=== PATIENT | female | born 1945 | race Caucasian/White ===

== ENCOUNTER 2016-06-24 16:03 | Inpatient (IN) | payer OTHER ==
[~2016-06-24] VITALS: Ht 157.5 cm; Wt 66.8 kg
[2016-06-24] MEDS ORDERED: SODIUM CHLORIDE 0.9% 500ML 500 ML IV STA ×2 (17:14→20:19)
[2016-06-24] MEDS ORDERED: SODIUM CHLORIDE 0.9% 1000ML 1,000 ML IV STA (17:14)
[2016-06-24] MEDS ORDERED: ONDA4TAB46 PO (17:17)
[2016-06-24] MEDS ORDERED: ASPI81TA28 PO (17:17)
[2016-06-24] MEDS ORDERED: ATEN50TA8 PO (17:17)
--- NOTE | 2016-06-24 17:24 | EMERGENCY ROOM VISIT NOTE ---
History Report prepared by Mariah: Christine Ortega Under the Supervision of: Dr. Manjula Lara M.D. First contact with patient: 17:03 Chief Complaint: ABDOMINAL PAIN Stated Complaint: DIZZY,SEVERE ABD PAIN,NAUSEA Nursing Triage Summary: Was told she had vertigo on monday and was dizzy and dehydrated. LBM was monday, denies seeing blood in stool. Pt pale. States she felt fine this AM but then became hot and sweaty and then cold. Abd pain. Denies nausea. History of Present Illness The patient is a 70 year old female who presents to the Emergency Room with complaints of persistent abdominal pain that started this afternoon. She rates her pain a 7/10 in severity. The patient reports recently recovering from a cold. She felt fine 6 days ago. 5 days ago, the patient became nauseous and dizzy. She was evaluated at the urgent care where she was told she was dehydrated and her blood pressure was low. The patient states that she felt fine this morning but then began experience abdominal pain and diaphoresis this afternoon. Associated symptoms include dysuria and dark colored urine. Her last bowel movement was 4 days ago. The patient denies hematochezia. Source of History: patient, family Onset: This afternoon Position: abdomen Symptom Intensity: 710 Timing: other (Persistent ) Modifying Factors (Relieving): other (None) Associated Symptoms: + urinary symptoms, No hematochezia Review of Systems See HPI for pertinent positives & negatives. A total of 10 systems reviewed and were otherwise negative. Past Medical & Surgical Medical Problems: (1) Colitis (2) Left leg DVT Surgical Problems: (1) H/O: hysterectomy Family History FH: hypertension Heart disease Social History Smoking Status: Former Smoker Alcohol Use: none Drug Use: none Marital Status: Housing Status: lives with significant other Occupation Status: unemployed Current/Historical Medications Scheduled Amoxicillin & Pot Clavulanate (Augmentin 875-125 mg), 875 MG PO BID Aspirin (Aspirin Ec), 81 MG PO DAILY Atenolol (Tenormin), 25 MG PO BID Scheduled PRN Ondansetron Hcl (Zofran), 4 MG PO TID PRN for Nausea Allergies Coded Allergies: No Known Allergies (Unverified , 06/24/16) Physical Exam Vital Signs Date Time Temp Pulse Resp B/P Pulse Ox O2 Delivery O2 Flow Rate FiO2 06/24/16 23:09 61 20 95/52 93 Room Air 06/24/16 21:23 65 20 128/75 96 Room Air 06/24/16 19:34 86 20 96/59 98 Room Air 06/24/16 18:37 56 20 120/59 92 Room Air 06/24/16 17:52 47 06/24/16 17:25 51 18 94/57 95 Room Air 06/24/16 16:14 36.6 52 18 108/62 97 Room Air Physical Exam Vital signs reviewed. General: ill-appearing female, in no significant distress. HEENT: No scleral icterus, PERRLA, neck supple. Atraumatic. Cardiovascular: Regular rate and rhythm, no extra sounds. Pulmonary: Clear to auscultation bilaterally, normal work of breathing. Abdomen: Mild suprapubic abdominal tenderness. Soft, nondistended, positive bowel sounds. Musculoskeletal: Atraumatic, no peripheral edema. Neurologic: Patient awake alert and oriented x 3, full strength in all 4 extremities. Cranial nerves 2 through 12 grossly intact. Skin: Warm, dry, no rash Medical Decision & Procedures ER Provider Diagnostic Interpretation: CT results as stated below per interpretation by me and the radiologist: CT OF THE ABDOMEN AND PELVIS WITH CONTRAST CLINICAL HISTORY: Severe lower abdominal pain and nausea. Diverticulitis. COMPARISON STUDY: None TECHNIQUE: Following IV administration of 119 mL of Optiray-320, axial images of the abdomen and pelvis were obtained from the lung bases to the proximal femurs. Images were reviewed in the axial, sagittal, and coronal planes. IV contrast was administered without complication. CT DOSE: 341.45 mGy.cm FINDINGS: There is a moderate sized hiatal hernia with partially intrathoracic stomach. The liver, spleen and right kidney are unremarkable. There is marked left renal atrophy, likely on the basis of renal artery stenosis. There are small gallstones within the gallbladder. There is trace perisplenic fluid. There is no biliary or pancreatic ductal dilatation. No pneumatosis, free air or portal venous gas is present. There is a moderate amount of stool within the colon and rectum. This extensive sigmoid diverticulosis without evidence for acute diverticulitis. Note is made of mild wall thickening with pericolonic infiltration of the splenic flexure of the colon. The appendix is normal. There is extensive atherosclerotic plaque within the abdominal aorta and the major branch vessels. There is mild narrowing at the origin the celiac axis and moderate narrowing at the origin of the superior mesenteric artery. The inferior mesenteric artery is patent. There is severe stenosis of the left renal artery with possible occlusion of the proximal left renal artery. No suspicious skeletal lesions are identified. IMPRESSION: 1. Mild wall thickening with pericolonic infiltration of the splenic flexure of the colon. This represents a nonspecific colitis and the distribution raises the possibility of ischemic colitis. However, an infectious colitis could appear similar. Moderate amount of stool within the colon. 2. Extensive sigmoid diverticulosis without evidence for acute diverticulitis. 3. Marked left renal atrophy likely on the basis of renal artery stenosis. Moderate plaque of the abdominal aorta and major branch vessels with moderate narrowing of the proximal SMA. 4. Cholelithiasis. 5. Moderate sized hiatal hernia with intrathoracic stomach. 6. Trace perisplenic ascites. Electronically signed by: Horace Richter M.D. 06/24/2016 8:07 PM Dictated Date/Time: 06/24/2016 7:52 PM Laboratory Results Test 06/24/16 16:10 06/24/16 18:28 06/24/16 20:43 Urine Color ORANGE Urine Appearance CLOUDY (CLEAR) Urine pH 5.0 (4.5-7.5) Urine Specific [place] 1.030 (1.000-1.030) Urine Protein TRACE (NEG) Urine Glucose (UA) NEG (NEG) Urine Ketones TRACE (NEG) Urine Occult Blood NEG (NEG) Urine Nitrite POS (NEG) Urine Bilirubin NEG (NEG) Urine Urobilinogen NEG (NEG) Urine Leukocyte Esterase SMALL (NEG) Urine WBC (Auto) 5-10 /hpf (0-5) Urine RBC (Auto) 5-10 /hpf (0-4) Urine Hyaline Casts (Auto) 5-10 /lpf (0-5) Urine Epithelial Cells (Auto) >30 /lpf (0-5) Urine Bacteria (Auto) NEG (NEG) Urine Renal Epithelial Cells 0-5 /lpf (0-5) Urine Crystals CALCIUM OXALATE (NONE Total Bilirubin 0.5 mg/dl (0.2-1) Direct Bilirubin < 0.1 mg/dl (0-0.2) Aspartate Amino Transf (AST/SGOT) 18 U/L (15-37) Alanine Aminotransferase (ALT/SGPT) 19 U/L (12-78) Alkaline Phosphatase 67 U/L (45-117) Total Protein 7.2 gm/dl (6.4-8.2) Albumin 3.5 gm/dl (3.4-5.0) Lipase 106 U/L (73-393) Bedside Lactic Acid Venous 3.57 mmol/L (0.90-1.70) Laboratory results per my review. Medications Administered Medications (Trade) Dose Ordered Sig/Susana Route Start Time Stop Time Status Last Admin Dose Admin Sodium Chloride 500 ml @ 999 mls/hr Q31M STAT IV 06/24/16 17:14 06/24/16 17:44 DC 06/24/16 18:04 999 MLS/HR Sodium Chloride 1,000 ml @ 125 mls/hr Q8H STAT IV 06/24/16 17:14 06/25/16 01:13 DC 06/24/16 18:36 125 MLS/HR Sodium Chloride (Nss 500ml) 500 ml @ 999 mls/hr Q31M STAT IV 06/24/16 20:19 06/24/16 20:49 DC 06/24/16 20:19 999 MLS/HR Piperacillin Sod/ Tazobactam Sod (Zosyn Iv) 4.5 gm NOW STAT IV 06/24/16 20:51 06/24/16 20:52 DC 06/24/16 21:21 4.5 GM Fentanyl Citrate (Fentanyl Inj) 50 mcg NOW STAT IV 06/24/16 21:07 06/24/16 21:08 DC 06/24/16 21:21 50 MCG Ondansetron HCl (Zofran Inj) 4 mg Q6H PRN IV 06/24/16 22:00 06/26/16 17:26 DC 06/25/16 22:58 4 MG Morphine Sulfate (MoRPHine SULFATE INJ) 4 mg Q2H PRN IV 06/24/16 22:00 06/26/16 17:26 DC 06/24/16 23:08 4 MG ED Course 1710: Past medical records reviewed. The patient was evaluated in room C8. A complete history and physical examination was performed. 1714: Ordered Sodium Chloride 1,000 ml @ 125 mls/hr IV, Sodium Chloride 500 ml @ 999 mls/hr IV. 2019: Ordered Sodium Chloride 500 ml @ 999 mls/hr IV. 0: The patient's lactate is 3.5 2050: Ordered Zosyn IV 4.5 gm IV. 2106: Ordered Fentanyl Injection 50 mcg IV. 2054: I discussed the patient's case with Dr. Arnold (Surgery). He is aware of the patient's condition and is awaiting mesenteric Doppler results. 2057: I discussed the patient's case with Dr. Rojas ([facility] [place]). He will evaluate the patient for further management and care. Medical Decision DDx: UTI, diverticulitis, colitis, ischemic bowel, appendicitis, cholecystitis, kidney stone This pt was evaluated and appeared to be in no distress. IV access was obtained and lab work was drawn. PT was placed on the last repairer helper. Pt was hydrated with NSS, given IV fentanyl for pain. Lab work reveals a leukocytosis , elevated lactate. UA is not overwhelming for infection. CT abd pelvis is concerning for ischemic colitis. Pt was medicated with IV zosyn and d/w general surgery Dr Arnold. Dr Bull of the hospitalist service will evaluate the pt for admission and gen surgery to consult. Pt was made aware of the plan and agrees. Consults Time Called: 2050 Consulting Physician: Dr. Arnold (Surgery) Returned Call: 2054 I discussed the patient's case with Dr. Arnold (Surgery). He is aware of the patient's condition and is awaiting mesenteric Doppler results Additional Consults: Time Called: 2054 Consulted Physician: Dr. Rojas ([facility] [place]) Returned Call: 2057 Additional Comments: I discussed the patient's case with Dr. Rojas ([facility] [place]). He will evaluate the patient for further management and care. Impression Primary Impression: Ischemic colitis Scribe Attestation The scribe's documentation has been prepared under my direction and personally reviewed by me in its entirety. I confirm that the note above accurately reflects all work, treatment, procedures, and medical decision making performed by me. Departure Information Dispostion Being Evaluated By Hospitalist Prescriptions Amoxicillin & Pot Clavulanate (Augmentin 875-125 mg) 1 Tab Tab 875 MG PO BID, #14 TAB Prov: Shon Bertrand M.D. 06/26/16 Referrals Mauri Diallo M.D. (PCP) Patient Instructions My [facility]
[2016-06-24] MEDS ORDERED: OPTIRAY 320 IV PRN (17:30)
[2016-06-24 17:57] LABS: URINE APPEARANCE CLOUDY (CLEAR); URINE COLOR ORANGE; URINE EPITHELIAL CELL AUTO >30 /lpf (0-5); URINE NITRITE POS (NEG); UROBILINOGEN NEG (NEG); ZZUR CULT IF INDIC CLEAN CATCH NO
[2016-06-24 18:20] LABS: MANUAL MICROSCOPIC REQUIRED? NO; REVIEW REQ? YES; URINE BILIRUBIN NEG (NEG)
[2016-06-24 19:05] LABS: ALT/SGPT 19 U/L (12-78); AST/SGOT 18 U/L (15-37); BLOOD UREA NITROGEN 17 mg/dl (7-18); BUN/CREATININE RATIO 10.7 (10-20); CALCIUM 8.7 mg/dl (8.5-10.1); CARBON DIOXIDE 26 mmol/L (21-32); CHLORIDE 102 mmol/L (98-107); GLUCOSE 149 mg/dl (70-99); MAGNESIUM 2.7 mg/dl (1.8-2.4); POTASSIUM 4.3 mmol/L (3.5-5.1); SODIUM 138 mmol/L (136-145)
[2016-06-24 19:07] LABS: BASO % 0.1 %; BASO ABS # 0.02 K/uL (0-0.2); COMPLETE YES; EOS % 0.1 %; HEMATOCRIT 38.5 % (37-47); IG% 0.2 %; LYMPH % 8.2 %; LYMPH ABS # 1.39 K/uL (1.2-3.4); MEAN CELL VOLUME 92.1 fL (80-100); MEAN CORPUSCULAR HEMOGLOBIN 30.4 pg (25-34); MEAN PLATELET VOLUME 12.3 fL (7.4-10.4); MONO % 7.7 %; NEUT % 83.7 %; PLATELET COUNT 215 K/uL (130-400); RED BLOOD COUNT 4.18 M/uL (4.2-5.4); WHITE BLOOD COUNT 16.92 K/uL (4.8-10.8)
[2016-06-24 19:08] LABS: ALKALINE PHOSPHATASE 67 U/L (45-117)
--- NOTE | 2016-06-24 20:08 | DIAGNOSTIC IMAGING REPORT ---
CT OF THE ABDOMEN AND PELVIS WITH CONTRAST CLINICAL HISTORY: Severe lower abdominal pain and nausea. Diverticulitis. COMPARISON STUDY: None TECHNIQUE: Following IV administration of 119 mL of Optiray-320, axial images of the abdomen and pelvis were obtained from the lung bases to the proximal femurs. Images were reviewed in the axial, sagittal, and coronal planes. IV contrast was administered without complication. CT DOSE: 341.45 mGy.cm FINDINGS: There is a moderate sized hiatal hernia with partially intrathoracic stomach. The liver, spleen and right kidney are unremarkable. There is marked left renal atrophy, likely on the basis of renal artery stenosis. There are small gallstones within the gallbladder. There is trace perisplenic fluid. There is no biliary or pancreatic ductal dilatation. No pneumatosis, free air or portal venous gas is present. There is a moderate amount of stool within the colon and rectum. This extensive sigmoid diverticulosis without evidence for acute diverticulitis. Note is made of mild wall thickening with pericolonic infiltration of the splenic flexure of the colon. The appendix is normal. There is extensive atherosclerotic plaque within the abdominal aorta and the major branch vessels. There is mild narrowing at the origin the celiac axis and moderate narrowing at the origin of the superior mesenteric artery. The inferior mesenteric artery is patent. There is severe stenosis of the left renal artery with possible occlusion of the proximal left renal artery. No suspicious skeletal lesions are identified. IMPRESSION: 1. Mild wall thickening with pericolonic infiltration of the splenic flexure of the colon. This represents a nonspecific colitis and the distribution raises the possibility of ischemic colitis. However, an infectious colitis could appear similar. Moderate amount of stool within the colon. 2. Extensive sigmoid diverticulosis without evidence for acute diverticulitis. 3. Marked left renal atrophy likely on the basis of renal artery stenosis. Moderate plaque of the abdominal aorta and major branch vessels with moderate narrowing of the proximal SMA. 4. Cholelithiasis. 5. Moderate sized hiatal hernia with intrathoracic stomach. 6. Trace perisplenic ascites. Electronically signed by: Horace Richter M.D. 06/24/2016 8:07 PM Dictated Date/Time: 06/24/2016 7:52 PM
[2016-06-24] MEDS ORDERED: PIPERACILLIN/TAZOBACTAM 4.5 GM/100ML D5W IV STA (20:51)
[2016-06-24] MEDS ORDERED: FENTANYL CITRATE INJ 50 MCG/1 ML 2 ML VIAL IV STA (21:07)
[2016-06-24] MEDS ORDERED: LORAZEPAM 2 MG/ML 1 ML VIAL IV PRN (22:00)
[2016-06-24] MEDS ORDERED: BISACODYL 10 MG SUPP PR PRN (22:00)
[2016-06-24] MEDS ORDERED: ONDANSETRON INJ 2 MG/ML 2 ML VIAL IV PRN (22:00)
[2016-06-24] MEDS ORDERED: ACETAMINOPHEN IV 100 ML IV PRN (22:00)
[2016-06-24] MEDS ORDERED: PROMETHAZINE HCL INJ 12.5 MG in SODIUM CHLORIDE 0.9% 50ML 50 ML IV PRN (22:00)
[2016-06-24] MEDS ORDERED: ZOLPIDEM TARTRATE 5 MG TAB PO PRN (22:00)
[2016-06-24] MEDS ORDERED: MoRPHine SULFATE 2 MG/ML CARP IV PRN (22:00)
[2016-06-24] MEDS ORDERED: MoRPHine SULFATE 4 MG/ML 1 ML CARP\\VIAL IV PRN (22:00)
[2016-06-24] MEDS ORDERED: ACETAMINOPHEN 325 MG TAB PO PRN (22:00)
[2016-06-24] MEDS ORDERED: DiphenhydrAMINE HCL 50 MG/ML VIAL IV PRN (22:00)
[2016-06-24] MEDS ORDERED: PIPERACILL/TAZOBAC CONSULT ACTIVE PRN (22:30)
--- NOTE | 2016-06-24 22:57 | DIAGNOSTIC IMAGING REPORT ---
DOPPLER ULTRASOUND OF THE MAJOR MESENTERIC VESSELS CLINICAL HISTORY: Ischemic colitis. COMPARISON STUDY: CT of the abdomen and pelvis June 24, 2016. TECHNIQUE: Color and duplex Doppler sonography of the abdominal aorta and major mesenteric vessels was attempted. FINDINGS: The abdominal aorta and major mesenteric vessels were obscured by overlying bowel gas. This exam was nondiagnostic. IMPRESSION: Nondiagnostic evaluation of the abdominal aorta and mesenteric vessels given overlying bowel gas. These vessels were obscured on this study. Electronically signed by: Horace Richter M.D. 06/24/2016 10:55 PM Dictated Date/Time: 06/24/2016 10:52 PM
[2016-06-25] VITALS (8 sets, daily range): BP systolic 86–134; BP diastolic 44–90; PULSE 63–71; TEMP 36.6–39.9; O2SAT 93–94; Ht 157.5 cm; Wt 66.8 kg
[2016-06-25] MEDS ORDERED: NSS + 20MEQ KCL 1000ML 1,000 ML IV SCH (03:00)
--- NOTE | 2016-06-25 03:02 | History and Physical ---
History & Physical Date & Time of Service: Jun 25, 2016 at 02:49 Chief Complaint: Dizzy,Severe Abd Pain,Nausea Primary Care Physician: Mauri Diallo M.D. History of Present Illness Source: patient, family, spouse The patient is a 70-year-old female who presents to the emergency department with abdominal pain and sweats that began in the afternoon prior to arrival. She reports that 5 days ago she became nauseous and dizzy, was seen at an urgent care and was told she was dehydrated and that her blood pressure was low. She has also developed discomfort with urination and dark colored urine. Her last bowel movement was 4 days ago. She has not had any recent travel, and has not had any sick exposures. Past Medical/Surgical History Medical Problems: (1) Left leg DVT Status: Resolved Surgical Problems: (1) H/O: hysterectomy Status: Resolved Family History FH: hypertension Heart disease Social History Smoking Status: Former Smoker Smokeless Tobacco Use: No Alcohol Use: none Drug Use: none Marital Status: Housing status: lives with family Occupational Status: unemployed Allergies Coded Allergies: No Known Allergies (Unverified , 06/24/16) Home Medications Scheduled Aspirin (Aspirin Ec), 81 MG PO DAILY Atenolol (Tenormin), 25 MG PO BID Scheduled PRN Ondansetron Hcl (Zofran), 4 MG PO TID PRN for Nausea Review of Systems The patient denies chest pain, palpitations, shortness of breath, cough, lower extremity swelling, vision change, hearing change, sore throat, fevers, chills, sweats, weight change, urinary frequency or urgency, lightheadedness, dizziness , headache, memory loss, rash, abnormal bruising or bleeding, imbalance, focal weakness, numbness or tingling in arms or legs, arthralgias or myalgias, back or neck pain, night sweats, or allergy symptoms. The review of systems is otherwise negative other than for that already noted above, and at least 10 systems have been reviewed. Physical Exam Vital Signs Date Time Temp Pulse Resp B/P Pulse Ox O2 Delivery O2 Flow Rate FiO2 06/25/16 02:27 66 20 104/60 06/25/16 02:18 63 20 88/51 91 Nasal Cannula 2.0 06/25/16 00:15 64 06/25/16 00:00 64 20 100/70 93 Nasal Cannula 2.0 06/24/16 23:09 61 20 95/52 93 Room Air 06/24/16 21:23 65 20 128/75 96 Room Air 06/24/16 19:34 86 20 96/59 98 Room Air 06/24/16 18:37 56 20 120/59 92 Room Air 06/24/16 17:52 47 06/24/16 17:25 51 18 94/57 95 Room Air 06/24/16 16:14 36.6 52 18 108/62 97 Room Air The patient is awake, well-developed and adequately nourished, alert and oriented 3, normocephalic and atraumatic, lying in bed and is in mild distress secondary to abdominal pain. HEENT--PERRL, EOMI, mucous membranes and oropharynx dry. Neck--supple, no JVD or bruits, thyroid normal, trachea midline, no adenopathy. Heart--normal S1 and S2, no extra beats, no murmurs, rubs or gallops. Lungs--clear bilaterally, no respiratory distress, no accessory muscle use. Abdomen--decreased bowel sounds, soft, left upper quadrant pain, nondistended. Extremities--no cyanosis, clubbing or edema. There are good distal pulses b/l. Dermatologic--normal skin turgor, normal color, warm and dry, no abnormal lymph nodes, no rash. Neurologic--cranial nerves II through XII grossly intact, motor and sensory examination normal. Rheumatologic--normal range of motion, nontender, muscles and joints. Psychiatric--normal affect. Diagnostics Laboratory Results Results Past 24 Hours Test 06/24/16 16:10 06/24/16 18:28 06/24/16 20:43 Range/Units Urine Color ORANGE Urine Appearance CLOUDY CLEAR Urine pH 5.0 4.5-7.5 Urine Specific [place] 1.030 1.000-1.030 Urine Protein TRACE NEG Urine Glucose (UA) NEG NEG Urine Ketones TRACE NEG Urine Occult Blood NEG NEG Urine Nitrite POS NEG Urine Bilirubin NEG NEG Urine Urobilinogen NEG NEG Urine Leukocyte Esterase SMALL NEG Urine WBC (Auto) 5-10 0-5 /hpf Urine RBC (Auto) 5-10 0-4 /hpf Urine Hyaline Casts (Auto) 5-10 0-5 /lpf Urine Epithelial Cells (Auto) >30 0-5 /lpf Urine Bacteria (Auto) NEG NEG Urine Renal Epithelial Cells 0-5 0-5 /lpf Urine Crystals CALCIUM OXALATE NONE PRSENT White Blood Count 16.92 4.8-10.8 K/uL Red Blood Count 4.18 4.2-5.4 M/uL Hemoglobin 12.7 12.0-16.0 g/dL Hematocrit 38.5 37-47 % Mean Corpuscular Volume 92.1 80-100 fL Mean Corpuscular Hemoglobin 30.4 25-34 pg Mean Corpuscular Hemoglobin Concent 33.0 32-36 g/dl Platelet Count 215 130-400 K/uL Mean Platelet Volume 12.3 7.4-10.4 fL Neutrophils (%) (Auto) 83.7 % Lymphocytes (%) (Auto) 8.2 % Monocytes (%) (Auto) 7.7 % Eosinophils (%) (Auto) 0.1 % Basophils (%) (Auto) 0.1 % Neutrophils # (Auto) 14.14 1.4-6.5 K/uL Lymphocytes # (Auto) 1.39 1.2-3.4 K/uL Monocytes # (Auto) 1.31 0.11-0.59 K/uL Eosinophils # (Auto) 0.02 0-0.5 K/uL Basophils # (Auto) 0.02 0-0.2 K/uL RDW Standard Deviation 46.2 36.4-46.3 fL RDW Coefficient of Variation 13.8 11.5-14.5 % Immature Granulocyte % (Auto) 0.2 % Immature Granulocyte # (Auto) 0.04 0.00-0.02 K/uL Sodium Level 138 136-145 mmol/L Potassium Level 4.3 3.5-5.1 mmol/L Chloride Level 102 98-107 mmol/L Carbon Dioxide Level 26 21-32 mmol/L Anion Gap 10.0 3-11 mmol/L Blood Urea Nitrogen 17 7-18 mg/dl Creatinine 1.60 0.60-1.20 mg/dl Est Creatinine Clear Calc Drug Dose 28.5 ml/min Estimated GFR () 36.9 Estimated GFR (Non- 31.9 BUN/Creatinine Ratio 10.7 10-20 Random Glucose 149 70-99 mg/dl Calcium Level 8.7 8.5-10.1 mg/dl Magnesium Level 2.7 1.8-2.4 mg/dl Total Bilirubin 0.5 0.2-1 mg/dl Direct Bilirubin < 0.1 0-0.2 mg/dl Aspartate Amino Transf (AST/SGOT) 18 15-37 U/L Alanine Aminotransferase (ALT/SGPT) 19 12-78 U/L Alkaline Phosphatase 67 45-117 U/L Total Protein 7.2 6.4-8.2 gm/dl Albumin 3.5 3.4-5.0 gm/dl Lipase 106 73-393 U/L Bedside Lactic Acid Venous 3.57 0.90-1.70 mmol/L Diagnostic Radiology Patient Name: TAYLOR CRAWLEY Unit Number: [id number] Dictated: 06/24/161951 Transcribed: 06/24/161951 [place] Printed Date/Time: [~ rep prt dt]/[~ rep prt tm] [~ rep ct labl] - [~ rep ct ivnm] [facility] [place] [address] Dictated: 06/24/161951 Transcribed: 06/24/161951 JA Printed Date/Time: [~ rep prt dt]/[~ rep prt tm] [~ rep ct labl] - [~ rep ct ivnm] CT OF THE ABDOMEN AND PELVIS WITH CONTRAST CLINICAL HISTORY: Severe lower abdominal pain and nausea. Diverticulitis. COMPARISON STUDY: None TECHNIQUE: Following IV administration of 119 mL of Optiray-320, axial images of the abdomen and pelvis were obtained from the lung bases to the proximal femurs. Images were reviewed in the axial, sagittal, and coronal planes. IV contrast was administered without complication. CT DOSE: 341.45 mGy.cm FINDINGS: There is a moderate sized hiatal hernia with partially intrathoracic stomach. The liver, spleen and right kidney are unremarkable. There is marked left renal atrophy, likely on the basis of renal artery stenosis. There are small gallstones within the gallbladder. There is trace perisplenic fluid. There is no biliary or pancreatic ductal dilatation. No pneumatosis, free air or portal venous gas is present. There is a moderate amount of stool within the colon and rectum. This extensive sigmoid diverticulosis without evidence for acute diverticulitis. Note is made of mild wall thickening with pericolonic infiltration of the splenic flexure of the colon. The appendix is normal. There is extensive atherosclerotic plaque within the abdominal aorta and the major branch vessels. There is mild narrowing at the origin the celiac axis and moderate narrowing at the origin of the superior mesenteric artery. The inferior mesenteric artery is patent. There is severe stenosis of the left renal artery with possible occlusion of the proximal left renal artery. No suspicious skeletal lesions are identified. IMPRESSION: 1. Mild wall thickening with pericolonic infiltration of the splenic flexure of the colon. This represents a nonspecific colitis and the distribution raises the possibility of ischemic colitis. However, an infectious colitis could appear similar. Moderate amount of stool within the colon. 2. Extensive sigmoid diverticulosis without evidence for acute diverticulitis. 3. Marked left renal atrophy likely on the basis of renal artery stenosis. Moderate plaque of the abdominal aorta and major branch vessels with moderate narrowing of the proximal SMA. 4. Cholelithiasis. 5. Moderate sized hiatal hernia with intrathoracic stomach. 6. Trace perisplenic ascites. Electronically signed by: Horace Richter M.D. 06/24/2016 8:07 PM Dictated Date/Time: 06/24/2016 7:52 PM The status of this report is Signed. Draft = Not yet reviewed or approved by Radiologist. Signed = Reviewed and approved by Radiologist. <AttendingPhy></AttendingPhy> <FamilyPhy>Mauri Diallo M.D.</FamilyPhy> < PrimaryPhy>Mauri Diallo M.D.</PrimaryPhy> <UnitNumber>[id number]</UnitNumber> <VisitNumber>[id number]</VisitNumber> <PatientName>TAYLOR CRAWLEY</PatientName > <DateOfBirth>1945</DateOfBirth> <Location>[facility]</Location> <ServiceDate> 06/24/16</ServiceDate> <MNE>ESINDI</MNE> <OrderingPhy>Manjula Lara M.D. </OrderingPhy> <OrderingPhyMNE>f rep ord dr moore</OrderingPhyMNE> < DictatingPhyMNE>f rep dict dr moore</DictatingPhyMNE> <CCListMNE>f rep ct francise</ CCListMNE> <AdmittingPhyMNE>f pt admit dr moore</AdmittingPhyMNE> <AttendingPhyMNE >f pt attend dr moore</AttendingPhyMNE> <ConsultingPhyMNE>f pt consult dr moore</ConsultingPhyMNE> <FamilyPhyMNE>f pt fam dr moore</FamilyPhyMNE> <OtherPhyMNE>f pt other dr moore</OtherPhyMNE> < PrimaryPhyMNE>f pt prim care dr moore</PrimaryPhyMNE> <ReferringPhyMNE>f pt referring dr moore</ReferringPhyMNE> Patient Name: TAYLOR CRAWLEY Unit Number: [id number] Dictated: 06/24/162251 Transcribed: 06/24/162251 JA Printed Date/Time: [~ rep prt dt]/[~ rep prt tm] [~ rep ct labl] - [~ rep ct ivnm] [facility] Radiology Department [place] [id number] Dictated: 06/24/162251 Transcribed: 06/24/162251 JA Printed Date/Time: [~ rep prt dt]/[~ rep prt tm] [~ rep ct labl] - [~ rep ct ivnm] [~ rep ct add3]] DOPPLER ULTRASOUND OF THE MAJOR MESENTERIC VESSELS CLINICAL HISTORY: Ischemic colitis. COMPARISON STUDY: CT of the abdomen and pelvis June 24, 2016. TECHNIQUE: Color and duplex Doppler sonography of the abdominal aorta and major mesenteric vessels was attempted. FINDINGS: The abdominal aorta and major mesenteric vessels were obscured by overlying bowel gas. This exam was nondiagnostic. IMPRESSION: Nondiagnostic evaluation of the abdominal aorta and mesenteric vessels given overlying bowel gas. These vessels were obscured on this study. Electronically signed by: Horace Richter M.D. 06/24/2016 10:55 PM Dictated Date/Time: 06/24/2016 10:52 PM The status of this report is Signed. Draft = Not yet reviewed or approved by Radiologist. Signed = Reviewed and approved by Radiologist. <AttendingPhy></AttendingPhy> <FamilyPhy>Mauri Diallo M.D.</FamilyPhy> < PrimaryPhy>Mauri Diallo M.D.</PrimaryPhy> <UnitNumber>[id number]</UnitNumber> <VisitNumber>[id number]</VisitNumber> <PatientName>TAYLOR CRAWLEY</PatientName > <DateOfBirth>1945</DateOfBirth> <Location>[facility]</Location> <ServiceDate> 06/24/16</ServiceDate> <MNE>ESINDI</MNE> <OrderingPhy>Raudel Rojas M.D.< /OrderingPhy> <OrderingPhyMNE>f rep ord dr moore</OrderingPhyMNE> <DictatingPhyMNE >f rep dict dr moore</DictatingPhyMNE> <CCListMNE>f rep ct teresa</CCListMNE> < AdmittingPhyMNE>f pt admit dr moore</AdmittingPhyMNE> <AttendingPhyMNE>f pt attend dr moore</AttendingPhyMNE> <ConsultingPhyMNE>f pt consult dr moore</ConsultingPhyMNE> <FamilyPhyMNE>f pt fam dr moore</FamilyPhyMNE> <OtherPhyMNE>f pt other dr moore</OtherPhyMNE> < PrimaryPhyMNE>f pt prim care dr moore</PrimaryPhyMNE> <ReferringPhyMNE>f pt referring dr moore</ReferringPhyMNE> EKG EKG shows sinus bradycardia at 48 bpm, nonspecific T-wave flattening inferior laterally. Impression Assessment and Plan Splenic flexure Colitis--the patient will be admitted to the medical floor. CT scan initially questioned a possibility of infectious versus ischemic etiology. Mesenteric Dopplers were nonrevealing due to overlying bowel gas. MRA of the abdomen showed a moderate degree of stenosis of the proximal SMA without occlusion, with celiac artery having a mild stenosis near its origin but widely patent, patent inferior mesenteric artery, occluded left renal artery, right renal artery with mild stenosis and normal iliac arteries bilaterally. The patient will be placed on Zosyn 3.375 mg IV every 8 hours, pantoprazole 40 mg IV daily, Zofran 4 mg IV every 6 hours when necessary, morphine sulfate 2-4 mg IV every 2 hours when necessary, and NSS at 100 ML's per hour. Hypertension/renal insufficiency--continue atenolol 25 mg by mouth twice a day. IV fluids as noted above, and follow serial BMP and magnesium levels. Level of Care Med/Surg Advanced Directives Existing Advance Directive: No Existing Living Will: No Existing Power of Pododermatologist: No Resuscitation Status FULL RESUSCITATION VTE Prophylaxis VTE Risk Assessment Done? Y/N: Yes Risk Level: Moderate Given or contraindicated: SCD's Social Service Consult None Apply
[2016-06-25] MEDS: SODIUM CHLORIDE 0.9% 1000ML 1,000 ML IV SCH ×3 (03:55→22:58)
[2016-06-25] MEDS: PIPERACILL/TAZOBAC IV 3.375 GM in DEXTROSE 5% 100ML 100 ML IV SCH ×3 (04:46→19:21)
[2016-06-25 05:14] LABS: HEMATOCRIT 34.5 % (37-47); MEAN CORPUSCULAR HEMOGLOBIN 30.4 pg (25-34); MEAN PLATELET VOLUME 11.4 fL (7.4-10.4); PLATELET COUNT 187 K/uL (130-400); RED BLOOD COUNT 3.75 M/uL (4.2-5.4)
[2016-06-25] MEDS ORDERED: ACETAMINOPHEN 325 MG TAB PO PRN (05:30)
[2016-06-25 05:32] LABS: BUN/CREATININE RATIO 12.3 (10-20); CALCIUM 7.5 mg/dl (8.5-10.1); CREATININE 1.6 mg/dl (0.60-1.20); MAGNESIUM 2.3 mg/dl (1.8-2.4)
[2016-06-25 05:38] LABS: BASO % 0.1 %; BASO ABS # 0.01 K/uL (0-0.2); COMPLETE YES; IG% 0.3 %; LYMPH % 7.5 %; MONO % 8.4 %; NEUT % 83.7 %
--- NOTE | 2016-06-25 07:25 | DIAGNOSTIC IMAGING REPORT ---
ENHANCED MR ANGIOGRAPHY OF THE ABDOMEN CLINICAL HISTORY: Severe abdominal pain. Evaluate for ischemic colitis. COMPARISON STUDY: CT scan dated 06/24/2016 FINDINGS: The patient was scanned. Patient was administered 20 cc of intravenous Magnevist. There is a hiatal hernia present. No hepatic splenic or pancreatic masses are visualized. There is marked left renal atrophy. The patient was unable to fully cooperate with breath-holding, and the examination is limited from a technical standpoint. There is no evidence of hemodynamic significant aortic or iliac stenosis. 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 There is a mild stenosis involving the proximal celiac artery. The inferior mesenteric artery is patent There is sigmoid diverticulosis. There is mild thickening of the splenic flexure. The findings are consistent with a colitis. IMPRESSION: 1. Moderately limited study from a technical standpoint as the patient was not able to cooperate with breath holding 2. Persistent mild bowel wall thickening involving the splenic flexure, consistent with a colitis 3. Sigmoid diverticulosis 4. Marked left renal atrophy 5. 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 Electronically signed by: Morris Harris M.D. 06/25/2016 7:24 AM Dictated Date/Time: 06/25/2016 7:16 AM
[2016-06-25] MEDS: ASPIRIN 81 MG ECTAB PO SCH (08:42)
--- NOTE | 2016-06-25 15:35 | Progress Note ---
Progress Note Date of Service Jun 25, 2016. Progress Note PA Physician Supervision Note: I interviewed and examined the patient. Discussed with El FERNANDO and agree with findings and plan as documented in the note. Any exceptions or clarifications are listed here: None Pt admitted with colitis with concerns for ischemic colitis, MRI notes moderate sma stenosis, celiac stenosis, and lack of visualization of left renal artery, no pain today thought and renal function is preserved MRI is supportive of ischemic colitis vitals stable but bp a bit low at times I reviewed labs and mri scan 06/25 ischemic colitis, continue antibiotics for mucosa injury and supportive care, should be self limiting but may benefit from eventual vascular surgery consult Documented By: Shon Bertrand
[2016-06-26] MEDS: PIPERACILL/TAZOBAC IV 3.375 GM in DEXTROSE 5% 100ML 100 ML IV SCH ×2 (03:43→12:05)
[2016-06-26 06:43] LABS: BASO % 0.1 %; BASO ABS # 0.01 K/uL (0-0.2); COMPLETE YES; EOS % 0.8 %; HEMATOCRIT 30.2 % (37-47); IG% 0.2 %; LYMPH % 20.4 %; LYMPH ABS # 2.59 K/uL (1.2-3.4); MEAN CELL VOLUME 91.2 fL (80-100); MEAN CORPUSCULAR HEMOGLOBIN 29.9 pg (25-34); MEAN CORPUSCULAR HGB CONC 32.8 g/dl (32-36); MEAN PLATELET VOLUME 11.6 fL (7.4-10.4); MONO % 6.4 %; NEUT % 72.1 %; PLATELET COUNT 160 K/uL (130-400); RED BLOOD COUNT 3.31 M/uL (4.2-5.4); WHITE BLOOD COUNT 12.68 K/uL (4.8-10.8)
[2016-06-26 07:05] VITALS: BP 99/60; PULSE 65; TEMP 37; O2SAT 91
[2016-06-26 07:16] LABS: BUN/CREATININE RATIO 13.5 (10-20); CALCIUM 7.4 mg/dl (8.5-10.1); CREATININE 1.4 mg/dl (0.60-1.20); MAGNESIUM 2.3 mg/dl (1.8-2.4); POTASSIUM 3.5 mmol/L (3.5-5.1)
[2016-06-26] MEDS: ASPIRIN 81 MG ECTAB PO SCH (08:00)
[2016-06-26 08:01] VITALS: BP 116/75
[2016-06-26] MEDS: SODIUM CHLORIDE 0.9% 1000ML 1,000 ML IV SCH (08:42)
--- NOTE | 2016-06-26 14:18 | PROGRESS NOTE ---
DATE: 06/25/2016 PROBLEM LIST: Includes: 1. Splenic flexure colitis. 2. Hypertension. 3. Renal insufficiency. 4. Left renal artery occlusion. HISTORY OF PRESENT ILLNESS: The patient is a 70-year-old female who presented to the Emergency Department on 06/24/2016 with abdominal pain and sweats that began earlier in the day prior to arrival. She actually had a prolonged course of about 5 days' where she did not feel well. She presented to an urgent care facility and was told she is dehydrated and had low blood pressure and was sent home. Following that for about 2 days, she did feel relatively well and then unfortunately her symptoms returned. She started feeling worse. She also reports that her urine had become very dark and that she had discomfort with urination and that was very foul odor. She was worked up in the ER, was found to have a splenic flexure colitis. There was some question of possibility of ischemic colitis. An MRI was unremarkable. Though the mesenteric arteries; however, did show occlusion of the left renal artery, moderate stenosis of the right renal artery. The patient was started on antibiotic coverage with Zosyn. She was also given GI prophylaxis with pantoprazole and antiemetic with Zofran as needed. She is also rehydrated with normal sterile saline at 100 mL per hour. When I saw the patient today, she reported that she is feeling better. She states that she had quite significant bowel movement overnight x2 and since then the pain has been improving. She has been feeling better. She states that she is not having any abdominal pain at this time. She has no nausea and she is actually feeling pretty well. She has been n.p.o. since admission. She states that she would like to start eating and that she is very thirsty. She reports that her urine is still very dark in color and there is still foul odor to it, she still is having some dysuria as well. She denies any other concerns or problems at this time. She denies any headache or lightheadedness today. She is not having any dizziness today. She is not having any visual changes. She states that her mouth is dry, but otherwise no problems. She feels that this is from not being able to drink anything. She states that she is not having difficulty with choking. She is not having any difficulty with her speech. Her breathing is good. She has no cough or wheeze. She has no chest congestion or tightness. She has no increased shortness of breath. She denies any chest discomfort or chest pain or palpitation. She has no chest heaviness. GI as discussed earlier, urinary as discussed earlier. She does not have any swelling in her extremities. She has no numbness, tingling or weakness in her extremities. She did have SCDs on and felt that they were very helpful for her. She denies any other concerns or problems at this time. PHYSICAL EXAMINATION: GENERAL: The patient is a 70-year-old female lying in bed. She is alert and oriented x3. She is interactive and cooperative. Mood is good. Affect is good. VITAL SIGNS: Temp 37.1, pulse 70, respirations 18, blood pressure is 134/90, pulse ox 94% on room air. The patient is in no respiratory distress. HEENT: Pupils equal, round and reactive to light and accommodation. Extraocular movements are intact. [place] moist gingival and buccal mucosa. No oropharyngeal erythema or edema. HEAD: Normocephalic. No tenderness to palpation. NECK: Supple. No mass. No adenopathy. No bruit. No JVD noted. Good range of motion. CHEST: Diminished breath sounds bilaterally, but otherwise clear. There are no wheeze, rales or rhonchi appreciated. CARDIOVASCULAR: Regular rate and rhythm. There are no murmurs, no gallops or rubs appreciated. ABDOMEN: Bowel sounds present in all 4 quadrants. ABDOMEN: Soft, nondistended on palpation. There is no tenderness to palpation either with light or deep palpation. There is no guarding or rigidity. There is no organomegaly. EXTREMITIES: The patient has no erythema or edema. There is no tenderness to palpation. SCDs are in place. There is no cyanosis or clubbing noted. Distal pulses are full and equal. NEUROLOGIC: Cranial nerves II through XII are intact. No focal deficit noted. LABORATORY DATA: Shows white count of 16,000, H\T\H of 11.4 and 34.5, platelet count of 187,000. BUN 20, creatinine is 1.6. We do not have any previous renal creatinine levels for comparison. Urine done yesterday in the ER shows 5-10 white blood cells per high power field, 5-10 red blood cells per high power field, calcium oxalate crystals present, small leukocyte esterase. IMPRESSION: 1. Splenic flexure colitis by imaging study, unsure of the etiology, although this appeared to be possibly secondary to ischemia based on MRA results. Also possible to be infectious in nature. The patient is symptomatically better today and pain has resolved completely. Also question of some of the discomfort she is having is from some retained stool in the colon. At this point, would recommend to continue Zosyn, continue Protonix and Zofran as needed. We will discuss with Dr. Bertrand about reinstituting diet starting with clear liquid and advance as patient tolerates. At this point, will continue IV fluids at current level. 2. Possible urinary tract infection. The patient's urine continues to be abnormal. Urinalysis was done in the ER with a reflexive culture and sensitivity, still waiting on that. 3. Renal insufficiency, the patient's creatinine is 1.6. By MRI the patient does have a left renal artery occlusion, question if this is the cause of this. The patient may need to be followed up with urology as an outpatient. We will continue to monitor her renal profile while hospitalized. 4. Hypertension, the patient is stable and she is to continue her atenolol 25 mg by mouth twice a day. 5. Deep venous thrombosis prophylaxis. The patient is receiving SCDs. At this point I recommend to continue her hospitalization with the patient due to n.p.o. status and IV medications. ARPITD
[2016-06-26] MEDS ORDERED: AMOX875T PO (14:26)
--- NOTE | 2016-06-26 14:28 | Discharge Instructions ---
Discharge Instructions Admission Reason for Admission: Colitis Discharge Discharge Diagnosis / Problem: ischemic colitis Discharge Goals Goal(s): Diagnostic testing, Therapeutic intervention Activity Recommendations Activity Limitations: resume your previous activity . Instructions / Follow-Up Instructions / Follow-Up Please contact you Primary care for follow up and to refer for colonoscopy in approximately 6 weeks You may still see occasional small amounts of blood in your stool, if excessive or if pain or fever return for an evaluation Current Hospital Diet Patient's current hospital diet: Regular Diet Discharge Diet Recommended Diet: Regular Diet Pending Studies Studies pending at discharge: no Medical Emergencies . Who to Call and When: Medical Emergencies: If at any time you feel your situation is an emergency, please call 911 immediately. . Non-Emergent Contact Non-Emergency issues call your: Primary Care Provider Call Non-Emergent contact if: temperature is above 101, your pain is unusual for you . . "Provider Documentation" section prepared by Shon Bertrand. VTE Core Measure Inpt VTE Proph given/why not?: SCD's
--- NOTE | 2016-06-26 14:31 | Discharge Summary ---
Discharge Summary Date of Service Jun 26, 2016. Discharge Summary Admission Date: Jun 24, 2016 at 23:13 Discharge Date: Jun 26, 2016 Discharge Disposition: Home Principal Diagnosis: ischemic colitis Procedures: MRI abd:1. Moderately limited study from a technical standpoint as the patient was not able to cooperate with breath holding 2. Persistent mild bowel wall thickening involving the splenic flexure, consistent with a colitis 3. Sigmoid diverticulosis 4. Marked left renal atrophy 5. 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 Medication Reconciliation New Medications: Amoxicillin & Pot Clavulanate (Augmentin 875-125 mg) 1 Tab Tab 875 MG PO BID, #14 TAB Continued Medications: Aspirin (Aspirin Ec) 81 Mg Tab 81 MG PO DAILY Atenolol (Tenormin) 50 Mg Tab 25 MG PO BID, TAB Ondansetron Hcl (Zofran) 4 Mg Tab 4 MG PO TID PRN for Nausea, TAB Discharge Exam Review of Systems: Constitutional: No chills, No fever, No weakness Respiratory: No cough, No shortness of breath, No sputum Cardiovascular: No chest pain, No edema Abdomen: No diarrhea, No nausea, No pain, No vomiting Genitourinary - Female: No dysuria, No hematuria Psychiatric: No anxiety, No depression symptoms Endocrine: No fatigue Physical Exam: General Appearance: WD/WN, no apparent distress Neck: supple, no JVD Respiratory/Chest: chest non-tender, lungs clear, normal breath sounds Cardiovascular: regular rate, rhythm, + systolic murmur Abdomen / GI: normal bowel sounds, non tender, soft Extremities: no pedal edema, normal range of motion Neurologic/Psychiatric: alert, oriented x 3 Hospital Course 70 F with self limited likely ischemic colitis at splenic flexure initial dark urine most likely hemoconcentrated as urine culture is negative has no recurrence of bleeding but may have some, pain has resolved, recommend antibiotic for another week and to follow up for outpt colonoscopy in 6 weeks Mri findings with some suggestion of stenosis may consider also vascular surgery opinion Total Time Spent: Greater than 30 minutes This includes examination of the patient, discharge planning, medication reconciliation, and communication with other providers. Discharge Instructions Please refer to the electronic Patient Visit Report (Discharge Instructions) for additional information.
[2016-06-26 14:59] VITALS: BP 109/68; PULSE 73; TEMP 36.4; O2SAT 93
[2016-06-26 15:48] VITALS: BP 109/68; PULSE 73; TEMP 36.4; O2SAT 93
== END 2016-06-26 17:25 | disposition home or self-care (01) | DRG 395 ==
LOC: ENRESERVTM → ENRESERVDT → C.EDB 16:03 → C.MSW 23:13
PROVIDERS: ADMIT Hospitalist; ATTEND Hospitalist
DX: K55.9 Vascular disorder of intestine, unspecified (principal); I10 Essential (primary) hypertension; N28.9 Disorder of kidney and ureter, unspecified; Z87.891 Personal history of nicotine dependence; I70.1 Atherosclerosis of renal artery; Z86.718 Personal history of other venous thrombosis and embolism; Z79.82 Long term (current) use of aspirin; Z79.899 Other long term (current) drug therapy

== ENCOUNTER 2019-02-04 13:44 | Inpatient (IN) ==
[2019-02-04] MEDS ORDERED: SODIUM CHLORIDE 0.9% 1000ML 1,000 ML IV SCH (14:00)
[2019-02-04] MEDS ORDERED: ONDANSETRON INJ 2 MG/ML 2 ML VIAL ONE (14:04)
[2019-02-04 14:07] LABS: Hematocrit (blood only) 40.7 % (37-47); Hemoglobin 13.1 g/dL (12.0-16.0); Mean Corpuscular Hemoglobin 29.4 pg (25-34); Mean Corpuscular Hgb Conc 32.2 g/dL (32-36); Mean Corpuscular Volume 91.3 fL (80-100); Mean Platelet Volume 11.8 fL (7.4-10.4); Platelet Count 236 K/uL (130-400); RDW Coefficient of Variation 13.3 % (11.5-14.5); RDW Standard Deviation 44.4 fL (36.4-46.3); Red Blood Count 4.46 M/uL (4.2-5.4); White Blood Count 13.55 K/uL (4.8-10.8)
[2019-02-04 14:11] LABS: iSTAT Creatinine 1.2 mg/dl (0.6-1.3); iSTAT Hemoglobin 12.9 g/dl (12.0-16.0); iSTAT Ionized Calcium 1.18 mmol/l (1.12-1.32); iSTAT Potassium 3.6 mEq/L (3.3-5.0)
--- NOTE | 2019-02-04 14:24 | XRay Report ---
XR chest 1V portable CLINICAL HISTORY: 73 years-old Female presenting with weakness. TECHNIQUE: Portable upright AP view of the chest was obtained. COMPARISON: None. FINDINGS: Image quality limited by COLOMBIAN rotation, exaggerated thoracic kyphosis, and positioning of the head and chin so that a portion of the right apex is partially obscured. Allowing for these significant limit ations in image quality which moderately degraded diagnostic sensitivity the exam, the cardiac silhou ette appears enlarged. Pulmonary vascular prominence. Right basilar opacity. No large effusion or pne umothorax. Osteopenia may be present. Large hiatal hernia. IMPRESSION: Limited radiograph due to positioning, which moderately degrades diagnostic sensitivity the exam. 1. Right basilar opacity may represent atelectasis. Infection is considered less likely. 2. Suspected cardiomegaly and mild volume overload. No marita pulmonary edema. 3. Large hiatal hernia. Electronically signed by: Gigi Carver M.D. 02/04/2019 2:22 PM
--- NOTE | 2019-02-04 14:24 | CT Scan Report ---
CT head/brain wo con CLINICAL HISTORY: Acute change in mental status COMPARISON STUDY: No previous studies for comparison. TECHNIQUE: Axial CT of the brain is performed from the vertex to the skull base. IV contrast was not administered for this examination. A dose lowering technique was utilized adhering to the principles of ALARA. CT DOSE: 537.48 mGy.cm FINDINGS: No intra or extra-axial mass lesions are visualized. There is no CT evidence of acute cortical infarc tion. There is no evidence of midline shift. There is no acute hemorrhage. No calvarial fractures ar e visualized. There are patchy white matter hypodensities likely on a small vessel basis. There is no evidence of pathologic ventricular dilatation. There is no evidence of acute sinusitis IMPRESSION: No acute intracranial findings Electronically signed by: Morris Harris M.D. 02/04/2019 2:23 PM
[2019-02-04 14:28] LABS: Alanine Aminotransferase 19 U/L (12-78); Albumin Level 3.9 gm/dl (3.4-5.0); Aspartate Aminotransferase 21 U/L (15-37); BUN Creatinine Ratio 15.8 (10-20); Blood Urea Nitrogen 19 mg/dl (7-18); Calcium 9.4 mg/dl (8.5-10.1); Carbon Dioxide 24 mmol/L (21-32); Chloride 104 mmol/L (98-107); Est GFR (African American) 52.2; Est GFR (Non-African American) 45.1; Glucose 227 mg/dl (70-99); Potassium 3.5 mmol/L (3.5-5.1); Sodium 138 mmol/L (136-145)
[2019-02-04 14:38] LABS: Alkaline Phosphatase 84 U/L (45-117); Bilirubin,Total 0.5 mg/dl (0.2-1); Creatine Kinase 63 U/L (26-192); Total Protein 7.9 gm/dl (6.4-8.2); Troponin I < 0.015 ng/ml (0-0.045)
[2019-02-04 14:43] LABS: Basophils # (auto) 0.06 K/uL (0-0.2); Basophils % (auto) 0.4 %; Eosinophils # (auto) 0.13 K/uL (0-0.5); Immature Granulocytes # (auto) 0.08 K/uL (0.00-0.02); Immature Granulocytes % (auto) 0.6 %; Lymphocytes # (auto) 5.48 K/uL (1.2-3.4); Lymphocytes % (auto) 40.4 %; Monocytes # (auto) 0.83 K/uL (0.11-0.59); Monocytes % (auto) 6.1 %; Neutrophils # (auto) 6.97 K/uL (1.4-6.5); Neutrophils % (auto) 51.5 %
[2019-02-04 15:18] LABS: T4 Free Thyroxine 0.49 ng/dl (0.8-1.6)
--- NOTE | 2019-02-04 15:47 | History & Physical Report ---
Date of Service February 04, 2019 Assessment & Plan (1) Syncope: (2) Nausea & vomiting: (3) Leukocytosis: (4) Asystole: - admit to PCU - Pt with episode of acute onset diaphoresis, n/v, unknown primary cause at this time as pt has very limited past medical hx. Possible with acute viral inf ection, possibly URI vs gastritis with diminished PO intake caused vasovagal with pause on tele with EMS. Follow overnight on tele monitoring. Does not appear to be stroke as she has no aphasia, specific extremity weakness. - Trend cardiac biomarkers, initial set was negative - EKG reviewed as above - Check 2 D echo to eval - WBC elevated at 13.55, follow with am labs - Continue NSS at 125 overnight, pt appears clinically dry - Check CT abd/pelvis now with ongoing vomiting, IV zofran prn. - PT/OT consulted - Allow diet if able to tolerate pending CT scan results (5) Renal insufficiency: - Hx of such, - Cr. and BUN stable, monitor with am PRP (6) Elevated TSH: - Free T4 is decreased at 0.49 - Pt likely with undiagnosed hypothyroidism, will start levothyroxine and will need follow up with PCP after discharge - Will initiate levothyroxine 112 mcg daily starting tomorrow. (7) DVT prophylaxis: -teds, scds Code status: DNR Dispo: From home, lives with , likely to remain in the hospital x 2 days History of Present Illness Primary Care Provider: Mauri Imani This is a 73 yo F with PMHx of HTN, renal insufficiency and L renal artery occlusion who presents with acute onset of nausea/vomiting, cough and a possible syncopal episode. The patient is very somnolent during my exam, therefore and her daughter in law provide the majority of the history. He reports that she has been coughing for 2 to 3 days now, nonproductive, but that she has not eaten or drank much in the last 2 days. He notes that last evening while he was asleep she appeared to be uncomfortable with lots of tossing and turning. The patient woke him this morning as she was up earlier than he was and when he came downstairs into their kitchen she told him she felt severely ill and asked him to call 911. She proceeded to have increased coughing fits with posttussive vomiting, was extremely diaphoretic and very weak. He reports that his son who was also in the home helped to carry her to a chair to sit down. EMS arrived at her home, where NSS 1L was administered via IV, at approximately 13:15 the patient had an episode of asystole which was followed by bradycardic rhythm at 48 bpm. Rates improved with fluid. WBC elevated 13.55, TSH is noted at 63.8 and free T4 =0.49 Allergies Allergy/AdvReac Type Severity Reaction Status Date / Time No Known Allergies Allergy Unverified 02/04/19 14:49 Home Medications Home Medications Medication Instructions Recorded Confirmed Type aspirin [Aspir-81] 81 mg PO DAILY 02/04/19 02/04/19 History multivitamin [Multiple Vitamins] 1 tab PO 4XWK 02/04/19 02/04/19 History Past Med/Surg History Medical History Colitis Family History Other Family history non-contributory Social History Preferred Language: [place] Communication Ability: Effective Health Service Coordinator Required: No Beliefs That Will Affect Care: None marital status: Current Living Situation: Spouse current occupational status: retired Other Information That Helps Us Care for You: No Feels Safe at Home: Yes Safety Concerns: Feels Safe At This Time Smoking Status: Never smoker Hx Alcohol Use: No Hx Substance Use: No Review of Systems Review of Systems: Constitutional: + episode of diffuse sweating earlier today, no chills Eyes: No diplopia, no worsening or blurred vision ENT: normal hearing, no trouble swallowing Respiratory: No cough, sputum, dyspnea at rest or on exertion Cardiovascular: No chest pain, tightness or palpitations Abdomen: As per HPI, + nausea, + vomiting, diarrhea or constipation Musculoskeletal: No joint pain, calf pain, swelling Neurologic: +weakness no numbness/tingling, or balance problems Psychiatric: No anxiety or depression Skin: No rash or itch Physical Exam Physical Exam: General: awake, alert, no apparent distress, + asleep through majority of exam Head: Normocephalic, atraumatic ENT: PERRL, EOMI, no pharyngeal exudate, mucous membranes slightly dry Chest: Clear to auscultation, on room air, no adventitious breath sounds Cardiac: Regular rate and rhythm, no murmur, no JVD, normal peripheral pulses, good capillary refill Abdominal: NABS x 4 quadrants, soft, nontender to palpation, no rebound, guarding or tenderness Extremities: Normal inspection, no peripheral edema or erythema, calfs nontender to palpation Psych: Normal mood and affect Neuro: AAO x 3, no motor deficits, speech is clear, no peripheral sensory deficits Results & Data Vital Signs (Past 12 Hours) Vital Signs Temp Pulse Resp BP Pulse Ox 02/04/19 15:30 74 20 116/68 99 02/04/19 15:04 81 15 146/81 H 90 02/04/19 14:30 69 14 93 02/04/19 14:23 74 14 137/80 94 02/04/19 14:00 74 28 H 96 02/04/19 13:52 74 17 02/04/19 13:50 37.2 C 67 24 154/82 H 94 02/04/19 13:49 74 16 154/82 H Diagnostic Findings XR chest 1V portable CLINICAL HISTORY: 73 years-old Female presenting with weakness. TECHNIQUE: Portable upright AP view of the chest was obtained. COMPARISON: None. FINDINGS: Image quality limited by YOON rotation, exaggerated thoracic kyphosis, and positioning of the head and chin so that a portion of the right apex is partially obscured. Allowing for these significant limitations in image quality which moderately degraded diagnostic sensitivity the exam, the cardiac silhouette appears enlarged. Pulmonary vascular prominence. Right basilar opacity. No large effusion or pneumothorax. Osteopenia may be present. Large hiatal hernia. IMPRESSION: Limited radiograph due to positioning, which moderately degrades diagnostic sensitivity the exam. 1. Right basilar opacity may represent atelectasis. Infection is considered less likely. 2. Suspected cardiomegaly and mild volume overload. No marita pulmonary edema. 3. Large hiatal hernia. CT head/brain wo con CLINICAL HISTORY: Acute change in mental status COMPARISON STUDY: No previous studies for comparison. TECHNIQUE: Axial CT of the brain is performed from the vertex to the skull base. IV contrast was not administered for this examination. A dose lowering technique was utilized adhering to the principles of ALARA. CT DOSE: 537.48 mGy.cm FINDINGS: No intra or extra-axial mass lesions are visualized. There is no CT evidence of acute cortical infarction. There is no evidence of midline shift. There is no acute hemorrhage. No calvarial fractures are visualized. There are patchy white matter hypodensities likely on a small vessel basis. There is no evidence of pathologic ventricular dilatation. There is no evidence of acute sinusitis IMPRESSION: No acute intracranial findings Code Status & VTE Plan Code Status DNR- discussed with pt and family at bedside Supervising Physician Co-Signing Physician Notes Patient seen and examined, chart reviewed, case discussed with AMIRA Man and I agree with her assessment and plan as documented above. Briefly, patient is a 73yo C female with no prior cardiac history, recent illness with cough, nausea and vomiting. Patient called 911 this AM as she felt quite ill. En route she had 2 episodes of prolonged sinus pause. Patient denies CP, palpitations or SOB but has some episodes of dizziness and pre-syncope. On exam she is resting comfortably, NAD, arousable and answering questions appropriately Skin - intact HEENT - NC/AT, PERRL, dry mucus membranes, neck supple Heart - +S1/S2, regular, no m/r/g Lungs - CTA Abd - +BS, soft, NT/ND Ext - warm, well perfused, no edema Labs and images reviewed. EKG with NSR, no acute ischemic changes. Leukocytosis. Elevated BUN and blood sugar. High TSH/Low T4. Telemetry strip with episode of bradycardia - HR of 31, appears to be junctional as no obvious p wave preceding QRS complex Assessment/Plan: 73yo C female with recent illness, n/v and cough, possible syncopal event and sinus pauses -Admit to PCU, telemetry monitoring. Trend cardiac markers. 2D echo in AM -Cardiology consultation appreciated -Patient may need to be considered for pacemaker placement if symptomatic pauses continue -Elevated blood sugar, ?undiagnosed DM. Check AIC -Abnormal TFTs, ?undiagnosed hypothyroidism - ?if contributing to conduction abnormalities -Remainder of plan as above PG Care Time/CCT Total # of Minutes Spent Total Time Spent with Patient: Total time spent is greater than 50% in coordination of care (as documented) at patient's floor/unit and/or counseling patient: (1) Leukocytosis Leukocytosis type: unspecified Qualified Code(s): D72.829 - Elevated white blood cell count, unspecified (2) Nausea & vomiting Vomiting Intractability: unspecified Vomiting type: unspecified Qualified Code(s): R11.2 - Nausea with vomiting, unspecified
[2019-02-04 15:56] LABS: Appearance Urine Cloudy (Clear); Bilirubin Urine Negative (Negative); Blood Urine Negative (Negative); Color Urine Yellow; Epithelial Cell Urine Auto >30 /lpf (0-5); Glucose Urine UA 2+ (Negative); Ketones Urine Negative (Negative); Leukocyte Esterase Urine 1+ (Negative); Nitrite Urine Negative (Negative); Protein Urine Negative (Negative); Specific Gravity Urine 1.015 (1.000-1.030); Urobilinogen Urine Negative (Negative)
[2019-02-04 16:04] LABS: Bacteria Urine Automated 2+ (Negative); RBC Urine Automated 0-4 /hpf (0-4)
[2019-02-04] MEDS ORDERED: METOCLOPRAMIDE HCL INJ 5 MG/ML 2 ML VIAL IV STA (16:25)
[2019-02-04] MEDS ORDERED: IOVERSOL 100ml IV PRN (16:50)
--- NOTE | 2019-02-04 17:41 | CT Scan Report ---
CT SCAN OF THE ABDOMEN AND PELVIS WITH IV CONTRAST CLINICAL HISTORY: Vomiting. COMPARISON STUDY: Abdominal CT dated 06/24/2016. TECHNIQUE: Following the IV administration of 93 cc of Optiray 320, CT scan of the abdomen and pelvi s is performed from the lung bases to the proximal femora. Images are reviewed in the axial, sagittal , and coronal planes. IV contrast was administered without complication. A dose lowering technique wa s utilized adhering to the principles of ALARA. The examination is degraded by streak artifact from t he arms which could not be elevated above the abdomen. CT DOSE: 571.15 mGy.cm FINDINGS: Lung bases: The heart is normal in size and without pericardial effusion. There are coronary artery c alcifications. Scarring/atelectasis is present at both lung bases. There is no airspace consolidation typical for pneumonia or pleural effusion. Liver: The contrast-enhanced liver is normal in size, contour, and attenuation. There is no intrahepa tic biliary ductal dilatation. The hepatic veins and portal veins are patent. Gallbladder: Calcified gallstones are noted. There is no CT evidence of acute cholecystitis. Spleen: Normal in size and attenuation. A 1.8 cm cystic focus in the inferior spleen seen on image #9 9 is of doubtful significance. Pancreas: Moderately atrophic and grossly unremarkable. Adrenal glands: Unremarkable. Kidneys: There is markedly asymmetric cortical atrophy of the left kidney as compared to the right. T he contrast enhanced right kidney is normal in size and without hydronephrosis. The right kidney enha nces homogeneously. A subcentimeter cortical hypodensity in the right kidney likely represents a cyst but is too small for definitive characterization. Abdominal vasculature: The abdominal aorta is normal in course and caliber noting moderate to advance d atherosclerotic calcification. Stomach and bowel: There is a large hiatal hernia, with over half of the stomach located in the thora cic cavity. The duodenum is normal in configuration. There is advanced colonic diverticulosis without CT evidence of acute diverticulitis. Mild colonic fecal retention is observed. No bowel obstruction is seen. The appendix is well-visualized and normal. Peritoneum: There is no intraperitoneal free air or abdominal ascites. Lymphadenopathy: None. Pelvic viscera: The bladder is normal as imaged. The uterus is surgically absent. No adnexal lesion i s seen. Skeletal structures: The skeletal structures are osteopenic. There are moderate compression deformiti es of T10, T11, and T12. These are age indeterminant but new from 06/24/2016. Fracture lucency is sugg ested in T12 and this may be acute to subacute. There is moderate lumbosacral spondylosis. Grade 1 an terolisthesis is noted at L5-S1 secondary to bilateral pars defects. No lytic or blastic lesions are seen. IMPRESSION: 1. There are no acute infectious or inflammatory findings in the abdomen or pelvis. 2. Large hiatal hernia 3. Cholelithiasis. 4. There are moderate compression deformities of T10, T11, and T12. These are age indeterminant but n ew from 06/24/2016. Fracture lucency is questioned involving T12 and this may be acute to subacute. Co rrelate for point tenderness. 5. Advanced colonic diverticulosis without CT evidence of acute diverticulitis. 6. Additional findings as above. Electronically signed by: Golden Osborne M.D. 02/04/2019 5:39 PM
--- NOTE | 2019-02-04 18:06 | Emergency Department Note ---
Entered by Jyoti Brown acting as a scribe for History of Present Illness General Chief complaint: Stroke/CVA Symptoms Time Seen by Provider: 02/04/19 13:46 Source: patient History of Present Illness Onset (ago): day(s) (this morning) Location: abdomen Pain Consistency: + other (episode) Maximum Pain Intensity: 5 Quality: + other (vomiting) Associated symptoms: + denies other symptoms (abdominal pain), + nausea/vomiting and + other (lethargic, unresponsive, asystole, feeling tired); no chest pain The patient is a 73 year old female who presents to the Emergency Room with complaints of an episode of vomiting starting this morning. Per EMS, the patient woke up this morning and was nauseous. They report that she started vomiting and her family was nervous because she started becoming lethargic and unresponsive. They state that upon arrival she seemed to be leaning to the left. They state that they gave her 4 of Zofran. They report that on the way here she had two e pisodes of asystole for which she was unresponsive for. They state that each time they sat her up on the edge of bed and both times she came back to. They note that the patient is only on a baby Aspirin. The patient complains of being tired. The patient denies abdominal pain and chest pain. Home Medications Home Medications Medication Instructions Recorded Confirmed Type aspirin [Aspir-81] 81 mg PO DAILY 02/04/19 02/04/19 History multivitamin [Multiple Vitamins] 1 tab PO [id number] 02/04/19 02/04/19 History Allergies Allergy/AdvReac Type Severity Reaction Status Date / Time No Known Allergies Allergy Unverified 02/04/19 14:49 Past Med/Surg History Medical History Colitis Family History Other Family history non-contributory Social History marital status: Current Living Situation: Spouse current occupational status: retired Feels Safe at Home: Yes Smoking Status: Never smoker Review of Systems See HPI for pertinent positives & negatives. and A total of 10 systems reviewed and were otherwise negative Physical Exam Vital Signs Vital Signs - 24 hr 02/04/19 13:49 02/04/19 13:50 02/04/19 13:52 Temperature 37.2 C Temperature Source Oral Sepsis Recent Fever Within 48 Hours No Sepsis Action Taken by Nursing No Action Required Pulse Rate 74 67 74 Pulse Rate from SpO2 Sensor Pulse Rhythm Regular Pulse Strength Normal Respiratory Rate 16 24 17 Respiratory Effort / Characteristics Non-Labored Spontaneous Respiratory Depth Normal Respiratory Pattern Regular Blood Pressure 154/82 H 154/82 H Blood Pressure Mean 106 106 Blood Pressure Position Lying Pulse Oximetry 94 Oxygen Delivery Method Room Air Oxygen Flow Rate 2 02/04/19 14:00 02/04/19 14:23 02/04/19 14:30 Temperature Temperature Source Sepsis Recent Fever Within 48 Hours Sepsis Action Taken by Nursing Pulse Rate 74 74 69 Pulse Rate from SpO2 Sensor 75 73 68 Pulse Rhythm Pulse Strength Respiratory Rate 28 H 14 14 Respiratory Effort / Characteristics Respiratory Depth Respiratory Pattern Blood Pressure 137/80 Blood Pressure Mean 99 Blood Pressure Position Pulse Oximetry 96 94 93 Oxygen Delivery Method Oxygen Flow Rate 02/04/19 15:04 02/04/19 15:30 02/04/19 16:00 Temperature Temperature Source Sepsis Recent Fever Within 48 Hours Sepsis Action Taken by Nursing Pulse Rate 81 74 77 Pulse Rate from SpO2 Sensor 81 73 77 Pulse Rhythm Pulse Strength Respiratory Rate 15 20 16 Respiratory Effort / Characteristics Respiratory Depth Respiratory Pattern Blood Pressure 146/81 H 116/68 144/80 H Blood Pressure Mean 102 84 101 Blood Pressure Position Pulse Oximetry 90 99 97 Oxygen Delivery Method Oxygen Flow Rate GENERAL: Awake, alert, well-appearing, in no acute distress HENT: Normocephalic, atraumatic. Oropharynx unremarkable. EYES: Normal conjunctiva. Sclera non-icteric. NECK: Supple. No nuchal rigidity. FROM. No JVD. RESPIRATORY: Clear to auscultation. CARDIAC: Regular rate, normal rhythm. Extremities warm and well perfused. Pulses equal. ABDOMEN: Soft, non-distended. No tenderness to palpation. No rebound or guar ding. No masses. RECTAL: Deferred. MUSCULOSKELETAL: Chest examination reveals no tenderness. The back is symmetrical on inspection without obvious abnormality. There is no CVA tenderness to palpation. No joint edema. LOWER EXTREMITIES: Calves are equal size bilaterally and non-tender. No edema. No discoloration. NEURO: Normal sensorium. No sensory or motor deficits noted. SKIN: No rash or jaundice noted. Course 1347: Past medical records reviewed. The patient was evaluated in room B1. A complete history and physical exam was performed. 1423: I reevaluated the patient and updated the family at bedside. The patient was resting comfortably. 1454: I reevaluated the patient and updated her and her family on her test results. I discussed the treatment plan with them. They verbally agree and understand. 1502: I discussed the patient's case with Dr. Yordy BAILEY Hospitalist. She will evaluate the patient for further management. Consultations Consultation #1: I discussed the patient's case with Dr. Yordy BAILEY Hospitalist. She will evaluate the patient for further management. Time: 15:02 Administered Medications Ioversol (Optiray 320 100ml) 93 ml IV ONCE PRN PRN Reason: Interaction Checking Stop: 02/08/19 16:49 Last Admin: 02/04/19 16:51 Dose: 93 ml Documented by: [id number] Discontinued Medications Sodium Chloride (Nss 1000ml) 1,000 mls @ 999 mls/hr IV .Q1H1M AURELIA Stop: 02/04/19 15:00 Last Infusion: 02/04/19 15:20 Dose: 0 mls/hr Documented by: [id number] Admin: 02/04/19 14:20 Dose: 999 mls/hr Documented by: [id number] Metoclopramide HCl (Reglan) 10 mg IV NOW STA Stop: 02/04/19 16:26 Last Admin: 02/04/19 16:31 Dose: 10 mg Documented by: [id number] Ondansetron HCl (Zofran) Confirm Administered Dose 4 mg .ROUTE .K-MED ONE Stop: 02/04/19 14:05 Last Admin: 02/04/19 14:20 Dose: 4 mg Documented by: [id number] Medical Decision Making Differential Diagnosis Differential diagnosis: Etiologies such as gastroenteritis, food borne illness, infections, appendicitis, diverticulitis, inflammatory bowel disease, obstruction, GI bleed, biliary pathology, cardiac process, intracranial process, as well as others were entertained. Medical Records Attestation: I reviewed the patient's medical records. Home Medications Current Medication List: was personally reviewed by me Laboratory Data Attestation: I reviewed the patient's lab results. Result diagrams: 02/04/19 13:24 02/04/19 13:24 Lab Results 02/04/19 02/04/19 02/04/19 Range/Units 13:24 13:24 13:56 WBC 13.55 H (4.8-10.8) K/uL RBC 4.46 (4.2-5.4) M/uL Hgb 13.1 (12.0-16.0) g/dL POC Hgb 12.9 (12.0-16.0) g/dl Hct 40.7 (37-47) % POC Hct 38 (37-47) % MCV 91.3 (80-100) fL MCH 29.4 (25-34) pg MCHC 32.2 (32-36) g/dL RDW Std Deviation 44.4 (36.4-46.3) fL RDW Coeff of Pancho 13.3 (11.5-14.5) % Plt Count 236 (130-400) K/uL MPV 11.8 H (7.4-10.4) fL Immature Gran % (Auto) 0.6 % Neut % (Auto) 51.5 % Lymph % (Auto) 40.4 % [place] % (Auto) 6.1 % Eos % (Auto) 1.0 % Baso % (Auto) 0.4 % Immature Gran # (Auto) 0.08 H (0.00-0.02) K/uL Neut # (Auto) 6.97 H (1.4-6.5) K/uL Lymph # (Auto) 5.48 H (1.2-3.4) K/uL [place] # (Auto) 0.83 H (0.11-0.59) K/uL Eos # (Auto) 0.13 (0-0.5) K/uL Baso # (Auto) 0.06 (0-0.2) K/uL POC Sodium 140 (135-144) mEq/L Sodium 138 (136-145) mmol/L POC Potassium 3.6 (3.3-5.0) mEq/L Potassium 3.5 (3.5-5.1) mmol/L POC Chloride 103 (101-112) mEq/L Chloride 104 (98-107) mmol/L Carbon Dioxide 24 (21-32) mmol/L POC Total CO2 25 (24-31) mEq/l Anion Gap 10.0 (3-11) POC Anion Gap 17.0 (16-25) mmol/L POC BUN 19 H (7-18) mg/dl BUN 19 H (7-18) mg/dl Creatinine 1.18 (0.6-1.2) mg/dl POC Creatinine 1.2 (0.6-1.3) mg/dl Est Cr Clr Drug Dosing Not Reportable Est GFR ( Amer) 52.2 Est GFR (Non-Af Amer) 45.1 BUN/Creatinine Ratio 15.8 (10-20) Glucose 227 H (70-99) mg/dl POC Glucose (other) 225 H (70-99) mg/dl Calcium 9.4 (8.5-10.1) mg/dl POC Ioniz Calcium Comfort 1.18 (1.12-1.32) mmol/l Total Bilirubin 0.5 (0.2-1) mg/dl AST 21 (15-37) U/L ALT 19 (12-78) U/L Alkaline Phosphatase 84 (45-117) U/L Total Creatine Kinase 63 (26-192) U/L Troponin I < 0.015 (0-0.045) ng/ml Total Protein 7.9 (6.4-8.2) gm/dl Albumin 3.9 (3.4-5.0) gm/dl Globulin 4.0 (2.5-4.0) gm/dl Albumin/Globulin Ratio 1.0 (0.9-2) TSH 63.800 H (0.300-4.500) uIu/ml Free T4 0.49 L (0.8-1.6) ng/dl Urine Color Urine Appearance (Clear) Urine pH (4.5-7.5) Ur Specific [place] (1.000-1.030) Urine Protein (Negative) Urine Glucose (UA) (Negative) Urine Ketones (Negative) Urine Blood (Negative) Urine Nitrite (Negative) Urine Bilirubin (Negative) Urine Urobilinogen (Negative) Ur Leukocyte Esterase (Negative) Urine WBC (Auto) (0-5) /hpf Urine RBC (Auto) (0-4) /hpf U Hyaline Cast (Auto) (0-5) /lpf U Epithel Cells (Auto) (0-5) /lpf Urine Bacteria (Auto) (Negative) Urine Yeast 02/04/19 Range/Units 14:50 WBC (4.8-10.8) K/uL RBC (4.2-5.4) M/uL Hgb (12.0-16.0) g/dL POC Hgb (12.0-16.0) g/dl Hct (37-47) % POC Hct (37-47) % MCV (80-100) fL MCH (25-34) pg MCHC (32-36) g/dL RDW Std Deviation (36.4-46.3) fL RDW Coeff of Pancho (11.5-14.5) % Plt Count (130-400) K/uL MPV (7.4-10.4) fL Immature Gran % (Auto) % Neut % (Auto) % Lymph % (Auto) % [place] % (Auto) % Eos % (Auto) % Baso % (Auto) % Immature Gran # (Auto) (0.00-0.02) K/uL Neut # (Auto) (1.4-6.5) K/uL Lymph # (Auto) (1.2-3.4) K/uL [place] # (Auto) (0.11-0.59) K/uL Eos # (Auto) (0-0.5) K/uL Baso # (Auto) (0-0.2) K/uL POC Sodium (135-144) mEq/L Sodium (136-145) mmol/L POC Potassium (3.3-5.0) mEq/L Potassium (3.5-5.1) mmol/L POC Chloride (101-112) mEq/L Chloride (98-107) mmol/L Carbon Dioxide (21-32) mmol/L POC Total CO2 (24-31) mEq/l Anion Gap (3-11) POC Anion Gap (16-25) mmol/L POC BUN (7-18) mg/dl BUN (7-18) mg/dl Creatinine (0.6-1.2) mg/dl POC Creatinine (0.6-1.3) mg/dl Est Cr Clr Drug Dosing Est GFR ( Amer) Est GFR (Non-Af Amer) BUN/Creatinine Ratio (10-20) Glucose (70-99) mg/dl POC Glucose (other) (70-99) mg/dl Calcium (8.5-10.1) mg/dl POC Ioniz Calcium Comfort (1.12-1.32) mmol/l Total Bilirubin (0.2-1) mg/dl AST (15-37) U/L ALT (12-78) U/L Alkaline Phosphatase (45-117) U/L Total Creatine Kinase (26-192) U/L Troponin I (0-0.045) ng/ml Total Protein (6.4-8.2) gm/dl Albumin (3.4-5.0) gm/dl Globulin (2.5-4.0) gm/dl Albumin/Globulin Ratio (0.9-2) TSH (0.300-4.500) uIu/ml Free T4 (0.8-1.6) ng/dl Urine Color Yellow Urine Appearance Cloudy A (Clear) Urine pH 8.0 H (4.5-7.5) Ur Specific [place] 1.015 (1.000-1.030) Urine Protein Negative (Negative) Urine Glucose (UA) 2+ H (Negative) Urine Ketones Negative (Negative) Urine Blood Negative (Negative) Urine Nitrite Negative (Negative) Urine Bilirubin Negative (Negative) Urine Urobilinogen Negative (Negative) Ur Leukocyte Esterase 1+ H (Negative) Urine WBC (Auto) 1-5 (0-5) /hpf Urine RBC (Auto) 0-4 (0-4) /hpf U Hyaline Cast (Auto) 1-5 (0-5) /lpf U Epithel Cells (Auto) >30 H (0-5) /lpf Urine Bacteria (Auto) 2+ H (Negative) Urine Yeast Not Reportable Imaging Data Radiologist's Impression: Radiology results as stated below per my review and the radiologist's interpretation: XR chest 1V portable CLINICAL HISTORY: 73 years-old Female presenting with weakness. TECHNIQUE: Portable upright AP view of the chest was obtained. COMPARISON: None. FINDINGS: Image quality limited by YOON rotation, exaggerated thoracic kyphosis, and positioning of the head and chin so that a portion of the right apex is partially obscured. Allowing for these significant limitations in image quality which moderately degraded diagnostic sensitivity the exam, the cardiac silhouette appears enlarged. Pulmonary vascular prominence. Right basilar opacity. No large effusion or pneumothorax. Osteopenia may be present. Large hiatal hernia. IMPRESSION: Limited radiograph due to positioning, which moderately degrades diagnostic sen sitivity the exam. 1. Right basilar opacity may represent atelectasis. Infection is considered les s likely. 2. Suspected cardiomegaly and mild volume overload. No marita pulmonary edema. 3. Large hiatal hernia. Electronically signed by: Gigi Carver M.D. 02/04/2019 2:[address] head/brain wo con CLINICAL HISTORY: Acute change in mental status COMPARISON STUDY: No previous studies for comparison. TECHNIQUE: Axial CT of the brain is performed from the vertex to the skull base. IV contrast was not administered for this examination. A dose lowering technique was utilized adhering to the principles of ALARA. CT DOSE: 537.48 mGy.cm FINDINGS: No intra or extra-axial mass lesions are visualized. There is no CT evidence of acute cortical infarction. There is no evidence of midline shift. There is no acute hemorrhage. No calvarial fractures are visualized. There are patchy white matter hypodensities likely on a small vessel basis. There is no evidence of pathologic ventricular dilatation. There is no evidence of acute sinusitis IMPRESSION: No acute intracranial findings Electronically signed by: Morris Harris M.D. 02/04/2019 2:23 PM ECG Data Attestation: I personally reviewed and interpreted this ECG as follows: Indication: vomiting Rate (beats per minute): 78 Rhythm: normal sinus Findings: + other (normal EKG, normal axis, normal QT); no ST depression and no ST elevation Blood Pressure Blood Pressure Findings: Elevated blood pressure Blood Pressure Disposition: further management by hospitalist DMITRY Narrative This is a 73-year-old female who presents emergency department complaining of syncopal episodes. The patient had 2 episodes of asystole while vomiting. I suspect that this is worse the vagal episode precipitated by her vomiting. She was given Zofran for her vomiting and sent for CAT scan of the head which does not show any acute process. She was also sent for CAT scan the abdomen pelvis which does not reveal any acute process. Patient was also given a normal saline bolus. I did discuss her case with the hospitalist service who agreed to admit the patient. Patient was in agreement with the treatment plan. Impression & Plan Asystole, Nausea & vomiting, Hyperglycemia, Leukocytosis Discharge Plan Visit Data *Final* Discharge Date/Time: 02/04/19 17:35 Chief Complaint: Stroke/CVA Symptoms ED Provider: Tk Mckeon Discharge Problem: Asystole, Nausea & vomiting, Hyperglycemia, Leukocytosis Patient Disposition: Admitted As Inpatient Discharge Instructions Interventions: ED Discharge Assessment Last Done: 02/04/19 17:35 Discharge Problem: Nausea & vomiting Qualifiers: Vomiting type: unspecified Vomiting Intractability: unspecified Qualified Code(s): R11.2 - Nausea with vomiting, unspecified Leukocytosis Qualifiers: Leukocytosis type: unspecified Qualified Code(s): D72.829 - Elevated white blood cell count, unspecified The scribe's documentation has been prepared under my direction and personally reviewed by me in its entirety. I confirm that the note above accurately reflects all work, treatment, procedures, and medical decision making performed by me.
[2019-02-04] MEDS: SODIUM CHLORIDE 0.9% 1000ML 1,000 ML IV SCH (18:23)
[2019-02-04 20:34] LABS: Troponin I < 0.015 ng/ml (0-0.045)
[2019-02-04 21:13] LABS: Phosphorus 2.8 mg/dl (2.5-4.9)
[2019-02-05] MEDS: SODIUM CHLORIDE 0.9% 1000ML 1,000 ML IV SCH ×4 (00:52→23:49)
[2019-02-05] MEDS: ONDANSETRON INJ 2 MG/ML 2 ML VIAL IV PRN ×3 (02:03→21:48)
[2019-02-05 03:55] LABS: Hematocrit (blood only) 37.1 % (37-47); Hemoglobin 12.4 g/dL (12.0-16.0); Mean Corpuscular Hemoglobin 29.9 pg (25-34); Mean Corpuscular Hgb Conc 33.4 g/dL (32-36); Mean Corpuscular Volume 89.4 fL (80-100); Mean Platelet Volume 10.6 fL (7.4-10.4); Platelet Count 202 K/uL (130-400); RDW Standard Deviation 42.6 fL (36.4-46.3); Red Blood Count 4.15 M/uL (4.2-5.4); White Blood Count 12.14 K/uL (4.8-10.8)
[2019-02-05 04:14] LABS: Alanine Aminotransferase 17 U/L (12-78); Albumin Level 3.4 gm/dl (3.4-5.0); Aspartate Aminotransferase 17 U/L (15-37); BUN Creatinine Ratio 13.1 (10-20); Blood Urea Nitrogen 13 mg/dl (7-18); Calcium 8.1 mg/dl (8.5-10.1); Carbon Dioxide 26 mmol/L (21-32); Chloride 105 mmol/L (98-107); Creatinine Clr Calc Pharmacy 45.4 ml/min; Est GFR (African American) 63.1; Est GFR (Non-African American) 54.4; Glucose 138 mg/dl (70-99); Potassium 3.8 mmol/L (3.5-5.1); Sodium 138 mmol/L (136-145)
[2019-02-05 04:19] LABS: Albumin Globulin Ratio 0.9 (0.9-2); Alkaline Phosphatase 73 U/L (45-117); Bilirubin,Total 0.4 mg/dl (0.2-1); Chol HDL Ratio 5; Cholesterol 273 mg/dl (0-200); Globulin 3.9 gm/dl (2.5-4.0); HDL Cholesterol 51 mg/dl; LDL Cholesterol Calculated 168 mg/dl; Total Protein 7.3 gm/dl (6.4-8.2); Triglycerides 270 mg/dl (0-150); Troponin I < 0.015 ng/ml (0-0.045); VLDL Cholesterol 54 mg/dl
[2019-02-05 05:48] LABS: Estimated Average Glucose 128 mg/dl; Hemoglobin A1C 6.1 % (4.5-5.6)
[2019-02-05] MEDS: LEVOTHYROXINE SODIUM 112 MCG TABLET PO SCH (05:50)
[2019-02-05] MEDS: ACETAMINOPHEN 325 MG TAB PO PRN ×2 (08:06→16:02)
[2019-02-05] MEDS: MULTIVITAMIN TAB PO SCH (08:07)
[2019-02-05] MEDS: ASPIRIN 81 MG ECTAB PO SCH (08:07)
[2019-02-05] MEDS ORDERED: INFLUENZA VACCINE HIGH DOSE 65+ 0.5 ML SYR IM ONE (08:30)
[2019-02-05] MEDS ORDERED: INFLUENZA ADMINISTRATION CHARGE ONE (08:30)
--- NOTE | 2019-02-05 11:17 | Cardiology Consultation ---
Date of Consultation February 05, 2019 Assessment & Plan (1) Syncope: The patient did have witnessed episode of syncope. There were reports of a transient episode of asystole and subsequent bradycardia. While this is not well documented in her record, I do believe that was the likely cause of her syncope. She has had other transient episodes bradycardia and evidence of heart block on her telemetry. One episode in particular appear to occur around 8 p.m. last evening. I suspect all of these symptoms and rhythm abnormalities are related to her high vagal tone. All of this seemed to occur in the setting of severe gastrointestinal upset, nausea, retching and evidence of high vagal tone with diaphoresis and being pale. I do not believe this represents a primary cardiac disorder or primary dysfunction of her conduction system. She has a normal QRS duration at baseline, a normal WA interval at baseline and no prior symptoms of conduction disease. She has a structurally normal heart. I do not believe the transient bradycardia has resulted in her symptoms of gastrointestinal upset or other associated symptoms and she continues to have the symptoms even in the setting of normal heart rates. As long as she is hospitalized we can continue to monitor her on telemetry. I suspect with resolution of her gastrointestinal symptoms will not see any additional episodes of bradycardia or transient conduction disease. I would not recommend any additional cardiac evaluation currently. Present on Admission?: Yes History of Present Illness Reason for Consultation: Asystole, bradycardia Requesting Physician: Jose Attending Physician: Mauri Hatch History of Present Illness The patient is a 73-year-old woman without a known history of cardiac disease who began to experience gastrointestinal symptoms yesterday morning. Patient states that these developed relatively quickly and more manifest primarily by severe nausea, dizziness, diaphoresis and retching. The patient had had an element of anorexia that morning was able to eat a bagel. She denied overt fevers or chills or abdominal pain. However her symptoms progressed fairly rapidly and she asked her to contact EMS. Upon arrival the patient was noted to be retching and diaphoretic. She is also noted to be quite pale. It seems that she had a period of unconsciousness and asystole reported by the EMS personnel. She had some transient bradycardia and was brought to our facility at which time her vital signs were had returned to normal. Over the course of the evening the patient was also noted to have transient periods of bradycardia. The timing of these episodes in association with her gastrointestinal symptoms is unclear the patient cannot recall any specific times when she was vomiting overnight. In general, she is an active individual who does not report symptoms of dizziness or lightheadedness. While she does not exercise regularly or participate in vigorous activity she is able to perform housework and at ascend stairs without symptoms. She denies any sense of palpitation. She does not have limiting dyspnea. She has not report symptoms of chest pain either at rest or with exertion. She cannot recall any other episodes of syncope. Currently she continues to feel poorly. She states she is quite dizzy if she attempts to stand up or do anything. She feels most comfortable lying on her side and has additional symptoms if she changes position. She continues to have an element of nausea but no abdominal pain. She states she has not actually vomited but simply has a lot of retching. She denied any change in her bowel habits. She stated that she had 2 bowel movements yesterday morning that were normally formed. Allergies Allergy/AdvReac Type Severity Reaction Status Date / Time No Known Allergies Allergy Unverified 02/04/19 14:49 Home Medications Home Medications Medication Instructions Recorded Confirmed Type aspirin [Aspir-81] 81 mg PO DAILY 02/04/19 02/04/19 History multivitamin [Multiple Vitamins] 1 tab PO 4XWK 02/04/19 02/04/19 History Patient History Medical History Colitis Family History Other Family history non-contributory Social History Preferred Language: Nicaraguan Communication Ability: Effective Online Editor Required: No Beliefs That Will Affect Care: None marital status: Current Living Situation: Spouse current occupational status: retired Other Information That Helps Us Care for You: No Feels Safe at Home: Yes Safety Concerns: Feels Safe At This Time Smoking Status: Never smoker Hx Alcohol Use: No Hx Substance Use: No Review of Systems Review of Systems: All systems reviewed & are unremarkable except as noted in HPI & below No recent fevers or chills. She cannot recall any close contacts with similar symptoms. No recent travel history. Currently complaining of some discomfort just lateral to the right orbit in the right temporal area. Physical Exam Physical Exam: She is alert and oriented x3. She appeared uncomfortable. S the interview was conducted with her eyes closed. She answered questions appropriately. HEENT: Sclerae are anicteric. Pupils are equal and reactive to light and accommodation. Extraocular movements were intact. Neuro: Cranial nerves intact Neck: Examination of the submandibular region did not reveal any significant lymphadenopathy. Carotids are palpable bilaterally and free of bruits on auscultation. There was no evidence of jugular venous distention. The thyroid was not enlarged. Lungs: Lungs are clear to auscultation bilaterally. There are no rales wheezes or rhonchi. She has normal respiratory effort without use of accessory muscles. There is normal pulmonary excursion. Cardiac: The rhythm was regular. S1 and S2 were normal. There are no murmurs on examination. The PMI was not markedly displaced on palpation. Abdomen: The abdomen was soft and nontender. Extremities: Patient has bilateral radial pulses that are equal in intensity. There is no evidence cyanosis or clubbing. There was no evidence of significant peripheral edema bilaterally. Skin: There are no rashes noted on examination today. Results & Data Vital Signs (Past 12 Hours) Vital Signs Temp Pulse Pulse Resp BP Pulse Ox 02/05/19 08:49 82 02/05/19 08:00 36.6 C 74 20 147/75 H 93 02/05/19 03:16 36.8 C 73 17 118/69 98 02/05/19 02:06 83 127/86 02/05/19 00:02 80 Laboratory Results Abnormal Lab Results 02/04/19 02/04/19 02/04/19 13:24 13:24 13:56 WBC 13.55 H RBC 4.46 Hgb 13.1 POC Hgb 12.9 Hct 40.7 POC Hct 38 MCV 91.3 MCH 29.4 MCHC 32.2 RDW Std Deviation 44.4 RDW Coeff of Pancho 13.3 Plt Count 236 MPV 11.8 H Immature Gran % (Auto) 0.6 Neut % (Auto) 51.5 Lymph % (Auto) 40.4 Sauk % (Auto) 6.1 Eos % (Auto) 1.0 Baso % (Auto) 0.4 Immature Gran # (Auto) 0.08 H Neut # (Auto) 6.97 H Lymph # (Auto) 5.48 H Sauk # (Auto) 0.83 H Eos # (Auto) 0.13 Baso # (Auto) 0.06 POC Sodium 140 Sodium 138 POC Potassium 3.6 Potassium 3.5 POC Chloride 103 Chloride 104 Carbon Dioxide 24 POC Total CO2 25 Anion Gap 10.0 POC Anion Gap 17.0 POC BUN 19 H BUN 19 H Creatinine 1.18 POC Creatinine 1.2 Est Cr Clr Drug Dosing Not Reportable Est GFR ( Amer) 52.2 Est GFR (Non-Af Amer) 45.1 BUN/Creatinine Ratio 15.8 Glucose 227 H POC Glucose (other) 225 H Estimat Average Glucose Hemoglobin A1c Calcium 9.4 POC Ioniz Calcium Comfort 1.18 Phosphorus Magnesium Total Bilirubin 0.5 AST 21 ALT 19 Alkaline Phosphatase 84 Total Creatine Kinase 63 Troponin I < 0.015 Total Protein 7.9 Albumin 3.9 Globulin 4.0 Albumin/Globulin Ratio 1.0 Triglycerides Cholesterol LDL Cholesterol, Calc VLDL Cholesterol, Calc HDL Cholesterol Cholesterol/HDL Ratio TSH 63.800 H Free T4 0.49 L Urine Color Urine Appearance Urine pH Ur Specific Grandin Urine Protein Urine Glucose (UA) Urine Ketones Urine Blood Urine Nitrite Urine Bilirubin Urine Urobilinogen Ur Leukocyte Esterase Urine WBC (Auto) Urine RBC (Auto) U Hyaline Cast (Auto) U Epithel Cells (Auto) Urine Bacteria (Auto) Urine Yeast 02/04/19 02/04/19 02/04/19 14:50 19:52 19:52 WBC RBC Hgb POC Hgb Hct POC Hct MCV MCH MCHC RDW Std Deviation RDW Coeff of Panhco Plt Count MPV Immature Gran % (Auto) Neut % (Auto) Lymph % (Auto) Sauk % (Auto) Eos % (Auto) Baso % (Auto) Immature Gran # (Auto) Neut # (Auto) Lymph # (Auto) Sauk # (Auto) Eos # (Auto) Baso # (Auto) POC Sodium Sodium POC Potassium Potassium POC Chloride Chloride Carbon Dioxide POC Total CO2 Anion Gap POC Anion Gap POC BUN BUN Creatinine POC Creatinine Est Cr Clr Drug Dosing Est GFR ( Amer) Est GFR (Non-Af Amer) BUN/Creatinine Ratio Glucose POC Glucose (other) Estimat Average Glucose Hemoglobin A1c Calcium POC Ioniz Calcium Comfort Phosphorus 2.8 Magnesium 2.0 Cancelled Total Bilirubin AST ALT Alkaline Phosphatase Total Creatine Kinase Troponin I < 0.015 Total Protein Albumin Globulin Albumin/Globulin Ratio Triglycerides Cholesterol LDL Cholesterol, Calc VLDL Cholesterol, Calc HDL Cholesterol Cholesterol/HDL Ratio TSH Free T4 Urine Color Yellow Urine Appearance Cloudy A Urine pH 8.0 H Ur Specific Grandin 1.015 Urine Protein Negative Urine Glucose (UA) 2+ H Urine Ketones Negative Urine Blood Negative Urine Nitrite Negative Urine Bilirubin Negative Urine Urobilinogen Negative Ur Leukocyte Esterase 1+ H Urine WBC (Auto) 1-5 Urine RBC (Auto) 0-4 U Hyaline Cast (Auto) 1-5 U Epithel Cells (Auto) >30 H Urine Bacteria (Auto) 2+ H Urine Yeast Not Reportable 02/04/19 02/05/19 02/05/19 19:52 03:30 03:30 WBC 12.14 H RBC 4.15 L Hgb 12.4 POC Hgb Hct 37.1 POC Hct MCV 89.4 MCH 29.9 MCHC 33.4 RDW Std Deviation 42.6 RDW Coeff of Pancho 13.0 Plt Count 202 MPV 10.6 H Immature Gran % (Auto) Neut % (Auto) Lymph % (Auto) Sauk % (Auto) Eos % (Auto) Baso % (Auto) Immature Gran # (Auto) Neut # (Auto) Lymph # (Auto) Sauk # (Auto) Eos # (Auto) Baso # (Auto) POC Sodium Sodium 138 POC Potassium Potassium 3.8 POC Chloride Chloride 105 Carbon Dioxide 26 POC Total CO2 Anion Gap 7.0 POC Anion Gap POC BUN BUN 13 Creatinine 1.01 POC Creatinine Est Cr Clr Drug Dosing 45.4 Est GFR ( Amer) 63.1 Est GFR (Non-Af Amer) 54.4 BUN/Creatinine Ratio 13.1 Glucose 138 H POC Glucose (other) Estimat Average Glucose Hemoglobin A1c Calcium 8.1 L POC Ioniz Calcium Comfort Phosphorus Cancelled Magnesium Total Bilirubin 0.4 AST 17 ALT 17 Alkaline Phosphatase 73 Total Creatine Kinase Troponin I < 0.015 Total Protein 7.3 Albumin 3.4 Globulin 3.9 Albumin/Globulin Ratio 0.9 Triglycerides 270 H Cholesterol 273 H LDL Cholesterol, Calc 168 VLDL Cholesterol, Calc 54 HDL Cholesterol 51 Cholesterol/HDL Ratio 5 TSH Free T4 Urine Color Urine Appearance Urine pH Ur Specific Grandin Urine Protein Urine Glucose (UA) Urine Ketones Urine Blood Urine Nitrite Urine Bilirubin Urine Urobilinogen Ur Leukocyte Esterase Urine WBC (Auto) Urine RBC (Auto) U Hyaline Cast (Auto) U Epithel Cells (Auto) Urine Bacteria (Auto) Urine Yeast 02/05/19 03:30 WBC RBC Hgb POC Hgb Hct POC Hct MCV MCH MCHC RDW Std Deviation RDW Coeff of Pancho Plt Count MPV Immature Gran % (Auto) Neut % (Auto) Lymph % (Auto) Sauk % (Auto) Eos % (Auto) Baso % (Auto) Immature Gran # (Auto) Neut # (Auto) Lymph # (Auto) Sauk # (Auto) Eos # (Auto) Baso # (Auto) POC Sodium Sodium POC Potassium Potassium POC Chloride Chloride Carbon Dioxide POC Total CO2 Anion Gap POC Anion Gap POC BUN BUN Creatinine POC Creatinine Est Cr Clr Drug Dosing Est GFR ( Amer) Est GFR (Non-Af Amer) BUN/Creatinine Ratio Glucose POC Glucose (other) Estimat Average Glucose 128 Hemoglobin A1c 6.1 H Calcium POC Ioniz Calcium Comfort Phosphorus Magnesium Total Bilirubin AST ALT Alkaline Phosphatase Total Creatine Kinase Troponin I Total Protein Albumin Globulin Albumin/Globulin Ratio Triglycerides Cholesterol LDL Cholesterol, Calc VLDL Cholesterol, Calc HDL Cholesterol Cholesterol/HDL Ratio TSH Free T4 Urine Color Urine Appearance Urine pH Ur Specific Grandin Urine Protein Urine Glucose (UA) Urine Ketones Urine Blood Urine Nitrite Urine Bilirubin Urine Urobilinogen Ur Leukocyte Esterase Urine WBC (Auto) Urine RBC (Auto) U Hyaline Cast (Auto) U Epithel Cells (Auto) Urine Bacteria (Auto) Urine Yeast Diagnostic Findings Head CT did not demonstrate any acute intracranial process CT of the chest and abdomen revealed diverticulosis without diverticulitis. Large hiatal hernia. Chest x-ray the time of admission did not reveal any acute cardiopulmonary process. There was suggestion of cardiomegaly and a hiatal hernia. Echocardiogram performed today revealed preserved LV systolic function. No significant valvular heart disease ECG Additional Comments: EKG obtained at the time of admission revealed normal sinus rhythm with narrow complex QRS and nonspecific ST and T-wave changes PG Care Time/CCT Total # of Minutes Spent Total Time Spent with Patient: Total time spent is greater than 50% in coordination of care (as documented) at patient's floor/unit and/or counseling patient: (1) Syncope Syncope type: vasovagal syncope Qualified Code(s): R55 - Syncope and collapse
--- NOTE | 2019-02-05 18:46 | Magnetic Resonance Report ---
MR brain wo con CLINICAL HISTORY: 73 years-old Female presenting with encephalopathic. TECHNIQUE: Multisequence, multiplanar MR imaging of the brain was performed without the use of intrav enous contrast. IV contrast: None. COMPARISON: Noncontrast CT head performed the previous day. FINDINGS: Localizer images: Unremarkable. Bone marrow signal intensity within the calvarium within normal limits. Normal midline sagittal structures. Proportional ventricular and sulcal prominence, likely age-relate d parenchymal volume loss. No mass effect or midline shift. Acute infarct in the paramedian right inf erior cerebellar hemisphere. Associated T2/FLAIR hyperintensity of this region with regional mass eff ect. Minimal involvement of the right medulla. Periventricular and subcortical white matter T2/FLAIR hyperintensity, nonspecific but likely indicative of chronic small vessel ischemic change. No extra-axial fluid collection. T2 skull base flow voids preserved. IMPRESSION: 1. Acute right inferior cerebellar hemisphere infarct in a paramedian distribution. Minimal involvem ent of the right medulla. This is within the right posterior inferior cerebellar artery (PICA) distri bution. T2/FLAIR hyperintensity is consistent with an infarct at least 6 to 12 hours old. 2. Chronic small vessel ischemic change. The report will be called/faxed according to standard departmental protocol for a critical finding. Electronically signed by: Gigi Carver M.D. 02/05/2019 6:44 PM
[2019-02-05] MEDS ORDERED: PHARMACIST DISCHARGE MED REC CONSULT PRN (19:02)
[2019-02-05] MEDS ORDERED: ASPIRIN 81 MG ECTAB PO STA (19:15)
--- NOTE | 2019-02-05 22:45 | Hospitalist Progress Note ---
Date of Service February 05, 2019 Assessment & Plan (1) Ischemic stroke without coma: Concern over possible stroke given her ataxia. Was unable to replicate on my exam due to patient not being drowsy. Will order MRI brain. Update: found cerebellar stroke on imaging NIHSS greater or equal to 3. patient received 324 mg of ASA today outside of window for tpa, appears patient had symptoms prior to coming into the hospital. Patient had symptoms 4 hours prior to arriving to the hospital. Informed this to family. Case was also discussed with neuro. Will closely monitor patient. (2) Syncope: (3) Nausea & vomiting: (4) Leukocytosis: (5) Asystole: - admit to PCU - Pt with episode of acute onset diaphoresis, n/v, unknown primary cause at this time as pt has very limited past medical hx. Possible with acute viral infection, possibly URI vs gastritis with diminished PO intake caused vasovagal with pause on tele with EMS. Follow overnight on tele monitoring. Does not appear to be stroke as she has no aphasia, specific extremity weakness. - Trend cardiac biomarkers, initial set was negative - EKG reviewed as above - Check 2 D echo to eval - WBC elevated at 13.55, follow with am labs - Continue NSS at 125 overnight, pt appears clinically dry - Check CT abd/pelvis now with ongoing vomiting, IV zofran prn. - PT/OT consulted - Allow diet if able to tolerate pending CT scan results (6) Renal insufficiency: - Hx of such, - Cr. and BUN stable, monitor with am PRP (7) Elevated TSH: - Free T4 is decreased at 0.49 - Pt likely with undiagnosed hypothyroidism, will start levothyroxine and will need follow up with PCP after discharge - Will initiate levothyroxine 112 mcg daily starting tomorrow. (8) DVT prophylaxis: -teds, scds Code status: DNR Dispo: From home, lives with , likely to remain in the hospital x 2 days Subjective Was called to the room as patient was exhibiting signs of ataxia by the nurse. She was unable to adequately use her right arm. She was also having balance problems on the right as well. When I arrived to the room, patient was drowsy. Her main complaint was a right frontal headache. She states she is drowsy. She also wants to have jello as she is not in the mod to eat regualr food. Her daughter is at bedside. Review of Systems Review of Systems: Constitutional: no chills Eyes: No diplopia, no worsening or blurred vision ENT: normal hearing, no trouble swallowing Respiratory: No cough, sputum, dyspnea at rest or on exertion Cardiovascular: No chest pain, tightness or palpitations Abdomen: no nausea. Musculoskeletal: No joint pain, calf pain, swelling Neurologic: no numbness/tingling, Psychiatric: No anxiety or depression Skin: No rash or itch Physical Exam Physical Exam: General: awake, alert, no apparent distress, + asleep through majority of exam Head: Normocephalic, atraumatic ENT: PERRL, EOMI, no pharyngeal exudate, mucous membranes slightly dry Chest: Clear to auscultation, on room air, no adventitious breath sounds Cardiac: Regular rate and rhythm, no murmur, no JVD, normal peripheral pulses, good capillary refill Abdominal: NABS x 4 quadrants, soft, nontender to palpation, no rebound, guarding or tenderness Extremities: Normal inspection, no peripheral edema or erythema, calfs nontender to palpation Psych: Normal mood and affect Neuro: AAO x 3, no motor deficits, speech is clear, no peripheral sensory deficits, normal strength in both arms, normal CN II -XII normal sensation Results & Data Vital Signs (Past 12 Hours) Vital Signs Temp Pulse Pulse Resp BP BP Pulse Ox 02/05/19 19:51 36.7 C 65 18 149/70 H 94 02/05/19 15:11 37.0 C 71 17 127/69 100 02/05/19 11:05 36.9 C 69 16 134/73 91 PG Care Time/CCT Total # of Minutes Spent Total Time Spent: 75 Total Time Spent with Patient: Total time spent is greater than 50% in coordination of care (as documented) at patient's floor/unit and/or counseling patient: Prolonged Care Time Prolonged Care Time: Yes Total Prolonged Care Time: 75 Spent 75 minutes total time in management of patient 16:15 to 16:45 18:50 to 19:30 (1) Leukocytosis Leukocytosis type: unspecified Qualified Code(s): D72.829 - Elevated white blood cell count, unspecified (2) Syncope Syncope type: vasovagal syncope Qualified Code(s): R55 - Syncope and collapse (3) Nausea & vomiting Vomiting Intractability: unspecified Vomiting type: unspecified Qualified Code(s): R11.2 - Nausea with vomiting, unspecified
[2019-02-06] MEDS: CALCIUM CARBONATE 500 MG CHEWABLE TAB PO PRN ×2 (02:44→16:13)
[2019-02-06] MEDS: ONDANSETRON INJ 2 MG/ML 2 ML VIAL IV PRN ×3 (05:07→17:41)
[2019-02-06 05:48] LABS: Basophils # (auto) 0.01 K/uL (0-0.2); Basophils % (auto) 0.1 %; Eosinophils # (auto) 0.02 K/uL (0-0.5); Eosinophils % (auto) 0.1 %; Hematocrit (blood only) 36.8 % (37-47); Hemoglobin 12.3 g/dL (12.0-16.0); Immature Granulocytes # (auto) 0.03 K/uL (0.00-0.02); Immature Granulocytes % (auto) 0.2 %; Lymphocytes # (auto) 2.99 K/uL (1.2-3.4); Lymphocytes % (auto) 21.9 %; Mean Corpuscular Hemoglobin 29.7 pg (25-34); Mean Corpuscular Hgb Conc 33.4 g/dL (32-36); Mean Corpuscular Volume 88.9 fL (80-100); Mean Platelet Volume 10.7 fL (7.4-10.4); Monocytes # (auto) 0.94 K/uL (0.11-0.59); Monocytes % (auto) 6.9 %; Neutrophils # (auto) 9.64 K/uL (1.4-6.5); Neutrophils % (auto) 70.8 %; Platelet Count 216 K/uL (130-400); Red Blood Count 4.14 M/uL (4.2-5.4); White Blood Count 13.63 K/uL (4.8-10.8)
[2019-02-06 06:29] LABS: Albumin Level 3.3 gm/dl (3.4-5.0); BUN Creatinine Ratio 10.9 (10-20); Creatinine Clr Calc Pharmacy 45.1 ml/min; Est GFR (African American) 69.7; Est GFR (Non-African American) 60.1; Potassium 3.4 mmol/L (3.5-5.1)
[2019-02-06] MEDS: LEVOTHYROXINE SODIUM 112 MCG TABLET PO SCH (06:31)
[2019-02-06 06:33] LABS: Albumin Globulin Ratio 0.8 (0.9-2); Bilirubin,Total 0.5 mg/dl (0.2-1); Globulin 4.1 gm/dl (2.5-4.0); Total Protein 7.4 gm/dl (6.4-8.2)
[2019-02-06] MEDS: SODIUM CHLORIDE 0.9% 1000ML 1,000 ML IV SCH (07:35)
[2019-02-06] MEDS: ATORVASTATIN 40 MG TAB PO SCH (07:44)
[2019-02-06] MEDS: ASPIRIN 81 MG ECTAB PO SCH (07:44)
[2019-02-06] MEDS: MULTIVITAMIN TAB PO SCH (07:45)
--- NOTE | 2019-02-06 08:48 | Neurology Consultation ---
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 In addition, she had bradycardia with syncope/asystole although over the last 12 hours she has had normal sinus rhythm in the 60s and 70s. Clinically today she is left with vertiginous feelings and inability to maintain an upright stance leaning to the right with right upper extremity ataxia, nausea, and vomiting. She is improved today compared to admission. The admission CT scan of the head likely shows some hypodensity in the right medial cerebellar hemisphere. MRI shows a rather large but incomplete right posterior inferior cerebellar artery distribution stroke giving typical signs and symptoms. Although she has a small pupil on the right she does not have a Meera syndrome. She did have some pain in the right face on admission but does not have any right face sensory issues or pain currently. I did not see palatal asymmetry or nystagmus. She is complaining of some hoarseness to her voice but I did not appreciate that specifically on exam. She is swallowing reasonably well. She does not have contralateral sensory deficits on the left. The bradycardia is likely from the medullary component of the stroke. This stroke was likely ischemic in nature from occlusion of the PICA. Patient has a significant hypothyroidism with markedly elevated TSH and low free T4 which probably has been giving her fatigue. I do not believe this has anything to do with her stroke however. She does have some stroke risk factors. She was a light cigarette smoker in the past but has not smoked for 39 years. She has intermittently elevated blood pressure readings since admission, elevated glucose, and significant dyslipidemia. Finally, she has an elevated white count of uncertain etiology with no fever or other source of infection. Recommendations: 1. CT angiography of the head neck to evaluate her circulation and future stro ke risk. 2. Since this event happened on aspirin I would discontinue aspirin and initiate clopidogrel 75 mg daily. 3. Control blood pressure, aiming for a mean arterial pressure of approximately 95-100. 4. Control glucose lowering the hemoglobin A1c less than 6.0. 5. The patient would be a high dose statin candidate. 6. Physical, occupational, and speech therapy consult. Increase activity as able 7. Consider meclizine for the vertigo and ondansetron for nausea. Overall, I spent a total of 130 minutes with this case, including review of records, review of CT and MRI films (also with Dr. Leon, radiology), direct evaluation of the patient at bedside, and discussion of the case with the patient at bedside, RN at bedside, and with Dr. Hatch, including differential diagnosis and treatment options. History of Present Illness Reason for Consultation: Patient is a 73-year-old, who I was asked to see at the request of Dr. Hatch, for neurologic consultation regarding stroke. Requesting Physician: Dr. Hatch Attending Physician: Mauri Hatch History of Present Illness The patient tells me that she has a history of hypertension that was treated in the past but more recently she has not been treated for this. In addition she was told in the past that she had some cholesterol problems but was never treated for this. She does not recall having any diabetes or cardiac problems in the past. She has been on aspirin for some reasons that she is not clear, and then stopped this for some months. About 2-3 weeks ago she restarted the 81 mg aspirin tablet per day (again, not clear why she restarted). She has been somewhat tired over the last few months but has not had any other specific issues and had no problems with dry skin or alopecia. She tells me that she awoke on the morning of February 04 around 0700, feeling fine, and went down to fix coffee and some breakfast. She recalls, while eating a bagel that she had the sudden onset of dizziness. Her body was moving towards the right and she could not stop it. The environment however was not spinning. She had considerable nausea and vomiting particularly with any movement in ended up having dry heaves. At times, she would try to sit up and felt lightheaded would pass out for a few seconds. She noted no numbness or weakness of the arms or legs. She felt that the right upper extremity was very clumsy although the leg was fine. Occasionally it was hard to swallow and occasionally she had some double vision. She had a little bit of pain around her right eye and face (not the head) that day as well. She felt that she might have been occasionally hoarse but she is not sure about this. Although she has a history of decreased hearing bilaterally she had no change in her hearing. She was brought to the emergency room and the EMS stated that she had passed out with asystole twice. It was noted that she was bradycardia. Patient recalls passing out for a few seconds when she would sit up at the edge of the bed. She arrived at the emergency room at 1349 on February 04 with a temperature of 37.2, pulse of 67 and regular, respiratory rate 24, blood pressure 154/82, and O2 saturation 94%. In the ER she was nauseated was noted to have bradycardia at times and was fatigued. Neuro examination was noted to be nonfocal with no weakness, numbness, or other issues. CBC showed elevated white count of 13.5 and Chem profile was unremarkable except for a glucose of 227. TSH was 63.8 and free T4 was 0.49. There was a questionable urinary tract infection but urine culture to date has not grown any specific organism. She has remained afebrile. White count remains elevated. CT scan of the head was unremarkable, with no hemorrhage. After reviewing the CT films there appears to have been some hypodensity in the medial right cerebellar hemisphere. Cardiology was consulted and they felt that this was bradycardia secondary to increased vagal tone (probable GI illness that was postulated in the emergency room). Echocardiogram was unremarkable. In the morning of February 05 physical therapy noted that the patient was leaning to the right and had ataxia of the right upper extremity. Nursing was informed and the patient ended up getting an MRI of the brain later that day. MRI of the brain showed a rather large right cerebellar hemispheric stroke, with probable extension into the right paramedian medulla, consistent with a posterior inferior cerebellar artery stroke. In addition there was some [id number] scattered old small vessel ischemic change seen in the white matter. I reviewed these films. I also reviewed the MRI films and CT scan of the head films with Dr. Leon, radiology Overnight the patient has been in normal sinus rhythm in the 60s and 70s. This morning the patient has no face pain or numbness. No numbness or tingling on the arms or legs and no weakness of the arms or legs. She is still leaning to the right, vertiginous and nauseated with dry heaves. She cannot control her right arm, but her right leg is okay. She has no headache or pain. She denies any new vision problems. Allergies Allergy/AdvReac Type Severity Reaction Status Date / Time No Known Allergies Allergy Unverified 02/04/19 14:49 Home Medications Home Medications Medication Instructions Recorded Confirmed Type aspirin [Aspir-81] 81 mg PO DAILY 02/04/19 02/04/19 History multivitamin [Multiple Vitamins] 1 tab PO 4XWK 02/04/19 02/04/19 History Patient History Medical History Colitis Hypertension Surgical History S/P cataract surgery S/P hysterectomy Family History Mother , age 61 of an PA. 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 Feels Safe at Home: Yes Safety Concerns: Feels Safe At This Time Smoking Status: Former smoker Age Quit Using Tobacco: 34 ; Cigarettes Per Day: 1-2 ; Number of Years Since Quit: 39 ; Hx Alcohol Use: No Hx Substance Use: No Review of Systems Constitutional: + fatigue, + malaise, + weakness and + anorexia; no fever Eyes: no diplopia, no eye pain and no worsening vision Ear, Nose, Mouth, Throat: + hearing loss, + dizziness, + hoarseness and + dysphagia; no ear pain, no tinnitus and no snoring Respiratory: no cough and no dyspnea Cardiovascular: no chest pain, no palpitations and no lightheadedness Gastrointestinal: + nausea and + vomiting; no abdominal pain Genitourinary: no dysuria, no urinary frequency and no urinary incontinence Musculoskeletal: no back pain, no neck pain, no radicular pain, no joint pain and no myalgia Integumentary: no rash and no lesions Neurologic: + unsteadiness and + lack of coordination; no gait abnormality, no localized weakness, no generalized weakness, no tingling, no numbness, no tremor(s), no abnormal movements, no headache(s), no abnormal speech, no confusion and no memory loss Psychiatric: no depression, no irritability, no anxiety, no difficulty concentrating, no confusion and no hallucinations Endocrine: + fatigue; no flushing Hematologic / Lymphatic: no easy bleeding and no easy bruising Allergy / Immunological: no urticaria and no problem reported Physical Exam Physical Exam: The patient is right-handed. The patient is awake, alert, and attentive. Speech is normal without any obvious aphasia or dysarthria. She can name objects, repeat phrases, and has normal spontaneous speech. Mentation and thought processes are intact, with orientation to person, place and time, and normal fund of knowledge. Attention and concentration are normal. Mood and affect are normal and appropriate. General appearance and grooming are normal. Short and long-term memory are intact. The discs are sharp with positive venous pulsations bilaterally. There are no exudates, hemorrhages, or blood vessel changes seen. Pupils are 2 mm on the right and 3 mm on the left, and reactive to light. Extraocular eye muscles are intact without nystagmus. Visual acuity and visual lan seem normal grossly to confrontation. There was no ptosis of the eyelids. There are no deficits to sensation in the face in all 3 distributions of the fifth cranial nerve bilaterally. Corneal reflexes are positive bilaterally. Facial strength and symmetry was normal bilaterally. Hearing seems decreased left greater than right bilaterally. Palate moves well without asymmetry. There is normal sternocleidomastoid and trapezius (shoulder shrug) strength bilaterally. Tongue is midline with good strength bilaterally. Neck has a somewhat decreased range of motion without discomfort. There are no cervical bruits bilaterally. There are no cranial or ocular bruits. Heart is without murmur. There is a regular rhythm and rate. Cervical, thoracic, and lumbar spine are nontender to palpation. She has a considerable thoracic kyphoscoliosis. Gait is not tested as she is very vertiginous and nauseated with movement. Sitting up in bed she leans completely to the right and cannot maintain posture. With outstretched arms there is a minimal drift on the right. There are no resting, postural, or action tremors. There is ataxia with finger to nose testing on the right but not the left. There is reasonable facility in the hands bilaterally. No other abnormal involuntary movements are noted. There is no ataxia with [id number] testing bilaterally. Motor strength is 5/5 diffusely in the arms bilaterally including deltoids, biceps, triceps, brachioradialis, wrist flexors and extensors, outer diameter grinder tool, and intrinsic hand muscles. Motor strength is 5/5 diffusely in the legs bilaterally including hip flexors, quadriceps, hamstrings, gastrocnemius, tibialis anterior, tibialis posterior, and Peroneii muscles. Toe extensors are normal and there is good bulk in the extensor digitorum brevis muscles bilaterally. The limbs have good tone without rigidity or spasticity. There is no atrophy noted in the muscles. Muscle bulk is normal, there is no tenderness to palpation, no myotonia to percussion, and no fasciculations seen. Sensory examination is intact to touch and pin throughout all 4 limbs diffusely. She has no sensory deficits in the right face or left body specifically. Reflexes are 1/4 in the biceps, triceps, brachioradialis, quadriceps, and Achilles tendons bilaterally. There is no clonus bilaterally. Toes are downgoing with plantar stimulation bilaterally. Peripheral pulses are present and of normal quality distally in all 4 limbs. There is no peripheral edema noted in the limbs. Results & Data Vital Signs (Past 12 Hours) Vital Signs Temp Pulse Resp BP Pulse Ox 02/06/19 07:07 36.8 C 71 19 162/97 H 97 02/06/19 02:40 36.8 C 71 18 145/81 H 94 02/05/19 23:19 37.1 C 71 17 149/78 H 92 Diagnostic Findings MR brain wo con CLINICAL HISTORY: 73 years-old Female presenting with encephalopathic. TECHNIQUE: Multisequence, multiplanar MR imaging of the brain was performed without the use of intravenous contrast. IV contrast: None. COMPARISON: Noncontrast CT head performed the previous day. FINDINGS: Localizer images: Unremarkable. Bone marrow signal intensity within the calvarium within normal limits. Normal midline sagittal structures. Proportional ventricular and sulcal prominence, likely age-related parenchymal volume loss. No mass effect or midline shift. Acute infarct in the paramedian right inferior cerebellar hemisphere. Associated T2/FLAIR hyperintensity of this region with regional mass effect. Minimal involvement of the right medulla. Periventricular and subcortical white matter T2/FLAIR hyperintensity, nonspecific but likely indicative of chronic small vessel ischemic change. No extra-axial fluid collection. T2 skull base flow voids preserved. IMPRESSION: 1. Acute right inferior cerebellar hemisphere infarct in a paramedian distribution. Minimal involvement of the right medulla. This is within the right posterior inferior cerebellar artery (PICA) distribution. T2/FLAIR hyperintensity is consistent with an infarct at least 6 to 12 hours old. 2. Chronic small vessel ischemic change. The report will be called/faxed according to standard departmental protocol for a critical finding. Electronically signed by: Gigi Carver M.D. 02/05/2019 6:44 PM PG Care Time/CCT Total # of Minutes Spent Total Time Spent with Patient: Total time spent is greater than 50% in coordination of care (as documented) at patient's floor/unit and/or counseling patient: (1) Nausea & vomiting Vomiting Intractability: unspecified Vomiting type: unspecified Qualified Code(s): R11.2 - Nausea with vomiting, unspecified
[2019-02-06] MEDS ORDERED: MECLIZINE HCL 25 MG TAB PO PRN (11:51)
[2019-02-06] MEDS: CLOPIDOGREL BISULFATE 75 MG TAB PO SCH (12:17)
[2019-02-06] MEDS: POTASSIUM CHLORIDE 20 MEQ TABCR PO SCH ×2 (13:00→20:04)
--- NOTE | 2019-02-06 16:23 | Cardiology Progress Note ---
Date of Service February 06, 2019 Assessment & Plan (1) Bradycardia: Patient appears to have suffered a cerebral vascular accident involving the right cerebellum. This likely accounts for the acute onset in nature of her symptoms. She has not had significant bradycardia in the past several hours. Her heart rates appear to have been normal. Again, I do not believe her bradycardia was related to a primary cardiac process and is likely reactive both to the stroke and high vagal tone associated with her retching and GI symptoms. Echocardiogram was unremarkable. She continues to have symptoms consistent with her infarct. In the absence of worsening bradycardia or additional cardiac sy mptoms, I will sign off. Please do not hesitate to contact me for additional questions regarding her rhythm issues or new cardiac symptoms. Subjective This morning the patient continues to complain of dizziness especially with movement or sitting up. Nausea seems to have improved. No vomiting. The periorbital pain has resolved. She was able tolerate some of a liquid diet. Review of Systems Review of Systems: Per HPI Physical Exam Physical Exam: She is alert and oriented x3. Mood affect appear normal. She answered all questions appropriately. HEENT: Sclerae are anicteric. Pupils are equal and reactive to light and accommodation. Extraocular movements were intact. Lungs: Lungs are clear to auscultation bilaterally. There are no rales wheezes or rhonchi. She has normal respiratory effort without use of accessory muscles. There is normal pulmonary excursion. Cardiac: The rhythm was regular. S1 and S2 were normal. There are no murmurs on examination. The PMI was not markedly displaced on palpation. Extremities: Patient has bilateral radial pulses that are equal in intensity. There is no evidence cyanosis or clubbing. There was no evidence of significant peripheral edema bilaterally. Skin: There are no rashes noted on examination today. Results & Data Vital Signs (Past 12 Hours) Vital Signs Temp Pulse Resp BP Pulse Ox 02/06/19 15:04 36.8 C 84 19 141/84 H 98 02/06/19 10:50 36.3 C L 78 16 173/99 H 95 02/06/19 07:07 36.8 C 71 19 162/97 H 97 Laboratory Results Abnormal Lab Results 02/06/19 02/06/19 05:26 05:26 WBC 13.63 H RBC 4.14 L Hgb 12.3 Hct 36.8 L MCV 88.9 MCH 29.7 MCHC 33.4 RDW Std Deviation 42.0 RDW Coeff of Pancho 13.0 Plt Count 216 MPV 10.7 H Immature Gran % (Auto) 0.2 Neut % (Auto) 70.8 Lymph % (Auto) 21.9 [place] % (Auto) 6.9 Eos % (Auto) 0.1 Baso % (Auto) 0.1 Immature Gran # (Auto) 0.03 H Neut # (Auto) 9.64 H Lymph # (Auto) 2.99 [place] # (Auto) 0.94 H Eos # (Auto) 0.02 Baso # (Auto) 0.01 Sodium 134 L Potassium 3.4 L Chloride 101 Carbon Dioxide 26 Anion Gap 7.0 BUN 10 Creatinine 0.93 Est Cr Clr Drug Dosing 45.1 Est GFR ( Amer) 69.7 Est GFR (Non-Af Amer) 60.1 BUN/Creatinine Ratio 10.9 Glucose 119 H Calcium 9.0 Total Bilirubin 0.5 AST 18 ALT 19 Alkaline Phosphatase 68 Total Protein 7.4 Albumin 3.3 L Globulin 4.1 H Albumin/Globulin Ratio 0.8 L Triglycerides 198 H Cholesterol 284 H LDL Cholesterol, Calc 183 VLDL Cholesterol, Calc 40 HDL Cholesterol 61 Cholesterol/HDL Ratio 5 Diagnostic Findings Brain MRI suggests a right cerebellar infarct. PG Care Time/CCT Total # of Minutes Spent Total Time Spent with Patient: Total time spent is greater than 50% in coordi nation of care (as documented) at patient's floor/unit and/or counseling patient:
[2019-02-06] MEDS ORDERED: PROMETHAZINE HCL 25 MG TAB PO PRN (18:32)
--- NOTE | 2019-02-06 22:34 | Hospitalist Progress Note ---
Date of Service February 06, 2019 Assessment & Plan (1) Ischemic stroke without coma: 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 Her ataxia appears better today than yesterday. Patient received 324 of aspirin. Will add plavix today on 02/06 outside of window for tpa, appears patient had symptoms prior to coming into the hospital. Patient had symptoms 4 hours prior to arriving to the hospital. Informed this to family. Case was also discussed with neuro. Will closely monitor patient. Patient will likely require rehab. (2) Syncope: the syncope was likely secondary to the stroke. Bradycardia likely secondary to PICA stroke. will monitor. (3) Nausea & vomiting: Added phenergan to the med list. will continue zofran for nausea. will continue meclizine for dizziness. (4) Leukocytosis: likely reactive will monitor (5) Asystole: Bradycardia likely related to stroke. (6) Renal insufficiency: - Hx of such, - Cr. and BUN stable, monitor with am PRP (7) Elevated TSH: - Free T4 is decreased at 0.49 - Pt likely with undiagnosed hypothyroidism, will start levothyroxine and will need follow up with PCP after discharge - Will initiate levothyroxine 112 mcg daily. this will continue. (8) DVT prophylaxis: -teds, scds Code status: DNR Dispo: From home, lives with , likely to remain in the hospital x 2 days Subjective Patient reports feeling somewhat better than yesterday. She is still unable to stand, but reports less dizziness and she is also able to use her right upper arm more. Review of Systems Review of Systems: All systems reviewed & are unremarkable except as noted in HPI & below Physical Exam Physical Exam: General: awake, alert, no apparent distress Head: Normocephalic, atraumatic ENT: PERRL, EOMI, no pharyngeal exudate, mucous membranes slightly dry Chest: Clear to auscultation, on room air, no adventitious breath sounds Cardiac: Regular rate and rhythm, no murmur, no JVD, normal peripheral pulses, good capillary refill Abdominal: NABS x 4 quadrants, soft, nontender to palpation, no rebound, guarding or tenderness Extremities: Normal inspection, no peripheral edema or erythema, calfs nontender to palpation Psych: Normal mood and affect Neuro: AAO x 3, mild ataxia on right upper extremity, speech is clear, no peripheral sensory deficits, normal strength in both arms, normal CN II -XII normal sensation Results & Data Vital Signs (Past 12 Hours) Vital Signs Temp Pulse Pulse Resp BP Pulse Ox 02/06/19 19:34 36.9 C 82 20 141/77 H 96 02/06/19 16:00 84 02/06/19 15:04 36.8 C 84 19 141/84 H 98 02/06/19 10:50 36.3 C L 78 16 173/99 H 95 PG Care Time/CCT Total # of Minutes Spent Total Time Spent with Patient: Total time spent is greater than 50% in coordination of care (as documented) at patient's floor/unit and/or counseling patient: (1) Leukocytosis Leukocytosis type: unspecified Qualified Code(s): D72.829 - Elevated white blood cell count, unspecified (2) Syncope Syncope type: vasovagal syncope Qualified Code(s): R55 - Syncope and collapse (3) Nausea & vomiting Vomiting Intractability: unspecified Vomiting type: unspecified Qualified Code(s): R11.2 - Nausea with vomiting, unspecified
[2019-02-07] MEDS: ONDANSETRON INJ 2 MG/ML 2 ML VIAL IV PRN ×2 (02:44→08:38)
[2019-02-07] MEDS: CALCIUM CARBONATE 500 MG CHEWABLE TAB PO PRN ×2 (02:47→14:00)
[2019-02-07] MEDS: LEVOTHYROXINE SODIUM 112 MCG TABLET PO SCH (06:02)
[2019-02-07 06:31] LABS: Basophils # (auto) 0.01 K/uL (0-0.2); Basophils % (auto) 0.1 %; Eosinophils # (auto) 0.04 K/uL (0-0.5); Eosinophils % (auto) 0.3 %; Hematocrit (blood only) 40.8 % (37-47); Hemoglobin 14.1 g/dL (12.0-16.0); Immature Granulocytes # (auto) 0.03 K/uL (0.00-0.02); Immature Granulocytes % (auto) 0.2 %; Lymphocytes # (auto) 2.98 K/uL (1.2-3.4); Mean Corpuscular Hgb Conc 34.6 g/dL (32-36); Mean Corpuscular Volume 86.8 fL (80-100); Mean Platelet Volume 10.9 fL (7.4-10.4); Monocytes # (auto) 1.37 K/uL (0.11-0.59); Monocytes % (auto) 10.6 %; Neutrophils # (auto) 8.54 K/uL (1.4-6.5); Neutrophils % (auto) 65.8 %; Platelet Count 237 K/uL (130-400); RDW Coefficient of Variation 12.7 % (11.5-14.5); RDW Standard Deviation 40.9 fL (36.4-46.3); White Blood Count 12.97 K/uL (4.8-10.8)
[2019-02-07 07:15] LABS: Albumin Level 3.5 gm/dl (3.4-5.0); BUN Creatinine Ratio 14.7 (10-20); Calcium 10.2 mg/dl (8.5-10.1); Creatinine Clr Calc Pharmacy 41.6 ml/min; Est GFR (African American) 63.1; Est GFR (Non-African American) 54.4; Potassium 3.5 mmol/L (3.5-5.1)
[2019-02-07 07:18] LABS: Albumin Globulin Ratio 0.8 (0.9-2); Bilirubin,Total 0.7 mg/dl (0.2-1); Globulin 4.3 gm/dl (2.5-4.0); Total Protein 7.8 gm/dl (6.4-8.2)
[2019-02-07] MEDS: ATORVASTATIN 40 MG TAB PO SCH (08:35)
[2019-02-07] MEDS: MULTIVITAMIN TAB PO SCH (08:35)
[2019-02-07] MEDS: POTASSIUM CHLORIDE 20 MEQ TABCR PO SCH (08:35)
[2019-02-07] MEDS: CLOPIDOGREL BISULFATE 75 MG TAB PO SCH (08:35)
--- NOTE | 2019-02-07 09:44 | Neurology Progress Note ---
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 In addition, she had bradycardia with syncope/asystole although over the last 12 hours she has had normal sinus rhythm in the 60s and 70s. Clinically February 06 she had vertiginous feelings and inability to maintain an upright stance leaning to the right with right upper extremity ataxia, nausea, and vomiting. She was improved compared to admission. The admission CT scan of the head likely shows some hypodensity in the right medial cerebellar hemisphere. MRI showed a rather large but incomplete right posterior inferior cerebellar artery distribution stroke giving typical signs and symptoms. Although she has a small pupil on the right she did not have a Meera syndrome. She did have some pain in the right face on admission but did not have any right face sensory issues or pain February 06. I did not see palatal asymmetry or nystagmus. She was complaining of some hoarseness to her voice but I did not appreciate that specifically on exam. She had some trouble swallowing since admission. She does not have contralateral sensory deficits on the left. The bradycardia is likely from the medullary component of the stroke. Today, February 07, she is much improved not having any nausea or vomiting, less vertiginous feelings when she moves, and better use in control of the right upper extremity and hand. She is swallowing better now. She has no numbness or pain of the face or limbs no hoarseness. This stroke was likely ischemic in nature from occlusion of the right PICA. Patient has a significant hypothyroidism with markedly elevated TSH and low free T4 which probably has been giving her fatigue. I do not believe this has anything to do with her stroke however. She does have some stroke risk factors. She was a light cigarette smoker in the past but has not smoked for 39 years. She has intermittently elevated blood pressure readings since admission, elevated glucose, and significant dyslipidemia. Finally, she has an elevated white count of uncertain etiology with no fever or other source of infection. Recommendations: 1. CT angiography of the head neck to evaluate her circulation and future stroke risk-going to be done this morning. 2. Continue clopidogrel 75 mg daily (off aspirin). 3. Control blood pressure, aiming for a mean arterial pressure of approximately 95-100. 4. Control glucose lowering the hemoglobin A1c less than 6.0. 5. Continue atorvastatin 80 mg daily. 6. Continue PT, OT, speech therapy, increasing activity as able. I believe the patient would be a an excellent candidate for the rehabilitation hospital after she is stabilized here. She cannot go home. 7. Continue meclizine for the vertigo and ondansetron for nausea as needed. Overall, I spent a total of 35 minutes with this case, including review of records, direct evaluation of the patient at bedside, and discussion of the case with the patient at bedside, her and daughter at bedside, RN at bedside, and with Dr. Hatch, including differential diagnosis and treatment options. Subjective Feels much better physically with less nausea and vomiting and better use of her right upper extremity and hand. She has been eating some also, saying that she is swallowing better. She seems more comfortable in bed and has no pain or headache. She denies any weakness or numbness of the limbs. She has no pain or in dysesthesias/numbness of the face. Nursing reports no new events or problems overnight. Blood pressure is 123/72. CBC shows elevated white count still and Chem profile is unremarkable. CT angiography of the head and neck is going to be done later this morning. Physical Exam Physical Exam: She is awake and alert. Speech is fluent without aphasia or dysarthria. Her voice is not hoarse. Palate raises well and she swallows saliva well. Extraocular eye muscles are intact without nystagmus. Pupils are equal and reactive. There is no ptosis. With outstretched arms there is no drift on the right. There is mild ataxia in the right upper extremity, improved from yesterday. Strength is 5/5 diffusely in all 4 limbs bilaterally. There are no abnormal involuntary movements. Results & Data Vital Signs (Past 12 Hours) Vital Signs Temp Pulse Pulse Resp BP Pulse Ox 02/07/19 08:04 90 18 123/72 96 02/07/19 03:16 37.1 C 79 18 135/75 95 02/07/19 01:52 127/76 02/07/19 00:00 36.8 C 79 81 16 150/83 H 97 PG Care Time/CCT Total # of Minutes Spent Total Time Spent with Patient: Total time spent is greater than 50% in coordination of care (as documented) at patient's floor/unit and/or counseling patient: (1) Nausea & vomiting Vomiting Intractability: unspecified Vomiting type: unspecified Qualified Code(s): R11.2 - Nausea with vomiting, unspecified
[2019-02-07] MEDS ORDERED: OPTIRAY 320 125ml IV PRN (10:17)
--- NOTE | 2019-02-07 10:44 | CT Scan Report ---
CT ANGIOGRAM OF THE NECK CLINICAL HISTORY: Stroke. COMPARISON STUDY: No priors. TECHNIQUE: Following the IV administration of 120 of Optiray 320, CT angiogram of the neck was perfor med from the aortic arch to the skull base. Images are reviewed in the axial, sagittal, and coronal p lanes. 3-D MIPS images are created and assessed. IV contrast was administered without complication. A ll measurements were calculated based on NASCET criteria. A dose lowering technique was utilized adh ering to the principles of ALARA. CT DOSE: 998.01 mGy.cm FINDINGS: Thoracic aorta: There is atherosclerotic calcification of the thoracic aorta. Visualized portions of the thoracic aorta are normal in caliber. The aortic arch demonstrates standard 3-vessel anatomy. Right carotid arterial system: The right common carotid artery is widely patent, as are the right int ernal and external carotid arteries. Atherosclerotic plaque is noted in the carotid bulb in the proxi mal internal carotid artery. Left carotid arterial system: The left common carotid artery is widely patent, as are the left sourcing intern al and external carotid arteries. Atherosclerotic plaque is seen within the distal common carotid art toño, the carotid bulb, and the proximal internal carotid artery. Vertebral arteries: The vertebral arteries are patent in the neck bilaterally and codominant. There i s a long dissection seen throughout the entirety of the imaged right vertebral artery. This extends f rom the takeoff of the subclavian artery to the skull base, and there is likely associated thrombus w ithin the vessel. The distal intracranial vertebral artery appears thrombosed. Subclavian arteries: Widely patent bilaterally. Intracranial vasculature: As discussed above, dissection is noted within the right vertebral artery a t the skull base. The distal right vertebral artery appears thrombosed below the basilar artery. The left vertebral artery at the skull base is patent, as are the remaining visualized intracranial vesse ls at the skull base. Jugular veins: Widely patent bilaterally. Brain parenchyma: There is loss of michaud-white matter differentiation identified in the right cerebell ar hemisphere consistent with an evolving infarct. Lung apices: Partially visualized upper lobe lung parenchyma appears clear. Soft tissues: The visualized pharyngeal soft tissues are normal in appearance noting angiographic pha se technique. The oropharyngeal airway appears widely patent. The thyroid gland is atrophic and heter ogeneous. The salivary glands are normal in appearance. No cervical lymphadenopathy is seen. Skeletal structures: The skeletal structures are osteopenic. The visualized calvarium at the skull ba se appears intact. The imaged cervical spine is maintained noting mild multilevel spondylosis. No lyt ic or blastic lesion is seen. IMPRESSION: 1. 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 This extends from the takeoff of the subclavian artery to the skull base. 2. There is thrombosis of the distal right vertebral artery at the skull base just below the basilar artery. The remainder of the right vertebral artery is patent. 3. The left vertebral artery in the carotid arteries are patent bilaterally. 4. An evolving infarct is noted in the right cerebellar hemisphere. Electronically signed by: Golden Osborne M.D. 02/07/2019 10:43 AM
--- NOTE | 2019-02-07 10:44 | CT Scan Report ---
CT angio head w con CLINICAL HISTORY: Acute stroke TECHNIQUE: CT angiography of the head was performed in a dynamic helical fashion during intravenous a dministration of 120 cc of Optiray 320. MIP imaging was performed. A dose lowering technique was util ized adhering to the principles of ALARA. CT DOSE: COMPARISON STUDY: No previous studies for comparison. FINDINGS: There is a right vertebral artery dissection with intramural thrombus and secondary marked luminal narrowing and distal occlusion. There is no evidence for intracranial internal carotid artery aneurysm dissection or stenosis The dural venous sinuses appear patent. There is a right PICA distribution infarct. There is mild nonspecific symmetrical prominence of the extraocular muscles IMPRESSION: 1. Right vertebral artery dissection with secondary marked luminal narrowing and distal occlusion 2. Right PICA distribution infarct Electronically signed by: Morris Harris M.D. 02/07/2019 10:42 AM
[2019-02-07] MEDS ORDERED: CLOPIDOGREL BISULFATE 75 MG TAB PO SCH (12:00)
--- NOTE | 2019-02-07 22:36 | Hospitalist Progress Note ---
Date of Service February 07, 2019 Assessment & Plan (1) Ischemic stroke without coma: 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 Had discussion with neuro, no further intervention required. Her ataxia appears better today than yesterday. Patient will contiue on aspirin and plavix outside of window for tpa, appears patient had symptoms prior to coming into the hospital. Patient had symptoms 4 hours prior to arriving to the hospital. Informed this to family. Awaiting placement to rehab. Family is updated on CTA findings (2) Syncope: the syncope was likely secondary to the stroke. Bradycardia likely secondary to PICA stroke. will monitor. (3) Nausea & vomiting: Added phenergan to the med list. will continue zofran for nausea. will continue meclizine for dizziness. (4) Leukocytosis: likely reactive will monitor (5) Asystole: Bradycardia likely related to stroke. (6) Renal insufficiency: - Hx of such, - Cr. and BUN stable, monitor with am PRP (7) Elevated TSH: - Free T4 is decreased at 0.49 - Pt likely with undiagnosed hypothyroidism, will start levothyroxine and will need follow up with PCP after discharge - Will initiate levothyroxine 112 mcg daily. this will continue. (8) DVT prophylaxis: -teds, scds Code status: DNR Subjective Patient reports feeling better. She states that her nausea, vomiting has improved as well as her dizziness. Review of Systems Review of Systems: All systems reviewed & are unremarkable except as noted in HPI & below Physical Exam Physical Exam: General: awake, alert, no apparent distress Head: Normocephalic, atraumatic ENT: PERRL, EOMI, no pharyngeal exudate, mucous membranes slightly dry Chest: Clear to auscultation, on room air, no adventitious breath sounds Cardiac: Regular rate and rhythm, no murmur, no JVD, normal peripheral pulses, good capillary refill Abdominal: NABS x 4 quadrants, soft, nontender to palpation, no rebound, guarding or tenderness Extremities: Normal inspection, no peripheral edema or erythema, calfs nontender to palpation Psych: Normal mood and affect Neuro: AAO x 3, mild ataxia on right upper extremity, speech is clear, no peripheral sensory deficits, normal strength in both arms, normal CN II -XII normal sensation Results & Data Vital Signs (Past 12 Hours) Vital Signs Temp Pulse Pulse Resp BP Pulse Ox 02/07/19 19:09 37.2 C 98 H 22 123/47 L 94 02/07/19 16:19 90 02/07/19 15:19 37.0 C 88 18 124/82 92 02/07/19 10:49 37.2 C 87 16 138/77 97 PG Care Time/CCT Total # of Minutes Spent Total Time Spent with Patient: Total time spent is greater than 50% in coordination of care (as documented) at patient's floor/unit and/or counseling patient: (1) Leukocytosis Leukocytosis type: unspecified Qualified Code(s): D72.829 - Elevated white blood cell count, unspecified (2) Syncope Syncope type: vasovagal syncope Qualified Code(s): R55 - Syncope and collapse (3) Nausea & vomiting Vomiting Intractability: unspecified Vomiting type: unspecified Qualified Code(s): R11.2 - Nausea with vomiting, unspecified
[2019-02-08] MEDS: ACETAMINOPHEN 325 MG TAB PO PRN (01:12)
[2019-02-08] MEDS: LEVOTHYROXINE SODIUM 112 MCG TABLET PO SCH (06:10)
[2019-02-08 06:30] LABS: Basophils # (auto) 0.03 K/uL (0-0.2); Basophils % (auto) 0.3 %; Eosinophils % (auto) 1.8 %; Hematocrit (blood only) 40.5 % (37-47); Hemoglobin 14.1 g/dL (12.0-16.0); Immature Granulocytes # (auto) 0.05 K/uL (0.00-0.02); Immature Granulocytes % (auto) 0.4 %; Lymphocytes # (auto) 3.26 K/uL (1.2-3.4); Mean Corpuscular Hemoglobin 30.2 pg (25-34); Mean Corpuscular Hgb Conc 34.8 g/dL (32-36); Mean Corpuscular Volume 86.7 fL (80-100); Mean Platelet Volume 10.9 fL (7.4-10.4); Monocytes # (auto) 1.26 K/uL (0.11-0.59); Monocytes % (auto) 11.2 %; Neutrophils # (auto) 6.45 K/uL (1.4-6.5); Neutrophils % (auto) 57.3 %; Platelet Count 278 K/uL (130-400); RDW Coefficient of Variation 12.9 % (11.5-14.5); RDW Standard Deviation 41.5 fL (36.4-46.3); Red Blood Count 4.67 M/uL (4.2-5.4); White Blood Count 11.25 K/uL (4.8-10.8)
[2019-02-08 07:01] LABS: BUN Creatinine Ratio 17.9 (10-20); Calcium 9.3 mg/dl (8.5-10.1); Creatinine Clr Calc Pharmacy 33.6 ml/min; Est GFR (African American) 48.7; Potassium 3.7 mmol/L (3.5-5.1)
[2019-02-08] MEDS: ATORVASTATIN 40 MG TAB PO SCH (08:21)
[2019-02-08] MEDS: CLOPIDOGREL BISULFATE 75 MG TAB PO SCH (08:21)
[2019-02-08] MEDS: MULTIVITAMIN TAB PO SCH (08:22)
--- NOTE | 2019-02-08 09:43 | Neurology Progress Note ---
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 In addition, she had bradycardia with syncope/asystole noted prior to admission via EMS but has been in normal sinus rhythm without significant bradycardia over the last 48 hours. Clinically February 06 she had vertiginous feelings and inability to maintain an upright stance leaning to the right with right upper extremity ataxia, nausea, and vomiting. She was improved compared to admission. The admission CT scan of the head likely shows some hypodensity in the right medial cerebellar hemisphere. MRI showed a rather large but incomplete right posterior inferior cerebellar artery distribution stroke giving typical signs and symptoms. Although she has a small pupil on the right she did not have a Meera syndrome. She did have some pain in the right face on admission but did not have any right face sensory issues or pain February 06. I did not see palatal asymmetry or nystagmus. She was complaining of some hoarseness to her voice but I did not appreciate that specifically on exam. She had some trouble swallowing since admission. She does not have contralateral sensory deficits on the left. The bradycardia is likely from the medullary component of the stroke. February 07, she is much improved not having any nausea or vomiting, less vertiginous feelings when she moves, and better use in control of the right upper extremity and hand. She is swallowing better now. She has no numbness or pain of the face or limbs no hoarseness. She continues to be improved today, February 08. This stroke was ischemic from occlusion of origin of the the right PICA. This was due to a right vertebral dissection, starting from the origin of the vertebral artery up to the area where the PICA takes off. Patient has a significant hypothyroidism with markedly elevated TSH and low free T4 which probably has been giving her fatigue. I do not believe this has anything to do with her stroke however. She does have some stroke risk factors. She was a light cigarette smoker in the past but has not smoked for 39 years. She has intermittently elevated blood pressure readings since admission, elevated glucose, and significant dyslipidemia. Finally, she has an elevated white count of uncertain etiology with no fever or other source of infection. Recommendations: 1. Had 81 mg aspirin tablet to the clopidogrel. 2. Continue clopidogrel 75 mg daily. 3. Control blood pressure, aiming for a mean arterial pressure of approximately 95-100. Avoid over control. 4. Control glucose lowering the hemoglobin A1c less than 6.0. 5. Continue atorvastatin 80 mg daily. 6. Continue PT, OT, speech therapy, increasing activity as able. I believe the patient would be a an excellent candidate for the rehabilitation hospital after she is stabilized here. She cannot go home. 7. Continue meclizine for the vertigo and ondansetron for nausea as needed. Overall, I spent a total of 35 minutes with this case, including review of records, direct evaluation of the patient at bedside, review of CT scan films with Radiology, and discussion of the case with the patient at bedside, RN at bedside, and with Dr. Hatch, including differential diagnosis and treatment options. Subjective Patient feels stable today ache as she did yesterday. She does not have any pain or headache and has improved function of her left hand and arm. She is still leaning significantly to the right however. She has no facial numbness or tingling and no numbness or tingling in the arms and legs bilaterally. She is swallowing better with soft food and clear liquids and does not have a hoarse voice. Her blood pressure was low today at 90/60 but her pulse is 80 and regular. Nursing reports that the patient is under motivated to work hard improving with therapy. CT angiography of the head was unremarkable with no significant stenoses or vessel anomalies. CT angiography of the neck showed a long dissection of the right vertebral artery starting at the takeoff from the subclavian artery up to the skull base with an occlusion at the level of the PICA. The PICA is not visualized on the right but well visualized on the left. I reviewed these films with Dr. Carver, radiologist. CBC showed a mildly elevated white count and Chem profile showed a mildly elevated BUN and creatinine. I had an extensive discussion with Dr. Shrestha, [facility] Stroke physician electronic parts salesperson, regarding this case. He recommends adding aspirin to the Plavix for 2-3 months and then going on Plavix alone. There is no indication for any surgical or other procedure. Physical Exam Physical Exam: She is awake and alert. Her speech is without aphasia or dysarthria. Mood is reasonable and affect is appropriate. Thought processes are intact conversation. Extraocular eye muscles are intact without nystagmus. There is no facial droop. Tongue is midline. Patient will lean to the right when sitting up if not s upported. She has some mild ataxia of the right upper extremity but this is improved compared to previous. There is no ataxia of the right lower extremity. Strength is symmetrical in all limbs. Results & Data Vital Signs (Past 12 Hours) Vital Signs Temp Pulse Resp BP Pulse Ox 02/08/19 08:06 36.8 C 80 16 90/60 L 96 02/08/19 02:53 36.9 C 75 18 93/47 L 93 02/07/19 23:23 36.6 C 81 18 94/59 L 94 PG Care Time/CCT Total # of Minutes Spent Total Time Spent with Patient: Total time spent is greater than 50% in coordination of care (as documented) at patient's floor/unit and/or counseling patient: (1) Nausea & vomiting Vomiting Intractability: unspecified Vomiting type: unspecified Qualified Code(s): R11.2 - Nausea with vomiting, unspecified
[2019-02-08] MEDS: CALCIUM CARBONATE 500 MG CHEWABLE TAB PO PRN (12:26)
[2019-02-08] MEDS ORDERED: CHLORPROMAZINE HCL 25 MG TABLET PO SCH (15:00)
[2019-02-08] MEDS ORDERED: CHLORPROMAZINE HCL 25 MG TABLET PO PRN (15:00)
--- NOTE | 2019-02-08 22:38 | Hospitalist Progress Note ---
Date of Service February 08, 2019 Assessment & Plan (1) Ischemic stroke without coma: 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 Had discussion with neuro, no further intervention required. Her ataxia appears better today than yesterday. Patient will continue on aspirin and plavix outside of window for tpa, appears patient had symptoms prior to coming into the hospital. Patient had symptoms 4 hours prior to arriving to the hospital. Informed this to family. Awaiting placement to rehab. Patient refusinfg placement today, will hold until monday as no other beds will be available. But explained to patient, this will hinder her recovery the more she stays in bed. Family is updated on CTA findings (2) Syncope: the syncope was likely secondary to the stroke. Bradycardia likely secondary to PICA stroke. will monitor. (3) Nausea & vomiting: Added phenergan to the med list. will continue zofran for nausea. will continue meclizine for dizziness. (4) Leukocytosis: likely reactive will monitor (5) Asystole: Bradycardia likely related to stroke. (6) Renal insufficiency: - Hx of such, - Cr. and BUN stable, monitor with am PRP (7) Elevated TSH: - Free T4 is decreased at 0.49 - Pt likely with undiagnosed hypothyroidism, will start levothyroxine and will need follow up with PCP after discharge - Will initiate levothyroxine 112 mcg daily. this will continue. (8) DVT prophylaxis: -teds, scds Code status: DNR Subjective Patient reports feeling very weak. She does not want to be discharged today. Had discussion with nurse, patient is very unmotivated. She did not want to leave her bed and wanted to use bed hernandez. Physical therapy got her up and moving to the bathroom and to the chair. Review of Systems Review of Systems: All systems reviewed & are unremarkable except as noted in HPI & below Physical Exam Physical Exam: General: awake, alert, no apparent distress Head: Normocephalic, atraumatic ENT: PERRL, EOMI, no pharyngeal exudate, mucous membranes slightly dry Chest: Clear to auscultation, on room air, no adventitious breath sounds Cardiac: Regular rate and rhythm, no murmur, no JVD, normal peripheral pulses, good capillary refill Abdominal: NABS x 4 quadrants, soft, nontender to palpation, no rebound, guarding or tenderness Extremities: Normal inspection, no peripheral edema or erythema, calfs nontender to palpation Psych: Normal mood and affect Neuro: AAO x 3, mild ataxia on right upper extremity, speech is clear, no peripheral sensory deficits, normal strength in both arms, normal CN II -XII no rmal sensation Results & Data Vital Signs (Past 12 Hours) Vital Signs Temp Pulse Pulse Resp BP BP Pulse Ox 02/08/19 15:15 36.9 C 87 18 122/75 91 02/08/19 15:05 83 02/08/19 12:27 102/50 L 02/08/19 11:52 37 C 85 16 84/61 L 95 PG Care Time/CCT Total # of Minutes Spent Total Time Spent with Patient: Total time spent is greater than 50% in coordination of care (as documented) at patient's floor/unit and/or counseling patient: (1) Syncope Syncope type: vasovagal syncope Qualified Code(s): R55 - Syncope and collapse (2) Nausea & vomiting Vomiting Intractability: unspecified Vomiting type: unspecified Qualified Code(s): R11.2 - Nausea with vomiting, unspecified (3) Leukocytosis Leukocytosis type: unspecified Qualified Code(s): D72.829 - Elevated white blood cell count, unspecified
[2019-02-09] MEDS: LEVOTHYROXINE SODIUM 112 MCG TABLET PO SCH (06:06)
[2019-02-09] MEDS: ATORVASTATIN 40 MG TAB PO SCH (08:24)
[2019-02-09] MEDS: CLOPIDOGREL BISULFATE 75 MG TAB PO SCH (08:24)
[2019-02-09] MEDS: MULTIVITAMIN TAB PO SCH (08:24)
[2019-02-09] MEDS ORDERED: FAMOTIDINE 20 MG TAB PO ONE (12:47)
[2019-02-09] MEDS: ACETAMINOPHEN 325 MG TAB PO PRN (19:41)
--- NOTE | 2019-02-09 22:36 | Hospitalist Progress Note ---
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 Had discussion with neuro, no further intervention required. Her ataxia appears better today than yesterday. Patient will continue on aspirin and plavix outside of window for tpa, appears patient had symptoms prior to coming into the hospital. Patient had symptoms 4 hours prior to arriving to the hospital. Informed this to family. Awaiting placement to rehab. Patient is unmotivated. will hold until monday as no other beds will be available. Family is updated on CTA findings (2) Syncope: the syncope was likely secondary to the stroke. Bradycardia likely secondary to PICA stroke. will monitor. (3) Nausea & vomiting: Added phenergan to the med list. will continue zofran for nausea. will continue meclizine for dizziness. (4) Leukocytosis: likely reactive will monitor (5) Asystole: Bradycardia likely related to stroke. (6) Renal insufficiency: - Hx of such, - Cr. and BUN stable, monitor with am PRP (7) Elevated TSH: - Free T4 is decreased at 0.49 - Pt likely with undiagnosed hypothyroidism, will start levothyroxine and will need follow up with PCP after discharge - Will initiate levothyroxine 112 mcg daily. this will continue. (8) DVT prophylaxis: -teds, scds Code status: DNR Subjective 73 yo female reports no new symptoms. She appears to have been in bed all day. Had informed nurse to help move patient out of bed. Will move patient to 253-2 so she can be sitting by the chair on the window. I formed the charge nurse to get this assigned. Patient appears to be unmotivated Review of Systems Review of Systems: All systems reviewed & are unremarkable except as noted in HPI & below Physical Exam Physical Exam: General: awake, alert, no apparent distress Head: Normocephalic, atraumatic ENT: PERRL, EOMI, no pharyngeal exudate, mucous membranes slightly dry Chest: Clear to auscultation, on room air, no adventitious breath sounds Cardiac: Regular rate and rhythm, no murmur, no JVD, normal peripheral pulses, good capillary refill Abdominal: NABS x 4 quadrants, soft, nontender to palpation, no rebound, guarding or tenderness Extremities: Normal inspection, no peripheral edema or erythema, calfs nontender to palpation Psych: Normal mood and affect Neuro: AAO x 3, mild ataxia on right upper extremity, speech is clear, no peripheral sensory deficits, normal strength in both arms, normal CN II -XII normal sensation Results & Data Vital Signs (Past 12 Hours) Vital Signs Temp Pulse Resp BP Pulse Ox 02/09/19 15:02 37.0 C 91 H 18 98/65 L 94 PG Care Time/CCT Total # of Minutes Spent Total Time Spent with Patient: Total time spent is greater than 50% in coordination of care (as documented) at patient's floor/unit and/or counseling patient: (1) Syncope Syncope type: vasovagal syncope Qualified Code(s): R55 - Syncope and collapse (2) Nausea & vomiting Vomiting Intractability: unspecified Vomiting type: unspecified Qualified Code(s): R11.2 - Nausea with vomiting, unspecified (3) Leukocytosis Leukocytosis type: unspecified Qualified Code(s): D72.829 - Elevated white blood cell count, unspecified
[2019-02-10] MEDS: LEVOTHYROXINE SODIUM 112 MCG TABLET PO SCH (05:02)
[2019-02-10] MEDS: CLOPIDOGREL BISULFATE 75 MG TAB PO SCH (08:30)
[2019-02-10] MEDS: ATORVASTATIN 40 MG TAB PO SCH (08:30)
[2019-02-10] MEDS: MULTIVITAMIN TAB PO SCH (08:30)
[2019-02-10] MEDS: ACETAMINOPHEN 325 MG TAB PO PRN ×2 (14:01→21:11)
--- NOTE | 2019-02-10 18:54 | Hospitalist Progress Note ---
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 Had discussion with neuro, no further intervention required. Continue dual antiplateletsimproving nicely. For rehab at [facility] hopefully tomorrow. She believes she is showing progress. (2) Syncope: the syncope was likely secondary to the stroke. Bradycardia likely secondary to PICA stroke. Seems to have improved. (3) Nausea & vomiting: Improved, eating well. (4) Leukocytosis: Improvingmore than likely reactive. (5) Asystole: Bradycardia likely related to stroke. Doing better (6) Renal insufficiency: - Hx of such, -Overall appearing stable. Continue to follow (7) Elevated TSH: Appears to have had hypothyroidismSynthroid just started. Continue and follow-up TSH in 4 weeks (8) DVT prophylaxis: -teds, scds Code status: DNR Anticipate rehab at [facility], hopefully tomorrow. Subjective Feeling stronger. Eating well. Notes that she is able to move her arm much better than she could a few days ago. Optimistic about her progress, excited to get to [facility] to start to rehab. Review of Systems Review of Systems: All systems reviewed & are unremarkable except as noted in HPI & below Physical Exam Physical Exam: General she is awake and alert pleasant no distress. HEENT normocephalic atraumatic mucous membranes moist. Breathing unlabored no accessory muscle use good effort. Skin shows no rashes no pallor or icterus. Neuro shows her moving her arms well, no facial droop, speech is even, she appears to be swallowing well. Results & Data Vital Signs (Past 12 Hours) Vital Signs Temp Pulse Resp BP Pulse Ox 02/10/19 16:01 98.1 F 85 18 114/70 94 02/10/19 15:04 98.2 F 89 18 101/58 L 93 02/10/19 06:57 98.6 F 80 20 116/81 96 PG Care Time/CCT Total # of Minutes Spent Total Time Spent with Patient: Total time spent is greater than 50% in coordination of care (as documented) at patient's floor/unit and/or counseling patient: (1) Leukocytosis Leukocytosis type: unspecified Qualified Code(s): D72.829 - Elevated white blood cell count, unspecified (2) Syncope Syncope type: vasovagal syncope Qualified Code(s): R55 - Syncope and collapse (3) Nausea & vomiting Vomiting Intractability: unspecified Vomiting type: unspecified Qualified Code(s): R11.2 - Nausea with vomiting, unspecified
[2019-02-11] MEDS: LEVOTHYROXINE SODIUM 112 MCG TABLET PO SCH (06:00)
[2019-02-11] MEDS: MULTIVITAMIN TAB PO SCH (08:14)
[2019-02-11] MEDS: CLOPIDOGREL BISULFATE 75 MG TAB PO SCH (08:15)
[2019-02-11] MEDS: ATORVASTATIN 40 MG TAB PO SCH (08:15)
[2019-02-11] MEDS ORDERED: STROKE PATIENT DISCHARGE STA (11:56)
--- NOTE | 2019-02-11 20:38 | Discharge Summary ---
Date of Service February 11, 2019 Admission HPI Per Admitting Provider This is a 73 yo F with PMHx of HTN, renal insufficiency and L renal artery occlusion who presents with acute onset of nausea/vomiting, cough and a possible syncopal episode. The patient is very somnolent during my exam, therefore and her daughter in law provide the majority of the history. He reports that she has been coughing for 2 to 3 days now, nonproductive, but that she has not eaten or drank much in the last 2 days. He notes that last evening while he was asleep she appeared to be uncomfortable with lots of tossing and turning. The patient woke him this morning as she was up earlier than he was and when he came downstairs into their kitchen she told him she felt severely ill and asked him to call 911. She proceeded to have increased coughing fits with posttussive vomiting, was extremely diaphoretic and very weak. He reports that his son who was also in the home helped to carry her to a chair to sit down. EMS arrived at her home, where NSS 1L was administered via IV, at approximately 13:15 the patient had an episode of asystole which was followed by bradycardic rhythm at 48 bpm. Rates improved with fluid. WBC elevated 13.55, TSH is noted at 63.8 and free T4 =0.49 Principal Diagnosis PICA stroke Discharge Exam General she is awake and alert pleasant no distress. HEENT normocephalic atraumatic mucous membranes moist. Breathing unlabored no accessory muscle use good effort. Skin shows no rashes no pallor or icterus. Neuro shows a degree of ataxia of the right upper extremity which he notes is significantly better than it was before. Speech is unlabored and normal and fluent. Discharge Data Allergies Allergy/AdvReac Type Severity Reaction Status Date / Time No Known Allergies Allergy Unverified 02/04/19 14:49 Consultations 02/04/19 15:03 ED Decision to Admit Stat 02/04/19 16:05 Consult Cardiology Routine Consult Case Management - Discharge Planning Routine 02/05/19 19:02 Consult Case Management - Discharge Planning Routine Consult Neurology Routine Ordered Studies 02/04/19 13:56 CT head/brain wo con Stat 02/04/19 16:25 CT abd pelvis IV con only Stat 02/05/19 16:31 MR brain wo con Urgent 02/06/19 11:42 CT angio head w con Routine CT angio neck with con Routine Hospital Course (1) Ischemic stroke without coma: 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 Had discussion with neuro, no further intervention possiblemed management and rehab is the appropriate strategy. Plavix, PT/OT at SNF. Stable for discharge to SNF. (2) Syncope: the syncope was likely secondary to the stroke. Bradycardia likely secondary to PICA stroke. Has improved (3) Nausea & vomiting: Improved, eating well. (4) Leukocytosis: Improvingmore than likely reactive. (5) Asystole: Bradycardia likely related to stroke. Doing better (6) Renal insufficiency: - Hx of such, -Overall appearing stable. Continue to follow (7) Elevated TSH: Appears to have had hypothyroidismSynthroid just started. Continue and follow-up TSH in 4 weeks (8) DVT prophylaxis: -teds, scds Code status: DNR [facility] Total Time Total Time Spent Total Time Spent (In Minutes): Less than 30 Discharge Plan Discharge Items Patient Disposition: Transfer Longterm Fac Reason For Visit: SYNCOPE,EPISODE OF ASYSTOLE Discharge Diagnosis: posterior stroke Activity: Resume your previous activity Non-emergency contact: Primary Care Provider and Neurologist Call non-emergency contact if: you have any medication questions and your symptoms worsen Follow-up/Referrals: Mauri Diallo [Primary Care Provider] - Diet: Regular Addtl Attending Provider Instructions: stroke -had vertebral artery dissection leading to posterior stroke -in discussions with harry and local neurology - plan for treatment is supportive/medical management/secondary risk reduction -- right now w antiplatelets and statin; should BP start to show a rise then HTN management play a role but at this time it is not appearing necessary hypothyroidism -incidentally found to be quite hypothyroid on admission - markedly elevated TSH @ 63.8; synthroid started -- please have repeat TSH around second week of Hansel yuen (or if she is discharged prior to then, please recommend that she have this checked as outpatient) bradycardia -had bradycardia that appeared to be purely stroke related and has not recurred; if any problems were to arise, she is now familiar to [facility] Cardiology repeat CBC, BMP ~1wks please Pending Studies at Discharge: No Stand-Alone Forms: My [facility] Skilled Items Patient informed of condition?: Yes DNR: Yes Discharge Level of Care: Skilled Communicable Disease: No Discharge Prognosis: Improving Lines: None Urinary Catheter: No Medications and DC Order Prescriptions: New clopidogrel 75 mg Tablet 75 mg PO QAM Qty: 30 RF: 0 atorvastatin 40 mg Tablet 80 mg PO QAM Qty: 30 RF: 0 levothyroxine [Synthroid] 112 mcg Tablet 112 mcg PO DAILYBB Qty: 30 RF: 0 Discontinued aspirin [Aspir-81] 81 mg Tablet,Delayed Release (Dr/Ec) 81 mg PO DAILY RF: 0 multivitamin [Multiple Vitamins] Tablet 1 tab PO 4XWK RF: 0 Discharge Orders: Discharge Order (Routine); Ordered 02/11/19 Ordered By: Som Sands/Other Patient Handouts: Prediabetes, Diabetes Manage A1C Test Admission Data Admit Date/Time: 02/04/19 16:13 Attending Provider: Som Felipe Admit Provider: Myrtle Garcia Primary Care Provider: Mauri Diallo Other Providers: Lawrence Hoff ; Myrtle Garcia ; Delon Lyon ; Macario Gordillo III ; Mauri Hatch Other Interventions: Discharge Summary Assessment (RN) Last Done: 02/11/19 12:34 DC Date/Time DO NOT enter until pt leaves facility: 02/11/19 14:16
== END 2019-02-11 14:16 | DRG 66 ==
LOC: ED 13:44 → 2E 16:13 → SUATTDRO 16:13 → 2E 17:35 → 2W 02-08 14:57 → 4W 02-10 14:54

== ENCOUNTER 2020-08-27 21:16 | Observation (INO) ==
--- NOTE | 2020-08-27 22:05 | Emergency Department Note ---
History of Present Illness General Chief complaint: Leg Injury/Pain Stated complaint: R THIGH PAIN Time Seen by Provider: 08/27/20 21:44 Source: patient Mode of arrival: EMS Limitations: no limitations History of Present Illness Maximum Pain Intensity: 4 This patient is a 74-year-old female who presents to the emergency department for evaluation of right upper leg pain. The patient states that this afternoon, she noticed some pain in her right upper leg when she was walking around. She has no pain at rest. She states the pain is on the inner aspect of the upper leg. She rates the discomfort a 4/10. She denies any recent fall or injury. Patient states that she normally gets around her house okay and does not use a walker or any other aid to help her walk. She lives with her son. She does report a history of a blood clot in her left leg in 2010. She is currently on Plavix which was started after she had a stroke. She denies any chest pain or shortness of breath. She denies any fever/chills. Home Medications Medication Instructions Recorded Confirmed Type clopidogrel 75 mg PO QAM #30 tab 02/11/19 08/28/20 Rx acetaminophen [Tylenol Extra 500 mg PO Q6H PRN 08/28/20 08/28/20 History Strength] aspirin [Aspir-Low] 81 mg PO DAILY 08/28/20 08/28/20 History atorvastatin 80 mg PO DAILY 08/28/20 08/28/20 History levothyroxine 88 mcg PO DAILY 08/28/20 08/28/20 History Allergies Allergy/AdvReac Type Severity Reaction Status Date / Time No Known Allergies Allergy Unverified 08/28/20 00:35 Past Med/Surg History Medical History (Updated 08/28/20 @ 07:33 by Rose Padilla PA-C) Colitis CVA (cerebral vascular accident) DVT (deep venous thrombosis) Hypertension Hypothyroid Surgical History S/P cataract surgery S/P hysterectomy Family History Mother , age 61 of an [place]. 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 Feels Safe at Home: Yes Safety Concerns: Feels Safe At This Time Assistive Devices: None Review of Systems A total of 10 systems reviewed and were otherwise negative Physical Exam Vital Signs Vital Signs - 24 hr 08/27/20 21:24 08/27/20 23:06 08/27/20 23:30 Temperature 36.8 C Temperature Source Oral Pulse Rate 96 H 85 79 Respiratory Rate 18 19 17 Blood Pressure 113/84 105/60 96/53 L Blood Pressure Mean 93 75 67 Blood Pressure Position Lying Pulse Oximetry 96 95 92 Oxygen Delivery Method Room Air Room Air Room Air Sepsis Recent Fever Within 48 Hours No Sepsis New/Unexplained Change in Mental Status No Sepsis Action Taken by Nursing No Action Required 08/28/20 00:00 08/28/20 00:43 08/28/20 01:00 Temperature Temperature Source Pulse Rate 80 82 80 Respiratory Rate 18 20 18 Blood Pressure 108/62 126/69 93/54 L Blood Pressure Mean 77 88 67 Blood Pressure Position Pulse Oximetry 96 95 Oxygen Delivery Method Room Air Room Air Sepsis Recent Fever Within 48 Hours Sepsis New/Unexplained Change in Mental Status Sepsis Action Taken by Nursing 08/28/20 01:30 Temperature Temperature Source Pulse Rate 85 Respiratory Rate 18 Blood Pressure 88/56 L Blood Pressure Mean 66 Blood Pressure Position Pulse Oximetry 96 Oxygen Delivery Method Room Air Sepsis Recent Fever Within 48 Hours Sepsis New/Unexplained Change in Mental Status Sepsis Action Taken by Nursing VITALS: Vitals are noted on the nurse's note and reviewed by myself. GENERAL: This is a 74-year-old female, in no acute distress, well-developed well-nourished. SKIN: The right lower extremity is erythematous and slightly warm to touch. EYES: Pupils equal round and reactive to light and accommodation. MOUTH: Mucous membranes moist. HEART: Regular rate and rhythm without murmurs gallops or rubs. LUNGS: Clear to auscultation bilaterally without wheezes, rales or rhonchi. ABDOMEN: Positive bowel sounds x 4. Soft, nontender to palpation. EXTREMITIES: Right lower extremity is markedly edematous compared to the left. The leg is erythematous, especially over the medial proximal leg. 2+ pitting edema noted. Dorsalis pedis pulses 2+. Forage motion of the leg. NEURO: Patient was alert and oriented to person place and time. Distal sensation intact. Course Consultations Consultation #1: Dr. Rojas [facility] hospitalist Administered Medications Levothyroxine Sodium (Levothyroxine Sodium 88 Mcg Tablet) 88 mcg PO DAILYBB AURELIA Stop: 09/27/20 06:29 Last Admin: 08/28/20 06:00 Dose: 88 mcg Documented by: [id number] Medical Decision Making Differential Diagnosis Differential diagnosis includes DVT, superficial thrombosis, arterial occlusion, cellulitis, necrotizing fasciitis, among others. Medical Records Attestation: I reviewed the patient's medical records. Home Medications Current Medication List: was personally reviewed by me Laboratory Data Attestation: I reviewed the patient's lab results. Result diagrams: 08/27/20 22:13 08/27/20 22:13 Lab Results 08/27/20 08/27/20 08/27/20 Range/Units 22:13 22:13 22:13 WBC 13.44 H (4.8-10.8) K/uL RBC 4.56 (4.2-5.4) M/uL Hgb 12.9 (12.0-16.0) g/dL Hct 39.6 (37-47) % MCV 86.8 (80-100) fL MCH 28.3 (25-34) pg MCHC 32.6 (32-36) g/dL RDW Std Deviation 43.1 (36.4-46.3) fL RDW Coeff of Pancho 13.7 (11.5-14.5) % Plt Count 236 (130-400) K/uL MPV 10.7 H (7.4-10.4) fL Immature Gran % (Auto) 0.4 % Neut % (Auto) 75.9 % Lymph % (Auto) 15.3 % Harvey % (Auto) 7.5 % Eos % (Auto) 0.8 % Baso % (Auto) 0.1 % Neut # (Auto) 10.19 H (1.4-6.5) K/uL Lymph # (Auto) 2.06 (1.2-3.4) K/uL Harvey # (Auto) 1.01 H (0.11-0.59) K/uL Eos # (Auto) 0.11 (0-0.5) K/uL Baso # (Auto) 0.02 (0-0.2) K/uL Immature Gran # (Auto) 0.05 H (0.00-0.02) K/uL PT 10.0 (9.0-12.0) Seconds INR 1.0 (0.9-1.1) APTT 20.7 L (21.0-31.0) Seconds PTT Ratio 0.8 Sodium 134 L (136-145) mmol/L Potassium 4.1 (3.5-5.1) mmol/L Chloride 103 (98-107) mmol/L Carbon Dioxide 27 (21-32) mmol/L Anion Gap 5.0 (3-11) BUN 17 (7-18) mg/dl Creatinine 1.10 (0.6-1.2) mg/dl Est Cr Clr Drug Dosing 39.7 ml/min Est GFR ( Amer) 56.5 Est GFR (Non-Af Amer) 48.7 BUN/Creatinine Ratio 15.8 (10-20) Glucose 147 H (70-99) mg/dl Calcium 9.3 (8.5-10.1) mg/dl Total Bilirubin 0.5 (0.2-1) mg/dl AST 24 (15-37) U/L ALT 20 (12-78) U/L Alkaline Phosphatase 124 H (45-117) U/L Total Protein 7.6 (6.4-8.2) gm/dl Albumin 3.2 L (3.4-5.0) gm/dl Globulin 4.4 H (2.5-4.0) gm/dl Albumin/Globulin Ratio 0.7 L (0.9-2) COVID-19 Eval Order SARS-CoV-2 (PCR) (Negative) Influenza Type A (PCR) (Neg) Influenza Type B (PCR) (Neg) RSV (RT-PCR) (Neg) 08/28/20 08/28/20 Range/Units 00:09 00:09 WBC (4.8-10.8) K/uL RBC (4.2-5.4) M/uL Hgb (12.0-16.0) g/dL Hct (37-47) % MCV (80-100) fL MCH (25-34) pg MCHC (32-36) g/dL RDW Std Deviation (36.4-46.3) fL RDW Coeff of Pancho (11.5-14.5) % Plt Count (130-400) K/uL MPV (7.4-10.4) fL Immature Gran % (Auto) % Neut % (Auto) % Lymph % (Auto) % Harvey % (Auto) % Eos % (Auto) % Baso % (Auto) % Neut # (Auto) (1.4-6.5) K/uL Lymph # (Auto) (1.2-3.4) K/uL Harvey # (Auto) (0.11-0.59) K/uL Eos # (Auto) (0-0.5) K/uL Baso # (Auto) (0-0.2) K/uL Immature Gran # (Auto) (0.00-0.02) K/uL PT (9.0-12.0) Seconds INR (0.9-1.1) APTT (21.0-31.0) Seconds PTT Ratio Sodium (136-145) mmol/L Potassium (3.5-5.1) mmol/L Chloride (98-107) mmol/L Carbon Dioxide (21-32) mmol/L Anion Gap (3-11) BUN (7-18) mg/dl Creatinine (0.6-1.2) mg/dl Est Cr Clr Drug Dosing ml/min Est GFR ( Amer) Est GFR (Non-Af Amer) BUN/Creatinine Ratio (10-20) Glucose (70-99) mg/dl Calcium (8.5-10.1) mg/dl Total Bilirubin (0.2-1) mg/dl AST (15-37) U/L ALT (12-78) U/L Alkaline Phosphatase (45-117) U/L Total Protein (6.4-8.2) gm/dl Albumin (3.4-5.0) gm/dl Globulin (2.5-4.0) gm/dl Albumin/Globulin Ratio (0.9-2) COVID-19 Eval Order CovFluRsv at [facility] SARS-CoV-2 (PCR) NEGATIVE (Negative) Influenza Type A (PCR) Negative (Neg) Influenza Type B (PCR) Negative (Neg) RSV (RT-PCR) Negative (Neg) Imaging Data Attestation: I personally reviewed and interpreted this imaging study as follows: Radiologist's Impression: Venous Doppler Study 08/27/20 21:57 RIGHT LOWER EXTREMITY VENOUS DOPPLER HISTORY: right leg swelling, redness, pain COMPARISON STUDY: None. FINDINGS: Occlusive thrombus involving the right common femoral vein and superficial femoral vein. Thrombus also extends into the right greater saphenous vein. The right popliteal and calf vessels are patent. IMPRESSION: Right lower extremity DVT as described above. ACT 112: Negative or not required by law. Electronically signed by: Bairon Ceballos M.D. 08/28/2020 7:08 AM MDM Narrative Continuous crm solution architect: Order was placed for continuous crm solution architect. Patient was placed on the crm solution architect. Patient was noted to be in normal sinus rhythm at an initial rate of 96 bpm. The patient is a 74-year-old female who presents today complaining of right leg pain and swelling. Patient's leg is markedly swollen on exam, with pitting edema and erythema noted. Ultrasound was performed and does show an extensive DVT in the right leg despite patient's current Plavix use. Given this DVT despite current anticoagulation use, I did elect to speak with the hospitalist service regarding the patient. They agreed to evaluate the patient for further care. Anticoagulation was deferred to the hospitalist team. Impression & Plan Deep vein thrombosis (DVT) of right lower extremity Discharge Plan Visit Data Chief Complaint: Leg Injury/Pain Stated Complaint: R THIGH PAIN ED Provider: Golden Mayorga ED Midlevel Provider: Rose Padilla Discharge Problem: Deep vein thrombosis (DVT) of right lower extremity Patient Disposition: Admitted As Inpatient Discharge Instructions Interventions: ED Discharge Assessment Last Done: 08/28/20 03:47
[2020-08-27 22:22] LABS: Basophils # (auto) 0.02 K/uL (0-0.2); Basophils % (auto) 0.1 %; Eosinophils # (auto) 0.11 K/uL (0-0.5); Eosinophils % (auto) 0.8 %; Hematocrit (blood only) 39.6 % (37-47); Hemoglobin 12.9 g/dL (12.0-16.0); Immature Granulocytes # (auto) 0.05 K/uL (0.00-0.02); Immature Granulocytes % (auto) 0.4 %; Lymphocytes # (auto) 2.06 K/uL (1.2-3.4); Lymphocytes % (auto) 15.3 %; Mean Corpuscular Hemoglobin 28.3 pg (25-34); Mean Corpuscular Hgb Conc 32.6 g/dL (32-36); Mean Corpuscular Volume 86.8 fL (80-100); Mean Platelet Volume 10.7 fL (7.4-10.4); Monocytes # (auto) 1.01 K/uL (0.11-0.59); Monocytes % (auto) 7.5 %; Neutrophils # (auto) 10.19 K/uL (1.4-6.5); Neutrophils % (auto) 75.9 %; Platelet Count 236 K/uL (130-400); RDW Coefficient of Variation 13.7 % (11.5-14.5); RDW Standard Deviation 43.1 fL (36.4-46.3); Red Blood Count 4.56 M/uL (4.2-5.4); White Blood Count 13.44 K/uL (4.8-10.8)
[2020-08-27 22:33] LABS: Partial Thromboplastin Ratio 0.8; Partial Thromboplastin Time 20.7 Seconds (21.0-31.0)
[2020-08-27 22:39] LABS: Albumin Level 3.2 gm/dl (3.4-5.0); BUN Creatinine Ratio 15.8 (10-20); Calcium 9.3 mg/dl (8.5-10.1); Creatinine Clr Calc Pharmacy 39.7 ml/min; Est GFR (African American) 56.5; Est GFR (Non-African American) 48.7; Potassium 4.1 mmol/L (3.5-5.1)
[2020-08-27 22:42] LABS: Albumin Globulin Ratio 0.7 (0.9-2); Bilirubin,Total 0.5 mg/dl (0.2-1); Globulin 4.4 gm/dl (2.5-4.0); Total Protein 7.6 gm/dl (6.4-8.2)
--- NOTE | 2020-08-27 23:56 | Emergency Department Note ---
ED Visit Note Patient was seen by our PA/DELINQUENT NOTICE MACHINE OPERATOR. I was involved in the patient's care and did evaluate the patient myself. I was involved in the care throughout the ER stay. The patient has an extensive DVT, hospitalization is warranted. The on-call hospitalist will be consulted. .
[2020-08-28 01:11] LABS: Influenza A virus by PCR Negative (Neg); Influenza B virus by PCR Negative (Neg); RSV by PCR Negative (Neg); SARS CoV2 RNA(COVID-19) InHosp NEGATIVE (Negative)
--- NOTE | 2020-08-28 01:42 | History & Physical Report ---
Date of Service August 28, 2020 Assessment & Plan (1) Right leg DVT: 74 yo F PMHx CVA, DVT, HLD, hypothyroidism admitted for proximal RLE DVT. RLE DVT: Presented to ER with RLE pain. Venous US RLE showed DVT of right common femoral vein, greater saphenous vein, and femoral vein. Patient has a history of DVT in the past, and was on Coumadin for 3 years prior to being d/c'ed by PCP in favor of Plavix. No family history of DVT/PE. Patient herself also has a history of CVA. 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 Will start Lovenox 1mg/kg BID; with suspected transition to DOAC. Hx CVA: History of CVA many years ago; on aspirin and Plavix therapy. No sensory of motor acute deficits. HLD: Continue atorvastatin. Hypothyroidism: Continue home levothyroxine. Constipation: History of, takes Senna daily. Can continue this. Code Status: DNR/DNI FEN: Heart Healthy DVT ppx: therapeutic Lovenox Dispo: Med/Surg with Telemetry (2) Dyslipidemia: (3) Hypothyroid: History of Present Illness Chief Complaint: right leg pain Primary Care Provider: Mauri Diallo 74 yo F PMHx CVA, DVT, HLD, hypothyroidism presented to ER for one day of RLE pain, specifically at the level of the thigh. Reports that earlier today she began to notice her thigh and calf hurting with ambulation. She has a history of DVT, but reports that after being on Coumadin for three years for one, she was taken off and "switched to Plavix". No family history of DVT/PE. No known history of hypercoagulability disorder. Denies chest pain, SOB, abdominal pain, nausea, vomiting, dizziness, headache. Endorses chronic constipation for which she takes Senna. In the ER patient was noted on RLE doppler to have and DVT of right common femoral vein, greater saphenous vein, and femoral vein. Hospitalist service was consulted for admission for proximal DVT. Allergies Allergy/AdvReac Type Severity Reaction Status Date / Time No Known Allergies Allergy Unverified 08/28/20 00:35 Home Medications Medication Instructions Recorded Confirmed Type acetaminophen [Tylenol Extra 500 mg PO Q6H PRN 08/28/20 08/28/20 History Strength] apixaban [Eliquis] See Rx Instructions .ROUTE 08/28/20 Rx .COMPLEX #74 ea aspirin 81 mg PO DAILY 08/28/20 08/28/20 History atorvastatin 80 mg PO DAILY 08/28/20 08/28/20 History levothyroxine 88 mcg PO DAILY 08/28/20 08/28/20 History Past Med/Surg History Medical History (Updated 08/28/20 @ 07:33 by Rose Padilla PA-C) Colitis CVA (cerebral vascular accident) DVT (deep venous thrombosis) Hypertension Hypothyroid Surgical History S/P cataract surgery S/P hysterectomy Family History Mother , age 61 of an LA. 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 Feels Safe at Home: Yes Safety Concerns: Feels Safe At This Time Assistive Devices: None Review of Systems Review of Systems: All systems reviewed & are unremarkable except as noted in HPI & below Constitutional: no fever, no chills and no malaise Respiratory: no cough and no dyspnea Cardiovascular: no chest pain, no palpitations and no edema Gastrointestinal: no abdominal pain, no constipation and no diarrhea/loose stools Genitourinary: no dysuria and no hematuria Physical Exam Constitutional: WD/WN, vitals as above Eyes: PERRL, conjunctivae normal, anicteric sclerae ENMT: external ear and nose normal, oropharynx normal Neck: normal visual inspection Respiratory: normal respiratory effort, lungs clear to auscultation Cardiovascular: RRR, no murmur, no edema Gastrointestinal (Abdomen): normal bowel sounds, soft, nontender, no hepatosplenomegaly Musculoskeletal: no cyanosis or clubbing, extremities motor strength 5/5 Skin: RLE notably mildly erythematous from the level of the mid-thigh down to the foot. Skin is also more taught on RLE as compared to LLE. Tenderness to palpation noted over posterior right calf, posterior and medial right thigh Neurologic: AAOx3, normal speech. Bilateral UE, LE, and face without sensory or motor deficits. No tremor. Psychiatric: A+Ox3, euthymic affect Results & Data Results & Data ([facility]) Vital Signs (Past 12 Hours) Vital Signs Temp Pulse Resp BP Pulse Ox 08/28/20 00:00 80 18 108/62 08/27/20 23:30 79 17 96/53 L 92 08/27/20 23:06 85 19 105/60 95 08/27/20 21:24 36.8 C 96 H 18 113/84 96 Code Status & VTE Plan VTE Prophylaxis Plan VTE Prophylaxis will be ordered: Yes Supervising Physician Co-Signing Physician Notes Attending addendum: I have physically seen this patient, have supervised the medical residents activities, and agree with the H&P unless as otherwise noted. Assessment and Plan: Right lower extremity DVT- Placed on Lovenox 1 mg/kg subcu twice daily. Transition to DOAC in a.m. Hypercoagulable work-up History of CVA- Continue aspirin and Plavix Hyperlipidemia- Continue atorvastatin Hypothyroidism- Continue levothyroxine Remaining orders and notations as noted Resident Activity Tracking Resident Involvement: Resident Care Provided Care Provided: Adult Hospital Medicine (1) Hypothyroid Hypothyroidism type: unspecified Qualified Code(s): E03.9 - Hypothyroidism, unspecified (2) Right leg DVT Affected thrombotic vein of extremity: unspecified vein of extremity Chronicity: acute Qualified Code(s): I82.401 - Acute embolism and thrombosis of unspecified deep veins of right lower extremity
[2020-08-28] MEDS ORDERED: ACETAMINOPHEN 325 MG TAB PO PRN (04:24)
[2020-08-28] MEDS ORDERED: ACETAMINOPHEN HOME PACK 500 MG TABLET PO PRN (04:24)
[2020-08-28] MEDS ORDERED: LEVOTHYROXINE SODIUM 88 MCG TABLET PO SCH (06:30)
--- NOTE | 2020-08-28 07:09 | Ultrasound Report ---
RIGHT LOWER EXTREMITY VENOUS DOPPLER HISTORY: right leg swelling, redness, pain COMPARISON STUDY: None. FINDINGS: Occlusive thrombus involving the right common femoral vein and superficial femoral vein. Th rombus also extends into the right greater saphenous vein. The right popliteal and calf vessels are p atent. IMPRESSION: Right lower extremity DVT as described above. ACT 112: Negative or not required by law. Electronically signed by: Bairon Ceballos M.D. 08/28/2020 7:08 AM
--- NOTE | 2020-08-28 08:06 | Hospitalist Progress Note ---
Date of Service August 28, 2020 Assessment & Plan (1) Deep vein thrombosis (DVT) of right lower extremity: Vivian Fernandes is a 74yo F PMHx CVA, DVT, HLD, hypothyroidism admitted for proximal RLE DVT. RLE DVT: - Presented to ER with RLE pain. - Venous US RLE showed DVT of right common femoral vein, greater saphenous vein, and femoral vein. - Patient has a history of DVT in the past, and was on Coumadin for 3 years prior to being d/c'ed by PCP in favor of Plavix. - No family history of DVT/PE. Patient herself also has a history of CVA. 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 - No signs or symptoms of pulmonary embolism continue to monitor - Continue Lovenox 1mg/kg BID - Likely transition to DOAC. Hx CVA: - History of CVA many years ago; on aspirin and Plavix therapy. - No sensory of motor acute deficits. HLD: - Continue atorvastatin. Hypothyroidism: - Continue home levothyroxine. Constipation: - History of - Continue Senna daily Code Status: DNR/DNI FEN: Heart Healthy DVT ppx: therapeutic Lovenox Dispo: Med/Surg with Telemetry (2) CVA (cerebral vascular accident): (3) Hypertension: (4) Hypothyroid: (5) Dyslipidemia: Admission and Anticipated Discharge Date Admission Date: August 28, 2020 Subjective Patient sitting up comfortably in bed having just had breakfast and tolerated well. Her only complaints are right leg swelling and mild pain. Says this started yesterday before arrival and had a quick onset. Denies chest pain, shortness of breath, palpitations, abdominal pain, nausea, vomiting. Saturating well on room air, no current concerns for PE. Review of Systems Review of Systems: All systems reviewed & are unremarkable except as noted in Subjective Physical Exam Constitutional: WD/WN, vitals as above Neck: normal visual inspection Respiratory: normal respiratory effort, lungs clear to auscultation Cardiovascular: RRR, no murmur, no edema Musculoskeletal: no cyanosis or clubbing, extremities motor strength 5/5 Skin: RLE notably mildly erythematous from the level of the mid-thigh down to the foot. Skin is somewhat indurated on RLE as compared to LLE. Tenderness to palpation noted over posterior right calf, posterior and medial right thigh Neurologic: AAOx3, normal speech. Bilateral UE, LE, and face without sensory or motor deficits. No tremor. Psychiatric: A+Ox3, euthymic affect Results & Data Results & Data ([facility]) Vital Signs (Past 12 Hours) Vital Signs Temp Pulse Pulse Resp BP BP Pulse Ox 08/28/20 07:00 37 C 92 H 20 126/80 93 08/28/20 04:54 94 H 08/28/20 04:30 36.8 C 18 124/81 96 08/28/20 03:30 80 12 98/51 L 92 08/28/20 03:01 77 17 102/60 94 08/28/20 02:30 76 22 123/63 08/28/20 02:00 81 21 107/60 92 08/28/20 01:30 85 18 88/56 L 96 08/28/20 01:00 80 18 93/54 L 95 08/28/20 00:43 82 20 126/69 96 08/28/20 00:00 80 18 108/62 08/27/20 23:30 79 17 96/53 L 92 08/27/20 23:06 85 19 105/60 95 08/27/20 21:24 36.8 C 96 H 18 113/84 96 (1) Hypothyroid Hypothyroidism type: unspecified Qualified Code(s): E03.9 - Hypothyroidism, unspecified (2) Hypertension Hypertension type: essential hypertension Qualified Code(s): I10 - Essential (primary) hypertension
[2020-08-28] MEDS ORDERED: SENNA 8.6 MG TAB PO SCH (09:00)
[2020-08-28] MEDS ORDERED: ATORVASTATIN 40 MG TAB PO SCH (09:00)
[2020-08-28] MEDS ORDERED: ENOXAPARIN 80 MG/0.8 ML SYR SQ SCH (09:00)
[2020-08-28] MEDS ORDERED: CLOPIDOGREL BISULFATE 75 MG TAB PO SCH (09:00)
[2020-08-28] MEDS ORDERED: ENOXAPARIN 1 MG/KG SC SCH (09:00)
[2020-08-28] MEDS ORDERED: ASPIRIN 81 MG ECTAB PO SCH (09:00)
--- NOTE | 2020-08-28 13:31 | Discharge Summary ---
Date of Service August 28, 2020 Admission HPI Per Admitting Provider 74 yo F PMHx CVA, DVT, HLD, hypothyroidism presented to ER for one day of RLE pain, specifically at the level of the thigh. Reports that earlier today she began to notice her thigh and calf hurting with ambulation. She has a history of DVT, but reports that after being on Coumadin for three years for one, she was taken off and "switched to Plavix". No family history of DVT/PE. No known history of hypercoagulability disorder. Denies chest pain, SOB, abdominal pain, nausea, vomiting, dizziness, headache. Endorses chronic constipation for which she takes Senna. In the ER patient was noted on RLE doppler to have and DVT of right common femoral vein, greater saphenous vein, and femoral vein. Hospitalist service was consulted for admission for proximal DVT. Principal Diagnosis Proximal RLE DVT Discharge Exam Constitutional: WD/WN, vitals as above Neck: normal visual inspection Respiratory: normal respiratory effort, lungs clear to auscultation Cardiovascular: RRR, no murmur, no edema Musculoskeletal: no cyanosis or clubbing, extremities motor strength 5/5 Skin: RLE notably mildly erythematous from the level of the mid-thigh down to the foot. Skin is somewhat indurated on RLE as compared to LLE. Tenderness to palpation noted over posterior right calf, posterior and medial right thigh Neurologic: AAOx3, normal speech. Bilateral UE, LE, and face without sensory or motor deficits. No tremor. Psychiatric: A+Ox3, euthymic affect Discharge Data Allergies Allergy/AdvReac Type Severity Reaction Status Date / Time No Known Allergies Allergy Unverified 08/28/20 00:35 Consultations 08/28/20 01:06 ED Decision to Admit Stat Ordered Studies 08/27/20 21:57 US venous doppler LE RT Urgent Hospital Course (1) Deep vein thrombosis (DVT) of right lower extremity: Vivian Fernandes is a 74yo F PMHx CVA, DVT, HLD, hypothyroidism admitted for proximal RLE DVT. RLE DVT: - Presented to ER with RLE pain. - Venous US RLE showed DVT of right common femoral vein, greater saphenous vein, and femoral vein. - Patient has a history of DVT in the past, and was on Coumadin for 3 years prior to being d/c'ed by PCP in favor of Plavix. - No family history of DVT/PE. Patient herself also has a history of CVA. 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 - No signs or symptoms of pulmonary embolism - Received Lovenox 1mg/kg BID overnight while admitted - Discharged on Eliquis 10mg BID x 7 days, and then 5mg BID thereafter Hx CVA: - History of CVA many years ago; on aspirin and Plavix therapy. - No sensory of motor acute deficits. HLD: - Continue atorvastatin. Hypothyroidism: - Continue home levothyroxine. Constipation: - History of - Continue Senna daily FEN: Heart Healthy Dispo: Home - Self Care (2) CVA (cerebral vascular accident): (3) Hypertension: (4) Hypothyroid: (5) Dyslipidemia: Total Time Total Time Spent Total Time Spent (In Minutes): <30 Discharge Plan Discharge Items Patient Disposition: Home - Self-Care Reason For Visit: EXTENSIVE RLE DVT Discharge Diagnosis: RLE DVT Activity: Per Instructions section Non-emergency contact: Primary Care Provider Call non-emergency contact if: you have any medication questions and your symptoms worsen Follow-up/Referrals: Mauri Diallo [Primary Care Provider] - 09/02/20 10:45 am Diet: Heart Healthy Addtl Attending Provider Instructions: You were admitted to [facility] due to right leg pain and were found to have a blood clot in your leg. As such, we started you on anticoagulation. Specifically, you will be sent home with a medication called Eliquis. You will take 10 mg twice daily for the first 7 days and will then take 5mg twice daily after that. We recommend that you stop taking your Plavix, as you will be taking Eliquis. This medication will make you more likely to bleed, though it is a low risk. If you wanda yourself or have a bleed, apply pressure for 10 minutes. If the blood has not stopped, seek medical care. If you notice bloody vomit or bloody/very dark, tarry stool, seek emergency medical care. We recommend that you continue on this medication indefinitely, as this is your second instance of an unprovoked blood clot in your legs. Please follow up with your primary care provider to discuss your hospitalization and for continued management of both your new and previous medications. If you develop worsening leg swelling/pain, or develop chest pain, shortness of breath, intractable cough, bloody cough, or any other concerning symptoms please seek emergency medical care. Thank you for allowing us to participate in your care. Pending Studies at Discharge: No Stand-Alone Forms: My [facility] [employer], Smoking Cessation Medications and DC Order Prescriptions: New Eliquis 5 mg (74 tabs) tablets,dose pack See Rx Instructions .ROUTE .COMPLEX Qty: 74 RF: 0 Continued atorvastatin 80 mg tablet 80 mg PO DAILY RF: 0 aspirin 81 mg Tablet,Delayed Release (Dr/Ec) 81 mg PO DAILY RF: 0 acetaminophen [Tylenol Extra Strength] 500 mg Tablet 500 mg PO Q6H PRN (Reason: Pain) RF: 0 levothyroxine 88 mcg tablet 88 mcg PO DAILY RF: 0 Discontinued clopidogrel 75 mg Tablet 75 mg PO QAM Qty: 30 RF: 0 Discharge Orders: Discharge Order (Routine); Ordered 08/28/20 Ordered By: Filippo Pabon Admission Data Admit Date/Time: 08/28/20 01:40 Attending Provider: Som Felipe Admit Provider: Bertha Bell Primary Care Provider: Mauri Diallo Other Providers: Raudel Rojas Other Interventions: Discharge Summary Assessment (RN) Last Done: 08/28/20 13:11 Supervising Physician Co-Signing Physician Notes I personally examined the patient and verified all hawkins points of history and exam, discussed case, and agree with decision making with Dr Bonilla. Feeling good overall, leg still little bit swollen. tolerable. really wants to go home. Expresses good understanding of DVT treatment, given that she he was on Coumadin for a long time for prior DVT. Vitals noted, in general she is awake and alert pleasant no distress. HEENT normocephalic atraumatic mucous membranes moist. Breathing unlabored no ac cessory muscle use good effort. Skin shows no rashes no pallor or icterus. Recurrent DVTanticoagulationsafe for home, no signs or symptoms of PE or instability, sent home on apixaban 10 mg twice daily for a week then 5 mg twice daily indefinitely. Educated on differences between Coumadin and apixaban, discussed bleeding risk and safety measures. Patient expressed good understanding. Stable for home. Otherwise as above Resident Activity Tracking Resident Involvement: Resident Care Provided Care Provided: Adult Hospital Medicine
--- NOTE | 2020-08-28 16:28 | Billing Data ---
Date of Service August 28, 2020 Coding Level of Care Code 80400 OBS Care - Discharge
[2020-08-28] MEDS ORDERED: ENOXAPARIN INJ 60 MG/0.6 ML SYR SQ SCH (21:00)
--- NOTE | 2020-08-28 21:46 | Billing Data ---
Date of Service August 28, 2020 Coding Level of Care Code 68222 OBS Care - Level 3
== END 2020-08-28 13:55 | disposition home or self-care (01) ==
LOC: ED 21:16 → 2N 21:16 → SUATTDRO 08-28 01:40 → 2N 08-28 03:47

== ENCOUNTER 2020-09-15 18:13 | Observation (INO) ==
[2020-09-15] MEDS ORDERED: ONDANSETRON INJ 2 MG/ML 2 ML VIAL IV STA (20:40)
[2020-09-15] MEDS ORDERED: MoRPHine SULFATE 2 MG/ML CARP IV STA (20:40)
--- NOTE | 2020-09-15 20:43 | Emergency Department Note ---
History of Present Illness General Chief complaint: Leg Injury/Pain Stated complaint: R LEG PAIN Time Seen by Provider: 09/15/20 20:30 Source: patient History of Present Illness Provider complaint: Right thigh pain Onset (ago): week(s) Location: lower extremity and right Severity: severe Pain Consistency: + constant Maximum Pain Intensity: 10 Quality: + other (Throbbing) Exacerbated By: + other (When she tries to stand) Associated symptoms: no chest pain, no cough, no fever/chills, no nausea/vomiting and no shortness of breath This is a 75-year-old female who was recently diagnosed with a DVT in the right upper extremity and placed on Eliquis presenting with worsening pain to her right leg. She describes it as a throbbing pain to the right thigh extending into her knee. She rates it a 10 out of 10 in severity. It is worse when she tries to walk on it. She is unable to walk on it at home. She states the swelling has been there since she was diagnosed with a DVT last month but it is slightly more swollen today. She denies any injury. She has had no fever, coug h or cold symptoms, chest pain, shortness of breath, abdominal pain, vomiting, diarrhea or urinary symptoms. She states that she has been taking Eliquis for it. She does have a prior history of DVT many years ago and was placed on anticoagulants at that time. She does not believe that she has a clotting disorder that she knows of. Home Medications Medication Instructions Recorded Confirmed Type acetaminophen [Tylenol Extra 500 mg PO Q6H PRN 08/28/20 09/15/20 History Strength] aspirin 81 mg PO QDB 08/28/20 09/15/20 History atorvastatin 80 mg PO QDB 08/28/20 09/15/20 History levothyroxine 88 mcg PO DAILY 08/28/20 09/15/20 History apixaban [Eliquis] 5 mg PO BID 09/15/20 09/15/20 History levothyroxine 100 mcg PO DAILYBB 09/15/20 09/15/20 History Allergies Allergy/AdvReac Type Severity Reaction Status Date / Time No Known Allergies Allergy Verified 09/15/20 21:17 Past Med/Surg History Medical History Colitis CVA (cerebral vascular accident) Deep vein thrombosis (DVT) of right lower extremity DVT (deep venous thrombosis) Hypertension Hypothyroid Surgical History S/P cataract surgery S/P hysterectomy Family History Mother , age 61 of an [place]. 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 Feels Safe at Home: Yes Assistive Devices: None Review of Systems See HPI for pertinent positives & negatives. and A total of 10 systems reviewed and were otherwise negative Physical Exam Vital Signs Vital Signs - 24 hr 09/15/20 18:15 Temperature 36.3 C L Temperature Source Temporal Artery Scan Pulse Rate 94 H Respiratory Rate 20 Respiratory Effort / Characteristics Non-Labored Respiratory Depth Normal Blood Pressure 141/66 H Blood Pressure Mean 91 Pulse Oximetry 99 Oxygen Delivery Method Room Air Sepsis Recent Fever Within 48 Hours No Sepsis New/Unexplained Change in Mental Status N/A Sepsis Action Taken by Nursing No Action Required Constitutional: Vital signs reviewed. Eyes: Pupils are equal round reactive to light. Conjunctiva are noninjected. ENT: Pharynx is clear without erythema or exudate. Mucous membranes are moist. Neck supple without meningeal signs. Respiratory: Clear to auscultation bilaterally. Breath sounds are equal bila terally. Cardiovascular: Regular rate and rhythm. No rubs or gallops. GI: Soft, nondistended and nontender. Bowel sounds are present. Musculoskeletal: Significant swelling to the right lower extremity, especially in the thigh with erythema and slightly increased warmth. Distal capillary refill is less than 2 seconds. Weak dorsalis pedis pulse palpable through the edema and this is confirmed with Doppler. No evidence of compartment syndrome. Integumentary: No cyanosis. or jaundice. Neurological: The patient is awake and alert. No focal deficits. Psychiatric: Anxious. Course Administered Medications Discontinued Medications Morphine Sulfate (Morphine Sulfate 2 Mg/Ml Carp) 2 mg IV NOW STA Stop: 09/15/20 20:41 Last Admin: 09/15/20 20:50 Dose: 2 mg Documented by: [id number] Morphine Sulfate (Morphine Sulfate 4 Mg/Ml 1 Ml Carp\Vial) 4 mg IV NOW STA Stop: 09/15/20 23:05 Last Admin: 09/15/20 23:23 Dose: 4 mg Documented by: [id number] Ondansetron HCl (Ondansetron Inj 2 Mg/Ml 2 Ml Vial) 4 mg IV NOW STA Stop: 09/15/20 20:41 Last Admin: 09/15/20 20:50 Dose: 4 mg Documented by: [id number] Medical Decision Making Differential Diagnosis Phlegmasia cerulea dolens, phlegmasia alba dolens, DVT, thrombophilia, occult malignancy Medical Records Attestation: I reviewed the patient's medical records. I did perform a limited focused review of portions of the patient's old chart on the electronic medical record. The patient was seen here August 27 for leg pain. She was diagnosed with a large occlusive DVT and admitted to the medical service. She was discharged on Eliquis. Her ultrasound showed the following:Oc clusive thrombus involving the right common femoral vein and superficial femoral vein. Thrombus also extends into the right greater saphenous vein. The right popliteal and calf vessels are patent. Home Medications Current Medication List: was personally reviewed by me Laboratory Data Attestation: I reviewed the patient's lab results. Result diagrams: 09/15/20 20:20 09/15/20 20:20 Lab Results 09/15/20 09/15/20 09/15/20 Range/Units 20:20 20:20 20:20 WBC 12.52 H (4.8-10.8) K/uL RBC 4.19 L (4.2-5.4) M/uL Hgb 12.1 (12.0-16.0) g/dL Hct 38.0 (37-47) % MCV 90.7 (80-100) fL MCH 28.9 (25-34) pg MCHC 31.8 L (32-36) g/dL RDW Std Deviation 48.9 H (36.4-46.3) fL RDW Coeff of Pancho 14.7 H (11.5-14.5) % Plt Count 320 (130-400) K/uL MPV 11.4 H (7.4-10.4) fL Immature Gran % (Auto) 0.2 % Neut % (Auto) 73.6 % Lymph % (Auto) 13.3 % Reeves % (Auto) 12.2 % Eos % (Auto) 0.6 % Baso % (Auto) 0.1 % Neut # (Auto) 9.21 H (1.4-6.5) K/uL Lymph # (Auto) 1.67 (1.2-3.4) K/uL Reeves # (Auto) 1.53 H (0.11-0.59) K/uL Eos # (Auto) 0.07 (0-0.5) K/uL Baso # (Auto) 0.01 (0-0.2) K/uL Immature Gran # (Auto) 0.03 H (0.00-0.02) K/uL PT 10.3 (9.0-12.0) Seconds INR 1.0 (0.9-1.1) APTT 24.0 (21.0-31.0) Seconds PTT Ratio 0.9 Sodium 139 (136-145) mmol/L Potassium 3.7 (3.5-5.1) mmol/L Chloride 104 (98-107) mmol/L Carbon Dioxide 29 (21-32) mmol/L Anion Gap 6.0 (3-11) BUN 10 (7-18) mg/dl Creatinine 0.95 (0.6-1.2) mg/dl Est Cr Clr Drug Dosing Not Reportable Est GFR ( Amer) 67.0 ml/min Est GFR (Non-Af Amer) 57.8 ml/min BUN/Creatinine Ratio 10.2 (10-20) Glucose 149 H (70-99) mg/dl Calcium 8.9 (8.5-10.1) mg/dl Total Bilirubin 0.8 (0.2-1) mg/dl AST 26 (15-37) U/L ALT 22 (12-78) U/L Alkaline Phosphatase 95 (45-117) U/L Total Protein 7.6 (6.4-8.2) gm/dl Albumin 3.1 L (3.4-5.0) gm/dl Globulin 4.5 H (2.5-4.0) gm/dl Albumin/Globulin Ratio 0.7 L (0.9-2) Imaging Data Radiologist's Impression: Preliminary Findings Only See Final Report For Complete Findings US VENOUS RIGHT LOWER EXTREMITY: Positive for deep and superficial venous thrombosis. Thrombus noted in the right common femoral, superficial femoral (proximal-mid) and greater saphenous vein. Right inguinal nodes Soft tissue edema. Radiologist: Pablo Tinoco M.D. Study ready at 22:30 and initial results transmitted at 22:33 Communications: Clear Time Type Notes Verify Receipt MDM Narrative I did evaluate the patient as noted above. The patient is presenting with worsening pain in her right thigh. She had similar pain when she was diagnosed with a DVT last month. She states for some reason today got worse. She states that the swelling has not significantly worsened but admits that she has not been able to keep her leg elevated very much at home. Today she states the pain is so bad that she cannot ambulate and so presents here. She denies any sympt oms consistent with PE. IV access was established. I did treat the patient with IV morphine and Zofran. I did order and review the patient's blood work as noted in the electronic medical record. Her white count is 12.5 but it was also elevated when she was previously here. Electrolytes are unremarkable. I did order a Doppler ultrasound of the right lower extremity. I did review the images myself as well as the radiology report as described above. She has a DVT in the right common femoral, superficial femoral and greater saphenous vein. This is unchanged from her prior ultrasound. On exam she does not have any signs of phlegmasia cerulea dolens. There is no evidence of compartment syndrome or vascular compromise. The patient is requesting more pain medicine. She was given additional morphine IV. On reassessment she states that she feels better but still has significant pain and does not feel she can go home as she cannot ambulate on her own. I did discuss the case with the hospitalist and nurse outreach case manager. She will be assessed by the hospitalist for further management. I did order a screening Covid test. Impression & Plan Ambulatory dysfunction, Intractable pain, Deep vein thrombosis (DVT) of right lower extremity, Anticoagulated Discharge Plan Visit Data Chief Complaint: Leg Injury/Pain Stated Complaint: R LEG PAIN ED Provider: Shon Welch Discharge Problem: Ambulatory dysfunction, Intractable pain, Deep vein thrombosis (DVT) of right lower extremity, Anticoagulated Patient Disposition: Being Evaluated by Hospitalist Forms Stand Alone Forms: My [facility] Prescriptions Prescriptions: No Action atorvastatin 80 mg tablet 80 mg PO QDB RF: 0 aspirin 81 mg Tablet,Delayed Release (Dr/Ec) 81 mg PO QDB RF: 0 acetaminophen [Tylenol Extra Strength] 500 mg Tablet 500 mg PO Q6H PRN (Reason: Pain) RF: 0 levothyroxine 88 mcg tablet 88 mcg PO DAILY RF: 0 levothyroxine 100 mcg tablet 100 mcg PO DAILYBB RF: 0 Eliquis 5 mg (74 tabs) tablets,dose pack 5 mg PO BID RF: 0 Referrals Referrals: Mauri Diallo [Primary Care Provider] -
[2020-09-15 20:50] LABS: Basophils # (auto) 0.01 K/uL (0-0.2); Basophils % (auto) 0.1 %; Eosinophils # (auto) 0.07 K/uL (0-0.5); Eosinophils % (auto) 0.6 %; Hemoglobin 12.1 g/dL (12.0-16.0); Immature Granulocytes # (auto) 0.03 K/uL (0.00-0.02); Immature Granulocytes % (auto) 0.2 %; Lymphocytes # (auto) 1.67 K/uL (1.2-3.4); Lymphocytes % (auto) 13.3 %; Mean Corpuscular Hemoglobin 28.9 pg (25-34); Mean Corpuscular Hgb Conc 31.8 g/dL (32-36); Mean Corpuscular Volume 90.7 fL (80-100); Mean Platelet Volume 11.4 fL (7.4-10.4); Monocytes # (auto) 1.53 K/uL (0.11-0.59); Monocytes % (auto) 12.2 %; Neutrophils # (auto) 9.21 K/uL (1.4-6.5); Neutrophils % (auto) 73.6 %; Platelet Count 320 K/uL (130-400); RDW Coefficient of Variation 14.7 % (11.5-14.5); RDW Standard Deviation 48.9 fL (36.4-46.3); Red Blood Count 4.19 M/uL (4.2-5.4); White Blood Count 12.52 K/uL (4.8-10.8)
[2020-09-15 21:01] LABS: Partial Thromboplastin Ratio 0.9; Prothrombin Time 10.3 Seconds (9.0-12.0)
[2020-09-15 21:09] LABS: Alanine Aminotransferase 22 U/L (12-78); Albumin Level 3.1 gm/dl (3.4-5.0); Aspartate Aminotransferase 26 U/L (15-37); BUN Creatinine Ratio 10.2 (10-20); Blood Urea Nitrogen 10 mg/dl (7-18); Calcium 8.9 mg/dl (8.5-10.1); Carbon Dioxide 29 mmol/L (21-32); Chloride 104 mmol/L (98-107); Est GFR (Non-African American) 57.8 ml/min; Glucose 149 mg/dl (70-99); Potassium 3.7 mmol/L (3.5-5.1); Sodium 139 mmol/L (136-145)
[2020-09-15 21:11] LABS: Albumin Globulin Ratio 0.7 (0.9-2); Alkaline Phosphatase 95 U/L (45-117); Bilirubin,Total 0.8 mg/dl (0.2-1); Globulin 4.5 gm/dl (2.5-4.0); Total Protein 7.6 gm/dl (6.4-8.2)
[2020-09-15] MEDS ORDERED: MoRPHine SULFATE 4 MG/ML 1 ML CARP\\VIAL IV STA (23:04)
--- NOTE | 2020-09-16 01:40 | History & Physical Report ---
Date of Service September 16, 2020 Assessment & Plan (1) Deep vein thrombosis (DVT) of right lower extremity: Patient with extensive RLE DVT on Eliquis anticoagulation. She reports being compliant with medications. Has not been elevating the extremity at home. Yesterday AM she developed severe discomfort in the leg - unable to bear weight. No trauma. No worsening of edema. No evidence of compartment syndrome, poor perfusion or phlegmasia cerulea dolens. -Continue Eliquis 5mg po BID -Elevate extremity q shift -Thigh high compression stocking on RLE Present on Admission?: Yes (2) Ambulatory dysfunction: Due to pain presumably from DVT -Treatment as above -X-ray right hip and knee -PT/OT evaluation -Consider CT imaging, Vascular consultation if pain persists or worsens Present on Admission?: Yes (3) Intractable pain: Secondary to underlying DVT -Tylenol, OxyIR and Morphine PRN -PT/OT evaluation -Consider Vascular consultation if pain persists or worsens Present on Admission?: Yes (4) Hypothyroid: Chronic -Continue Synthroid 100mcg po daily Present on Admission?: Yes (5) Dyslipidemia: Chronic -Continue Atorvastatin F/E/N - Heplock. Electrolytes WNL. Heart healthy diet as tolerated Ppx - Continue Eliquis Code - DNR/DNI per discussion with patient Dispo - Observation to medical Present on Admission?: Yes History of Present Illness Chief Complaint: RLE pain Primary Care Provider: Mauri Diallo Vivian Fernandes is a 75yo female with newly diagnosed extensive RLE DVT on Eliquis anticoagulation presenting with severe RLE pain and inability to bear weight. Patient states that yesterday AM she developed pain in the right leg with weight bearing. She is unable to ambulate at home. She has been taking her medications as prescribed, no worsening of swelling or redness. Denies CP/palpitations/cough/SOB/dizziness/syncope. Denies bleeding/melena/hematochezia. No additional complaints at this time. Patient afebrile, HD stable in ER. She receive Morphine 2mg IV then 4mg IV with some relief. Still complaining of RLE discomfort. No trauma ER course: Morphine 2mg IV, 4mg IV, Zofran 4mg IV Allergies Allergy/AdvReac Type Severity Reaction Status Date / Time No Known Allergies Allergy Verified 09/15/20 21:17 Home Medications Medication Instructions Recorded Confirmed Type acetaminophen [Tylenol Extra 500 mg PO Q6H PRN 08/28/20 09/15/20 History Strength] aspirin 81 mg PO QDB 08/28/20 09/15/20 History atorvastatin 80 mg PO QDB 08/28/20 09/15/20 History levothyroxine 88 mcg PO DAILY 08/28/20 09/15/20 History apixaban [Eliquis] 5 mg PO BID 09/15/20 09/15/20 History levothyroxine 100 mcg PO DAILYBB 09/15/20 09/15/20 History Past Med/Surg History Medical History Colitis CVA (cerebral vascular accident) Deep vein thrombosis (DVT) of right lower extremity DVT (deep venous thrombosis) Hypertension Hypothyroid Surgical History S/P cataract surgery S/P hysterectomy Family History Mother , age 61 of an [place]. 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 Feels Safe at Home: Yes Assistive Devices: None Review of Systems Review of Systems: All systems reviewed & are unremarkable except as noted in HPI & below Physical Exam Physical Exam: General: patient resting comfortably, NAD, non-toxic in appearance, AA&O x 4 Skin: warm, dry, intact, no rashes or lesions HEENT: NC/AT, PERRL, EOMI, anicteric sclera, conjunctiva without injection, external ear normal to inspection and nontender, nares patent, moist mucus membranes, dentition intact, no oropharyngeal lesions, neck supple, trachea midline, no LAD, no thyromegaly, no JVD Heart: +S1/S2, regular, 3/6 RADHA at LSB, no rubs/gallops Lungs: equal air entry bilaterally, no rales/rhonchi/wheezes Abd: +BS, soft, NT/ND, no masses/organomegaly/ascites Ext: warm, palpable pulses in 4 extremities, RLE erythematous to proximal thigh, 3+ pitting edema, no cellulitis, sensation/pulses intact Neuro: nonfocal, patient AA&O x 4, speech intact, no facial droop, moving all extremities on command with equal strength 5/5 Results & Data Results & Data ([facility]) Vital Signs (Past 12 Hours) Vital Signs Temp Pulse Resp BP Pulse Ox 09/15/20 18:15 36.3 C L 94 H 20 141/66 H 99 Laboratory Results Laboratory Results WBC 12.52 K/uL (4.8-10.8) H 09/15/20 20:20 RBC 4.19 M/uL (4.2-5.4) L 09/15/20 20:20 Hgb 12.1 g/dL (12.0-16.0) 09/15/20 20:20 Hct 38.0 % (37-47) 09/15/20 20:20 MCV 90.7 fL (80-100) 09/15/20 20:20 MCH 28.9 pg (25-34) 09/15/20 20:20 MCHC 31.8 g/dL (32-36) L 09/15/20 20:20 RDW Std Deviation 48.9 fL (36.4-46.3) H 09/15/20 20:20 RDW Coeff of Pancho 14.7 % (11.5-14.5) H 09/15/20 20:20 Plt Count 320 K/uL (130-400) 09/15/20 20:20 MPV 11.4 fL (7.4-10.4) H 09/15/20 20:20 Immature Gran % (Auto) 0.2 % 09/15/20 20:20 Neut % (Auto) 73.6 % 09/15/20 20:20 Lymph % (Auto) 13.3 % 09/15/20 20:20 Bibb % (Auto) 12.2 % 09/15/20 20:20 Eos % (Auto) 0.6 % 09/15/20 20:20 Baso % (Auto) 0.1 % 09/15/20 20:20 Neut # (Auto) 9.21 K/uL (1.4-6.5) H 09/15/20 20:20 Lymph # (Auto) 1.67 K/uL (1.2-3.4) 09/15/20 20:20 Bibb # (Auto) 1.53 K/uL (0.11-0.59) H 09/15/20 20:20 Eos # (Auto) 0.07 K/uL (0-0.5) 09/15/20 20:20 Baso # (Auto) 0.01 K/uL (0-0.2) 09/15/20 20:20 Immature Gran # (Auto) 0.03 K/uL (0.00-0.02) H 09/15/20 20:20 PT 10.3 Seconds (9.0-12.0) 09/15/20 20:20 INR 1.0 (0.9-1.1) 09/15/20 20:20 APTT 24.0 Seconds (21.0-31.0) 09/15/20 20:20 PTT Ratio 0.9 09/15/20 20:20 Sodium 139 mmol/L (136-145) 09/15/20 20:20 Potassium 3.7 mmol/L (3.5-5.1) 09/15/20 20:20 Chloride 104 mmol/L (98-107) 09/15/20 20:20 Carbon Dioxide 29 mmol/L (21-32) 09/15/20 20:20 Anion Gap 6.0 (3-11) 09/15/20 20:20 BUN 10 mg/dl (7-18) 09/15/20 20:20 Creatinine 0.95 mg/dl (0.6-1.2) 09/15/20 20:20 Est Cr Clr Drug Dosing Not Reportable 09/15/20 20:20 Est GFR ( Amer) 67.0 ml/min 09/15/20 20:20 Est GFR (Non-Af Amer) 57.8 ml/min 09/15/20 20:20 BUN/Creatinine Ratio 10.2 (10-20) 09/15/20 20:20 Glucose 149 mg/dl (70-99) H 09/15/20 20:20 Calcium 8.9 mg/dl (8.5-10.1) 09/15/20 20:20 Total Bilirubin 0.8 mg/dl (0.2-1) 09/15/20 20:20 AST 26 U/L (15-37) 09/15/20 20:20 ALT 22 U/L (12-78) 09/15/20 20:20 Alkaline Phosphatase 95 U/L (45-117) 09/15/20 20:20 Total Protein 7.6 gm/dl (6.4-8.2) 09/15/20 20:20 Albumin 3.1 gm/dl (3.4-5.0) L 09/15/20 20:20 Globulin 4.5 gm/dl (2.5-4.0) H 09/15/20 20:20 Albumin/Globulin Ratio 0.7 (0.9-2) L 09/15/20 20:20 Code Status & VTE Plan VTE Prophylaxis Plan VTE Prophylaxis will be ordered: Yes PG Care Time/CCT Total # of Minutes Spent Total Time Spent with Patient: Total time spent is greater than 50% in coordination of care (as documented) at patient's floor/unit and/or counseling patient: Coding Level of Care Code 96852 OBS Care - Level 2 Diagnoses Deep vein thrombosis (DVT) of right lower extremity I82.401 Affected thrombotic vein of extremity: unspecified vein of extremity Chronicity: acute Ambulatory dysfunction R26.2 Intractable pain R52 Hypothyroid E03.9 Hypothyroidism type: unspecified Dyslipidemia E78.5 (1) Deep vein thrombosis (DVT) of right lower extremity Affected thrombotic vein of extremity: unspecified vein of extremity Chronicity: acute Qualified Code(s): I82.401 - Acute embolism and thrombosis of unspecified deep veins of right lower extremity (2) Hypothyroid Hypothyroidism type: unspecified Qualified Code(s): E03.9 - Hypothyroidism, unspecified
[2020-09-16] MEDS ORDERED: HYDROmorphone INJ 1 MG/ML SYRINGE IV STA (02:15)
[2020-09-16] MEDS ORDERED: HYDROmorphone INJ 1 MG/ML SYRINGE ONE (02:17)
[2020-09-16] MEDS ORDERED: DOCUSATE SODIUM 100 MG CAP PO PRN (04:12)
[2020-09-16] MEDS ORDERED: MoRPHine SULFATE 2 MG/ML CARP IV PRN (04:12)
[2020-09-16] MEDS ORDERED: oxyCODONE HCL IR 5 MG TAB (IMMEDIATE RELEASE) PO PRN (04:12)
[2020-09-16] MEDS ORDERED: ONDANSETRON INJ 2 MG/ML 2 ML VIAL IV PRN (04:12)
[2020-09-16] MEDS ORDERED: POLYETHYLENE (MIRALAX) 17 GM PACK PO PRN (04:12)
[2020-09-16] MEDS: LEVOTHYROXINE SODIUM 100 MCG TABLET PO SCH (06:25)
--- NOTE | 2020-09-16 06:53 | Ultrasound Report ---
US venous doppler LE RT HISTORY: 75 years-old Female increased pain eval for dvt acute pain and swelling of the right lower extremity. Recent thrombi of the common femoral through distal superficial femoral veins. COMPARISON: Duplex venous Doppler study 08/27/2020 TECHNIQUE: Multiple real-time sonographic images of the right lower extremity deep venous structures were obtained assessing grayscale appearance, color and spectral flow FINDINGS: Subcutaneous edema. Occlusive deep venous thrombosis is again noted within the common femoral vein th rough distal aspect of the superficial femoral vein. Superficial venous thrombus noted within the gre ater saphenous vein, also noted on comparison. Limited visualization of the popliteal vein secondary to patient discomfort. The calf veins are suboptimally visualized secondary to lower extremity edema. Prominent lymph nodes of the right inguinal tissues measure up to 6 mm, likely reactive. IMPRESSION: Deep and superficial venous thrombi as above. ACT 112: Negative or not required by law. The above report was generated using voice recognition software. It may contain grammatical, syntax o r spelling errors. Electronically signed by: Kai Leon M.D. 09/16/2020 6:51 AM
[2020-09-16] MEDS ORDERED: APIXABAN 5 MG TABLET PO SCH (07:00)
[2020-09-16] MEDS: ASPIRIN 81 MG ECTAB PO SCH (07:09)
[2020-09-16] MEDS: ATORVASTATIN 40 MG TAB PO SCH (07:09)
--- NOTE | 2020-09-16 08:46 | XRay Report ---
XR knee RT 1 or 2V routine CLINICAL HISTORY: unable to bear weight. Right knee pain. COMPARISON STUDY: None. FINDINGS: The bones are osteopenic. There is diffuse soft tissue swelling within the right knee and a moderate right knee effusion. No fracture or dislocation. Severe cartilage space narrowing with bone -on-bone articulation and large marginal osteophytes within the lateral compartment of the knee. Ther e appears to be chondrocalcinosis of the right knee. IMPRESSION: 1. No fractures within the right knee. 2. Moderate joint effusion. 3. Severe osteoarthritis at the lateral compartment. ACT 112: Negative or not required by law. Electronically signed by: Bairon Ceballos M.D. 09/16/2020 8:45 AM
--- NOTE | 2020-09-16 08:50 | XRay Report ---
RIGHT HIP 2 VIEWS CLINICAL HISTORY: Atraumatic right hip pain. Unable to bear weight. FINDINGS: AP and frog-leg views of the right hip are correlated with pelvic CT dated 02/04/2019. The s keletal structures are osteopenic. No fracture is identified. Mild to moderate joint space narrowing is seen in the right hip. The visualized right hemipelvis appears intact. The overlying soft tissues are normal as visualized. IMPRESSION: No acute bony abnormality is identified. Electronically signed by: Golden Osborne M.D. 09/16/2020 8:49 AM
[2020-09-16] MEDS ORDERED: KETOROLAC TROMETHAMINE 15 MG/ML VIAL IV PRN (09:57)
[2020-09-16] MEDS ORDERED: EMOLLIENT OINTMENT 1 GM EXT PRN (09:59)
[2020-09-16] MEDS ORDERED: ENOXAPARIN 1.5 MG/KG SC SCH (10:00)
--- NOTE | 2020-09-16 10:10 | Medical Student Progress Note ---
Date of Service September 16, 2020 Assessment & Plan (1) Deep vein thrombosis (DVT) of right lower extremity: Patient with extensive RLE DVT on Eliquis anticoagulation. She reports being compliant with medications She developed sudden pain and swelling while at home. No trauma. No evidence of compartment syndrome or poor perfusion. She has used lovenox before in the past for a prior DVT which worked well. Would be worth trying since Eliquis did not seem to work for pt. -Switch from Eliquis to Lovenox -Elevate extremity q shift -Thigh high compression stocking on RLE Affected thrombotic vein of extremity: unspecified vein of extremity Chronicity: acute Qualified Code(s): I82.401 - Acute embolism and thrombosis of unspecified deep veins of right lower extremity (2) Intractable pain: Due to pain presumably from DVT -Control with Oxycodone and acetominophen -X-ray right hip and knee should osteoarthritis Admission and Anticipated Discharge Date Admission Date: September 16, 2020 Supervising Attestation Patient seen and examined with MS Ortiz Hernandez and PGY-1 Dr. Puri. Agree with history, exam findings, assessment and plan of care as outlined. In brief, Ms. Fernandes is a 75 year old female with history of prior L LE DVT admitted recently at the end of July for new Right LE DVT after having anticoagulation switched. She was doing well until recently when she started having increased pain in the right leg, unable to bear weight and noticed increased swelling around the knee and upper leg. She had been place don [facility] at the end of July. Leg is ok if she does not move it, but if she tries to bend her knee or stand on the leg, it becomes painful. Knee is swollen, but there is no joint effusion. Upper thigh with mild edema, +2 pitting edema along the rivera. Heart with regular rate and rhythm. Lungs clear to auscultation. 1. right lower extremity DVT. Repeat Doppler on admission does not indiciate that there is extension of the clot. Switch to Lovenox. Will plan to bridge to warfarin. 2. Leg pain. Xrays of the knee showing lateral compartment OA. Hip with mild OA changes. Suspect most of her pain is due to swelling. Continue with compression socks. Elevated leg with wedge pillow to support the knee and give her a bit more elevation compared to a pillow. Pain medications: tylenol, morphine. Dispo: pending improvement in pain. Subjective Pt IS 75 yo F w/ recent Hx of RLE DVT 3 weeks ago d/bertha with eliquis and prior hx of CVA in 2019 that came into ER with Right thigh pain. Pt states having a prior DVT in LLE years ago and being sent home with lovenox without complications. Does not note a family history of clotting disorders. No personal history of cancers, hormone therapy, of extensive smoking history. In the ER, LE U/S was repeated and pt was found to still have a DVT with more proximal involvement. Today, pt is still in significant pain and not able to move her leg without pain. Notes that she wants to get her pain under control before going home. She is using a compressive stocking. Denies Peripheral neuropathy, loss of sensation, cold toes, fevers, chills, night sweats, SOB, chest pain, or palpitations. Review of Systems Review of Systems: All systems reviewed & are unremarkable except as noted in Subjective Physical Exam Constitutional: + in distress Eyes: PERRL, conjunctivae normal, anicteric sclerae Neck: trachea midline, no thyromegaly Respiratory: normal respiratory effort, lungs clear to auscultation Auscultation: no crackles, no rales and no wheezes Cardiovascular: RRR, no murmur, no edema Gastrointestinal (Abdomen): normal bowel sounds, soft, nontender, no hepatosplenomegaly Musculoskeletal: Knee: + knee abnormal to inspection R leg has compressive sticking up to thigh. Extremely painful to palpation around, but specifically around the popliteal fossa. ROM is limited due to pain. Pedal pulses were present bilaterally, without loss of sensation. Unable to assess skin due to compressive stocking Results & Data ([facility]) Vital Signs (Past 12 Hours) Vital Signs Temp Pulse Pulse Resp BP BP Pulse Ox 09/16/20 07:22 36.4 C L 81 18 108/67 97 09/16/20 04:16 36.4 C L 83 14 124/73 94 09/16/20 03:00 82 18 117/77 96 09/16/20 02:30 86 17 130/67 94 09/16/20 02:00 84 17 123/71 96 09/16/20 01:30 82 17 120/63 96 09/16/20 01:00 81 15 110/61 98 09/16/20 00:30 86 13 112/62 96 09/16/20 00:00 89 14 116/59 L 88 L 09/15/20 23:30 81 22 106/54 L 92 09/15/20 23:23 81 21 97/60 L 95 09/15/20 23:03 83 23 94/65 L 92 Laboratory Results Laboratory Results WBC 12.52 K/uL (4.8-10.8) H 09/15/20 20:20 RBC 4.19 M/uL (4.2-5.4) L 09/15/20 20:20 Hgb 12.1 g/dL (12.0-16.0) 09/15/20 20:20 Hct 38.0 % (37-47) 09/15/20 20:20 MCV 90.7 fL (80-100) 09/15/20 20:20 MCH 28.9 pg (25-34) 09/15/20 20:20 MCHC 31.8 g/dL (32-36) L 09/15/20 20:20 RDW Std Deviation 48.9 fL (36.4-46.3) H 09/15/20 20:20 RDW Coeff of Pancho 14.7 % (11.5-14.5) H 09/15/20 20:20 Plt Count 320 K/uL (130-400) 09/15/20 20:20 MPV 11.4 fL (7.4-10.4) H 09/15/20 20:20 Immature Gran % (Auto) 0.2 % 09/15/20 20:20 Neut % (Auto) 73.6 % 09/15/20 20:20 Lymph % (Auto) 13.3 % 09/15/20 20:20 Wake % (Auto) 12.2 % 09/15/20 20:20 Eos % (Auto) 0.6 % 09/15/20 20:20 Baso % (Auto) 0.1 % 09/15/20 20:20 Neut # (Auto) 9.21 K/uL (1.4-6.5) H 09/15/20 20:20 Lymph # (Auto) 1.67 K/uL (1.2-3.4) 09/15/20 20:20 Wake # (Auto) 1.53 K/uL (0.11-0.59) H 09/15/20 20:20 Eos # (Auto) 0.07 K/uL (0-0.5) 09/15/20 20:20 Baso # (Auto) 0.01 K/uL (0-0.2) 09/15/20 20:20 Immature Gran # (Auto) 0.03 K/uL (0.00-0.02) H 09/15/20 20:20 PT 10.3 Seconds (9.0-12.0) 09/15/20 20:20 INR 1.0 (0.9-1.1) 09/15/20 20:20 APTT 24.0 Seconds (21.0-31.0) 09/15/20 20:20 PTT Ratio 0.9 09/15/20 20:20 Sodium 139 mmol/L (136-145) 09/15/20 20:20 Potassium 3.7 mmol/L (3.5-5.1) 09/15/20 20:20 Chloride 104 mmol/L (98-107) 09/15/20 20:20 Carbon Dioxide 29 mmol/L (21-32) 09/15/20 20:20 Anion Gap 6.0 (3-11) 09/15/20 20:20 BUN 10 mg/dl (7-18) 09/15/20 20:20 Creatinine 0.95 mg/dl (0.6-1.2) 09/15/20 20:20 Est Cr Clr Drug Dosing Not Reportable 09/15/20 20:20 Est GFR ( Amer) 67.0 ml/min 09/15/20 20:20 Est GFR (Non-Af Amer) 57.8 ml/min 09/15/20 20:20 BUN/Creatinine Ratio 10.2 (10-20) 09/15/20 20:20 Glucose 149 mg/dl (70-99) H 09/15/20 20:20 Calcium 8.9 mg/dl (8.5-10.1) 09/15/20 20:20 Total Bilirubin 0.8 mg/dl (0.2-1) 09/15/20 20:20 AST 26 U/L (15-37) 09/15/20 20:20 ALT 22 U/L (12-78) 09/15/20 20:20 Alkaline Phosphatase 95 U/L (45-117) 09/15/20 20:20 Total Protein 7.6 gm/dl (6.4-8.2) 09/15/20 20:20 Albumin 3.1 gm/dl (3.4-5.0) L 09/15/20 20:20 Globulin 4.5 gm/dl (2.5-4.0) H 09/15/20 20:20 Albumin/Globulin Ratio 0.7 (0.9-2) L 09/15/20 20:20 COVID-19 Eval Order Covid19 at [facility] 09/16/20 00:34 SARS-CoV-2 (PCR) NEGATIVE (Negative) 09/16/20 00:34 Impressions Venous Doppler Study 09/15/20 20:31 US venous doppler LE RT HISTORY: 75 years-old Female increased pain eval for dvt acute pain and swelling of the right lower extremity. Recent thrombi of the common femoral through distal superficial femoral veins. COMPARISON: Duplex venous Doppler study 08/27/2020 TECHNIQUE: Multiple real-time sonographic images of the right lower extremity deep venous structures were obtained assessing grayscale appearance, color and spectral flow FINDINGS: Subcutaneous edema. Occlusive deep venous thrombosis is again noted within the common femoral vein through distal aspect of the superficial femoral vein. Superficial venous thrombus noted within the greater saphenous vein, also noted on comparison. Limited visualization of the popliteal vein secondary to patient discomfort. The calf veins are suboptimally visualized secondary to lower extremity edema. Prominent lymph nodes of the right inguinal tissues measure up to 6 mm, likely reactive. IMPRESSION: Deep and superficial venous thrombi as above. ACT 112: Negative or not required by law. The above report was generated using voice recognition software. It may contain grammatical, syntax or spelling errors. Electronically signed by: Kai Leon M.D. 09/16/2020 6:51 AM Hip X-Ray 09/16/20 04:12 RIGHT HIP 2 VIEWS CLINICAL HISTORY: Atraumatic right hip pain. Unable to bear weight. FINDINGS: AP and frog-leg views of the right hip are correlated with pelvic CT dated 02/04/2019. The skeletal structures are osteopenic. No fracture is identified. Mild to moderate joint space narrowing is seen in the right hip. The visualized right hemipelvis appears intact. The overlying soft tissues are normal as visualized. IMPRESSION: No acute bony abnormality is identified. Electronically signed by: Golden Osborne M.D. 09/16/2020 8:49 AM Knee X-Ray 09/16/20 04:12 XR knee RT 1 or 2V routine CLINICAL HISTORY: unable to bear weight. Right knee pain. COMPARISON STUDY: None. FINDINGS: The bones are osteopenic. There is diffuse soft tissue swelling within the right knee and a moderate right knee effusion. No fracture or dislocation. Severe cartilage space narrowing with xake-mg-hxce articulation and large marginal osteophytes within the lateral compartment of the knee. There appears to be chondrocalcinosis of the right knee. IMPRESSION: 1. No fractures within the right knee. 2. Moderate joint effusion. 3. Severe osteoarthritis at the lateral compartment. ACT 112: Negative or not required by law. Electronically signed by: Bairon Ceballos M.D. 09/16/2020 8:45 AM
[2020-09-16] MEDS: ACETAMINOPHEN 500 MG TAB PO PRN ×2 (16:30→23:30)
[2020-09-16] MEDS: EMOLLIENT OINTMENT 1 GM EXT SCH (18:12)
[2020-09-16] MEDS: ENOXAPARIN 100 MG/1ML SYR SQ SCH (20:00)
[2020-09-17 01:31] LABS: Basophils # (auto) 0.02 K/uL (0-0.2); Basophils % (auto) 0.2 %; Eosinophils # (auto) 0.32 K/uL (0-0.5); Eosinophils % (auto) 3.9 %; Hematocrit (blood only) 33.3 % (37-47); Hemoglobin 10.5 g/dL (12.0-16.0); Immature Granulocytes # (auto) 0.01 K/uL (0.00-0.02); Immature Granulocytes % (auto) 0.1 %; Lymphocytes # (auto) 2.31 K/uL (1.2-3.4); Lymphocytes % (auto) 27.8 %; Mean Corpuscular Hemoglobin 28.9 pg (25-34); Mean Corpuscular Hgb Conc 31.5 g/dL (32-36); Mean Corpuscular Volume 91.7 fL (80-100); Mean Platelet Volume 10.9 fL (7.4-10.4); Monocytes # (auto) 0.94 K/uL (0.11-0.59); Monocytes % (auto) 11.3 %; Neutrophils % (auto) 56.7 %; Platelet Count 234 K/uL (130-400); RDW Coefficient of Variation 14.6 % (11.5-14.5); RDW Standard Deviation 49.3 fL (36.4-46.3); Red Blood Count 3.63 M/uL (4.2-5.4)
[2020-09-17 01:48] LABS: BUN Creatinine Ratio 14.8 (10-20); Calcium 8.6 mg/dl (8.5-10.1); Creatinine Clr Calc Pharmacy 39.7 ml/min; Est GFR (African American) 57.3 ml/min; Est GFR (Non-African American) 49.5 ml/min; Potassium 3.9 mmol/L (3.5-5.1)
[2020-09-17] MEDS: LEVOTHYROXINE SODIUM 100 MCG TABLET PO SCH (05:31)
[2020-09-17] MEDS: ASPIRIN 81 MG ECTAB PO SCH (07:29)
[2020-09-17] MEDS: ATORVASTATIN 40 MG TAB PO SCH (07:29)
[2020-09-17] MEDS: ACETAMINOPHEN 500 MG TAB PO PRN ×2 (09:42→16:48)
[2020-09-17] MEDS: EMOLLIENT OINTMENT 1 GM EXT SCH (09:49)
[2020-09-17] MEDS: EUCERIN CR 120 GM JAR EXT SCH (11:09)
--- NOTE | 2020-09-17 17:10 | Hospitalist Progress Note ---
Date of Service September 17, 2020 Assessment & Plan (1) Deep vein thrombosis (DVT) of right lower extremity: Vivian is a 75-year-old female with a notable history of prior lower left extremity DVT that formed at the end of her hospitalization in July, hypertension, hypothyroidism, dyslipidemia who presented to [facility] for worsening pain in her left lower extremity, subsequently found to have extension of her DVT. She is hemodynamically stable and there are no signs at present of compartment syndrome. R Lower Extremity DVT -- significant pain persists, no evidence of compartment syndrome (given the degree of swelling) In the setting of recent right lower extremity DVT formation in 07/2020 Re-presented with severe right lower extremity pain and inability to bear weight beginning on 09/15; reports she has been compliant with her Eliquis anticoagulation Repeat Doppler demonstrated which appears to represent progression of occlusive DVT in the common femoral vein and distal superficial, superficial venous femor als and greater saphenous vein Discontinued Eliquis Begin Lovenox in anticipation of bridging to warfarin. Given increasing degree of pain and limited functional ability with this leg despite pain medication and anticoagulation, will consult vascular surgery for further input: Appreciate insight and recommendations Thigh-high compression stockings during the day Elevate extremity every shift Eucerin cream given high risk for cellulitis Severe Pain -- secondary to DVT; XR hip/knee demonstrating OA but no significant abnormalities Tylenol for mild pain Oxycodone, morphine for more severe pain Icing as able Chronic Medical Problems ASCVD (h/o CVA): Continue statin, ASA Hypothyroidism: Continue levothyroxine Dispo: MS PPX: Lovenox therapeutic (1.5mg/kg q24h) Diet: Code: DNR/DNI (2) Intractable pain: Admission and Anticipated Discharge Date Admission Date: September 16, 2020 Supervising Physician Co-Signing Physician Notes Patient seen and examined with MS Ortiz Hernandez and PGY-1 Dr. Puri. Agree with history, exam findings, assessment and plan of care as outlined. In brief, Ms. Fenrandes is a 75 year old female with history of prior L LE DVT admitted recently at the end of July for new Right LE DVT after having anticoagulation switched. She was doing well until recently when she started having increased pain in the right leg, unable to bear weight and noticed increased swelling around the knee and upper leg. She had been place don Eliquis at the end of July. Leg is ok if she does not move it, but if she tries to bend her knee or stand on the leg, it becomes painful. She was able to work with PT today, but still having pain around the knee and upper leg with standing. Using Tylenol with some relief. Knee is swollen, but there is no joint effusion. Upper thigh with mild edema, +1 pitting edema along the rivera. Heart with regular rate and rhythm. Lungs clear to auscultation. 1. right lower extremity DVT. Repeat Doppler on admission does not indicate that there is extension of the clot. Switch to Lovenox. Will plan to bridge to warfarin; however holding off on this until seen by vascular surgery tomorrow in the event there is any intervention that would be helpful. 2. Leg pain. X-rays of the knee showing lateral compartment OA. Hip with mild OA changes. Suspect most of her pain is due to swelling. Continue with compression socks during the day only. Elevated leg with wedge pillow to support the knee and give her a bit more elevation compared to a pillow. Pain medications: tylenol, morphine. Dispo: pending improvement in pain. Subjective No acute events overnight. Feeling well with exception of pain in her right leg. Says that this is not necessarily changeddoes not appear bigger to her. Denies numbness or tingling. Says that moving it is still pretty painful, she is worried to try walking. No chest pain or shortness of breath. No concerns otherwise. Review of Systems Review of Systems: As per HPI Physical Exam Physical Exam: General: Tired appearing 75-year-old female who is lying back in her hospital bed, relaxed with her right extremity stretched out, upon my arrival. No acute distress. Cardiac: Normal rate and regular rhythm; S1 and S2 present with no murmurs, rubs, or gallops. Pulmonary: Good respiratory effort with symmetric expansion of the chest. No use of accessory muscles. Lungs were clear to auscultation bilaterally with no crackles or wheezes. Extremities: On visual examination, the right lower extremity does appear quite significantly more swollen when compared to the left. The skin appears well perfused. Right lower extremity does demonstrate 2+ pitting edema. Unable to palpate pedal pulses secondary to swelling. Capillary refill is under 2 seconds. Patient is able to extend toes against resistance, move ankle without difficulty. She is able to flex her knee with limited ability. Homans positive. Results & Data Results & Data ([facility]) Vital Signs (Past 12 Hours) Vital Signs Temp Pulse Resp BP Pulse Ox 09/17/20 15:28 36.7 C 91 H 16 117/71 93 09/17/20 07:17 36.8 C 87 18 125/72 91 Resident Activity Tracking Resident Involvement: Resident Care Provided Care Provided: Adult Hospital Medicine (1) Deep vein thrombosis (DVT) of right lower extremity Affected thrombotic vein of extremity: unspecified vein of extremity Chronicity: acute Qualified Code(s): I82.401 - Acute embolism and thrombosis of unspecified deep veins of right lower extremity
[2020-09-17] MEDS: ENOXAPARIN 100 MG/1ML SYR SQ SCH (20:27)
[2020-09-18] MEDS: LEVOTHYROXINE SODIUM 100 MCG TABLET PO SCH (05:53)
[2020-09-18 07:08] LABS: Basophils # (auto) 0.01 K/uL (0-0.2); Basophils % (auto) 0.1 %; Eosinophils # (auto) 0.32 K/uL (0-0.5); Eosinophils % (auto) 4.2 %; Hematocrit (blood only) 34.4 % (37-47); Hemoglobin 10.9 g/dL (12.0-16.0); Lymphocytes # (auto) 2.39 K/uL (1.2-3.4); Lymphocytes % (auto) 31.5 %; Mean Corpuscular Hemoglobin 28.2 pg (25-34); Mean Corpuscular Hgb Conc 31.7 g/dL (32-36); Mean Corpuscular Volume 88.9 fL (80-100); Mean Platelet Volume 10.7 fL (7.4-10.4); Monocytes % (auto) 10.5 %; Neutrophils # (auto) 4.07 K/uL (1.4-6.5); Neutrophils % (auto) 53.7 %; Platelet Count 268 K/uL (130-400); RDW Coefficient of Variation 14.5 % (11.5-14.5); RDW Standard Deviation 47.5 fL (36.4-46.3); Red Blood Count 3.87 M/uL (4.2-5.4); White Blood Count 7.59 K/uL (4.8-10.8)
[2020-09-18] MEDS: ATORVASTATIN 40 MG TAB PO SCH (07:38)
[2020-09-18] MEDS: ASPIRIN 81 MG ECTAB PO SCH (07:38)
[2020-09-18] MEDS: EUCERIN CR 120 GM JAR EXT SCH (07:38)
--- NOTE | 2020-09-18 10:15 | Consultation ---
Date of Consultation September 18, 2020 Assessment & Plan (1) Deep vein thrombosis (DVT) of right lower extremity: Pt with occlusive RLE common fem DVT, which is unchanged compared to previous US. Thrombectomy not an option d/t amount of time passed. No indications for vascular surgical intervention at this time. Recommend lifelong AC since this was unprovoked DVT. Recommend RLE with thigh high 20-30mmHg compression when tolerated, to wear during waking hours. Recommend elevate RLE to assist in decompression and oral pain control. Pt advised of this, expresses understanding. Please call if needed. Affected thrombotic vein of extremity: unspecified vein of extremity Chronicity: acute Qualified Code(s): I82.401 - Acute embolism and thrombosis of unspecified deep veins of right lower extremity History of Present Illness Reason for Consultation: RLE DVT Attending Physician: Delon Ovalle MD History of Present Illness 75 yo f with hx of HTN, hypothyroidism, dyslipidemia, CVA, renal insufficiency, and remote hx of LLE DVT approx 9 yr ago, admitted with RLE DVT and severe pain in RLE. Pt was dx with RLE common fem DVT on 08/27/20, and started on eliquis and d/c home the following day. Pt states she has had RLE pain since then, but it was improving overall until 2 days ago, when she was unable to bear weight on RLE d/t pain. Pt states her pain in improved slightly since admission, but still with edema of RLE. Has been able to ambulate to BR and back with walker. Has a walker at home as well. Admits edema of RLE, erythema and pain. Denies SALINAS, fever, chest pain, SOB, abd pain, N/V, rest pain, claudication, other complaints. venous doppler from 08/27/20 and 09/15/20 were compared and demonstrate identical RLE DVT and superficial phlebitis. Allergies Allergy/AdvReac Type Severity Reaction Status Date / Time No Known Allergies Allergy Verified 09/15/20 21:17 Home Medications Medication Instructions Recorded Confirmed Type acetaminophen [Tylenol Extra 500 mg PO Q6H PRN 08/28/20 09/15/20 History Strength] aspirin 81 mg PO QDB 08/28/20 09/15/20 History atorvastatin 80 mg PO QDB 08/28/20 09/15/20 History levothyroxine 88 mcg PO DAILY 08/28/20 09/15/20 History apixaban [Eliquis] 5 mg PO BID 09/15/20 09/15/20 History levothyroxine 100 mcg PO DAILYBB 09/15/20 09/15/20 History Patient History Medical History Colitis CVA (cerebral vascular accident) Deep vein thrombosis (DVT) of right lower extremity DVT (deep venous thrombosis) Hypertension Hypothyroid Surgical History S/P cataract surgery S/P hysterectomy Family History Mother , age 61 of an LA. 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 Feels Safe at Home: Yes Assistive Devices: None Review of Systems Review of Systems: All systems reviewed & are unremarkable except as noted in HPI & below Physical Exam Constitutional: WD/WN, vitals as above healthy appearing, cooperative and comfortable Eyes: PERRL, conjunctivae normal, anicteric sclerae ENMT: Ears: no hearing impairment Neck: trachea midline Respiratory: normal respiratory effort, lungs clear to auscultation Cardiovascular: Rate/Rhythm: regular rate and regular rhythm Vessels: femoral pulses present, posterior tibial pulses present, dorsalis pedis pulses present and radial pulses present; + abnormal peripheral pulses Extremities: normal capillary refill and + edema (RLE) Gastrointestinal (Abdomen): normal bowel sounds, soft, nontender, no hepatosplenomegaly Musculoskeletal: no cyanosis or clubbing, extremities motor strength 5/5 Skin: no rashes, warm and dry Neurologic: moves all extremities and awake; no focal motor deficits and not confused Psychiatric: A+Ox3, euthymic affect Results & Data ([facility]) Vital Signs (Past 12 Hours) Vital Signs Temp Pulse Resp BP BP Pulse Ox 09/18/20 07:38 36.8 C 81 16 132/84 93 09/17/20 22:48 36.6 C 90 18 143/69 H 93
--- NOTE | 2020-09-18 10:16 | Medical Student Progress Note ---
Date of Service September 18, 2020 Assessment & Plan (1) Deep vein thrombosis (DVT) of right lower extremity: Patient with extensive RLE DVT on Eliquis anticoagulation. She reports being compliant with medications She developed sudden pain and swelling while at home. No trauma. No evidence of compartment syndrome or poor perfusion. She has used lovenox before in the past for a prior DVT which worked well. Pt switched to lovenox and tolerating well. -cont lovenox -vascular consult pending -Elevate extremity q shift -Thigh high compression stocking on RLE during the day and off at night -cont PT and encourage movement as tolerated. Affected thrombotic vein of extremity: unspecified vein of extremity Chronicity: acute Qualified Code(s): I82.401 - Acute embolism and thrombosis of unspecified deep veins of right lower extremity (2) Intractable pain: Due to pain presumably from DVT -Control with acetominophen. Has oxycodein PRN if needed. -X-ray right hip and knee showed osteoarthritis Admission and Anticipated Discharge Date Admission Date: September 16, 2020 Supervising Attestation Attending attestation Pt seen and examined in concert with Dr. Puri, St Dr. Hernandez. In agreement with the documented findings as noted in the resident documentation with any exceptions or additions as noted here. Gradual improvement in RLE pain and swelling with increased tolerance of standing/ambulation. On examination, S1/S2 nl RRR no MCG. CTAB. Abd NT/ND BS+ve. TTP and RLE edema improved but persistent with compression stocking on. RLE DVT with severe edema - continue lovenox and compression. Pain management as noted. Else see student/resident documentation as noted. Subjective No acute events overnight. Has been trying to walk a little more after working with PT. She can put some weight on R leg now and mentions the pain is a little less than it was the day prior. Has not noted any decreased in swelling. Using the compression stockings only during the day now. They were cutting into her thigh at night. Denies any tingling, numbing fevers, chills, night sweats. Review of Systems Review of Systems: All systems reviewed & are unremarkable except as noted in Subjective Physical Exam Constitutional: + in distress Eyes: PERRL, conjunctivae normal, anicteric sclerae Neck: trachea midline, no thyromegaly Respiratory: normal respiratory effort, lungs clear to auscultation Auscultation: no crackles, no rales and no wheezes Cardiovascular: RRR, no murmur, no edema Gastrointestinal (Abdomen): normal bowel sounds, soft, nontender, no hepatosplenomegaly Musculoskeletal: Knee: + knee abnormal to inspection R LE is swollen from ankle to mid thigh, Tender to palpation around posterior Knee. Skin is taut as compared to L leg. Pedal pulses present and pt is able to move toes, ankles, and flex quadriceps tendon. ROM is severely limited due to swelling, knee held in mostly extended position. Results & Data ([facility]) Vital Signs (Past 12 Hours) Vital Signs Temp Pulse Resp BP BP Pulse Ox 09/18/20 07:38 36.8 C 81 16 132/84 93 09/17/20 22:48 36.6 C 90 18 143/69 H 93 Laboratory Results 09/18/20 Range/Units 06:50 WBC 7.59 (4.8-10.8) K/uL RBC 3.87 L (4.2-5.4) M/uL Hgb 10.9 L (12.0-16.0) g/dL Hct 34.4 L (37-47) % MCV 88.9 (80-100) fL MCH 28.2 (25-34) pg MCHC 31.7 L (32-36) g/dL RDW Std Deviation 47.5 H (36.4-46.3) fL RDW Coeff of Pancho 14.5 (11.5-14.5) % Plt Count 268 (130-400) K/uL MPV 10.7 H (7.4-10.4) fL Immature Gran % (Auto) 0.0 % Neut % (Auto) 53.7 % Lymph % (Auto) 31.5 % Roberts % (Auto) 10.5 % Eos % (Auto) 4.2 % Baso % (Auto) 0.1 % Neut # (Auto) 4.07 (1.4-6.5) K/uL Lymph # (Auto) 2.39 (1.2-3.4) K/uL Roberts # (Auto) 0.80 H (0.11-0.59) K/uL Eos # (Auto) 0.32 (0-0.5) K/uL Baso # (Auto) 0.01 (0-0.2) K/uL Immature Gran # (Auto) 0.00 (0.00-0.02) K/uL
--- NOTE | 2020-09-18 12:39 | Hospitalist Progress Note ---
Date of Service September 18, 2020 Assessment & Plan (1) Deep vein thrombosis (DVT) of right lower extremity: Vivian is a 75-year-old female with a notable history of prior lower left extremity DVT that formed at the end of her hospitalization in July, hypertension, hypothyroidism, dyslipidemia who presented to [facility] for worsening pain in her left lower extremity, subsequently found to have persistent DVT. She is hemodynamically stable and there are no signs at present of compartment syndrome. R Lower Extremity DVT -- significant pain persists, no evidence of compartment syndrome (given the degree of swelling) In the setting of recent right lower extremity DVT formation in 07/2020 Re-presented with severe right lower extremity pain and inability to bear weight beginning on 09/15; reports she has been compliant with her Eliquis anticoagulation Repeat Doppler demonstrated which demonstrates persistence of the occlusive DVT in the common femoral vein and distal superficial, superficial venous femorals and greater saphenous vein On Lovenox while here; consider beginning warfarin versus restarting DOAC in a.m. Vascular surgery consulted, appreciate insight and recommendations: -No indication for procedural intervention -Lifelong anticoagulation -Elevate RLE qshift, 20-30mmHg compression Eucerin cream given high risk for cellulitis Severe Pain -- secondary to DVT; XR hip/knee demonstrating OA but no significant abnormalities Tylenol for mild pain Oxycodone, morphine for more severe pain Icing as able Chronic Medical Problems ASCVD (h/o CVA): Continue statin, ASA Hypothyroidism: Continue levothyroxine Dispo: MS PPX: Lovenox therapeutic (1.5mg/kg q24h) Diet: Code: DNR/DNI (2) Intractable pain: Admission and Anticipated Discharge Date Admission Date: September 16, 2020 Subjective Feeling well. Pain continues. Has been able to ambulate - that's certainly the worst part from her perspective. Has been engaging in PT. No chest pain, shortness of breath. Otherwise feeling well. Review of Systems Review of Systems: as per HPI Physical Exam Physical Exam: General: Tired appearing 75-year-old female who is lying back in her hospital bed, relaxed with her right extremity stretched out, upon my arrival. No acute distress. Cardiac: Normal rate and regular rhythm; S1 and S2 present with no murmurs, rubs, or gallops. Pulmonary: Good respiratory effort with symmetric expansion of the chest. No use of accessory muscles. Lungs were clear to auscultation bilaterally with no crackles or wheezes. Extremities: On visual examination, the right lower extremity does appear quite significantly more swollen when compared to the left. Compression stocking in place. The skin appears well perfused. 2+ pitting edema persists. Unable to palpate pedal pulses secondary to swelling. Patient is able to extend toes against resistance, move ankle without difficulty. She is able to flex her knee with limited ability. Results & Data Results & Data ([facility]) Vital Signs (Past 12 Hours) Vital Signs Temp Pulse Resp BP Pulse Ox 09/18/20 07:38 36.8 C 81 16 132/84 93 Resident Activity Tracking Resident Involvement: Resident Care Provided Care Provided: Adult Hospital Medicine (1) Deep vein thrombosis (DVT) of right lower extremity Affected thrombotic vein of extremity: unspecified vein of extremity Chron icity: acute Qualified Code(s): I82.401 - Acute embolism and thrombosis of unspecified deep veins of right lower extremity
[2020-09-18] MEDS: ENOXAPARIN 100 MG/1ML SYR SQ SCH (21:12)
[2020-09-19] MEDS: LEVOTHYROXINE SODIUM 100 MCG TABLET PO SCH (05:42)
[2020-09-19 07:50] LABS: Basophils # (auto) 0.02 K/uL (0-0.2); Basophils % (auto) 0.3 %; Eosinophils # (auto) 0.39 K/uL (0-0.5); Eosinophils % (auto) 5.4 %; Hematocrit (blood only) 34.6 % (37-47); Hemoglobin 10.8 g/dL (12.0-16.0); Immature Granulocytes # (auto) 0.01 K/uL (0.00-0.02); Immature Granulocytes % (auto) 0.1 %; Lymphocytes % (auto) 33.5 %; Mean Corpuscular Hemoglobin 28.2 pg (25-34); Mean Corpuscular Hgb Conc 31.2 g/dL (32-36); Mean Corpuscular Volume 90.3 fL (80-100); Mean Platelet Volume 11.1 fL (7.4-10.4); Monocytes # (auto) 0.75 K/uL (0.11-0.59); Monocytes % (auto) 10.5 %; Neutrophils # (auto) 3.59 K/uL (1.4-6.5); Neutrophils % (auto) 50.2 %; Platelet Count 298 K/uL (130-400); RDW Coefficient of Variation 14.3 % (11.5-14.5); RDW Standard Deviation 47.4 fL (36.4-46.3); Red Blood Count 3.83 M/uL (4.2-5.4); White Blood Count 7.16 K/uL (4.8-10.8)
[2020-09-19 08:12] LABS: BUN Creatinine Ratio 13.3 (10-20); Calcium 8.8 mg/dl (8.5-10.1); Creatinine Clr Calc Pharmacy 51.6 ml/min; Est GFR (African American) 78.8 ml/min; Potassium 3.6 mmol/L (3.5-5.1)
[2020-09-19] MEDS: ATORVASTATIN 40 MG TAB PO SCH (08:17)
[2020-09-19] MEDS: ASPIRIN 81 MG ECTAB PO SCH (08:17)
[2020-09-19] MEDS: EUCERIN CR 120 GM JAR EXT SCH (08:18)
--- NOTE | 2020-09-19 14:34 | Discharge Summary ---
Date of Service September 19, 2020 Admission HPI Per Admitting Provider Vivian Fernandes is a 75yo female with newly diagnosed extensive RLE DVT on Eliquis anticoagulation presenting with severe RLE pain and inability to bear weight. Patient states that yesterday AM she developed pain in the right leg with weight bearing. She is unable to ambulate at home. She has been taking her medications as prescribed, no worsening of swelling or redness. Denies CP/palpitations/cough/SOB/dizziness/syncope. Denies bleeding/melena/hematochezia. No additional complaints at this time. Patient afebrile, HD stable in ER. She receive Morphine 2mg IV then 4mg IV with some relief. Still complaining of RLE discomfort. No trauma ER course: Morphine 2mg IV, 4mg IV, Zofran 4mg IV Admission Exam Per Admitting Provider General: patient resting comfortably, NAD, non-toxic in appearance, AA&O x 4 Skin: warm, dry, intact, no rashes or lesions HEENT: NC/AT, PERRL, EOMI, anicteric sclera, conjunctiva without injection, ext ernal ear normal to inspection and nontender, nares patent, moist mucus membranes, dentition intact, no oropharyngeal lesions, neck supple, trachea midline, no LAD, no thyromegaly, no JVD Heart: +S1/S2, regular, 3/6 RADHA at LSB, no rubs/gallops Lungs: equal air entry bilaterally, no rales/rhonchi/wheezes Abd: +BS, soft, NT/ND, no masses/organomegaly/ascites Ext: warm, palpable pulses in 4 extremities, RLE erythematous to proximal thigh, 3+ pitting edema, no cellulitis, sensation/pulses intact Neuro: nonfocal, patient AA&O x 4, speech intact, no facial droop, moving all extremities on command with equal strength 5/5 Principal Diagnosis RLE DVT Discharge Exam General: Well appearing 75-year-old female who is lying back in her hospital bed, relaxed with her right extremity stretched out, upon my arrival. No acute distress. Cardiac: Normal rate and regular rhythm; S1 and S2 present with no murmurs, rubs, or gallops. Pulmonary: Good respiratory effort with symmetric expansion of the chest. No use of accessory muscles. Lungs were clear to auscultation bilaterally with no crackles or wheezes. Extremities: On visual examination, the right lower extremity does appear quite significantly more swollen when compared to the left. Compression stocking in place. The skin appears well perfused. 2+ pitting edema persists. Unable to palpate pedal pulses secondary to swelling. Patient is able to extend toes against resistance, move ankle without difficulty. She is able to flex her knee better than previous days Discharge Data Allergies Allergy/AdvReac Type Severity Reaction Status Date / Time No Known Allergies Allergy Verified 09/15/20 21:17 Consultations 09/17 Consult Vascular Surgery Routine -- PA-C: Jesica Joe MD: Jaime Anders "Assessment & Plan (1) Deep vein thrombosis (DVT) of right lower extremity: Pt with occlusive RLE common fem DVT, which is unchanged compared to previous US. Thrombectomy not an option d/t amount of time passed. No indications for vascular surgical intervention at this time. Recommend lifelong AC since this was unprovoked DVT. Recommend RLE with thigh high 20-30mmHg compression when tolerated, to wear during waking hours. Recommend elevate RLE to assist in decompression and oral pain control. Pt advised of this, expresses understanding. Please call if needed. Affected thrombotic vein of extremity: unspecified vein of extremity Chronicity: acute Qualified Code(s): I82.401 - Acute embolism and thrombosis of unspecified deep veins of right lower extremity History of Present Illness Reason for Consultation: RLE DVT Attending Physician: Delon Ovalle MD History of Present Illness 75 yo f with hx of HTN, hypothyroidism, dyslipidemia, CVA, renal insufficiency, and remote hx of LLE DVT approx 9 yr ago, admitted with RLE DVT and severe pain in RLE. Pt was dx with RLE common fem DVT on 08/27/20, and started on eliquis and d/c home the following day. Pt states she has had RLE pain since then, but it was improving overall until 2 days ago, when she was unable to bear weight on RLE d/t pain. Pt states her pain in improved slightly since admission, but st ill with edema of RLE. Has been able to ambulate to BR and back with walker. Has a walker at home as well. Admits edema of RLE, erythema and pain. Denies SALINAS, fever, chest pain, SOB, abd pain, N/V, rest pain, claudication, other complaints. venous doppler from 08/27/20 and 09/15/20 were compared and demonstrate identical RLE DVT and superficial phlebitis." Ordered Studies (09/15) S venous doppler LE RT HISTORY: 75 years-old Female increased pain eval for dvt acute pain and swelling of the right lower extremity. Recent thrombi of the common femoral through distal superficial femoral veins. COMPARISON: Duplex venous Doppler study 08/27/2020 TECHNIQUE: Multiple real-time sonographic images of the right lower extremity deep venous structures were obtained assessing grayscale appearance, color and spectral flow FINDINGS: Subcutaneous edema. Occlusive deep venous thrombosis is again noted within the common femoral vein through distal aspect of the superficial femoral vein. Superficial venous thrombus noted within the greater saphenous vein, also noted on comparison. Limited visualization of the popliteal vein secondary to patient discomfort. The calf veins are suboptimally visualized secondary to lower extremity edema. Prominent lymph nodes of the right inguinal tissues measure up to 6 mm, likely reactive. IMPRESSION: Deep and superficial venous thrombi as above. ------- (09/15) RIGHT HIP 2 VIEWS CLINICAL HISTORY: Atraumatic right hip pain. Unable to bear weight. FINDINGS: AP and frog-leg views of the right hip are correlated with pelvic CT dated 02/04/2019. The skeletal structures are osteopenic. No fracture is identified. Mild to moderate joint space narrowing is seen in the right hip. The visualized right hemipelvis appears intact. The overlying soft tissues are normal as visualized. IMPRESSION: No acute bony abnormality is identified. ------- (09/15) XR knee RT 1 or 2V routine CLINICAL HISTORY: unable to bear weight. Right knee pain. COMPARISON STUDY: None. FINDINGS: The bones are osteopenic. There is diffuse soft tissue swelling within the right knee and a moderate right knee effusion. No fracture or dislocation. Severe cartilage space narrowing with [id number] articulation and large marginal osteophytes within the lateral compartment of the knee. There appears to be chondrocalcinosis of the right knee. IMPRESSION: 1. No fractures within the right knee. 2. Moderate joint effusion. 3. Severe osteoarthritis at the lateral compartment. Hospital Course (1) Deep vein thrombosis (DVT) of right lower extremity: Vivian is a 75-year-old female with a notable history of prior lower left extremity DVT that formed at the end of her hospitalization in July, hypertension, hypothyroidism, dyslipidemia who presented to [facility] for worsening pain in her RIGHT lower extremity, subsequently found to have persistent DVT. She is hemodynamically stable and there are no signs at present of compartment syndrome. R Lower Extremity DVT -- pain improving upon d/c, no evidence of compartment syndrome (given the degree of swelling) In the setting of recent right lower extremity DVT formation in 07/2020 Re-presented with severe right lower extremity pain and inability to bear weight beginning on 09/15; reports she has been compliant with her Eliquis anticoagulation Repeat Doppler demonstrated which demonstrates persistence of the occlusive DVT in the common femoral vein and distal superficial, superficial venous femorals and greater saphenous vein Vascular surgery consulted, appreciate insight and recommendations: -No indication for procedural intervention -Lifelong anticoagulation given unprovoked DVT -Elevate RLE, 20-30mmHg compression during day, can remove at night Eliquis discontinued during course out of concern for possible therapeutic failure Transition to Lovenox 1.5mg/kg (100mg/1mL) while here Upon discharge: Bridged to warfarin with Lovenox X 5 days. Prescribed 5 mg warfarin tablets. Patient instructed to obtain PT/INR morning of day 4 (RX given). Will require dosage adjustment thereafter. INR goal 2-3. After several months of therapy, can reconsider imaging to determine extent of clot burden and consider transition to DOAC thereafter. Eucerin cream given high risk for cellulitis if swelling persists Patient seldom required greater than base pain medication (e.g. Tylenol) during stay; this should be sufficient upon discharge unless pain worsens Continue home PT, OT Chronic Medical Problems ASCVD (h/o CVA): Continue statin, ASA Hypothyroidism: Continue levothyroxine (2) Intractable pain: Total Time Total Time Spent Total Time Spent (In Minutes): 30 Total Time Includes: Examination of the Patient, Discharge Planning, Medication Reconciliation, Communication With Other Providers and Other Discharge Plan Discharge Items Patient Disposition: Home - Home Health Services Reason For Visit: RLE PAIN,INABILITY TO AMBULATE Discharge Diagnosis: Right lower extremity deep venous thrombosis Activity: Per Instructions section Non-emergency contact: Primary Care Provider and Hospitalist Call non-emergency contact if: you have any medication questions, your symptoms worsen, your pain is not controlled, your pain is worsening, your pain is unusual for you, your temperature is above 101 and your wound has increased redness Follow-up/Referrals: Mauri Diallo [Primary Care Provider] - Diet: Heart Healthy Ambulatory Orders: Prothrombin Time INR (Timed) Timeframe: 4 Days Location: Determined by Patient Ordered By: Som Llanes Attending Provider Instructions: You were seen in [facility] for evaluation of increasing pain in your right leg, which was previously noted to have a DVT. During your stay here, you underwent imaging to evaluate the venous flow and clot burden within this leg; thankfully, it does not appear that there was extension or new formation of clot within this leg. We had vascular surgery see you, who agreed to continue with conservative measures, pain control, and functional improvement with PT/OT. Upon discharge, thankfully your pain had improved quite a bit. Upon discharge, please note the following changes to your daily regimen: During the day, please wear a compression stocking over your right leg, extending up to your thigh, with 20 to 30 mmHg of pressure (dressings used here) Keep the leg elevated when you are not walking around; that is, keep your leg above the level of the heart Continue engaging with home health and home PT to accelerate your recovery We will be transitioning you to Coumadin. Because it takes several days for Coumadin to "kick in", you will have to continue Lovenox for a few days. Please follow the following instructions: take Lovenox for total of 5 days. After this, discontinue the Lovenox. While taking the Lovenox, also begin taking Coumadin. After 3 days on Coumadin (i.e., morning of Day 4), you will have to obtain a blood test to ensure that the Coumadin is functioning at an appropriate level. Dosage adjustments may be required. It will be very important that you work with your primary care physician to ensure a proper Coumadin dose for the long-term. Please call their office to see if a dosage adjustment may be necessary. Please follow-up with your primary care physician within 1 week to review this visit (early as possible). In the interim, if you experience any disproportional pain in your right leg, new numbness or tingling, and inability to move the right leg, chest pain, palpitations, shortness of breath, chest wall pain that is odd for you, nausea, vomiting, fevers, chills, or other worrisome symptoms, please seek medical attention; if your symptoms are serious, please call 911 or or to the nearest emergency room for evaluation. It has been a pleasure caring for you here [facility]. We wish you all the best in your recovery, Som Puri MD Resident Physician [facility] [address], [address] [place], [place] Pending Studies at Discharge: No Stand-Alone Forms: My [facility], Smoking Cessation Medications and DC Order Prescriptions: New enoxaparin 100 mg/mL Syringe 100 mg subcut HS 5 Days Qty: 5 RF: 0 warfarin 5 mg tablet 5 mg PO DAILY Qty: 5 RF: 1 Continued atorvastatin 80 mg tablet 80 mg PO QDB RF: 0 aspirin 81 mg Tablet,Delayed Release (Dr/Ec) 81 mg PO QDB RF: 0 acetaminophen [Tylenol Extra Strength] 500 mg Tablet 500 mg PO Q6H PRN (Reason: Pain) RF: 0 levothyroxine 88 mcg tablet 88 mcg PO DAILY RF: 0 levothyroxine 100 mcg tablet 100 mcg PO DAILYBB RF: 0 Discontinued Eliquis 5 mg (74 tabs) tablets,dose pack 5 mg PO BID RF: 0 Discharge Orders: Discharge Order (Routine); Ordered 09/19/20 Ordered By: Som Puri Admission Data Admit Date/Time: 09/16/20 01:25 Attending Provider: Delon Ovalle Admit Provider: Myrtle Garcia Primary Care Provider: Mauri Diallo Other Providers: Myrtle Garcia ; Jaime Anders Supervising Physician Co-Signing Physician Notes Attending attestation Pt seen and examined in concert with Dr. Puri. In agreement with the documented findings as noted in the resident documentation with any exceptions or additions as noted here. Significant improvement in RLE swelling and pain on the new compression hose. On examination, S1/S2 nl RRR no MCG. CTAB. Abd NT/ND BS+ve. RLE with improved mobility and decreased swelling/TTP RLE DVT - concern for failure of apixaban (5mg BID dosing with worsening swelling and pain), will do lovenox to coumadin bridge with home health INR. Else see resident documentation as noted. Total attending time spent with this case on the day of discharge: 35 minutes. Resident Activity Tracking Resident Involvement: Resident Care Provided Care Provided: Adult [facility]
[2020-09-19 15:13] VITALS: PULSE 82; TEMP 98.2; O2SAT 93
[2020-09-19 16:30] VITALS: BP 132/84
== END 2020-09-19 17:08 | disposition home health service (06) ==
LOC: ED 18:13 → 3N 18:13 → SUATTDRO 09-16 01:25 → 3N 09-16 04:20

== ENCOUNTER 2020-12-15 15:22 | Inpatient (IN) ==
[2020-12-15 16:31] LABS: Basophils # (auto) 0.02 K/uL (0-0.2); Basophils % (auto) 0.2 %; Eosinophils # (auto) 0.04 K/uL (0-0.5); Eosinophils % (auto) 0.4 %; Hematocrit (blood only) 42.9 % (37-47); Hemoglobin 13.7 g/dL (12.0-16.0); Immature Granulocytes # (auto) 0.02 K/uL (0.00-0.02); Immature Granulocytes % (auto) 0.2 %; Lymphocytes # (auto) 2.41 K/uL (1.2-3.4); Lymphocytes % (auto) 25.7 %; Mean Corpuscular Hemoglobin 27.5 pg (25-34); Mean Corpuscular Hgb Conc 31.9 g/dL (32-36); Mean Platelet Volume 12.5 fL (7.4-10.4); Monocytes # (auto) 0.98 K/uL (0.11-0.59); Monocytes % (auto) 10.5 %; Platelet Count 267 K/uL (130-400); RDW Coefficient of Variation 14.9 % (11.5-14.5); RDW Standard Deviation 46.5 fL (36.4-46.3); Red Blood Count 4.99 M/uL (4.2-5.4); White Blood Count 9.37 K/uL (4.8-10.8)
[2020-12-15 16:54] LABS: Alanine Aminotransferase 25 U/L (12-78); Albumin Globulin Ratio 0.7 (0.9-2); Albumin Level 3.3 gm/dl (3.4-5.0); Alkaline Phosphatase 117 U/L (45-117); Aspartate Aminotransferase 82 U/L (15-37); BUN Creatinine Ratio 11.3 (10-20); Blood Urea Nitrogen 23 mg/dl (7-18); Calcium 14.7 mg/dl (8.5-10.1); Carbon Dioxide 34 mmol/L (21-32); Chloride 98 mmol/L (98-107); Est GFR (African American) 26.9 ml/min; Est GFR (Non-African American) 23.2 ml/min; Globulin 4.5 gm/dl (2.5-4.0); Glucose 115 mg/dl (70-99); Potassium 2.8 mmol/L (3.5-5.1); Sodium 139 mmol/L (136-145); Total Protein 7.8 gm/dl (6.4-8.2)
--- NOTE | 2020-12-15 16:57 | XRay Report ---
XR chest 1V portable CLINICAL HISTORY: weakness COMPARISON STUDY: February 04, 2019 FINDINGS: No pneumothorax. No pleural effusion. Lung volumes are decreased with crowded lung markings. No large infiltrates or consolidative lesions are seen. Cardiomediastinal silhouette remains slightly prominent. Large hiatal hernia with air-fluid level is again seen. Aorta is calcified. Pulmonary vasculature is indistinct.. Osseous structures: Osteopenia. Vertebral bodies are not well seen. Gas-filled loops of bowel are seen within left upper quadrant. IMPRESSION: 1. No large infiltrates or consolidative lesions are seen. 2. Redemonstration of the large hiatal hernia superimposed on cardiac silhouette. 3. Decreased lung volumes with crowded lung markings. 4. Atherosclerosis. 5. The rest of findings as above. ACT 112: Negative or not required by law. The above report was generated using voice recognition software. It may contain grammatical, syntax o r spelling errors. Electronically signed by: Elizabeth Flores DO 12/15/2020 4:56 PM
[2020-12-15] MEDS ORDERED: POTASSIUM CHLORIDE / WTR 10 MEQ/100 ML PLCT IV ONE (17:13)
[2020-12-15] MEDS ORDERED: SODIUM CHLORIDE 0.9% 1000ML 500 ML IV ONE (17:13)
--- NOTE | 2020-12-15 17:20 | Emergency Department Note ---
Impression & Plan JUNE (acute kidney injury), Hypercalcemia, Hypokalemia ED Provider Note INFORMANT: Patient ED PROVIDER(S): Charles Sexton MD CHIEF COMPLAINT: Abnormal labs PLAN: Disposition: Admitted Condition: Good Outpatient prescription management: none Referral: None MEDICAL DECISION MAKING: Patient presented due to abnormal labs. Blood work was obtained and IV was established. She was found to have acute kidney injury, hypercalcemia, and hypokalemia. The patient was hydrated with normal saline. She was given a dose of IV potassium. Patient's INR was mildly supratherapeutic. I suspect this is because she is not eating and taking her Coumadin. The remainder of her blood work was unremarkable. Further management will be necessary in the hospital. Case was discussed with Dr. Hatch of the hospitalist service. Patient will be evaluated in the ER for further management. Triage Nursing notes reviewed and agree them. Vital Signs: reviewed and remarkable for no significant abnormalities Differential diagnosis: Infection, dehydration, metabolic abnormality, hypo/hyperglycemia, electrolyte disturbance, anemia, hypoxia, cardiac sources, intracerebral event, toxicologic, neurologic, as well as other pathologies. Diagnostics interpreted by me: ECG: Twelve-lead ECG reveals normal sinus rhythm at 84 bpm. LVH. Poor R wave progression noted. Nonspecific ST abnormality present anteriorly. When compared to February [id number] the nonspecific changes are more pronounced. Cardiac Monitoring: Cardiac monitoring ordered by me: The patient was placed on continuous cardiac monitoring and observed. It revealed a normal sinus rhythm at 91 beats per minute without ectopy or evidence of dysrhythmia. Imaging studies: Chest x-ray. Findings: A chest x-ray was performed and revealed no pneumothorax, effusion, infiltrate, pulmonary edema, free air under the diaphragm, or wide mediastinum. Impression: No acute disease. HPI: The patient is a 75 year old female who presents to the Emergency Room with complaints of abnormal labs. This started with blood work done today and is concerning for decreased kidney function, high calcium and abnormal potassium. The patient also notes the following associated symptoms, fatigue. She has decreased energy. She has not been eating or drinking well. She is dealing wit h a blood clot in the right leg and is currently taking Coumadin. The patient has been prescribed no medication for relieving factors. Current pain is rated as 0/10. Pt denies LOC, headache, fevers, chills, diaphoresis, visual changes, neck pain, chest pain, breathing difficulties, nausea, vomiting, abdominal pain, back pain, melena, hematochezia, urinary symptoms, numbness, lymphadenopathy, rash, or other complaints. ROS: See above HPI for pertinent positives & negatives. A total of 10 systems reviewed and were otherwise negative. PAST MEDICAL HISTORY:See Below , hypertension, anticoagulated on Coumadin, DVT PAST SURGICAL HISTORY:See Below, FAMILY HISTORY:See Below SOCIAL HISTORY:See Below, lives with family HOME MEDICATIONS:See Below ALLERGIES:See Below VITALS:See Below PHYSICAL EXAMINATION: GENERAL: Awake, alert, tired-appearing, in no distress HENT: Normocephalic, atraumatic. Oropharynx unremarkable. EYES: Mild erythematous conjunctiva. Sclera non-icteric. NECK: Inspection normal. Non-tender. Supple. No nuchal rigidity. FROM. No masses. RESPIRATORY: Clear to auscultation. No wheezes. No rales. Normal respiratory effort. CARDIAC: Normal rate. Normal rhythm. No murmurs. No rubs. Extremities warm and well perfused. Pulses equal. No JVD. GI: Soft, non-distended. No tenderness to palpation. No rebound or guarding. No masses. RECTAL: Deferred. MUSCULOSKELETAL: Atraumatic. Chest examination reveals no tenderness. The back is symmetrical on inspection without obvious abnormality. There is no CVA tenderness to palpation. No joint edema. LOWER EXTREMITIES: Mild trace edema which is worse on the right side. Right leg is larger than the left. No leg tenderness to palpation. NEURO: Normal sensorium. No sensory or motor deficits noted. SKIN: No rash or jaundice noted. Charles Sexton MD Past Med/Surg History Medical History Colitis CVA (cerebral vascular accident) Deep vein thrombosis (DVT) of right lower extremity DVT (deep venous thrombosis) Hypertension Hypothyroid Surgical History S/P cataract surgery S/P hysterectomy Family History Mother , age 61 of an [place]. 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 Feels Safe at Home: Yes Assistive Devices: Cane and Walker Allergies Allergies Allergy/AdvReac Type Severity Reaction Status Date / Time No Known Allergies Allergy Verified 12/15/20 09:42 Home Meds Home Medications Medication Instructions Recorded Confirmed aspirin 81 mg tablet,delayed 81 mg PO QDB 08/28/20 12/15/20 release atorvastatin 80 mg tablet 80 mg PO QDB 08/28/20 12/15/20 levothyroxine 88 mcg tablet 88 mcg PO DAILY 12/15/20 12/15/20 sennosides 8.6 mg tablet (senna) 8.6 mg PO DAILY 12/15/20 12/15/20 Previous Rx's Medication Instructions Recorded warfarin 5 mg tablet 5 mg PO DAILY #5 tab 09/19/20 Results & Data (ED) Vital Signs Vital Signs - 24 hr 12/15/20 15:31 12/15/20 15:47 12/15/20 16:20 Temperature 36.7 C Temperature Source Temporal Artery Scan Pulse Rate 91 H 87 Pulse Rate from SpO2 Sensor 87 Pulse Rhythm Regular Pulse Strength Normal Respiratory Rate 20 18 Respiratory Effort / Characteristics Non-Labored Spontaneous Respiratory Depth Normal Respiratory Pattern Regular Blood Pressure 135/71 167/97 H Blood Pressure Mean 92 120 Blood Pressure Position Sitting Pulse Oximetry 96 93 Oxygen Delivery Method Room Air Room Air Room Air Sepsis Recent Fever Within 48 Hours No Sepsis New/Unexplained Change in Mental Status No Sepsis Action Taken by Nursing No Action Required Laboratory Data Result diagrams: 12/15/20 15:51 12/15/20 15:51 Lab Results 12/15/20 12/15/20 12/15/20 Range/Units 15:51 15:51 15:51 WBC 9.37 (4.8-10.8) K/uL RBC 4.99 (4.2-5.4) M/uL Hgb 13.7 (12.0-16.0) g/dL Hct 42.9 (37-47) % MCV 86.0 (80-100) fL MCH 27.5 (25-34) pg MCHC 31.9 L (32-36) g/dL RDW Std Deviation 46.5 H (36.4-46.3) fL RDW Coeff of Pancho 14.9 H (11.5-14.5) % Plt Count 267 (130-400) K/uL MPV 12.5 H (7.4-10.4) fL Immature Gran % (Auto) 0.2 % Neut % (Auto) 63.0 % Lymph % (Auto) 25.7 % Mason % (Auto) 10.5 % Eos % (Auto) 0.4 % Baso % (Auto) 0.2 % Neut # (Auto) 5.90 (1.4-6.5) K/uL Lymph # (Auto) 2.41 (1.2-3.4) K/uL Mason # (Auto) 0.98 H (0.11-0.59) K/uL Eos # (Auto) 0.04 (0-0.5) K/uL Baso # (Auto) 0.02 (0-0.2) K/uL Immature Gran # (Auto) 0.02 (0.00-0.02) K/uL PT 52.1 H (9.0-12.0) Seconds INR 5.9 H* (0.9-1.1) APTT 42.8 H (21.0-31.0) Seconds PTT Ratio 1.6 Sodium 139 (136-145) mmol/L Potassium 2.8 L (3.5-5.1) mmol/L Chloride 98 (98-107) mmol/L Carbon Dioxide 34 H (21-32) mmol/L Anion Gap 7.0 (3-11) BUN 23 H (7-18) mg/dl Creatinine 2.02 H (0.6-1.2) mg/dl Est Cr Clr Drug Dosing Not Reportable Est GFR ( Amer) 26.9 ml/min Est GFR (Non-Af Amer) 23.2 ml/min BUN/Creatinine Ratio 11.3 (10-20) Glucose 115 H (70-99) mg/dl Calcium 14.7 H* (8.5-10.1) mg/dl Total Bilirubin 1.0 (0.2-1) mg/dl AST 82 H (15-37) U/L ALT 25 (12-78) U/L Alkaline Phosphatase 117 (45-117) U/L Total Protein 7.8 (6.4-8.2) gm/dl Albumin 3.3 L (3.4-5.0) gm/dl Globulin 4.5 H (2.5-4.0) gm/dl Albumin/Globulin Ratio 0.7 L (0.9-2) TSH 1.350 (0.300-4.500) uIu/ml Administered Medications Potassium Chloride (K William / Wtr) 10 meq in 100 mls @ 100 mls/hr IV ONE ONE Stop: 12/15/20 18:12 Last Admin: 12/15/20 17:36 Dose: 100 mls/hr Documented by: [id number] Discontinued Medications Sodium Chloride (Nss 1000ml) 500 mls @ 999 mls/hr IV .Q31M ONE Stop: 12/15/20 17:43 Last Admin: 12/15/20 17:36 Dose: 999 mls/hr Documented by: [id number] Imaging Data Radiologist's Impression: Chest X-Ray 12/15/20 16:17 XR chest 1V portable CLINICAL HISTORY: weakness COMPARISON STUDY: February 04, 2019 FINDINGS: No pneumothorax. No pleural effusion. Lung volumes are decreased with crowded lung markings. No large infiltrates or consolidative lesions are seen. Cardiomediastinal silhouette remains slightly prominent. Large hiatal hernia with air-fluid level is again seen. Aorta is calcified. Pulmonary vasculature is indistinct.. Osseous structures: Osteopenia. Vertebral bodies are not well seen. Gas-filled loops of bowel are seen within left upper quadrant. IMPRESSION: 1. No large infiltrates or consolidative lesions are seen. 2. Redemonstration of the large hiatal hernia superimposed on cardiac silh ouette. 3. Decreased lung volumes with crowded lung markings. 4. Atherosclerosis. 5. The rest of findings as above. ACT 112: Negative or not required by law. The above report was generated using voice recognition software. It may contain grammatical, syntax or spelling errors. Electronically signed by: Elizabeth Flores DO 12/15/2020 4:56 PM Discharge Plan Visit Data Chief Complaint: Abnormal Labs/Diagnostic Testing Stated Complaint: LOW POTASSIUM, REFERRED BY [facility] ED Provider: Charles Sexton Discharge Problem: JUNE (acute kidney injury), Hypercalcemia, Hypokalemia Forms Stand Alone Forms: [facility] [employer] [place] Prescriptions Prescriptions: No Action sennosides [senna] 8.6 mg tablet 8.6 mg PO DAILY RF: 0 atorvastatin 80 mg tablet 80 mg PO QDB RF: 0 aspirin 81 mg Tablet,Delayed Release (Dr/Ec) 81 mg PO QDB RF: 0 levothyroxine 88 mcg tablet 88 mcg PO DAILY RF: 0 warfarin 5 mg tablet 5 mg PO DAILY Qty: 5 RF: 1 Referrals Referrals: Mauri Diallo [Primary Care Provider] -
[2020-12-15 17:40] LABS: Partial Thromboplastin Ratio 1.6; Partial Thromboplastin Time 42.8 Seconds (21.0-31.0); Prothrombin Time 52.1 Seconds (9.0-12.0)
[2020-12-15 17:46] LABS: INR 5.9 (0.9-1.1)
[2020-12-15] MEDS ORDERED: CALCITONIN SALMON 400 UNITS/2 ML SQ ONE (20:25)
--- NOTE | 2020-12-15 20:32 | History & Physical Report ---
Date of Service December 15, 2020 Assessment & Plan (1) JUNE (acute kidney injury): Plan: Patient admitted with JUNE. Creatinine is elevated at 2 Likely has component of prerenal. Clinically appears dehydrated. will place on IVF. Will monitor electrolytes. will consult nephro. (2) Hypercalcemia: Plan: Severe hypercalcemia Patient will be placed on aggressive fluids 200 ml/hr for 2 liters. will recheck blood work in AM. ordered calcitonin (3) Hypokalemia: Plan: ordered IVF with potassium WILL CLOSELY MONITOR POTASSIUM IN THE EVENING. (4) Ambulatory dysfunction: Plan: will consult PT and OT (5) Deep vein thrombosis (DVT) of right lower extremity: Plan: will hold coumadin as INR is elevated. (6) Hypothyroid: Plan: resume levothyroxine. TSH will likely be abnormal for now and will hold until patient improves. (7) Hypertension: Plan: will continue BP meds and monitor. (8) Elevated INR: Plan: INR is elevated likely related with diet History of Present Illness Chief Complaint: Abnormal labs Primary Care Provider: Mauri Diallo This is a pleasant 75 yo female who presents to the ER feeling generalized weakness and having electrolyte abnormalities. Patient reports for the past week patient has been complaining of fatigue and decreased energy. Patient reports she has not been eating or drinking well. Patient currently is living with her son as she is a . Given her fatigue, patient saw her PCP who ordered labwork which showed a significantly decreased kidney function, high calcium, low potassium and elevated INR. Patient is taking coumadin for a DVT. Pt denies LOC, headache, fevers, chills, diaphoresis, visual changes, neck pain, chest pain, breathing difficulties, nausea, vomiting, abdominal pain, back pain, melena, hematochezia, urinary symptoms, numbness, lymphadenopathy, rash, or other complaints. Allergies Allergy/AdvReac Type Severity Reaction Status Date / Time No Known Allergies Allergy Verified 12/15/20 09:42 Home Medications Medication Instructions Recorded Confirmed Type aspirin 81 mg tablet,delayed 81 mg PO QDB 08/28/20 12/15/20 History release atorvastatin 80 mg tablet 80 mg PO QDB 08/28/20 12/15/20 History warfarin 5 mg tablet 5 mg PO DAILY #5 tab 09/19/20 12/15/20 Rx levothyroxine 88 mcg tablet 88 mcg PO DAILY 12/15/20 12/15/20 History sennosides 8.6 mg tablet (senna) 8.6 mg PO DAILY 12/15/20 12/15/20 History Past Med/Surg History Medical History Colitis CVA (cerebral vascular accident) Deep vein thrombosis (DVT) of right lower extremity DVT (deep venous thrombosis) Hypertension Hypothyroid Intractable pain Surgical History S/P cataract surgery S/P hysterectomy Family History Mother , age 61 of an [place]. 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 Feels Safe at Home: Yes Assistive Devices: Cane and Walker Review of Systems Constitutional: + fatigue, + weakness and + anorexia; no fever and no sweats Eyes: no blind spots and no diplopia Ear, Nose, Mouth, Throat: no ear trauma and no tinnitus Respiratory: no cough and no change in sputum Cardiovascular: no chest pain Gastrointestinal: no abdominal pain Genitourinary: no dysuria and no urinary frequency Musculoskeletal: no back pain Integumentary: no acne and no rash Neurologic: + gait abnormality Psychiatric: no behavioral changes and no hopelessness Endocrine: + fatigue Physical Exam Constitutional: well developed and + ill appearing; + not appropriately hydrated Eyes: PERRL, conjunctivae normal, anicteric sclerae ENMT: Mouth: + dry oral mucous membranes Neck: trachea midline, no thyromegaly Respiratory: normal respiratory effort, lungs clear to auscultation Cardiovascular: RRR, no murmur, no edema Gastrointestinal (Abdomen): normal bowel sounds, soft, nontender, no hepatosplenomegaly Musculoskeletal: no cyanosis or clubbing, extremities motor strength 5/5 Skin: no rashes, warm and dry Neurologic: PERRL, EOMI, accommodation nl, no face palsy, no dysarthria Psychiatric: A+Ox3, euthymic affect Lymphatic: no cervical or axillary lymphadenopathy Results & Data Results & Data ([facility]) Vital Signs (Past 12 Hours) Vital Signs Temp Pulse Resp BP Pulse Ox 12/15/20 15:47 87 18 167/97 H 93 12/15/20 15:31 36.7 C 91 H 20 135/71 96 PG Care Time/CCT Total # of Minutes Spent Total Time Spent with Patient: Total time spent is greater than 50% in coordination of care (as documented) at patient's floor/unit and/or counseling patient: Coding Level of Care Code 13083 Initial Inpt Care Lvl 3 Diagnoses JUNE (acute kidney injury) N17.9 Hypercalcemia E83.52 Hypokalemia E87.6 Ambulatory dysfunction R26.2 Deep vein thrombosis (DVT) of right lower extremity I82.401 Affected thrombotic vein of extremity: unspecified vein of extremity Chronicity: acute Hypothyroid E03.9 Hypothyroidism type: unspecified Hypertension I10 Hypertension type: essential hypertension Elevated INR R79.1 (1) Deep vein thrombosis (DVT) of right lower extremity Affected thrombotic vein of extremity: unspecified vein of extremity Chronicity: acute Qualified Code(s): I82.401 - Acute embolism and thrombosis of unspecified deep veins of right lower extremity (2) Hypothyroid Hypothyroidism type: unspecified Qualified Code(s): E03.9 - Hypothyroidism, unspecified (3) Hypertension Hypertension type: essential hypertension Qualified Code(s): I10 - Essential (primary) hypertension
[2020-12-15] MEDS: POTASSIUM CHLORIDE 40 MEQ in SODIUM CHLORIDE 0.9% 1000ML 1,000 ML IV SCH (22:17)
[2020-12-15 22:21] LABS: Appearance Urine Clear (Clear); Bacteria Urine Automated Negative (Negative); Bilirubin Urine Negative (Negative); Blood Urine 3+ (Negative); Color Urine Yellow; Epithelial Cell Urine Auto >30 /lpf (0-5); Glucose Urine UA Negative (Negative); Ketones Urine Negative (Negative); Leukocyte Esterase Urine 1+ (Negative); Nitrite Urine Negative (Negative); Protein Urine Trace (Negative); RBC Urine Automated >30 /hpf (0-4); Specific Gravity Urine 1.008 (1.000-1.030); Urobilinogen Urine Negative (Negative); pH Urine 6.5 (4.5-7.5)
[2020-12-15] MEDS ORDERED: CALCITONIN SALMON 250 UNITS in SYRINGE 0 ML SQ SCH (22:45)
[2020-12-16] MEDS: POTASSIUM CHLORIDE 40 MEQ in SODIUM CHLORIDE 0.9% 1000ML 1,000 ML IV SCH (03:49)
[2020-12-16] MEDS: LEVOTHYROXINE SODIUM 88 MCG TABLET PO SCH (06:16)
[2020-12-16 07:26] LABS: Prothrombin Time 57.7 Seconds (9.0-12.0)
[2020-12-16 07:32] LABS: INR 6.6 (0.9-1.1)
[2020-12-16] MEDS ORDERED: PHYTONADIONE 5 MG TAB PO STA (07:42)
[2020-12-16] MEDS: ASPIRIN 81 MG ECTAB PO SCH (08:09)
[2020-12-16] MEDS: SENNA 8.6 MG TAB PO SCH (08:09)
[2020-12-16] MEDS: ATORVASTATIN 40 MG TAB PO SCH (08:09)
[2020-12-16 09:45] LABS: Albumin Level 2.7 gm/dl (3.4-5.0); BUN Creatinine Ratio 12.6 (10-20); Calcium 13.7 mg/dl (8.5-10.1); Creatinine Clr Calc Pharmacy 24.3 ml/min; Est GFR (African American) 33.6 ml/min; Phosphorus 2.6 mg/dl (2.5-4.9); Potassium 3.9 mmol/L (3.5-5.1)
[2020-12-16] MEDS ORDERED: ACETAMINOPHEN 325 MG TAB PO PRN (12:07)
[2020-12-16] MEDS: NORMOSOL-R 1,000 ML IV SCH ×2 (12:17→21:52)
[2020-12-16] MEDS ORDERED: PAMIDRONATE DISODIUM 60 MG in SODIUM CHLORIDE 0.9% 1000ML 1,000 ML IV ONE (12:30)
--- NOTE | 2020-12-16 12:37 | Nephrology Consultation ---
Date of Consultation December 16, 2020 Assessment & Plan (1) JUNE (acute kidney injury): JUNE clinically pre-renal in setting of hypercalcemia. Improving with IV volume expansion. NSS switched to normosol this AM. Non-oliguric. No emergent indications for dialysis. Medications appropriate for kidney dysfunction. No renal imaging currently. Urine studies demonstrate: microscopic hematuria and 10-30 WBC per hpf, 1-5 hyaline casts. UA micro to be repeated in next couple of days. No symptoms of UTI. (2) Hypercalcemia: Non-PTH mediated. No TUMS or calcium supplements. Continue IVF with normosol @ 125 ml/hr x 1-2 L. Pamidronate 60 mg IV now. SPEP/IF and VANCE level sent this AM. Clinical presentation concerning for underlying malignancy. Suggest abdominal CT once kidney function improved. (3) Hypokalemia: IV and PO replacement provided. Improving. Repeat metabolic profile + Mg this afternon. History of Present Illness Reason for Consultation: JUNE, hypercalcemia Requesting Physician: Gavin Menendez DO Attending Physician: Gavin Menendez DO History of Present Illness Mrs. Vivian Fernandes is a 75 year-old female admitted to [facility] through the ED yesterday for management of hypercalcemia and JUNE. The patient was seen and evaluated in her hospital room this morning. Mrs. Fernandes is a fairly poor historian. Medical records were reviewed and I spoke to Jennifer Mcgee PA-C with vascular to obtain additional details this AM. The patient was referred to the ER for evaluation of her abnormal labs. I discussed the plan of care with Dr. Menendez this morning as well. Vivian has tolerated IVF hydration. Repeat labs reviewed this morning. Urine output has been acceptable. Creatinine is trending down. She is limited by significant edema in the right lower extremity. The limb is uncomfortable. Medical history is notable for a right lower extremity DVT for which the patient was evaluated in the vascular clinic yesterday. She also has hypertension, dyslipidemia, hypothyroidism, and history of CVA in 2019. Mrs. Fernandes suffered an unprovoked DVT in her left lower extremity ~ 10 years ago treated with several months of Warfarin. In July 2020, occlusive thrombus in the right common femoral vein, femoral vein and superficial veins was identified. Eliquis was started. Unfortunately, edema and discomfort persisted. Eliquis was switched to warfarin. Since then she has continued to have significant right lower extremity discomfort and swelling. Activity level has been severely limited by her symptoms. Vivian was admitted with supratherapeutic INR. She denies any bleeding complications of treatment. She states that she has not had a colonoscopy but did have a normal screening mammogram several years ago. Allergies Allergy/AdvReac Type Severity Reaction Status Date / Time No Known Allergies Allergy Verified 12/15/20 09:42 Home Medications Medication Instructions Recorded Confirmed Type aspirin 81 mg tablet,delayed 81 mg PO QDB 08/28/20 12/15/20 History release atorvastatin 80 mg tablet 80 mg PO QDB 08/28/20 12/15/20 History warfarin 5 mg tablet 5 mg PO DAILY #5 tab 09/19/20 12/15/20 Rx levothyroxine 88 mcg tablet 88 mcg PO DAILY 12/15/20 12/15/20 History sennosides 8.6 mg tablet (senna) 8.6 mg PO DAILY 12/15/20 12/15/20 History Patient History Medical History Colitis CVA (cerebral vascular accident) Deep vein thrombosis (DVT) of right lower extremity DVT (deep venous thrombosis) Hypertension Hypothyroid Intractable pain Surgical History S/P cataract surgery S/P hysterectomy Family History Mother , age 61 of an [place]. 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 Feels Safe at Home: Yes Safety Concerns: Feels Safe At This Time Assistive Devices: Denture - Upper and Denture - Lower Review of Systems Review of Systems: All systems reviewed & are unremarkable except as noted in HPI & below Physical Exam Constitutional: well developed and + frail appearing; no acute distress Eyes: no scleral abnormality and no corneal abnormality ENMT: Mouth: no oral mucosal abnormality and oral mucous membranes not dry Neck: normal visual inspection and trachea midline Respiratory: normal respiratory effort Auscultation: lungs clear to auscultation bilaterally Cardiovascular: Rate/Rhythm: regular rate Heart Sounds: normal S1 and normal S2 Extremities: + edema (extensive edema of the RLL extending into thigh, groin, and buttock) Musculoskeletal: Extremities: no cyanosis and no clubbing Skin: normal turgor; no lesions Neurologic: Motor/Sensory: no tremor and no asterixis Psychiatric: Orientation: alert and oriented x 3 Results & Data ([facility]) Vital Signs (Past 12 Hours) Vital Signs Temp Pulse Pulse Pulse Resp BP BP 12/16/20 11:50 36.6 C 88 18 127/77 12/16/20 08:06 37.1 C 87 18 105/63 12/16/20 07:45 88 12/16/20 07:00 37.1 C 85 18 134/74 12/16/20 05:32 79 12/16/20 05:27 82 12/16/20 03:47 36.9 C 85 18 130/73 12/16/20 03:41 36.5 C 81 20 150/79 H Pulse Ox 12/16/20 11:50 96 12/16/20 08:06 93 12/16/20 07:45 12/16/20 07:00 91 12/16/20 05:32 12/16/20 05:27 12/16/20 03:47 90 12/16/20 03:41 92 Laboratory Results Laboratory Results - last 24 hr 12/15/20 12/15/20 12/15/20 15:51 15:51 15:51 WBC 9.37 RBC 4.99 Hgb 13.7 Hct 42.9 MCV 86.0 MCH 27.5 MCHC 31.9 L RDW Std Deviation 46.5 H RDW Coeff of Pancho 14.9 H Plt Count 267 MPV 12.5 H Immature Gran % (Auto) 0.2 Neut % (Auto) 63.0 Lymph % (Auto) 25.7 Ellis % (Auto) 10.5 Eos % (Auto) 0.4 Baso % (Auto) 0.2 Neut # (Auto) 5.90 Lymph # (Auto) 2.41 Ellis # (Auto) 0.98 H Eos # (Auto) 0.04 Baso # (Auto) 0.02 Immature Gran # (Auto) 0.02 PT 52.1 H INR 5.9 H* APTT 42.8 H PTT Ratio 1.6 Sodium 139 Potassium 2.8 L Chloride 98 Carbon Dioxide 34 H Anion Gap 7.0 BUN 23 H Creatinine 2.02 H Est Cr Clr Drug Dosing Not Reportable Est GFR ( Amer) 26.9 Est GFR (Non-Af Amer) 23.2 BUN/Creatinine Ratio 11.3 Glucose 115 H Calcium 14.7 H* Phosphorus Total Bilirubin 1.0 AST 82 H ALT 25 Alkaline Phosphatase 117 Total Protein 7.8 Albumin 3.3 L Globulin 4.5 H Albumin/Globulin Ratio 0.7 L Angiotensin Convert Enz TSH 1.350 PTH Intact Urine Color Urine Appearance Urine pH Ur Specific [place] Urine Protein Urine Glucose (UA) Urine Ketones Urine Blood Urine Nitrite Urine Bilirubin Urine Urobilinogen Ur Leukocyte Esterase Urine WBC (Auto) Urine RBC (Auto) U Hyaline Cast (Auto) U Epithel Cells (Auto) Urine Bacteria (Auto) COVID-19 Eval Order SARS-CoV-2 (PCR) 12/15/20 12/15/20 12/15/20 18:05 18:05 20:59 WBC RBC Hgb Hct MCV MCH MCHC RDW Std Deviation RDW Coeff of Pancho Plt Count MPV Immature Gran % (Auto) Neut % (Auto) Lymph % (Auto) Ellis % (Auto) Eos % (Auto) Baso % (Auto) Neut # (Auto) Lymph # (Auto) Ellis # (Auto) Eos # (Auto) Baso # (Auto) Immature Gran # (Auto) PT INR APTT PTT Ratio Sodium Potassium Chloride Carbon Dioxide Anion Gap BUN Creatinine Est Cr Clr Drug Dosing Est GFR ( Amer) Est GFR (Non-Af Amer) BUN/Creatinine Ratio Glucose Calcium Phosphorus Total Bilirubin AST ALT Alkaline Phosphatase Total Protein Albumin Globulin Albumin/Globulin Ratio Angiotensin Convert Enz TSH PTH Intact 11.5 L Urine Color Urine Appearance Urine pH Ur Specific [place] Urine Protein Urine Glucose (UA) Urine Ketones Urine Blood Urine Nitrite Urine Bilirubin Urine Urobilinogen Ur Leukocyte Esterase Urine WBC (Auto) Urine RBC (Auto) U Hyaline Cast (Auto) U Epithel Cells (Auto) Urine Bacteria (Auto) COVID-19 Eval Order Covid19 at [facility] SARS-CoV-2 (PCR) NEGATIVE 12/15/20 12/15/20 12/16/20 22:07 23:44 06:40 WBC RBC Hgb Hct MCV MCH MCHC RDW Std Deviation RDW Coeff of Pancho Plt Count MPV Immature Gran % (Auto) Neut % (Auto) Lymph % (Auto) Ellis % (Auto) Eos % (Auto) Baso % (Auto) Neut # (Auto) Lymph # (Auto) Ellis # (Auto) Eos # (Auto) Baso # (Auto) Immature Gran # (Auto) PT 57.7 H INR 6.6 H* APTT PTT Ratio Sodium Potassium 3.1 L Chloride Carbon Dioxide Anion Gap BUN Creatinine Est Cr Clr Drug Dosing Est GFR ( Amer) Est GFR (Non-Af Amer) BUN/Creatinine Ratio Glucose Calcium Phosphorus Total Bilirubin AST ALT Alkaline Phosphatase Total Protein Albumin Globulin Albumin/Globulin Ratio Angiotensin Convert Enz TSH PTH Intact Urine Color Yellow Urine Appearance Clear Urine pH 6.5 Ur Specific [place] 1.008 Urine Protein Trace H Urine Glucose (UA) Negative Urine Ketones Negative Urine Blood 3+ H Urine Nitrite Negative Urine Bilirubin Negative Urine Urobilinogen Negative Ur Leukocyte Esterase 1+ H Urine WBC (Auto) 10-30 H Urine RBC (Auto) >30 H U Hyaline Cast (Auto) 1-5 U Epithel Cells (Auto) >30 H Urine Bacteria (Auto) Negative COVID-19 Eval Order SARS-CoV-2 (PCR) 12/16/20 12/16/20 09:12 09:12 WBC RBC Hgb Hct MCV MCH MCHC RDW Std Deviation RDW Coeff of Pancho Plt Count MPV Immature Gran % (Auto) Neut % (Auto) Lymph % (Auto) Ellis % (Auto) Eos % (Auto) Baso % (Auto) Neut # (Auto) Lymph # (Auto) Ellis # (Auto) Eos # (Auto) Baso # (Auto) Immature Gran # (Auto) PT INR APTT PTT Ratio Sodium 141 Potassium 3.9 D Chloride 108 H Carbon Dioxide 28 Anion Gap 5.0 BUN 21 H Creatinine 1.68 H D Est Cr Clr Drug Dosing 24.3 Est GFR ( Amer) 33.6 Est GFR (Non-Af Amer) 29.0 BUN/Creatinine Ratio 12.6 Glucose 130 H Calcium 13.7 H* Phosphorus 2.6 Total Bilirubin AST ALT Alkaline Phosphatase Total Protein Albumin 2.7 L Globulin Albumin/Globulin Ratio Angiotensin Convert Enz Pending TSH PTH Intact Urine Color Urine Appearance Urine pH Ur Specific [place] Urine Protein Urine Glucose (UA) Urine Ketones Urine Blood Urine Nitrite Urine Bilirubin Urine Urobilinogen Ur Leukocyte Esterase Urine WBC (Auto) Urine RBC (Auto) U Hyaline Cast (Auto) U Epithel Cells (Auto) Urine Bacteria (Auto) COVID-19 Eval Order SARS-CoV-2 (PCR) PG Care Time/CCT Total # of Minutes Spent Total Time Spent with Patient: Total time spent is greater than 50% in coordination of care (as documented) at patient's floor/unit and/or counseling patient: Coding Level of Care Code 14302 Inpt Consult Level 4 Diagnoses JUNE (acute kidney injury) N17.9 Hypercalcemia E83.52 Hypokalemia E87.6
[2020-12-16] MEDS: LIDOCAINE 5% 1 PATCH TD SCH (13:05)
--- NOTE | 2020-12-16 13:18 | Hospitalist Progress Note ---
Date of Service December 16, 2020 Assessment & Plan (1) JUNE (acute kidney injury): Plan: Patient admitted with JUNE Creatinine was elevated at 2 down to 1.7 today after aggressive IV fluids continue Normosol at 125cc/hr calcium coming down making urine nephrology following BMP in AM (2) Hypercalcemia: Plan: Severe hypercalcemia, down to 12.7 this afternoon gave pamidronate today once volume restored could consider dose of Lasix check BMP in the AM PTH is low at 11 so this is not primary hyperparathyroidism would suspect malignancy until proven otherwise check CT chest, abd/pelvis tomorrow, SPEP and UPEP ordered by nephrology (3) Hypokalemia: Plan: ordered IVF with potassium up to 3.5 today (4) Ambulatory dysfunction: Plan: will consult PT and OT (5) Deep vein thrombosis (DVT) of right lower extremity: Plan: INR continues to rise, > 7 this is despite holding Coumadin and even giving Vitamin K 2.5mg PO this morning doppler right leg shows occlussive acute DVT right deep femoral vein will check PTT, fibrinogen, fibrin degredation products, INR in the morning could she have underlying liver disease plan to discuss with hematology tomorrow, consider heparin product but hesitant at this time with INR > 7 as might pose too high risk of bleeding (6) Hypothyroid: Plan: resume levothyroxine. TSH normal (7) Hypertension: Plan: will continue BP meds and monitor. (8) Elevated INR: Plan: INR is elevated likely related with diet however, not improving after Vitamin K 2.5, going up to >7 liver disease? check other coags tomorrow, platelets notes to be normal holding Coumadin Admission and Anticipated Discharge Date Admission Date: December 15, 2020 Subjective patient's main complaint is pain and swelling in her right leg due to DVT checked doppler, she has acute, occlusive DVT in deep femoral vein, this is despite Coumadin with INR > 6 and 7 Cr is 1.68 and repeat 1.7 calcium coming down slowly at 12.7 this afternoon d/w Dr. Mata, will give pamidronate certainly with evidence of hypercalcemia and DVT this is malignancy until proven otherwise she is a non smoker, denies any weight loss in the past months, denies night sweats has chronic back pain for years due to DDD discussed with Dr. Mata, plan for CT chest, abd/pelvis tomorrow to look for occ ult malignancy Review of Systems Review of Systems: All systems reviewed & are unremarkable except as noted in Subjective Physical Exam Constitutional: well developed, + thin and + frail appearing; no acute distress Neck: trachea midline, no thyromegaly Respiratory: normal respiratory effort, lungs clear to auscultation Cardiovascular: Rate/Rhythm: regular rate and regular rhythm Heart Sounds: normal S1 and normal S2; no murmur Extremities: normal capillary refill, + calf tenderness (right side) and + edema (right leg from thigh down to ankle) Gastrointestinal (Abdomen): normal bowel sounds, soft, nontender, no hepatosplenomegaly Musculoskeletal: no cyanosis or clubbing, extremities motor strength 5/5 Skin: no rashes, warm and dry Neurologic: CN's II-XI intact bilaterally, moves all extremities and awake; no focal motor deficits Psychiatric: A+Ox3, euthymic affect Results & Data Results & Data ([facility]) Vital Signs (Past 12 Hours) Vital Signs Temp Pulse Pulse Pulse Resp BP BP 12/16/20 11:50 36.6 C 88 18 127/77 12/16/20 08:06 37.1 C 87 18 105/63 12/16/20 07:45 88 12/16/20 07:00 37.1 C 85 18 134/74 12/16/20 05:32 79 12/16/20 05:27 82 12/16/20 03:47 36.9 C 85 18 130/73 12/16/20 03:41 36.5 C 81 20 150/79 H Pulse Ox 12/16/20 11:50 96 12/16/20 08:06 93 12/16/20 07:45 12/16/20 07:00 91 12/16/20 05:32 12/16/20 05:27 12/16/20 03:47 90 12/16/20 03:41 92 Laboratory Results Laboratory Results - last 24 hr 12/15/20 12/15/20 12/15/20 15:51 15:51 15:51 WBC 9.37 RBC 4.99 Hgb 13.7 Hct 42.9 MCV 86.0 MCH 27.5 MCHC 31.9 L RDW Std Deviation 46.5 H RDW Coeff of Pancho 14.9 H Plt Count 267 MPV 12.5 H Immature Gran % (Auto) 0.2 Neut % (Auto) 63.0 Lymph % (Auto) 25.7 [place] % (Auto) 10.5 Eos % (Auto) 0.4 Baso % (Auto) 0.2 Neut # (Auto) 5.90 Lymph # (Auto) 2.41 [place] # (Auto) 0.98 H Eos # (Auto) 0.04 Baso # (Auto) 0.02 Immature Gran # (Auto) 0.02 PT 52.1 H INR 5.9 H* APTT 42.8 H PTT Ratio 1.6 Sodium 139 Potassium 2.8 L Chloride 98 Carbon Dioxide 34 H Anion Gap 7.0 BUN 23 H Creatinine 2.02 H Est Cr Clr Drug Dosing Not Reportable Est GFR ( Amer) 26.9 Est GFR (Non-Af Amer) 23.2 BUN/Creatinine Ratio 11.3 Glucose 115 H Calcium 14.7 H* Phosphorus Total Bilirubin 1.0 AST 82 H ALT 25 Alkaline Phosphatase 117 Total Protein 7.8 Albumin 3.3 L Globulin 4.5 H Albumin/Globulin Ratio 0.7 L Angiotensin Convert Enz TSH 1.350 PTH Intact Urine Color Urine Appearance Urine pH Ur Specific [place] Urine Protein Urine Glucose (UA) Urine Ketones Urine Blood Urine Nitrite Urine Bilirubin Urine Urobilinogen Ur Leukocyte Esterase Urine WBC (Auto) Urine RBC (Auto) U Hyaline Cast (Auto) U Epithel Cells (Auto) Urine Bacteria (Auto) COVID-19 Eval Order SARS-CoV-2 (PCR) 12/15/20 12/15/20 12/15/20 18:05 18:05 20:59 WBC RBC Hgb Hct MCV MCH MCHC RDW Std Deviation RDW Coeff of Pancho Plt Count MPV Immature Gran % (Auto) Neut % (Auto) Lymph % (Auto) [place] % (Auto) Eos % (Auto) Baso % (Auto) Neut # (Auto) Lymph # (Auto) [place] # (Auto) Eos # (Auto) Baso # (Auto) Immature Gran # (Auto) PT INR APTT PTT Ratio Sodium Potassium Chloride Carbon Dioxide Anion Gap BUN Creatinine Est Cr Clr Drug Dosing Est GFR ( Amer) Est GFR (Non-Af Amer) BUN/Creatinine Ratio Glucose Calcium Phosphorus Total Bilirubin AST ALT Alkaline Phosphatase Total Protein Albumin Globulin Albumin/Globulin Ratio Angiotensin Convert Enz TSH PTH Intact 11.5 L Urine Color Urine Appearance Urine pH Ur Specific [place] Urine Protein Urine Glucose (UA) Urine Ketones Urine Blood Urine Nitrite Urine Bilirubin Urine Urobilinogen Ur Leukocyte Esterase Urine WBC (Auto) Urine RBC (Auto) U Hyaline Cast (Auto) U Epithel Cells (Auto) Urine Bacteria (Auto) COVID-19 Eval Order Covid19 at [facility] SARS-CoV-2 (PCR) NEGATIVE 12/15/20 12/15/20 12/16/20 22:07 23:44 06:40 WBC RBC Hgb Hct MCV MCH MCHC RDW Std Deviation RDW Coeff of Pancho Plt Count MPV Immature Gran % (Auto) Neut % (Auto) Lymph % (Auto) [place] % (Auto) Eos % (Auto) Baso % (Auto) Neut # (Auto) Lymph # (Auto) [place] # (Auto) Eos # (Auto) Baso # (Auto) Immature Gran # (Auto) PT 57.7 H INR 6.6 H* APTT PTT Ratio Sodium Potassium 3.1 L Chloride Carbon Dioxide Anion Gap BUN Creatinine Est Cr Clr Drug Dosing Est GFR ( Amer) Est GFR (Non-Af Amer) BUN/Creatinine Ratio Glucose Calcium Phosphorus Total Bilirubin AST ALT Alkaline Phosphatase Total Protein Albumin Globulin Albumin/Globulin Ratio Angiotensin Convert Enz TSH PTH Intact Urine Color Yellow Urine Appearance Clear Urine pH 6.5 Ur Specific [place] 1.008 Urine Protein Trace H Urine Glucose (UA) Negative Urine Ketones Negative Urine Blood 3+ H Urine Nitrite Negative Urine Bilirubin Negative Urine Urobilinogen Negative Ur Leukocyte Esterase 1+ H Urine WBC (Auto) 10-30 H Urine RBC (Auto) >30 H U Hyaline Cast (Auto) 1-5 U Epithel Cells (Auto) >30 H Urine Bacteria (Auto) Negative COVID-19 Eval Order SARS-CoV-2 (PCR) 12/16/20 12/16/20 09:12 09:12 WBC RBC Hgb Hct MCV MCH MCHC RDW Std Deviation RDW Coeff of Pancho Plt Count MPV Immature Gran % (Auto) Neut % (Auto) Lymph % (Auto) [place] % (Auto) Eos % (Auto) Baso % (Auto) Neut # (Auto) Lymph # (Auto) [place] # (Auto) Eos # (Auto) Baso # (Auto) Immature Gran # (Auto) PT INR APTT PTT Ratio Sodium 141 Potassium 3.9 D Chloride 108 H Carbon Dioxide 28 Anion Gap 5.0 BUN 21 H Creatinine 1.68 H D Est Cr Clr Drug Dosing 24.3 Est GFR ( Amer) 33.6 Est GFR (Non-Af Amer) 29.0 BUN/Creatinine Ratio 12.6 Glucose 130 H Calcium 13.7 H* Phosphorus 2.6 Total Bilirubin AST ALT Alkaline Phosphatase Total Protein Albumin 2.7 L Globulin Albumin/Globulin Ratio Angiotensin Convert Enz Pending TSH PTH Intact Urine Color Urine Appearance Urine pH Ur Specific [place] Urine Protein Urine Glucose (UA) Urine Ketones Urine Blood Urine Nitrite Urine Bilirubin Urine Urobilinogen Ur Leukocyte Esterase Urine WBC (Auto) Urine RBC (Auto) U Hyaline Cast (Auto) U Epithel Cells (Auto) Urine Bacteria (Auto) COVID-19 Eval Order SARS-CoV-2 (PCR) Medications Administered Current Inpatient Medications Acetaminophen (Acetaminophen 325 Mg Tab) 650 mg PO Q4H PRN PRN Reason: Pain or Fever Stop: 01/15/21 12:06 Aspirin (Aspirin 81 Mg Ectab) 81 mg PO QDB [facility] Stop: 01/15/21 07:29 Last Admin: 12/16/20 08:09 Dose: 81 mg Documented by: Atorvastatin Calcium (Atorvastatin 40 Mg Tab) 80 mg PO QDB [facility] Stop: 01/15/21 07:29 Last Admin: 12/16/20 08:09 Dose: 80 mg Documented by: Parenteral Electrolytes (Normosol-R) 1,000 mls @ 125 mls/hr IV .Q8H [facility] Stop: 01/15/21 10:59 Last Infusion: 12/16/20 13:00 Dose: 0 mls/hr Documented by: Pamidronate Disodium 60 mg/ (Sodium Chloride) 1,020 mls @ 510 mls/hr IV .Q2H [facility] Stop: 12/16/20 14:29 Last Admin: 12/16/20 13:05 Dose: 510 mls/hr Documented by: Levothyroxine Sodium (Levothyroxine Sodium 88 Mcg Tablet) 88 mcg PO DAILYBB [facility] Stop: 01/15/21 06:29 Last Admin: 12/16/20 06:16 Dose: 88 mcg Documented by: Lidocaine (Lidocaine 5% 1 Patch) 1 patch TD QAM [facility] Stop: 01/15/21 12:14 Last Admin: 12/16/20 13:05 Dose: 1 patch Documented by: Miscellaneous (Remove Lidoderm Patch) 1 ea N/A DAILY@2100 [facility] Stop: 01/15/21 22:59 Sennosides (Senna 8.6 Mg Tab) 8.6 mg PO DAILY [facility] Stop: 01/15/21 08:59 Last Admin: 12/16/20 08:09 Dose: 8.6 mg Documented by: PG Care Time/CCT Total # of Minutes Spent Total Time Spent with Patient: Total time spent is greater than 50% in coordination of care (as documented) at patient's floor/unit and/or counseling patient: Coding Level of Care Code 15316 Subseq Hosp Care Lvl 3 Diagnoses JUNE (acute kidney injury) N17.9 Hypercalcemia E83.52 Hypokalemia E87.6 Ambulatory dysfunction R26.2 Deep vein thrombosis (DVT) of right lower extremity I82.401 Affected thrombotic vein of extremity: unspecified vein of extremity Chronicity: acute Hypothyroid E03.9 Hypothyroidism type: unspecified Hypertension I10 Hypertension type: essential hypertension Elevated INR R79.1 (1) Hypothyroid Hypothyroidism type: unspecified Qualified Code(s): E03.9 - Hypothyroidism, unspecified (2) Deep vein thrombosis (DVT) of right lower extremity Affected thrombotic vein of extremity: unspecified vein of extremity Chronicity: acute Qualified Code(s): I82.401 - Acute embolism and thrombosis of unspecified deep veins of right lower extremity (3) Hypertension Hypertension type: essential hypertension Qualified Code(s): I10 - Essential (primary) hypertension
--- NOTE | 2020-12-16 14:49 | Ultrasound Report ---
ULTRASOUND RIGHT LOWER EXTREMITY VENOUS CLINICAL HISTORY: Right leg pain and swelling. COMPARISON STUDY: Right lower extremity venous ultrasound dated 09/15/2020. TECHNIQUE: Real-time, grayscale, and color Doppler sonography of the deep veins of the right lower ex tremity was performed from the inguinal crease to the calf. Compression and augmentation were utilize d. FINDINGS: There is acute appearing and nearly occlusive deep venous thrombosis identified in the righ t common femoral vein. The superficial femoral and popliteal veins veins are patent and normally comp ressible. Newly occlusive superficial venous thrombus is seen within the greater saphenous vein at th e junction with the common femoral vein. The visualized calf veins are patent. Prominent lymph nodes are likely reactive. Soft tissue edema is noted in the right leg. IMPRESSION: 1. There is acute appearing and nearly occlusive deep venous thrombosis identified in the right commo n femoral vein. 2. Nearly occlusive superficial thrombus is seen within the greater saphenous vein. 3. The remaining deep veins of the right lower extremity appear patent. ACT 112: Negative or not required by law. Electronically signed by: Golden Osborne M.D. 12/16/2020 2:47 PM
[2020-12-16 15:30] LABS: Prothrombin Time 62.9 Seconds (9.0-12.0)
[2020-12-16 15:37] LABS: INR 7.3 (0.9-1.1)
[2020-12-16 15:51] LABS: BUN Creatinine Ratio 12.4 (10-20); Calcium 12.7 mg/dl (8.5-10.1); Est GFR (African American) 33.1 ml/min; Est GFR (Non-African American) 28.6 ml/min; Potassium 3.5 mmol/L (3.5-5.1)
--- NOTE | 2020-12-16 16:54 | Electrocardiogram Report ---
Test Reason : Blood Pressure : / mmHG Vent. Rate : 084 BPM Atrial Rate : 084 BPM P-R Int : 166 ms QRS Dur : 082 ms QT Int : 334 ms P-R-T Axes : 031 -14 -03 degrees QTc Int : 394 ms Normal sinus rhythm Minimal voltage criteria for LVH, may be normal variant Cannot rule out Anterior infarct (cited on or before 15-DEC-2020) Abnormal ECG When compared with ECG of 04-FEB-2019 13:47, Nonspecific T wave abnormality, worse in Anterior leads QT has shortened Confirmed by Arben Boateng ([id number]) on 12/16/2020 4:54:24 PM Referred By: Jennifer Mcgee Confirmed By:Arben Boateng
[2020-12-17 01:10] LABS: Basophils # (auto) 0.02 K/uL (0-0.2); Basophils % (auto) 0.2 %; Eosinophils # (auto) 0.16 K/uL (0-0.5); Eosinophils % (auto) 1.9 %; Hemoglobin 10.9 g/dL (12.0-16.0); Immature Granulocytes # (auto) 0.01 K/uL (0.00-0.02); Immature Granulocytes % (auto) 0.1 %; Lymphocytes % (auto) 18.8 %; Mean Corpuscular Hemoglobin 27.2 pg (25-34); Mean Corpuscular Volume 84.8 fL (80-100); Mean Platelet Volume 10.6 fL (7.4-10.4); Monocytes # (auto) 0.88 K/uL (0.11-0.59); Monocytes % (auto) 10.3 %; Neutrophils # (auto) 5.86 K/uL (1.4-6.5); Neutrophils % (auto) 68.7 %; Platelet Count 200 K/uL (130-400); RDW Coefficient of Variation 15.1 % (11.5-14.5); RDW Standard Deviation 46.8 fL (36.4-46.3); Red Blood Count 4.01 M/uL (4.2-5.4); White Blood Count 8.53 K/uL (4.8-10.8)
[2020-12-17 01:27] LABS: Mean Corpuscular Hgb Conc 32.1 g/dL (32-36)
[2020-12-17 01:46] LABS: Fibrinogen 289 mg/dl (184-400); INR 3.5 (0.9-1.1); Partial Thromboplastin Ratio 1.5; Partial Thromboplastin Time 39.3 Seconds (21.0-31.0); Prothrombin Time 32.4 Seconds (9.0-12.0)
[2020-12-17 01:52] LABS: D Dimer 760 ug/L FEU (0-500)
[2020-12-17] MEDS: LEVOTHYROXINE SODIUM 88 MCG TABLET PO SCH (06:09)
[2020-12-17 07:22] LABS: Basophils # (auto) 0.02 K/uL (0-0.2); Basophils % (auto) 0.2 %; Eosinophils % (auto) 2.3 %; Hematocrit (blood only) 34.2 % (37-47); Hemoglobin 10.8 g/dL (12.0-16.0); Immature Granulocytes # (auto) 0.02 K/uL (0.00-0.02); Immature Granulocytes % (auto) 0.2 %; Lymphocytes % (auto) 13.8 %; Mean Corpuscular Hemoglobin 26.9 pg (25-34); Mean Corpuscular Hgb Conc 31.6 g/dL (32-36); Mean Corpuscular Volume 85.3 fL (80-100); Mean Platelet Volume 11.2 fL (7.4-10.4); Monocytes # (auto) 1.08 K/uL (0.11-0.59); Monocytes % (auto) 12.4 %; Neutrophils % (auto) 71.1 %; Platelet Count 204 K/uL (130-400); RDW Standard Deviation 46.8 fL (36.4-46.3); Red Blood Count 4.01 M/uL (4.2-5.4); White Blood Count 8.72 K/uL (4.8-10.8)
[2020-12-17 07:54] LABS: Albumin Level 2.5 gm/dl (3.4-5.0); BUN Creatinine Ratio 12.5 (10-20); Calcium 11.9 mg/dl (8.5-10.1); Creatinine Clr Calc Pharmacy 26.1 ml/min; Est GFR (African American) 35.9 ml/min; Potassium 2.8 mmol/L (3.5-5.1)
[2020-12-17 08:03] LABS: Albumin Globulin Ratio 0.8 (0.9-2); Bilirubin,Total 0.7 mg/dl (0.2-1); Globulin 3.3 gm/dl (2.5-4.0); Total Protein 5.8 gm/dl (6.4-8.2)
[2020-12-17] MEDS: ATORVASTATIN 40 MG TAB PO SCH (08:09)
[2020-12-17] MEDS: SENNA 8.6 MG TAB PO SCH (08:09)
[2020-12-17] MEDS: LIDOCAINE 5% 1 PATCH TD SCH (08:09)
[2020-12-17] MEDS: ASPIRIN 81 MG ECTAB PO SCH (08:09)
[2020-12-17 08:13] LABS: D Dimer 470 ug/L FEU (0-500); Fibrinogen 289 mg/dl (184-400); INR 2.7 (0.9-1.1); Partial Thromboplastin Ratio 1.3; Partial Thromboplastin Time 34.9 Seconds (21.0-31.0); Prothrombin Time 25.6 Seconds (9.0-12.0)
[2020-12-17] MEDS ORDERED: Heparin IV Adult Wt-Based Low-Dose *NO* Bolus Protocol IV ONE (08:31)
[2020-12-17] MEDS ORDERED: HEPARIN SODIUM/DEXTROSE 25,000 UNITS/500 ML BAG IV SCH (08:45)
[2020-12-17] MEDS ORDERED: OPTIRAY 320 125ml IV ONE (09:23)
[2020-12-17] MEDS: POTASSIUM CHLORIDE CRTAB 20 MEQ TABCR PO SCH ×3 (10:08→20:44)
--- NOTE | 2020-12-17 10:09 | CT Scan Report ---
CHEST CTA for PULMONARY ARTERIES CT DOSE: 771.91 mGy.cm HISTORY: large right DVT, hypercalcemia, r/o pulmonary embolus but also CA TECHNIQUE: Multiaxial CT images of the chest were performed following the intravenous administration of contrast to evaluate the pulmonary arteries. Maximal intensity projection images were also obtaine d. A dose lowering technique was utilized adhering to the principles of ALARA. COMPARISON STUDY: None. FINDINGS: Normal caliber thoracic aorta with no evidence for dissection. The heart is normal in size. No pericardial effusions. Trace lateral pleural effusions. Linear nonocclusive filling defect seen w ithin the right lower lobar and right lower lobe segmental pulmonary arteries consistent with chronic pulmonary embolus. No evidence for acute pulmonary embolus. No evidence for right-sided heart strain . No mediastinal or hilar lymphadenopathy. There is a large hiatus hernia containing the majority the stomach. Limited views of the upper abdomen demonstrate a normal liver, spleen, and adrenal glands. Vmvl-dn-rqmbxkhp anterior wedge-shaped compression deformity is at T11-L1. These are likely old. No f ractures within the visualized osseous structures. No pneumothorax. The central airways are patent. B ilateral lower lobe linear densities favor subsegmental atelectasis is likely secondary to the large hiatus hernia. Otherwise, no focal lung consolidations to suggest pneumonia. No evidence for pulmonar y edema. IMPRESSION: 1. Linear nonocclusive filling defects seen within the right lower lobe pulmonary arteries consistent with chronic pulmonary embolus. No evidence for acute pulmonary embolus. 2. Trace bilateral pleural effusions. 3. Large hiatus hernia. 4. Bibasilar linear densities consistent with subsegmental atelectasis. Otherwise, no focal lung cons olidations to suggest pneumonia. ACT 112: Negative or not required by law. Electronically signed by: Bairon Ceballos M.D. 12/17/2020 10:08 AM
[2020-12-17] MEDS: POTASSIUM CHLORIDE / WTR 10 MEQ/100 ML PLCT IV SCH ×2 (10:12→11:33)
--- NOTE | 2020-12-17 10:52 | CT Scan Report ---
CT SCAN OF THE ABDOMEN AND PELVIS WITH IV CONTRAST CLINICAL HISTORY: Hypercalcemia. Deep venous thrombosis. COMPARISON STUDY: Abdominal CT dated 02/04/2019. TECHNIQUE: Following the IV administration of 120 cc of Optiray 320, CT scan of the abdomen and pelv is is performed from the lung bases to the proximal femora. Images are reviewed in the axial, sagitta l, and coronal planes. IV contrast was administered without complication. A dose lowering technique w as utilized adhering to the principles of ALARA. FINDINGS: Lung bases: The heart is normal in size and without pericardial effusion. The coronary arteries are d ensely calcified. There are trace pleural effusions with bibasilar scarring/atelectasis. There is a l arge hiatal hernia, with the majority of the stomach located in the thoracic cavity. Liver: The contrast-enhanced liver is normal in size, contour, and attenuation. There is no intrahepa tic biliary ductal dilatation. The hepatic veins and portal veins are patent. Gallbladder: Unremarkable. Spleen: Normal in size and attenuation. Pancreas: Unremarkable. Adrenal glands: Unremarkable. Kidneys: There is markedly asymmetric cortical atrophy of the left kidney as compared to the right. N o hydronephrosis is seen. The right kidney enhances homogeneously. Abdominal vasculature: There is advanced atherosclerotic calcification and mild ectasia of the abdomi nal aorta. There is mild to moderate stenosis at the origin of the superior mesenteric artery. The in ferior vena cava is patent. Bowel: There is advanced colonic diverticulosis without CT evidence of acute diverticulitis. No bowel obstruction is identified. Fecal retention is seen throughout the colon. The appendix is not visual ized. Peritoneum: No intracranial free air is identified. There is trace pelvic ascites. Lymphadenopathy: There are mildly enlarged retroperitoneal lymph nodes. A left periaortic node on ana ge #140 measures 1.2 x 1.2 cm. A right iliac chain node on image #215 measures 1.5 x 0.9 cm. Pelvic viscera: The bladder wall appears mildly thickened with mucosal hyperemia. The uterus is surgi yonis absent. There is a large and heterogeneously enhancing mass lesion centered in the right groin. This extends from the iliac bifurcation into the medial aspect of the upper thigh. The mass lesion m easures approximately 17 x 11 x 9 cm in maximum dimension this encases the right iliac artery and vei n. The iliac vein appears occluded. The iliac artery is patent. There is nonspecific presacral soft t issue edema. Venous collaterals are seen throughout the pelvis. Skeletal structures: The skeletal structures are osteopenic. There is moderate lumbosacral spondylosi s. There are bilateral pars defects at L5 with grade 1 anterolisthesis at L5-S1. There are chronic co mpression deformity of T10, T11, and T12. No lytic or blastic lesions are seen. Soft tissues: There is markedly asymmetric soft tissue edema identified in the right thigh and the ri ght pelvic wall as compared to left. IMPRESSION: 1. There is an approximately 17 cm mass lesion centered in the right groin. This extends from the ryan ac bifurcation into the medial upper thigh. Neoplasm is the diagnosis of exclusion. 2. The mass lesion encases the iliac vessels and occludes the right iliac vein. The right external il iac artery is patent. 3. Mildly enlarged right iliac chain and retroperitoneal lymph nodes are nonspecific. Metastatic dise ase is not excluded. 4. There is marked and asymmetric edema of the right thigh and body wall. 5. There is markedly asymmetric cortical atrophy of the left kidney as compared the right. This is si milar to previous. 6. Large hiatal hernia. 7. Trace pleural effusions and trace pelvic ascites. 8. Additional findings as above. ACT 112: Negative or not required by law. Electronically signed by: Golden Osborne M.D. 12/17/2020 10:50 AM
--- NOTE | 2020-12-17 10:55 | Nephrology Progress Note ---
Date of Service December 17, 2020 Assessment & Plan (1) JUNE (acute kidney injury): Plan: JUNE clinically pre-renal in setting of hypercalcemia. Improving with IV volume expansion. Additional 1 L of normosol to infuse today. Medications appropriate for kidney dysfunction. Urine studies demonstrate: microscopic hematuria and 10-30 WBC per hpf, 1-5 hyaline casts. UA micro to be repeated in next couple of days. No symptoms of UTI. (2) Hypercalcemia: Plan: Non-PTH mediated. No TUMS or calcium supplements. Continue IVF with normosol @ 125 ml/hr x 1 L. Pamidronate 60 mg IV yesterday. SPEP/IF and VANCE level pending. Clinical presentation concerning for underlying malignancy. CT C/A/P pending. (3) Hypokalemia: Plan: IV and PO replacement provided. Improving. Repeat metabolic profile + Mg this afternoon. Admission and Anticipated Discharge Date Admission Date: December 15, 2020 Subjective No acute events overnight. Edema persists. Breathing comfortably. Review of Systems Review of Systems: All systems reviewed & are unremarkable except as noted in HPI & below Physical Exam Constitutional: well developed and + frail appearing; no acute distress Eyes: no scleral abnormality and no corneal abnormality ENMT: Mouth: no oral mucosal abnormality and oral mucous membranes not dry Neck: normal visual inspection and trachea midline Respiratory: normal respiratory effort Auscultation: lungs clear to auscultation bilaterally Cardiovascular: Rate/Rhythm: regular rate Heart Sounds: normal S1 and normal S2 Extremities: + edema (extensive edema of the RLL extending into thigh, groin, and buttock) Musculoskeletal: Extremities: no cyanosis and no clubbing Skin: normal turgor; no lesions Neurologic: Motor/Sensory: no tremor and no asterixis Psychiatric: Orientation: alert and oriented x 3 Results & Data ([facility]) Vital Signs (Past 12 Hours) Vital Signs Temp Pulse Pulse Pulse Resp BP BP 12/17/20 07:00 36.8 C 83 20 136/74 12/17/20 04:52 85 12/17/20 03:21 36.9 C 84 18 126/73 12/16/20 23:19 36.6 C 76 17 104/61 Pulse Ox 12/17/20 07:00 93 12/17/20 04:52 12/17/20 03:21 90 12/16/20 23:19 90 Laboratory Results Laboratory Results - last 24 hr 12/16/20 12/16/20 12/17/20 14:49 14:49 01:01 WBC RBC Hgb Hct MCV MCH MCHC RDW Std Deviation RDW Coeff of Pancho Plt Count MPV Immature Gran % (Auto) Neut % (Auto) Lymph % (Auto) [place] % (Auto) Eos % (Auto) Baso % (Auto) Neut # (Auto) Lymph # (Auto) [place] # (Auto) Eos # (Auto) Baso # (Auto) Immature Gran # (Auto) PT 62.9 H INR 7.3 H* APTT PTT Ratio Fibrinogen Fibrin Degrad Products 10-40 H D-Dimer Sodium 140 Potassium 3.5 Chloride 107 Carbon Dioxide 27 Anion Gap 5.0 BUN 21 H Creatinine 1.70 H Est Cr Clr Drug Dosing 24.0 Est GFR ( Amer) 33.1 Est GFR (Non-Af Amer) 28.6 BUN/Creatinine Ratio 12.4 Glucose 117 H Calcium 12.7 H* Total Bilirubin AST ALT Alkaline Phosphatase Total Protein Total Protein (PEP) Albumin Albumin (PEP) Globulin Albumin/Globulin Ratio Kraoa-6-Kdnsaqhla Ksmme-8-Qgrngigjp Jzou-6-Olpbnpiz Zayj-4-Draigdya Gamma Globulins Monoclonal Peak 3 Ser Monoclonl Protein Ser Monoclonal Prot 2 PEP Interpretation Serum Immunofixation 12/17/20 12/17/20 12/17/20 01:01 01:01 06:51 WBC 8.53 RBC 4.01 L Hgb 10.9 L Hct 34.0 L MCV 84.8 MCH 27.2 MCHC 32.1 RDW Std Deviation 46.8 H RDW Coeff of Pancho 15.1 H Plt Count 200 MPV 10.6 H Immature Gran % (Auto) 0.1 Neut % (Auto) 68.7 Lymph % (Auto) 18.8 [place] % (Auto) 10.3 Eos % (Auto) 1.9 Baso % (Auto) 0.2 Neut # (Auto) 5.86 Lymph # (Auto) 1.60 [place] # (Auto) 0.88 H Eos # (Auto) 0.16 Baso # (Auto) 0.02 Immature Gran # (Auto) 0.01 PT 32.4 H 25.6 H INR 3.5 H 2.7 H APTT 39.3 H 34.9 H PTT Ratio 1.5 1.3 Fibrinogen 289 289 Fibrin Degrad Products D-Dimer 760 H* 470 Sodium Potassium Chloride Carbon Dioxide Anion Gap BUN Creatinine Est Cr Clr Drug Dosing Est GFR ( Amer) Est GFR (Non-Af Amer) BUN/Creatinine Ratio Glucose Calcium Total Bilirubin AST ALT Alkaline Phosphatase Total Protein Total Protein (PEP) Albumin Albumin (PEP) Globulin Albumin/Globulin Ratio Sacxh-2-Lqmkvabjf Dljck-7-Rjbvskknv Rjik-0-Yulgijpk Gufi-1-Wigsjdtf Gamma Globulins Monoclonal Peak 3 Ser Monoclonl Protein Ser Monoclonal Prot 2 PEP Interpretation Serum Immunofixation 12/17/20 12/17/20 12/17/20 06:51 06:51 06:51 WBC 8.72 RBC 4.01 L Hgb 10.8 L Hct 34.2 L MCV 85.3 MCH 26.9 MCHC 31.6 L RDW Std Deviation 46.8 H RDW Coeff of Pancho 15.0 H Plt Count 204 MPV 11.2 H Immature Gran % (Auto) 0.2 Neut % (Auto) 71.1 Lymph % (Auto) 13.8 [place] % (Auto) 12.4 Eos % (Auto) 2.3 Baso % (Auto) 0.2 Neut # (Auto) 6.20 Lymph # (Auto) 1.20 [place] # (Auto) 1.08 H Eos # (Auto) 0.20 Baso # (Auto) 0.02 Immature Gran # (Auto) 0.02 PT INR APTT PTT Ratio Fibrinogen Fibrin Degrad Products 10-40 H D-Dimer Sodium Potassium Chloride Carbon Dioxide Anion Gap BUN Creatinine Est Cr Clr Drug Dosing Est GFR ( Amer) Est GFR (Non-Af Amer) BUN/Creatinine Ratio Glucose Calcium Total Bilirubin AST ALT Alkaline Phosphatase Total Protein Total Protein (PEP) Pending Albumin Albumin (PEP) Pending Globulin Albumin/Globulin Ratio Rmotr-0-Fwboikfwf Pending Iioqw-5-Hrpatsxxz Pending Mftj-3-Raqhkejp Pending Cqzv-6-Ziwoyyvv Pending Gamma Globulins Pending Monoclonal Peak 3 Pending Ser Monoclonl Protein Pending Ser Monoclonal Prot 2 Pending PEP Interpretation Pending Serum Immunofixation Pending 12/17/20 06:51 WBC RBC Hgb Hct MCV MCH MCHC RDW Std Deviation RDW Coeff of Pancho Plt Count MPV Immature Gran % (Auto) Neut % (Auto) Lymph % (Auto) [place] % (Auto) Eos % (Auto) Baso % (Auto) Neut # (Auto) Lymph # (Auto) [place] # (Auto) Eos # (Auto) Baso # (Auto) Immature Gran # (Auto) PT INR APTT PTT Ratio Fibrinogen Fibrin Degrad Products D-Dimer Sodium 144 Potassium 2.8 L D Chloride 111 H Carbon Dioxide 29 Anion Gap 4.0 BUN 20 H Creatinine 1.59 H Est Cr Clr Drug Dosing 26.1 Est GFR ( Amer) 35.9 Est GFR (Non-Af Amer) 31.0 BUN/Creatinine Ratio 12.5 Glucose 85 Calcium 11.9 H Total Bilirubin 0.7 AST 65 H ALT 20 Alkaline Phosphatase 80 Total Protein 5.8 L D Total Protein (PEP) Albumin 2.5 L Albumin (PEP) Globulin 3.3 Albumin/Globulin Ratio 0.8 L Enddp-2-Emjwpzrqi Dtkxp-9-Delzpdxuj Eexs-8-Htmieyhg Fxjw-5-Rrykrdsi Gamma Globulins Monoclonal Peak 3 Ser Monoclonl Protein Ser Monoclonal Prot 2 PEP Interpretation Serum Immunofixation PG Care Time/CCT Total # of Minutes Spent Total Time Spent with Patient: Total time spent is greater than 50% in coordination of care (as documented) at patient's floor/unit and/or counseling patient: Coding Level of Care Code 06701 Subseq Hosp Care Lvl 3 Diagnoses JUNE (acute kidney injury) N17.9 Hypercalcemia E83.52 Hypokalemia E87.6
[2020-12-17] MEDS ORDERED: NORMOSOL-R 1,000 ML IV SCH (11:00)
--- NOTE | 2020-12-17 12:49 | Hospitalist Progress Note ---
Date of Service December 17, 2020 Assessment & Plan (1) Soft tissue mass: Plan: right groin, extending to right thigh, encasing deep veins, causing DVT right leg and lymphedema, very painful appears to be soft tissue as lymphocytes normal no official diagnosis yet, if this would be sarcoma then would need to be excised, typically don't want to perform needle biopsy due to seeding further tumor however, patient is very frail, wanted to hold on even considering biopsy will discuss further tomorrow (2) JUNE (acute kidney injury): Plan: Patient admitted with JUNE Creatinine was elevated at 2 down to 1.6 today after aggressive IV fluids continue Normosol at 125cc/hr for today, stop later calcium coming down, < 12 making urine nephrology following BMP in AM (3) Hypercalcemia: Plan: Severe hypercalcemia, down to <12 today gave pamidronate 12/16 once volume restored could consider dose of Lasix, maybe tomorrow check BMP in the AM PTH is low at 11 so this is not primary hyperparathyroidism would suspect malignancy CT a/p shows 17cm soft tissue mass in right groin extending to right thigh this is cause of hypercalcemia, awaiting a final diagnosis (4) Hypokalemia: Plan: ordered IVF with potassium was low at 2.8 this morning, IV and PO replacement given, up to 3.5 in afternoon (5) Ambulatory dysfunction: Plan: will consult PT and OT pain due to swelling in right leg (6) Deep vein thrombosis (DVT) of right lower extremity: Plan: INR down to 2.7 doppler right leg shows occlussive acute DVT right deep femoral vein due to soft tissue mass right groin, encasing veins, blocking lymphatic flow change to heparin drip, likely use Lovenox on discharge since INR will likely be difficult to manage (7) Hypothyroid: Plan: resume levothyroxine. TSH normal (8) Hypertension: Plan: will continue BP meds and monitor. (9) Elevated INR: Plan: INR down to 2.7, continue to hold Coumadin no evidence of liver mets or cirrhosis on imaging likely difficult to manage due to poor diet change to Lovenox going forward Admission and Anticipated Discharge Date Admission Date: December 15, 2020 Subjective patient feeling a little better, she says she is cold, asking for blankets eating okay, not great right leg still swollen, tender INR down to 2.7, will start on heparin drip as she failed Coumadin with DVT breathing okay, no cough, no chest pain CT chest and abdomen/pelvis to look for malignancy given hypercalcemia and DVT significant finding of soft tissue mass right groin measuring 17cm, discussed with patient, explained that we would suspect malignancy discussed with Dr. Sanon, not an official consult, he looked at images with me, most likely soft tissue tumor, possible sarcoma? will ask radiology to review, see if they can get biopsy with US Review of Systems Review of Systems: All systems reviewed & are unremarkable except as noted in Subjective Constitutional: + chills, + fatigue and + weakness; no fever Respiratory: no cough and no dyspnea Cardiovascular: + edema (right let) and + calf pain (right leg); no chest pain Gastrointestinal: no abdominal pain, no nausea, no vomiting, no constipation and no diarrhea/loose stools Physical Exam Constitutional: well developed, + thin and + frail appearing; no acute distress Neck: trachea midline, no thyromegaly Respiratory: normal respiratory effort, lungs clear to auscultation Cardiovascular: Rate/Rhythm: regular rate and regular rhythm Heart Sounds: normal S1 and normal S2; no murmur Extremities: normal capillary refill, + calf tenderness (right side) and + edema (right leg from thigh down to ankle) Gastrointestinal (Abdomen): normal bowel sounds, soft, nontender, no hepatosplenomegaly Musculoskeletal: no cyanosis or clubbing, extremities motor strength 5/5 Skin: no rashes, warm and dry Neurologic: CN's II-XI intact bilaterally, moves all extremities and awake; no focal motor deficits Psychiatric: A+Ox3, euthymic affect Results & Data Results & Data ([facility]) Vital Signs (Past 12 Hours) Vital Signs Temp Pulse Pulse Pulse Resp BP BP 12/17/20 11:01 37.1 C 87 16 139/72 12/17/20 07:00 36.8 C 83 20 136/74 12/17/20 04:52 85 12/17/20 03:21 36.9 C 84 18 126/73 Pulse Ox 12/17/20 11:01 94 12/17/20 07:00 93 12/17/20 04:52 12/17/20 03:21 90 Laboratory Results Laboratory Results - last 24 hr 12/16/20 12/17/20 12/17/20 09:12 06:51 06:51 PT 25.6 H INR 2.7 H APTT 34.9 H PTT Ratio 1.3 Fibrinogen 289 Fibrin Degrad Products 10-40 H D-Dimer 470 Sodium Potassium Chloride Carbon Dioxide Anion Gap BUN Creatinine Est Cr Clr Drug Dosing Est GFR ( Amer) Est GFR (Non-Af Amer) BUN/Creatinine Ratio Glucose Calcium Magnesium Total Bilirubin Alkaline Phosphatase Total Protein Globulin Albumin/Globulin Ratio Angiotensin Convert Enz 48 12/17/20 12/17/20 12/17/20 06:51 15:50 15:50 PT INR APTT 80.6 H* PTT Ratio 3.1 Fibrinogen Fibrin Degrad Products D-Dimer Sodium 140 Potassium 3.5 D Chloride 108 H Carbon Dioxide 28 Anion Gap 4.0 BUN 20 H Creatinine 1.62 H Est Cr Clr Drug Dosing 25.6 Est GFR ( Amer) 35.1 Est GFR (Non-Af Amer) 30.3 BUN/Creatinine Ratio 12.0 Glucose 95 Calcium 11.5 H Magnesium 2.0 Total Bilirubin 0.7 Alkaline Phosphatase 80 Total Protein 5.8 L D Globulin 3.3 Albumin/Globulin Ratio 0.8 L Angiotensin Convert Enz 12/17/20 12/18/20 23:05 07:01 PT INR APTT 120.4 H* 84.6 H* PTT Ratio 4.6 3.2 Fibrinogen Fibrin Degrad Products D-Dimer Sodium Potassium Chloride Carbon Dioxide Anion Gap BUN Creatinine Est Cr Clr Drug Dosing Est GFR ( Amer) Est GFR (Non-Af Amer) BUN/Creatinine Ratio Glucose Calcium Magnesium Total Bilirubin Alkaline Phosphatase Total Protein Globulin Albumin/Globulin Ratio Angiotensin Convert Enz Medications Administered Current Inpatient Medications Acetaminophen (Acetaminophen 325 Mg Tab) 650 mg PO Q4H PRN PRN Reason: Pain or Fever Stop: 01/15/21 12:06 Last Admin: 12/16/20 19:43 Dose: 650 mg Documented by: Aspirin (Aspirin 81 Mg Ectab) 81 mg PO QDB [facility] Stop: 01/15/21 07:29 Last Admin: 12/18/20 06:34 Dose: 81 mg Documented by: Atorvastatin Calcium (Atorvastatin 40 Mg Tab) 80 mg PO QDB [facility] Stop: 01/15/21 07:29 Last Admin: 12/18/20 06:33 Dose: 80 mg Documented by: Heparin Sodium/Dextrose (Heparin Sodium/Dextrose) 25,000 units in 500 mls @ 9 mls/hr IV .Q24H [facility]; Protocol Stop: 01/16/21 08:44 Last Titration: 12/18/20 01:00 Dose: 450 units/hr, 9 mls/hr Documented by: Levothyroxine Sodium (Levothyroxine Sodium 88 Mcg Tablet) 88 mcg PO DAILYBB [facility] Stop: 01/15/21 06:29 Last Admin: 12/18/20 06:33 Dose: 88 mcg Documented by: Lidocaine (Lidocaine 5% 1 Patch) 1 patch TD QAM [facility] Stop: 01/15/21 12:14 Last Admin: 12/17/20 08:09 Dose: 1 patch Documented by: Miscellaneous (Remove Lidoderm Patch) 1 ea N/A DAILY@2100 [facility] Stop: 01/15/21 22:59 Last Admin: 12/17/20 20:43 Dose: Not Given Documented by: Potassium Chloride (Potassium Chloride Crtab 20 Meq Tabcr) 20 meq PO TID [facility] Stop: 01/16/21 08:59 Last Admin: 12/17/20 20:44 Dose: 20 meq Documented by: Sennosides (Senna 8.6 Mg Tab) 8.6 mg PO DAILY [facility] Stop: 01/15/21 08:59 Last Admin: 12/17/20 08:09 Dose: 8.6 mg Documented by: PG Care Time/CCT Total # of Minutes Spent Total Time Spent: 33 Total Time Spent with Patient: Total time spent is greater than 50% in coordination of care (as documented) at patient's floor/unit and/or counseling patient: Coding Level of Care Code 73158 Subseq Hosp Care Lvl 3 (25 - SIGNIFICANT, SEPARATELY IDENTIFIABLE ) Diagnoses JUNE (acute kidney injury) N17.9 Hypercalcemia E83.52 Hypokalemia E87.6 Ambulatory dysfunction R26.2 Deep vein thrombosis (DVT) of right lower extremity I82.401 Affected thrombotic vein of extremity: unspecified vein of extremity Chronicity: acute Hypothyroid E03.9 Hypothyroidism type: unspecified Hypertension I10 Hypertension type: essential hypertension Elevated INR R79.1 Soft tissue mass M79.89 (1) Hypothyroid Hypothyroidism type: unspecified Qualified Code(s): E03.9 - Hypothyroidism, unspecified (2) Deep vein thrombosis (DVT) of right lower extremity Affected thrombotic vein of extremity: unspecified vein of extremity Chronicity: acute Qualified Code(s): I82.401 - Acute embolism and thrombosis of unspecified deep veins of right lower extremity (3) Hypertension Hypertension type: essential hypertension Qualified Code(s): I10 - Essential (primary) hypertension
[2020-12-17 16:27] LABS: Partial Thromboplastin Ratio 3.1
[2020-12-17 16:30] LABS: Partial Thromboplastin Time 80.6 Seconds (21.0-31.0)
[2020-12-17 16:33] LABS: Calcium 11.5 mg/dl (8.5-10.1); Creatinine Clr Calc Pharmacy 25.6 ml/min; Est GFR (African American) 35.1 ml/min; Est GFR (Non-African American) 30.3 ml/min; Potassium 3.5 mmol/L (3.5-5.1)
[2020-12-17 23:33] LABS: Partial Thromboplastin Ratio 4.6
[2020-12-18 00:01] LABS: Partial Thromboplastin Time 120.4 Seconds (21.0-31.0)
[2020-12-18] MEDS: ATORVASTATIN 40 MG TAB PO SCH (06:33)
[2020-12-18] MEDS: LEVOTHYROXINE SODIUM 88 MCG TABLET PO SCH (06:33)
[2020-12-18] MEDS: ASPIRIN 81 MG ECTAB PO SCH (06:34)
[2020-12-18 07:49] LABS: Partial Thromboplastin Ratio 3.2
[2020-12-18 07:56] LABS: Partial Thromboplastin Time 84.6 Seconds (21.0-31.0)
[2020-12-18] MEDS: LIDOCAINE 5% 1 PATCH TD SCH (08:31)
[2020-12-18] MEDS: POTASSIUM CHLORIDE CRTAB 20 MEQ TABCR PO SCH ×3 (08:32→20:48)
[2020-12-18] MEDS: SENNA 8.6 MG TAB PO SCH (08:32)
[2020-12-18 09:24] LABS: Basophils # (auto) 0.03 K/uL (0-0.2); Basophils % (auto) 0.3 %; Eosinophils # (auto) 0.29 K/uL (0-0.5); Hematocrit (blood only) 34.1 % (37-47); Hemoglobin 10.9 g/dL (12.0-16.0); Immature Granulocytes # (auto) 0.02 K/uL (0.00-0.02); Immature Granulocytes % (auto) 0.2 %; Lymphocytes # (auto) 2.42 K/uL (1.2-3.4); Lymphocytes % (auto) 24.7 %; Mean Corpuscular Hemoglobin 27.4 pg (25-34); Mean Corpuscular Volume 85.7 fL (80-100); Monocytes # (auto) 1.17 K/uL (0.11-0.59); Monocytes % (auto) 11.9 %; Neutrophils # (auto) 5.88 K/uL (1.4-6.5); Neutrophils % (auto) 59.9 %; Platelet Count 222 K/uL (130-400); RDW Coefficient of Variation 15.3 % (11.5-14.5); RDW Standard Deviation 48.4 fL (36.4-46.3); Red Blood Count 3.98 M/uL (4.2-5.4); White Blood Count 9.81 K/uL (4.8-10.8)
--- NOTE | 2020-12-18 09:27 | Hospitalist Progress Note ---
Date of Service December 18, 2020 Assessment & Plan (1) Soft tissue mass: Plan: 17cm at longest dimension right groin from bifurcation of iliac vessels, extending to right thigh, encasing deep veins, causing DVT right leg and lymphedema, very painful, iliac artery is patent appears to be soft tissue as lymphocytes normal no official diagnosis yet discussed with surgical oncology at [facility], they recommend transfer to [facility] for full diagnostic work up inpatient (oncology, IR, medicine) patient and her son Omid are in agreement with transfer accepted at [facility] but likely no beds today, patient is stable and can wait for a bed (2) JUNE (acute kidney injury): Plan: Patient admitted with JUNE Creatinine was elevated at 2 down to 1.5 today after aggressive IV fluids fluids stopped on 12/17 calcium coming down, 11.7 making urine nephrology following BMP in AM K is 3.4, Phos is 1.4, will give 30mmol of K Phos IV today (3) Hypercalcemia: Plan: Severe hypercalcemia, was 15 on admission, down to 11.7 today gave pamidronate 12/16 no further IV fluids at this time, got over 6 liters consider Lasix if needed but looks euvolemic, breathing room air PTH is low at 11 so this is not primary hyperparathyroidism would suspect malignancy CT a/p shows 17cm soft tissue mass in right groin extending to right thigh this is cause of hypercalcemia, transfer to [facility] for thorough work up and diagnosis (4) Hypokalemia: Plan: ordered IVF with potassium K is 3.4, give 30mmol of KPhos IV today (5) Ambulatory dysfunction: Plan: will consult PT and OT pain due to swelling in right leg (6) Deep vein thrombosis (DVT) of right lower extremity: Plan: INR down to 2.7 yesteray, won't check again as Coumadin discontinued doppler right leg shows occlussive acute DVT right deep femoral vein due to soft tissue mass right groin, encasing veins, blocking lymphatic flow change to heparin drip, likely use Lovenox in the future but will keep on heparin drip with anticipation of transfer to [facility] and possible procedures CTA chest showed some chronic pulmonary emboli but nothing acute (7) Hypothyroid: Plan: resume levothyroxine. TSH normal (8) Hypertension: Plan: will continue BP meds and monitor. (9) Elevated INR: Plan: coumadin discontinued, INR was high due to poor diet Plan: transfer to [facility] once they have a bed Admission and Anticipated Discharge Date Admission Date: December 15, 2020 Subjective patient doing okay, still with pain and swelling in right leg all she wants is for pain/swelling to get better discussed the tumor in right groin, she agreed to have me call [facility] for their opinion, recommendations spoke with surgical oncology about her case, they recommended transfer to [facility] for full work up (melanoma, anal CA etc, then maybe IR biopsy) spoke with patient and with her son Omid about benefits of transfer to [facility], they are both in agreement with transfer spoke with hospitalist at [facility], they will accept patient, no beds right now, not sure she will come today, that is okay, she is stable Review of Systems Constitutional: + chills, + fatigue and + weakness; no fever Cardiovascular: + edema (right let) and + calf pain (right leg); no chest pain Physical Exam Constitutional: well developed, + thin and + frail appearing; no acute distress Neck: trachea midline, no thyromegaly Respiratory: normal respiratory effort, lungs clear to auscultation Cardiovascular: Rate/Rhythm: regular rate and regular rhythm Heart Sounds: normal S1 and normal S2; no murmur Extremities: normal capillary refill, + calf tenderness (right side) and + edema (right leg from thigh down to ankle) Gastrointestinal (Abdomen): normal bowel sounds, soft, nontender, no hepatosplenomegaly Musculoskeletal: no cyanosis or clubbing, extremities motor strength 5/5 Skin: no rashes, warm and dry Neurologic: CN's II-XI intact bilaterally, moves all extremities and awake; no focal motor deficits Psychiatric: A+Ox3, euthymic affect Results & Data Results & Data ([facility]) Vital Signs (Past 12 Hours) Vital Signs Temp Pulse Pulse Pulse Resp BP Pulse Ox 12/18/20 07:55 37.4 C 90 16 131/72 90 12/18/20 07:38 34.9 C L 90 22 143/81 H 91 12/18/20 07:28 83 12/18/20 03:23 37.2 C 87 16 123/67 91 12/18/20 02:40 87 12/17/20 22:49 37.1 C 91 H 18 129/73 91 Laboratory Results Laboratory Results - last 24 hr 12/16/20 12/17/20 12/17/20 09:12 15:50 15:50 WBC RBC Hgb Hct MCV MCH MCHC RDW Std Deviation RDW Coeff of Pancho Plt Count MPV Immature Gran % (Auto) Neut % (Auto) Lymph % (Auto) [place] % (Auto) Eos % (Auto) Baso % (Auto) Neut # (Auto) Lymph # (Auto) [place] # (Auto) Eos # (Auto) Baso # (Auto) Immature Gran # (Auto) APTT 80.6 H* PTT Ratio 3.1 Sodium 140 Potassium 3.5 D Chloride 108 H Carbon Dioxide 28 Anion Gap 4.0 BUN 20 H Creatinine 1.62 H Est Cr Clr Drug Dosing 25.6 Est GFR ( Amer) 35.1 Est GFR (Non-Af Amer) 30.3 BUN/Creatinine Ratio 12.0 Glucose 95 Calcium 11.5 H Phosphorus Magnesium 2.0 Albumin Angiotensin Convert Enz 48 12/17/20 12/18/20 12/18/20 23:05 07:01 07:05 WBC 9.81 RBC 3.98 L Hgb 10.9 L Hct 34.1 L MCV 85.7 MCH 27.4 MCHC 32.0 RDW Std Deviation 48.4 H RDW Coeff of Pancho 15.3 H Plt Count 222 MPV 13.0 H Immature Gran % (Auto) 0.2 Neut % (Auto) 59.9 Lymph % (Auto) 24.7 [place] % (Auto) 11.9 Eos % (Auto) 3.0 Baso % (Auto) 0.3 Neut # (Auto) 5.88 Lymph # (Auto) 2.42 [place] # (Auto) 1.17 H Eos # (Auto) 0.29 Baso # (Auto) 0.03 Immature Gran # (Auto) 0.02 APTT 120.4 H* 84.6 H* PTT Ratio 4.6 3.2 Sodium Potassium Chloride Carbon Dioxide Anion Gap BUN Creatinine Est Cr Clr Drug Dosing Est GFR ( Amer) Est GFR (Non-Af Amer) BUN/Creatinine Ratio Glucose Calcium Phosphorus Magnesium Albumin Angiotensin Convert Enz 12/18/20 07:05 WBC RBC Hgb Hct MCV MCH MCHC RDW Std Deviation RDW Coeff of Pancho Plt Count MPV Immature Gran % (Auto) Neut % (Auto) Lymph % (Auto) [place] % (Auto) Eos % (Auto) Baso % (Auto) Neut # (Auto) Lymph # (Auto) [place] # (Auto) Eos # (Auto) Baso # (Auto) Immature Gran # (Auto) APTT PTT Ratio Sodium 143 Potassium 3.4 L Chloride 111 H Carbon Dioxide 28 Anion Gap 4.0 BUN 16 Creatinine 1.51 H Est Cr Clr Drug Dosing 28.0 Est GFR ( Amer) 38.2 Est GFR (Non-Af Amer) 33.0 BUN/Creatinine Ratio 10.4 Glucose 81 Calcium 11.7 H Phosphorus 1.4 L* D Magnesium Albumin 2.4 L Angiotensin Convert Enz Medications Administered Current Inpatient Medications Acetaminophen (Acetaminophen 325 Mg Tab) 650 mg PO Q4H PRN PRN Reason: Pain or Fever Stop: 01/15/21 12:06 Last Admin: 12/16/20 19:43 Dose: 650 mg Documented by: Aspirin (Aspirin 81 Mg Ectab) 81 mg PO QDB [facility] Stop: 01/15/21 07:29 Last Admin: 12/18/20 06:34 Dose: 81 mg Documented by: Atorvastatin Calcium (Atorvastatin 40 Mg Tab) 80 mg PO QDB [facility] Stop: 01/15/21 07:29 Last Admin: 12/18/20 06:33 Dose: 80 mg Documented by: Heparin Sodium/Dextrose (Heparin Sodium/Dextrose) 25,000 units in 500 mls @ 7 mls/hr IV .Q24H [facility]; Protocol Stop: 01/16/21 08:44 Last Titration: 12/18/20 10:03 Dose: 350 units/hr, 7 mls/hr Documented by: Levothyroxine Sodium (Levothyroxine Sodium 88 Mcg Tablet) 88 mcg PO DAILYBB [facility] Stop: 01/15/21 06:29 Last Admin: 12/18/20 06:33 Dose: 88 mcg Documented by: Lidocaine (Lidocaine 5% 1 Patch) 1 patch TD QAM [facility] Stop: 01/15/21 12:14 Last Admin: 12/18/20 08:31 Dose: 1 patch Documented by: Miscellaneous (Remove Lidoderm Patch) 1 ea N/A DAILY@2100 [facility] Stop: 01/15/21 22:59 Last Admin: 12/17/20 20:43 Dose: Not Given Documented by: Potassium Chloride (Potassium Chloride Crtab 20 Meq Tabcr) 20 meq PO TID [facility] Stop: 01/16/21 08:59 Last Admin: 12/18/20 08:32 Dose: 20 meq Documented by: Sennosides (Senna 8.6 Mg Tab) 8.6 mg PO DAILY AURELIA Stop: 01/15/21 08:59 Last Admin: 12/18/20 08:32 Dose: 8.6 mg Documented by: PG Care Time/CCT Total # of Minutes Spent Total Time Spent: 62 Total Time Spent with Patient: Total time spent is greater than 50% in coordination of care (as documented) at patient's floor/unit and/or counseling patient: Prolonged Care Time Prolonged Care Time: Yes Total Prolonged Care Time: 32 Coding Level of Care Code 32651 Subseq Hosp Care Lvl 3 (25 - SIGNIFICANT, SEPARATELY IDENTIFIABLE ) Diagnoses Soft tissue mass M79.89 JUNE (acute kidney injury) N17.9 Hypercalcemia E83.52 Hypokalemia E87.6 Ambulatory dysfunction R26.2 Deep vein thrombosis (DVT) of right lower extremity I82.401 Affected thrombotic vein of extremity: unspecified vein of extremity Chronicity: acute Hypothyroid E03.9 Hypothyroidism type: unspecified Hypertension I10 Hypertension type: essential hypertension Elevated INR R79.1 Additional Codes Prolonged Care Time - Prolonged Care Time: Yes ([id number]) (1) Hypothyroid Hypothyroidism type: unspecified Qualified Code(s): E03.9 - Hypothyroidism, unspecified (2) Deep vein thrombosis (DVT) of right lower extremity Affected thrombotic vein of extremity: unspecified vein of extremity Chronicity: acute Qualified Code(s): I82.401 - Acute embolism and thrombosis of unspecified deep veins of right lower extremity (3) Hypertension Hypertension type: essential hypertension Qualified Code(s): I10 - Essential (primary) hypertension
[2020-12-18 09:36] LABS: Albumin Level 2.4 gm/dl (3.4-5.0); BUN Creatinine Ratio 10.4 (10-20); Calcium 11.7 mg/dl (8.5-10.1); Est GFR (African American) 38.2 ml/min; Potassium 3.4 mmol/L (3.5-5.1)
[2020-12-18 09:48] LABS: Phosphorus 1.4 mg/dl (2.5-4.9)
--- NOTE | 2020-12-18 10:46 | Nephrology Progress Note ---
Date of Service December 18, 2020 Assessment & Plan (1) JUNE (acute kidney injury): Plan: JUNE clinically pre-renal in setting of hypercalcemia. Improving with IV volume expansion. IVF held today. Medications appropriate for kidney dysfunction. Urine studies demonstrate: microscopic hematuria and 10-30 WBC per hpf, 1-5 hyaline casts. UA micro to be repeated in next couple of days. No symptoms of UTI. I discussed the plan of care with Dr. Menendez this AM. (2) Hypercalcemia: Plan: Non-PTH mediated. No TUMS or calcium supplements. Pamidronate 60 mg IV provided on 12/16. SPEP/IF and VACNE level pending. Clinical presentation attributed to underlying malignancy. CT demonstrating soft tissue tumor. (3) Hypokalemia: Plan: IV and PO replacement provided. Improvement noted. Admission and Anticipated Discharge Date Admission Date: December 15, 2020 Subjective No acute events overnight. Vivian expressed frustration this AM. She is upset after discussing potential hospital transfer and surgical options. She continues to have discomfort from edema. She denies shortness of breath. Appetite poor. Review of Systems Review of Systems: All systems reviewed & are unremarkable except as noted in HPI & below Physical Exam Constitutional: well developed and + frail appearing; no acute distress Eyes: no scleral abnormality and no corneal abnormality ENMT: Mouth: no oral mucosal abnormality and oral mucous membranes not dry Neck: normal visual inspection and trachea midline Respiratory: normal respiratory effort Auscultation: lungs clear to auscultation bilaterally Cardiovascular: Rate/Rhythm: regular rate Heart Sounds: normal S1 and normal S2 Extremities: + edema (extensive edema of the RLL extending into thigh, groin, and buttock) Musculoskeletal: Extremities: no cyanosis and no clubbing Skin: normal turgor; no lesions Neurologic: Motor/Sensory: no tremor and no asterixis Psychiatric: Orientation: alert and oriented x 3 Results & Data ([facility]) Vital Signs (Past 12 Hours) Vital Signs Temp Pulse Pulse Pulse Resp BP Pulse Ox 12/18/20 07:55 37.4 C 90 16 131/72 90 12/18/20 07:38 34.9 C L 90 22 143/81 H 91 12/18/20 07:28 83 12/18/20 03:23 37.2 C 87 16 123/67 91 12/18/20 02:40 87 12/17/20 22:49 37.1 C 91 H 18 129/73 91 Laboratory Results Laboratory Results - last 24 hr 12/16/20 12/17/20 12/17/20 09:12 15:50 15:50 WBC RBC Hgb Hct MCV MCH MCHC RDW Std Deviation RDW Coeff of Pancho Plt Count MPV Immature Gran % (Auto) Neut % (Auto) Lymph % (Auto) [place] % (Auto) Eos % (Auto) Baso % (Auto) Neut # (Auto) Lymph # (Auto) [place] # (Auto) Eos # (Auto) Baso # (Auto) Immature Gran # (Auto) APTT 80.6 H* PTT Ratio 3.1 Sodium 140 Potassium 3.5 D Chloride 108 H Carbon Dioxide 28 Anion Gap 4.0 BUN 20 H Creatinine 1.62 H Est Cr Clr Drug Dosing 25.6 Est GFR ( Amer) 35.1 Est GFR (Non-Af Amer) 30.3 BUN/Creatinine Ratio 12.0 Glucose 95 Calcium 11.5 H Phosphorus Magnesium 2.0 Albumin Angiotensin Convert Enz 48 12/17/20 12/18/20 12/18/20 23:05 07:01 07:05 WBC 9.81 RBC 3.98 L Hgb 10.9 L Hct 34.1 L MCV 85.7 MCH 27.4 MCHC 32.0 RDW Std Deviation 48.4 H RDW Coeff of Pancho 15.3 H Plt Count 222 MPV 13.0 H Immature Gran % (Auto) 0.2 Neut % (Auto) 59.9 Lymph % (Auto) 24.7 [place] % (Auto) 11.9 Eos % (Auto) 3.0 Baso % (Auto) 0.3 Neut # (Auto) 5.88 Lymph # (Auto) 2.42 [place] # (Auto) 1.17 H Eos # (Auto) 0.29 Baso # (Auto) 0.03 Immature Gran # (Auto) 0.02 APTT 120.4 H* 84.6 H* PTT Ratio 4.6 3.2 Sodium Potassium Chloride Carbon Dioxide Anion Gap BUN Creatinine Est Cr Clr Drug Dosing Est GFR ( Amer) Est GFR (Non-Af Amer) BUN/Creatinine Ratio Glucose Calcium Phosphorus Magnesium Albumin Angiotensin Convert Enz 12/18/20 07:05 WBC RBC Hgb Hct MCV MCH MCHC RDW Std Deviation RDW Coeff of Pancho Plt Count MPV Immature Gran % (Auto) Neut % (Auto) Lymph % (Auto) [place] % (Auto) Eos % (Auto) Baso % (Auto) Neut # (Auto) Lymph # (Auto) [place] # (Auto) Eos # (Auto) Baso # (Auto) Immature Gran # (Auto) APTT PTT Ratio Sodium 143 Potassium 3.4 L Chloride 111 H Carbon Dioxide 28 Anion Gap 4.0 BUN 16 Creatinine 1.51 H Est Cr Clr Drug Dosing 28.0 Est GFR ( Amer) 38.2 Est GFR (Non-Af Amer) 33.0 BUN/Creatinine Ratio 10.4 Glucose 81 Calcium 11.7 H Phosphorus 1.4 L* D Magnesium Albumin 2.4 L Angiotensin Convert Enz PG Care Time/CCT Total # of Minutes Spent Total Time Spent with Patient: Total time spent is greater than 50% in coordination of care (as documented) at patient's floor/unit and/or counseling patient: Coding Level of Care Code 49614 Subseq Hosp Care Lvl 3 Diagnoses JUNE (acute kidney injury) N17.9 Hypercalcemia E83.52 Hypokalemia E87.6
[2020-12-18] MEDS ORDERED: POTASSIUM PHOS 3 MMOL/1 ML INFUSION IV STA ×2 (11:44→16:26)
[2020-12-18] MEDS ORDERED: POTASSIUM PHOSPHATE 30 MMOL in SODIUM CHLORIDE 0.9% 500 ML IV ONE ×2 (12:00→17:00)
[2020-12-18 16:19] LABS: Partial Thromboplastin Ratio 2.5
[2020-12-18 16:37] LABS: Partial Thromboplastin Time 65.5 Seconds (21.0-31.0)
[2020-12-18] MEDS ORDERED: MELATONIN 3 MG TAB PO PRN (20:49)
--- NOTE | 2020-12-19 16:21 | Discharge Summary ---
Date of Service December 19, 2020 Admission HPI Per Admitting Provider This is a pleasant 75 yo female who presents to the ER feeling generalized weakness and having electrolyte abnormalities. Patient reports for the past week patient has been complaining of fatigue and decreased energy. Patient reports she has not been eating or drinking well. Patient currently is living with her son as she is a . Given her fatigue, patient saw her PCP who ordered labwork which showed a significantly decreased kidney function, high calcium, low potassium and elevated INR. Patient is taking coumadin for a DVT. Pt denies LOC, headache, fevers, chills, diaphoresis, visual changes, neck pain, chest pain, breathing difficulties, nausea, vomiting, abdominal pain, back pain, melena, hematochezia, urinary symptoms, numbness, lymphadenopathy, rash, or other complaints. Principal Diagnosis Mass in right groin causing DVT Acute kidney injury hypercalcemia Discharge Exam Constitutional well developed, + thin and + frail appearing; no acute distress Neck trachea midline, no thyromegaly Respiratory normal respiratory effort, lungs clear to auscultation Cardiovascular Rate/Rhythm: regular rate and regular rhythm Heart Sounds: normal S1 and normal S2; no murmur Extremities: normal capillary refill, + calf tenderness (right side) and + edema (right leg from thigh down to ankle) Gastrointestinal (Abdomen) normal bowel sounds, soft, nontender, no hepatosplenomegaly Musculoskeletal no cyanosis or clubbing, extremities motor strength 5/5 Skin no rashes, warm and dry Neurologic CN's II-XI intact bilaterally, moves all extremities and awake; no focal motor deficits Psychiatric A+Ox3, euthymic affect Discharge Data Allergies Allergy/AdvReac Type Severity Reaction Status Date / Time No Known Allergies Allergy Verified 12/15/20 09:42 Consultations 12/15/20 17:48 ED Decision to Admit Stat 12/15/20 20:32 Consult Nephrology Routine 12/18/20 11:00 Burn CD for patient Routine Ordered Studies 12/16/20 13:18 US venous doppler LE RT Urgent 12/17/20 08:34 CT abd pelvis IV con only Routine CT angio chest PE protocol Routine Hospital Course (1) Soft tissue mass: 17cm at longest dimension right groin from bifurcation of iliac vessels, extending to right thigh, encasing deep veins, causing DVT right leg and lymphedema, very painful, iliac artery is patent appears to be soft tissue as lymphocytes normal no official diagnosis yet discussed with surgical oncology at [facility], they recommend transfer to [facility] for full diagnostic work up inpatient (oncology, IR, medicine) patient and her son Omid are in agreement with transfer accepted at [facility], transferred there after around 1 am (2) JUNE (acute kidney injury): Patient admitted with JUNE Creatinine was elevated at 2 down to 1.5 today after aggressive IV fluids fluids stopped on 12/17 calcium coming down, 11.7 making urine nephrology following BMP in AM K is 3.4, Phos is 1.4, will give 30mmol of K Phos IV today (3) Hypercalcemia: Severe hypercalcemia, was 15 on admission, down to 11.7 today gave pamidronate 12/16 no further IV fluids at this time, got over 6 liters consider Lasix if needed but looks euvolemic, breathing room air PTH is low at 11 so this is not primary hyperparathyroidism would suspect malignancy CT a/p shows 17cm soft tissue mass in right groin extending to right thigh this is cause of hypercalcemia, transfer to [facility] for thorough work up and diagnosis (4) Hypokalemia: ordered IVF with potassium K is 3.4, give 30mmol of KPhos IV today (5) Ambulatory dysfunction: will consult PT and OT pain due to swelling in right leg (6) Deep vein thrombosis (DVT) of right lower extremity: INR down to 2.7 yesteray, won't check again as Coumadin discontinued doppler right leg shows occlussive acute DVT right deep femoral vein due to soft tissue mass right groin, encasing veins, blocking lymphatic flow change to heparin drip, likely use Lovenox in the future but will keep on heparin drip with anticipation of transfer to [facility] and possible procedures CTA chest showed some chronic pulmonary emboli but nothing acute (7) Hypothyroid: resume levothyroxine. TSH normal (8) Hypertension: will continue BP meds and monitor. (9) Elevated INR: coumadin discontinued, INR was high due to poor diet transfer to [facility] once they have a bed Total Time Total Time Spent Total Time Spent (In Minutes): 31 Total Time Includes: Examination of the Patient, Discharge Planning, Medication Reconciliation and Communication With Other Providers Discharge Plan Discharge Items Patient Disposition: Transfer Acute Care Hospital Reason For Visit: SEVERE HYPERCALCEMIA/ AKF Discharge Diagnosis: Right groin mass Hypercalcemia Acute kidney injury right leg DVT Condition on Discharge: Fair Activity: Resume your previous activity Non-emergency contact: Primary Care Provider Call non-emergency contact if: you have any medication questions Follow-up/Referrals: Mauri Diallo [Primary Care Provider] - Diet: Regular Addtl Attending Provider Instructions: transfer to [facility] Pending Studies at Discharge: Yes Studies:: SPEP, UPEP, VANCE level as part of work up for hypercalcemia Stand-Alone Forms: My [facility] Skilled Items Patient informed of condition?: Yes DNR: Yes Discharge Level of Care: Other Communicable Disease: No Discharge Prognosis: Stable Lines: Peripheral IV Urinary Catheter: Yes Medications and DC Order Prescriptions: Continued sennosides [senna] 8.6 mg tablet 8.6 mg PO DAILY RF: 0 atorvastatin 80 mg tablet 80 mg PO QDB RF: 0 aspirin 81 mg Tablet,Delayed Release (Dr/Ec) 81 mg PO QDB RF: 0 levothyroxine 88 mcg tablet 88 mcg PO DAILY RF: 0 Discontinued warfarin 5 mg tablet 5 mg PO DAILY Qty: 5 RF: 1 Discharge Orders: Discharge Order (Routine); Ordered 12/18/20 Ordered By: Gavin Menendez Admission Data Admit Date/Time: 12/15/20 20:32 Attending Provider: Gavin Menendez Admit Provider: Mauri Hatch Primary Care Provider: Mauri Diallo Other Providers: Ghazala Garcia ; Rodrigo Figueroa ; Yoel Ingram ; Debi Diaz ; Tk Mata ; Mauri Hatch Other Interventions: Discharge Summary Assessment (RN) Last Done: 12/19/20 00:33 Coding Level of Care Code D/C DAY MANAGEMENT >30 MINS Diagnoses Soft tissue mass M79.89 JUNE (acute kidney injury) N17.9 Hypercalcemia E83.52 Hypokalemia E87.6 Ambulatory dysfunction R26.2 Deep vein thrombosis (DVT) of right lower extremity I82.401 Affected thrombotic vein of extremity: unspecified vein of extremity Chronicity: acute Hypothyroid E03.9 Hypothyroidism type: unspecified Hypertension I10 Hypertension type: essential hypertension Elevated INR R79.1
[2020-12-21 11:36] LABS: Albumin 2.6 g/dL (3.8-4.8); Alpha 1 Globulin 0.3 g/dL (0.2-0.3); Alpha 2 Globulin 0.6 g/dL (0.5-0.9); Beta-1-Globulin 0.3 g/dL (0.4-0.6); Beta-2-Globulin 0.4 g/dL (0.2-0.5); Gamma Globulin 1.1 g/dL (0.8-1.7); Monoclonal Protein Band 1 DNR g/dL (NONE DETECTED); Monoclonal Protein Band 2 DNR g/dL (NONE DETECTED); Monoclonal Protein Band 3 DNR g/dL (NONE DETECTED); Total Protein 5.3 g/dL (6.1-8.1)
== END 2020-12-19 00:38 | disposition short-term general hospital (02) | DRG 683 ==
LOC: ED 15:22 → SUATTDRO 20:32 → 2N 20:32
DX: M79.89 Other specified soft tissue disorders; N17.9 Acute kidney failure, unspecified; Z86.718 Personal history of other venous thrombosis and embolism; E03.9 Hypothyroidism, unspecified; Z79.82 Long term (current) use of aspirin; C44.599 Other specified malignant neoplasm of skin of other part of trunk; I10 Essential (primary) hypertension; Z79.01 Long term (current) use of anticoagulants; R79.1 Abnormal coagulation profile; I89.0 Lymphedema, not elsewhere classified; I82.411 Acute embolism and thrombosis of right femoral vein; E87.6 Hypokalemia; E83.52 Hypercalcemia; C80.1 Malignant (primary) neoplasm, unspecified

== ENCOUNTER 2022-11-06 18:45 | Inpatient (IN) ==
--- NOTE | 2022-11-06 18:56 | Emergency Department Note ---
Impression & Plan Shortness of breath, Non-ST elevation AR (NSTEMI), Acute exacerbation of CHF (congestive heart failure) ED Provider Note HISTORY OF PRESENT ILLNESS: Patient is a 77-year-old female presenting with shortness of breath. EMS was called to the patient's house after she was very short of breath this morning could not catch her breath. She had saturations in the low 80s on room air. She has a history of CHF but has not been taking her Lasix. They started her on CPAP with improvement of her saturations. She was given a DuoNeb and albuterol breathing treatment in route. She given 2 sublingual 0.4 mg nitroglycerin. On arrival to the emergency department, she reports her breathing is significantly improved on CPAP. Denies any chest pain. Denies any lower extremity edema w orse than normal. Denies any abdominal pain, no nausea or vomiting. Denies any recent cough or fevers. Reports a history of DVT in her right lower extremity. She is on Eliquis daily ROS: as above PHYSICAL EXAM: Constitutional: Patient appears in no acute distress. HENT: Head: Normocephalic and atraumatic. Eyes: EOMI, PERRL Mouth/Throat: Mucous membranes moist. Neck: Trachea midline. Neck supple. Cardiovascular: RRR, No murmurs, rubs or gallops. Intact distal pulses. Pulmonary/Chest: Patient is on CPAP. Expiratory wheezes bilaterally. Decreased breath sounds in the bilateral lung lan Abdominal: BS +. Abdomen soft, no tenderness, rebound or guarding. Musculoskeletal: No tenderness or deformity noted. Patient has nonpitting edema of the right lower extremity extending up to the groin. She reports this is chronic. Skin: Warm and dry. No rash, erythema, pallor or cyanosis Psychiatric: Appropriate mood and affect for situation. Neurological: Alert and keenly responsive. CN II-XII grossly intact, moving all extremities equally and fully. MDM: - Vitals signs showed tachycardia. - History obtained via patient. Patient presents with shortness of breath. Patient reports she woke up this morning and felt like she could not catch her breath. States that has been progressively worsening over the last few days. She is not on any supplemental oxygen at baseline. Denies any significant chest pain. Denies any PE history. She is not on any anticoagulation. On EMS arrival, the patient was hypoxic on room air and started on CPAP - Chronic conditions affecting care: B cell lymphoma; CVA; DVT in RLE; HLD; HTN; hypothyroidism - Differential diagnoses include, but are not limited to: Congestive heart failure; acute coronary syndrome; COPD/asthma exacerbation; pulmonary edema; pulmonary embolism; pneumonia; pneumothorax; viral syndrome - Order placed for continuous cardiac monitoring. At this time, monitor showed rate of 109 bpm with normal sinus rhythm, per my interpretation. - External medical records reviewed. EMS run sheet reviewed. Patient given 1 albuterol treatment, 1 duoneb treatment and two 0.4 mg SL nitro in route. She was hypoxic to low 80s on RA and saturations improved on CPAP. - EKG reviewed by myself showed normal sinus rhythm. Rate tachycardic 110 bpm. QTc 470. No acute ischemic changes - Laboratory workup interpreted by myself showed normal WBC; chronic anemia (Hgb 9.4); stable electrolytes; elevated troponin (24.5); elevated BNP (1965) - VBG showed hypercarbia (PCO2 53) - CXR showed cardiomegaly and bilateral pleural effusions, per my interpretation. Radiology notes some pulmonary edema - NSTEMI likely type II secondary to patient's heart failure exacerbation. - Patient remained on BiPAP in ER. - Given 80 mg IV lasix for diuresis. - Discussion was had with social media content specialist about patient's case and need for admission. - Hospitalist, Dr. Rojas, consulted for admission - Patient admitted to [facility] Hospitalist service for further evaluation and management. 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 Bradycardia Colitis CVA (cerebral vascular accident) Deep vein thrombosis (DVT) of right lower extremity Dyslipidemia Elevated INR Elevated TSH History of chemotherapy Cyclophosphamide + Prednisone 12/30/20 - 01/05/21 R-CHOP 02/08/21 - 05/24/21 (6 Cycles) Hypercalcemia Hypertension Hypokalemia Hypothyroid Intractable pain Ischemic stroke without coma 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 Sister No problems noted. Brother No problems noted. Brother No problems noted. Brother No problems noted. Daughter No problems noted. Daughter No problems noted. Son No problems noted. Son No problems noted. Son No problems noted. Other Family history non-contributory Social History (Updated 06/08/21 @ 13:16 by Jayna Donaldson RN) Smoking Status: Former smoker Tobacco Type: Cigarettes Age Quit Using Tobacco: 34; Cigarettes Per Day: 1-2; Second Hand Exposure: No; Do You Dip or Chew Tobacco: No; Hx Alcohol Use: No Hx Substance Use: No Communication Ability: Effective Visual Impairment: No Limitations Hearing Ability: Hard of Hearing Solution Lead Required: No Beliefs That Will Affect Care: None marital status: Current Living Situation: Family current occupational status: retired current occupation: Retired from [employer] 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 Feels Safe at Home: Yes Childhood Exposure to Second-Hand Smoke: No Diet: regular caffeine: Yes (coffee 2 cups/day) during the past year weight has: remained stable Dental Care, Regularly: No Assistive Devices: Denture - Upper, Denture - Lower, Glasses and Walker Allergies Allergies Allergy/AdvReac Type Severity Reaction Status Date / Time No Known Allergies Allergy Verified 12/01/21 14:12 Home Meds Home Medications Medication Instructions Recorded Confirmed atorvastatin 80 mg tablet 80 mg PO QDB 08/28/20 12/01/21 levothyroxine 88 mcg tablet 88 mcg PO DAILY 12/15/20 12/01/21 allopurinol 300 mg tablet 300 mg PO DAILY 06/08/21 12/01/21 apixaban 5 mg tablet (Eliquis) 5 mg PO BID 06/08/21 12/01/21 melatonin 3 mg tablet 6 mg PO HS PRN 06/08/21 12/01/21 diclofenac sodium 1 % topical gel 2 g topical TID PRN 08/09/21 12/01/21 sennosides 8.6 mg tablet (senna) 8.6 mg PO BID 12/01/21 12/01/21 Results & Data (ED) Vital Signs Vital Signs - 24 hr 11/06/22 18:58 11/06/22 19:00 11/06/22 19:19 Temperature 36.8 C Temperature Source Oral Pulse Rate 113 H 113 H Respiratory Rate 34 H 20 Respiratory Effort / Characteristics Spontaneous Short of Breath Spontaneous Respiratory Depth Normal Respiratory Pattern Tachypnea Blood Pressure 132/91 Blood Pressure Mean 104 Blood Pressure Position Semi-fowlers Pulse Oximetry 99 100 100 Oxygen Delivery Method CPAP Room Air Fraction of Inspired Oxygen 40 Sepsis Recent Fever Within 48 Hours No Sepsis New/Unexplained Change in Mental Status N/A Sepsis Action Taken by Nursing No Action Required 11/06/22 19:00 11/06/22 19:20 11/06/22 19:57 Temperature Temperature Source Pulse Rate 108 H Respiratory Rate Respiratory Effort / Characteristics Labored Short of Breath Respiratory Depth Respiratory Pattern Blood Pressure Blood Pressure Mean Blood Pressure Position Pulse Oximetry 100 Oxygen Delivery Method CPAP Fraction of Inspired Oxygen 30 Sepsis Recent Fever Within 48 Hours Sepsis New/Unexplained Change in Mental Status Sepsis Action Taken by Nursing Laboratory Data 11/06/22 19:00 11/06/22 19:00 Lab Results 11/06/22 11/06/22 11/06/22 Range/Units 19:00 19:00 19:00 WBC 7.68 (4.8-10.8) K/ul RBC 3.34 L (4.20-5.40) M/uL Hgb 9.4 L (12.0-16.0) g/dl Hct 31.2 L (37.0-47.0) % MCV 93.4 (80.0-100.0) fL MCH 28.1 (25.0-34.0) pg MCHC 30.1 L (32.0-36.0) g/dL RDW Std Deviation 60.4 H (36.4-46.3) fL RDW Coeff of Pancho 18.0 H (11.5-14.5) % Plt Count 183 (130-400) K/uL MPV 11.8 (9.4-12.4) fL Immature Gran % (Auto) 0.3 % Neut % (Auto) 57.0 % Lymph % (Auto) 26.2 % [place] % (Auto) 8.9 % Eos % (Auto) 7.2 % Baso % (Auto) 0.4 % Neut # (Auto) 4.39 (1.40-6.50) K/uL Lymph # (Auto) 2.01 (1.2-3.4) K/uL [place] # (Auto) 0.68 H (0.11-0.59) K/uL Eos # (Auto) 0.55 H (0-0.50) K/uL Baso # (Auto) 0.03 (0-0.2) K/uL Immature Gran # (Auto) 0.02 (0.01-0.20) K/uL VBG pH (7.36-7.41) VBG pCO2 (38-50) mmHg VBG pO2 mmHg VBG HCO3 mmol/L VBG O2 Saturation % VBG Base Excess mEq/L Sodium 140 (136-145) mmol/L Potassium 3.7 (3.5-5.1) mmol/L Chloride 105 (98-107) mmol/L Carbon Dioxide 29 (21-32) mmol/L Anion Gap 6 (3-11) BUN 15 (6-23) mg/dl Creatinine 1.01 (0.6-1.2) mg/dl Est Cr Clr Drug Dosing 40.7 ml/min Est GFR ( Amer) 61.3 ml/min Est GFR (Non-Af Amer) 52.9 ml/min BUN/Creatinine Ratio 14.9 (10-20) Glucose 136 H (70-99(Fasting)) mg/dl Calcium 8.8 (8.6-10.3) mg/dl Magnesium 1.7 (1.7-2.4) mg/dl Total Bilirubin 1.0 (0.2-1.0) mg/dl AST 26 (13-39) U/L ALT 16 (7-52) U/L Alkaline Phosphatase 90 (34-104) U/L Troponin I High Sens 24.5 H (0-14) pg/ml B-Natriuretic Peptide 1967 H (0-100) pg/ml Total Protein 6.0 (6.0-8.3) gm/dl Albumin 3.3 L (3.4-5.0) gm/dl Globulin 2.7 (2.5-4.0) gm/dl Albumin/Globulin Ratio 1.2 (0.9-2) SARS-CoV-2, RNA, NAAT (NEGATIVE) 11/06/22 11/06/22 Range/Units 19:00 Unknown WBC (4.8-10.8) K/ul RBC (4.20-5.40) M/uL Hgb (12.0-16.0) g/dl Hct (37.0-47.0) % MCV (80.0-100.0) fL MCH (25.0-34.0) pg MCHC (32.0-36.0) g/dL RDW Std Deviation (36.4-46.3) fL RDW Coeff of Pancho (11.5-14.5) % Plt Count (130-400) K/uL MPV (9.4-12.4) fL Immature Gran % (Auto) % Neut % (Auto) % Lymph % (Auto) % [place] % (Auto) % Eos % (Auto) % Baso % (Auto) % Neut # (Auto) (1.40-6.50) K/uL Lymph # (Auto) (1.2-3.4) K/uL [place] # (Auto) (0.11-0.59) K/uL Eos # (Auto) (0-0.50) K/uL Baso # (Auto) (0-0.2) K/uL Immature Gran # (Auto) (0.01-0.20) K/uL VBG pH 7.36 (7.36-7.41) VBG pCO2 53 H (38-50) mmHg VBG pO2 35 mmHg VBG HCO3 30 mmol/L VBG O2 Saturation < 60.0 % VBG Base Excess 3.2 mEq/L Sodium (136-145) mmol/L Potassium (3.5-5.1) mmol/L Chloride (98-107) mmol/L Carbon Dioxide (21-32) mmol/L Anion Gap (3-11) BUN (6-23) mg/dl Creatinine (0.6-1.2) mg/dl Est Cr Clr Drug Dosing ml/min Est GFR ( Amer) ml/min Est GFR (Non-Af Amer) ml/min BUN/Creatinine Ratio (10-20) Glucose (70-99(Fasting)) mg/dl Calcium (8.6-10.3) mg/dl Magnesium (1.7-2.4) mg/dl Total Bilirubin (0.2-1.0) mg/dl AST (13-39) U/L ALT (7-52) U/L Alkaline Phosphatase (34-104) U/L Troponin I High Sens (0-14) pg/ml B-Natriuretic Peptide (0-100) pg/ml Total Protein (6.0-8.3) gm/dl Albumin (3.4-5.0) gm/dl Globulin (2.5-4.0) gm/dl Albumin/Globulin Ratio (0.9-2) SARS-CoV-2, RNA, NAAT NEGATIVE (NEGATIVE) Administered Medications Discontinued Medications Furosemide (Furosemide 40 Mg/4 Ml Vial) 80 mg IV ONE ONE Stop: 11/06/22 19:37 Last Admin: 11/06/22 19:56 Dose: 80 mg Documented By: AB Imaging Data Radiologist's Impression: Chest X-Ray 11/06/22 18:53 XR chest 1V portable HISTORY: 77 years-old Female Dyspnea acute shortness of breath COMPARISON: 12/15/2020 TECHNIQUE: AP view of the chest FINDINGS: Cardiac silhouette is enlarged. Large hiatal hernia. Pulmonary vascular congestion with interstitial coarsening. Small pleural effusions with bibasilar consolidation. No pneumothorax. IMPRESSION: 1. Cardiomegaly with pulmonary edema. 2. Small pleural effusions with bibasilar consolidation. 3. Large hiatal hernia. ACT 112: Negative or not required by law. The above report was generated using voice recognition software. It may contain grammatical, syntax or spelling errors. Electronically signed by: Kai Leon M.D. 11/06/2022 7:52 PM Discharge Plan Visit Data Chief Complaint: Respiratory Distress Stated Complaint: RESP. DIFFICULTY ED Provider: Maria Elena Conroy Discharge Problem: Shortness of breath, Non-ST elevation AR (NSTEMI), Acute exacerbation of CHF (congestive heart failure) Forms Stand Alone Forms: [facility] Prescriptions Prescriptions: No Action Eliquis 5 mg tablet 5 mg PO BID melatonin 3 mg tablet 6 mg PO HS PRN allopurinol 300 mg tablet 300 mg PO DAILY diclofenac sodium 1 % gel 2 g topical TID PRN Rx Instructions: apply to single elbow, wrist or hand; for hand includes palm/fingers/back of hand sennosides [senna] 8.6 mg tablet 8.6 mg PO BID atorvastatin 80 mg tablet 80 mg PO QDB levothyroxine 88 mcg tablet 88 mcg PO DAILY Referrals Referrals: Mauri Diallo [Primary Care Provider] -
[2022-11-06 19:12] LABS: Base Excess VBG 3.2 mEq/L; HCO3 VBG 30 mmol/L; Oxygen Saturation VBG < 60.0 %; PCO2 VBG 53 mmHg (38-50); PO2 VBG 35 mmHg; pH VBG 7.36 (7.36-7.41)
[2022-11-06 19:18] LABS: Basophils # (auto) 0.03 K/uL (0-0.2); Basophils % (auto) 0.4 %; Eosinophils # (auto) 0.55 K/uL (0-0.50); Eosinophils % (auto) 7.2 %; Hematocrit (blood only) 31.2 % (37.0-47.0); Hemoglobin 9.4 g/dl (12.0-16.0); Immature Granulocytes # (auto) 0.02 K/uL (0.01-0.20); Immature Granulocytes % (auto) 0.3 %; Lymphocytes # (auto) 2.01 K/uL (1.2-3.4); Lymphocytes % (auto) 26.2 %; Mean Corpuscular Hemoglobin 28.1 pg (25.0-34.0); Mean Corpuscular Hgb Conc 30.1 g/dL (32.0-36.0); Mean Corpuscular Volume 93.4 fL (80.0-100.0); Mean Platelet Volume 11.8 fL (9.4-12.4); Monocytes # (auto) 0.68 K/uL (0.11-0.59); Monocytes % (auto) 8.9 %; Neutrophils # (auto) 4.39 K/uL (1.40-6.50); Platelet Count 183 K/uL (130-400); RDW Standard Deviation 60.4 fL (36.4-46.3); Red Blood Count 3.34 M/uL (4.20-5.40); White Blood Count 7.68 K/ul (4.8-10.8)
[2022-11-06 19:34] LABS: Albumin Globulin Ratio 1.2 (0.9-2); Albumin Level 3.3 gm/dl (3.4-5.0); BUN Creatinine Ratio 14.9 (10-20); Calcium 8.8 mg/dl (8.6-10.3); Creatinine Clr Calc Pharmacy 40.7 ml/min; Est GFR (African American) 61.3 ml/min; Est GFR (Non-African American) 52.9 ml/min; Globulin 2.7 gm/dl (2.5-4.0); Magnesium 1.7 mg/dl (1.7-2.4); Potassium 3.7 mmol/L (3.5-5.1)
[2022-11-06] MEDS ORDERED: FUROSEMIDE 40 MG/4 ML VIAL IV ONE (19:36)
[2022-11-06 19:40] LABS: Troponin I High Sensitivity 24.5 pg/ml (0-14)
--- NOTE | 2022-11-06 19:53 | XRay Report ---
XR chest 1V portable HISTORY: 77 years-old Female Dyspnea acute shortness of breath COMPARISON: 12/15/2020 TECHNIQUE: AP view of the chest FINDINGS: Cardiac silhouette is enlarged. Large hiatal hernia. Pulmonary vascular congestion with interstitial coarsening. Small pleural effusions with bibasilar consolidation. No pneumothorax. IMPRESSION: 1. Cardiomegaly with pulmonary edema. 2. Small pleural effusions with bibasilar consolidation. 3. Large hiatal hernia. ACT 112: Negative or not required by law. The above report was generated using voice recognition software. It may contain grammatical, syntax o r spelling errors. Electronically signed by: Kai Leon M.D. 11/06/2022 7:52 PM
--- NOTE | 2022-11-06 20:45 | History & Physical Report ---
Date of Service November 06, 2022 Assessment & Plan (1) Acute exacerbation of CHF (congestive heart failure): Plan: 77yo Female with PMH CHF, B cell lymphoma s/p radiation surgery, hx. CVA, HTN, HLD, hx. DVT, hypothyroidism, chronic lymphedema here for increased SOB. CHF exacerbation -CXR: Cardiomegaly with pulmonary edema.Small pleural effusions with bibasilar consolidation. Large hiatal hernia. -BNP 1967 -in ED received lasix 80mg IV -placed on CPAP in ED with improved respiratory status -admit to PCU/tele -track daily weight -track I/O's -ordered lasix 40mg BID -ordered echo -consult placed to cardiology -home torsemide on hold -per chart patient may be on jardiance -repeat CXR in am -trend BMP Elevated Trop -trop 24.5, repeat pending -EKG sinus tachycardia Pulmonary Edema/Wheeze -WBC 7.68 -will start patient on empiric rocephin at this time HTN/Hypotension -midodrine on hold Hx. Gout -continue allopurinol HLD -continue atorvastatin Hypothyroidism -continue levothyroxine Hx. CVA -continue eliquis FENa: heart healthy Code Status: DNR/DNI DVT PPX: nicholas, SIMINs PT/OT: ordered Dispo: PCU/tele Vicky Anaya D.O. 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 CVA, HTN, HLD, hx. DVT, hypothyroidism, chronic lymphedema here for increased SOB. Patient states over the past week she has noticed increased SOB in the morning waking up from bed that would improve as the day went on. However today her SOB did not improve so she came to the ED. Patient denies any fever nausea chest pain abd pain weakness. She lives with her son who manages her medications and cooks food, she states he tries using less salt in food, denies recent take out. States she has tried to get in touch with her milling machine operator gear Dr. Ismael Mcdaniels with [facility], she has an echo scheduled this appointment 11/17, she states her milling machine operator gear was not able to prescribe any new heart medication without seeing her first. In the ED noted hypoxia tachycardia CXR notable pulmonary edema was placed on CPAP given lasix 80mg IV. After CPAP patient noted great improvement in her breathing, currently on nasal cannula 3L. Patient ambulates with cane at baseline, denies recent falls. She has a living will. POA is oldest daughter Leidy Ryder Allergies Allergy/AdvReac Type Severity Reaction Status Date / Time No Known Allergies Allergy Verified 11/06/22 20:25 Home Medications Medication Instructions Recorded Confirmed Type atorvastatin 80 mg tablet 80 mg PO QDB 08/28/20 11/06/22 History levothyroxine 88 mcg tablet 88 mcg PO DAILY 12/15/20 11/06/22 History apixaban 5 mg tablet (Eliquis) 5 mg PO BID 06/08/21 11/06/22 History melatonin 3 mg tablet 6 mg PO HS PRN Sleep 06/08/21 11/06/22 History sennosides 8.6 mg tablet (senna) 8.6 mg PO BID 12/01/21 11/06/22 History fexofenadine 180 mg tablet 180 mg PO HS 11/06/22 11/06/22 History midodrine 5 mg tablet 10 mg PO TID 11/06/22 11/06/22 History torsemide 20 mg tablet 20 mg PO QAM 11/06/22 11/06/22 History Past Med/Surg History Medical History (Updated 11/06/22 @ 20:14 by Maria Elena Conroy MD) JUNE (acute kidney injury) Ambulatory dysfunction Anticoagulated 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 Bradycardia Colitis CVA (cerebral vascular accident) Deep vein thrombosis (DVT) of right lower extremity Dyslipidemia Elevated INR Elevated TSH History of chemotherapy Cyclophosphamide + Prednisone 12/30/20 - 01/05/21 R-CHOP 02/08/21 - 05/24/21 (6 Cycles) Hypercalcemia Hypertension Hypokalemia Hypothyroid Intractable pain Ischemic stroke without coma 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 Sister No problems noted. Brother No problems noted. Brother No problems noted. Brother No problems noted. Daughter No problems noted. Daughter No problems noted. Son No problems noted. Son No problems noted. Son No problems noted. Other Family history non-contributory Social History (Updated 06/08/21 @ 13:16 by Jayna Donaldson RN) Smoking Status: Former smoker Tobacco Type: Cigarettes Age Quit Using Tobacco: 34; Cigarettes Per Day: 1-2; Smoking End Date: 43 years; Second Hand Exposure: No; Do You Dip or Chew Tobacco: No; Hx Alcohol Use: No Hx Substance Use: No Preferred Language: Kazakh Communication Ability: Effective Visual Impairment: No Limitations Hearing Ability: Hard of Hearing Otr Owner Operator Required: No Beliefs That Will Affect Care: None marital status: Current Living Situation: Family Current Living Situation Comment: Lives at home with sonMiguel Angel current occupational status: retired current occupation: Retired from [employer] How many Children do You have: 5 Other Information That Helps Us Care for You: No 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 Feels Safe at Home: Yes Safety Concerns: Feels Safe At This Time Childhood Exposure to Second-Hand Smoke: No Diet: regular caffeine: Yes (coffee 2 cups/day) during the past year weight has: remained stable Dental Care, Regularly: No Assistive Devices: Cane, Denture - Upper, Denture - Lower and Walker Physical Exam Constitutional: well developed, well nourished, cooperative and comfortable Eyes: PERRL, conjunctivae normal, anicteric sclerae ENMT: external ear and nose normal, oropharynx normal Neck: trachea midline, no thyromegaly Respiratory: Auscultation: + diminished lung sounds, + crackles and + wheezes (right lung) Cardiovascular: Rate/Rhythm: regular rhythm and + tachycardic Extremities: + edema (+2 pitting b/l) Gastrointestinal (Abdomen): Inspection/Auscultation: abdomen normal to inspection Percussion/Palpation: abdomen soft; abdomen nontender Skin: no rashes, warm and dry Results & Data Results & Data Vital Signs (Past 12 Hours) Vital Signs Temp Pulse Resp BP Pulse Ox O2 Del Method FiO2 11/06/22 19:57 100 30 11/06/22 19:20 108 H 11/06/22 19:00 CPAP 11/06/22 19:19 100 Room Air 11/06/22 19:00 36.8 C 113 H 20 132/91 100 CPAP 11/06/22 18:58 113 H 34 H 99 40 Supervising Physician Co-Signing Physician Notes attending addendum: I have physically seen this patient, have supervised the medical residents activities, and agree with the H&P unless as otherwise noted. Assessment and Plan: Acute respiratory failure with hypoxia/CHF exacerbation/bibasilar pneumonia- Continue CPAP and taper as symptoms improve Admit to PCU CHF exacerbation/NSTEMI/hypertension- The patient will be admitted to telemetry for serial cardiac enzymes, serial EKG's, cardiac rhythm monitoring and a 2-D echocardiogram with Dopplers. Hold oral torsemide Given furosemide 80 mg IV in ED Continue furosemide at 40 mg IV twice daily Follow serial BMP and magnesium levels History of DVT right lower extremity Continue apixaban Hyperlipidemia- Continue atorvastatin Check a fasting lipid panel remaining orders and notations as noted Resident Activity Tracking Resident Involvement: Resident Care Provided Care Provided: Adult Hospital Medicine (4) Deep vein thrombosis (DVT) of right lower extremity Affected thrombotic vein of extremity: unspecified vein of extremity Chronicity: acute Qualified Code(s): I82.401 - Acute embolism and thrombosis of unspecified deep veins of right lower extremity (5) Hypothyroid Hypothyroidism type: unspecified Qualified Code(s): E03.9 - Hypothyroidism, unspecified (6) Hypertension Hypertension type: essential hypertension Qualified Code(s): I10 - Essential (primary) hypertension
[2022-11-06 21:12] LABS: Appearance Urine Clear (Clear); Bilirubin Urine Negative (Negative); Blood Urine Negative (Negative); Color Urine Yellow; Glucose Urine UA Negative (Negative); Ketones Urine Negative (Negative); Leukocyte Esterase Urine Negative (Negative); Nitrite Urine Negative (Negative); Protein Urine Negative (Negative); Specific Gravity Urine 1.007 (1.000-1.030); Urobilinogen Urine Negative (Negative); pH Urine 7.5 (4.5-7.5)
[2022-11-06] MEDS ORDERED: PNEUMOCOCCAL POLYSACCHARIDES 25 MCG/0.5 ML VIAL/SYR IM ONE (22:25)
[2022-11-06] MEDS: FEXOFENADINE HCL 180 MG TAB PO SCH (22:56)
[2022-11-06] MEDS: APIXABAN 5 MG TABLET PO SCH (22:56)
[2022-11-06] MEDS: cefTRIAXone SODIUM 1,000 MG in DEXTROSE 5% AD-VAN 50 ML IV SCH (22:57)
--- NOTE | 2022-11-07 05:32 | Billing Data ---
Date of Service November 07, 2022 Coding Level of Care Code 56970 INT INP/OBS CARE
[2022-11-07 06:18] LABS: Hematocrit (blood only) 32.2 % (37.0-47.0); Mean Corpuscular Hgb Conc 31.1 g/dL (32.0-36.0); Mean Corpuscular Volume 90.2 fL (80.0-100.0); Mean Platelet Volume 11.5 fL (9.4-12.4); Platelet Count 178 K/uL (130-400); RDW Coefficient of Variation 17.9 % (11.5-14.5); RDW Standard Deviation 58.5 fL (36.4-46.3); Red Blood Count 3.57 M/uL (4.20-5.40); White Blood Count 6.06 K/ul (4.8-10.8)
[2022-11-07] MEDS: LEVOTHYROXINE SODIUM 88 MCG TABLET PO SCH (06:34)
[2022-11-07 06:36] LABS: BUN Creatinine Ratio 14.1 (10-20); Calcium 8.7 mg/dl (8.6-10.3); Creatinine Clr Calc Pharmacy 39.1 ml/min; Est GFR (African American) 62.8 ml/min; Est GFR (Non-African American) 54.2 ml/min; Magnesium 1.8 mg/dl (1.7-2.4); Potassium 3.5 mmol/L (3.5-5.1)
[2022-11-07] MEDS: FUROSEMIDE 40 MG/4 ML VIAL IV SCH ×2 (08:15→20:54)
[2022-11-07] MEDS: ATORVASTATIN 40 MG TAB PO SCH (08:15)
[2022-11-07] MEDS: APIXABAN 5 MG TABLET PO SCH ×2 (08:15→20:54)
--- NOTE | 2022-11-07 08:54 | XRay Report ---
XR chest 1V portable CLINICAL HISTORY: SOB TECHNIQUE: Single frontal radiograph of the chest was obtained. Comparison: Comparison is made to chest radiographs of 923 FINDINGS: No lines and tubes are seen. Cardiomegaly is noted. Prominence and cephalization of the vasculature i s seen. Bilateral airspace opacities are again seen. A large hiatal hernia is seen. Small bilateral p leural effusions are likely. IMPRESSION: 1. Cardiomegaly and mild pulmonary edema. 2. Stable bibasilar airspace opacities. 3. Stable small bilateral pleural effusions. ACT 112: Negative or not required by law. Electronically signed by: Gavin Vidal M.D. 11/07/2022 8:51 AM
[2022-11-07] MEDS: POTASSIUM CHLORIDE CRTAB 20 MEQ TABCR PO SCH ×2 (10:34→20:56)
--- NOTE | 2022-11-07 12:50 | Cardiology Consultation ---
Date of Consultation November 07, 2022 Assessment & Plan (1) Acute exacerbation of CHF (congestive heart failure): Pt demonstrates marked improvement from time of initial presentation, has responded well to diuretic therapy and no longer reports feeling short of breath. Continue Lasix 40mg BID. Given the results of echocardiogram, which shows severe left ventricle systolic dysfunction and global wall hypokinesis, patient presentation appears consistent with systolic heart failure and may be secondary to chemotherapeutic cardiotoxicity. Alternatively, this may be due to ischemic heart disease, although patient denies chest pain and cardiac biomarkers are only minimally elevated. Will conduct perfusion scan to further evaluate prior to discharge. Will also start patient on Metoprolol succinate and Jardiance. Will continue Midodrine for the time being to avoid possible hypotension. Present on Admission?: Yes Plan Acute exacerbation of CHF - Continue Lasix 40 mg IV BID - Start Metoprolol Succinate 12.5 mg PO BID - Start Jardiance 10 PO mg daily - Continue Midodrine 10 mg PO TID - Perfusion Scan Supervising Physician Co-Signing Physician Notes Briefly, the patient is a 77-year-old woman with a history of lymphoma who previously undergone both radiation and chemotherapy. She presented with symptoms of progressive dyspnea and was discovered to have evidence of decompensated systolic heart failure. No defined etiology, but the suspicion would be related to her prior chemotherapy. She did not endorse symptoms of exertional chest pain in the suspicion for ischemic heart disease is low. At this point it seems reasonable to continue diuresis which has provided significant improvement in her symptoms. Standard regimen for reduced LV function will be recommended but possibly hard to implement given her history of hypotension. I think we will start with metoprolol succinate and try and SG LT 2 inhibitor. We will also plan a myocardial perfusion study to exclude ischemic heart disease. Since our suspicion for coronary disease is relatively low I did not strongly recommend coronary angiography. She seemed opposed to this idea in any event. History of Present Illness Attending Physician: Tristan Medina MD History of Present Illness Pt is a 77-year old female with PMHx significant for prior stroke, history of DVT, HLD, hypothyroidism, B-Cell lymphoma s/p chemotherapy and radiation. Pt presented to ED on 11/06 due to new onset shortness of breath that began roughly one week ago but significantly worsened yesterday. Patient notes that she recently discontinued her Lasix due to excessive urination. 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 Was unable to elucidate reason why patient is on Lasix, she denies ever receiving diagnosis of heart failure. Patient denies current or past history of chest pain, denies history of VA, denies history of arrhythmia. Patient notes that degree of leg swelling is at baseline, she has had chronic lymphedema of her right lower extremity since receiving radiation therapy, denies recent changes in edema. Patient states that she is feeling much better today, denies current shortness of breath. Allergies Allergy/AdvReac Type Severity Reaction Status Date / Time No Known Allergies Allergy Verified 11/06/22 20:25 Home Medications Medication Instructions Recorded Confirmed Type atorvastatin 80 mg tablet 80 mg PO QDB 08/28/20 11/06/22 History levothyroxine 88 mcg tablet 88 mcg PO DAILY 12/15/20 11/06/22 History apixaban 5 mg tablet (Eliquis) 5 mg PO BID 06/08/21 11/06/22 History melatonin 3 mg tablet 6 mg PO HS PRN Sleep 06/08/21 11/06/22 History sennosides 8.6 mg tablet (senna) 8.6 mg PO BID 12/01/21 11/06/22 History fexofenadine 180 mg tablet 180 mg PO HS 11/06/22 11/06/22 History midodrine 5 mg tablet 10 mg PO TID 11/06/22 11/06/22 History torsemide 20 mg tablet 20 mg PO QAM 11/06/22 11/06/22 History Patient History Medical History (Updated 11/07/22 @ 14:37 by Tristan Medina MD) JUNE (acute kidney injury) Ambulatory dysfunction Anticoagulated 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 Bradycardia Colitis CVA (cerebral vascular accident) Deep vein thrombosis (DVT) of right lower extremity Dyslipidemia Elevated INR Elevated TSH History of chemotherapy Cyclophosphamide + Prednisone 12/30/20 - 01/05/21 R-CHOP 02/08/21 - 05/24/21 (6 Cycles) Hypercalcemia Hypertension Hypokalemia Hypothyroid Intractable pain Ischemic stroke without coma 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 Sister No problems noted. Brother No problems noted. Brother No problems noted. Brother No problems noted. Daughter No problems noted. Daughter No problems noted. Son No problems noted. Son No problems noted. Son No problems noted. 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 Feels Safe at Home: Yes Safety Concerns: Feels Safe At This Time Childhood Exposure to Second-Hand Smoke: No Diet: regular caffeine: Yes (coffee 2 cups/day) during the past year weight has: remained stable Dental Care, Regularly: No Assistive Devices: Cane and Walker Review of Systems Constitutional: Denies recent illness, denies fever or chills Respiratory: denies current shortness of breath Cardiovascular: Additional Comments: denies chest pain, denies palpitations Hematologic / Lymphatic: endorses chronic lymphedema of right lower extremity Physical Exam Physical Exam: Well-developed, well nourished, in no apparent distress Respiratory: decreased breath sounds bilaterally, no wheezes appreciated on auscultation Cardiovascular: normal rhythm, mildly tachycardic. distal pulses intact, 2+ in all four extremities Skin: bilateral pitting edema, right worse than left Lymphatic: chronic lymphedema of right lower extremity Results & Data Vital Signs (Past 12 Hours) Vital Signs Temp Pulse Resp BP Pulse Ox Pulse Ox O2 Del Method 11/07/22 12:05 88 L 11/07/22 11:26 37.0 C 116 H 20 106/70 97 Nasal Cannula 11/07/22 11:10 95 11/07/22 08:15 Nasal Cannula 11/07/22 08:01 36.7 C 118 H 22 103/66 94 High Flow Nasal Cannula 11/07/22 03:40 36.4 C L 93 H 18 110/75 100 Nasal Cannula O2 Flow Rate O2 Flow Rate 11/07/22 12:05 2 11/07/22 11:26 2 11/07/22 11:10 11/07/22 08:15 2 11/07/22 08:01 8 11/07/22 03:40 3 Laboratory Results Abnormal lab results 11/06/22 11/06/22 11/06/22 Range/Units 19:00 19:00 19:00 RBC 3.34 L (4.20-5.40) M/uL Hgb 9.4 L (12.0-16.0) g/dl Hct 31.2 L (37.0-47.0) % MCHC 30.1 L (32.0-36.0) g/dL RDW Std Deviation 60.4 H (36.4-46.3) fL RDW Coeff of Pancho 18.0 H (11.5-14.5) % Davis # (Auto) 0.68 H (0.11-0.59) K/uL Eos # (Auto) 0.55 H (0-0.50) K/uL VBG pCO2 (38-50) mmHg Glucose 136 H (70-99(Fasting)) mg/dl Troponin I High Sens 24.5 H (0-14) pg/ml B-Natriuretic Peptide 1965 H (0-100) pg/ml Albumin 3.3 L (3.4-5.0) gm/dl Free T3 (2.3-4.2) pg/ml 11/06/22 11/07/22 11/07/22 Range/Units 19:00 00:24 05:57 RBC 3.57 L (4.20-5.40) M/uL Hgb 10.0 L (12.0-16.0) g/dl Hct 32.2 L (37.0-47.0) % MCHC 31.1 L (32.0-36.0) g/dL RDW Std Deviation 58.5 H (36.4-46.3) fL RDW Coeff of Pancho 17.9 H (11.5-14.5) % Davis # (Auto) (0.11-0.59) K/uL Eos # (Auto) (0-0.50) K/uL VBG pCO2 53 H (38-50) mmHg Glucose (70-99(Fasting)) mg/dl Troponin I High Sens 28.9 H (0-14) pg/ml B-Natriuretic Peptide (0-100) pg/ml Albumin (3.4-5.0) gm/dl Free T3 (2.3-4.2) pg/ml 11/07/22 Range/Units 05:57 RBC (4.20-5.40) M/uL Hgb (12.0-16.0) g/dl Hct (37.0-47.0) % MCHC (32.0-36.0) g/dL RDW Std Deviation (36.4-46.3) fL RDW Coeff of Pancho (11.5-14.5) % Davis # (Auto) (0.11-0.59) K/uL Eos # (Auto) (0-0.50) K/uL VBG pCO2 (38-50) mmHg Glucose (70-99(Fasting)) mg/dl Troponin I High Sens (0-14) pg/ml B-Natriuretic Peptide (0-100) pg/ml Albumin (3.4-5.0) gm/dl Free T3 2.13 L (2.3-4.2) pg/ml Diagnostic Findings Repeat chest x-ray on 11/07 demonstrated: cardiomegaly and mild pulmonary edema, stable small bilateral pleural effusions Echocardiogram on 11/07 significant for: severely reduced left ventricle systolic function with EF of 25-30%, sever global hypokinesis of left ventricle, moderate to severe mitral regurgitation, severe tricuspid regurgitation. Medications Administered Apixaban (Apixaban 5 Mg Tablet) 5 mg PO BID AURELIA Stop: 12/06/22 22:13 Last Admin: 11/07/22 08:15 Dose: 5 mg Documented By: Admin: 11/06/22 22:56 Dose: 5 mg Documented By: MILADY Atorvastatin Calcium (Atorvastatin 40 Mg Tab) 80 mg PO QDB [facility], [facility]1983 Stop: 12/07/22 07:29 Last Admin: 11/07/22 08:15 Dose: 80 mg Documented By: GM Fexofenadine HCl (Fexofenadine Hcl 180 Mg Tab) 180 mg PO HS [facility], [facility]1983 Stop: 12/06/22 22:13 Last Admin: 11/06/22 22:56 Dose: 180 mg Documented By: MILADY Furosemide (Furosemide 40 Mg/4 Ml Vial) 40 mg IV BID AURELIA Stop: 12/07/22 08:59 Last Admin: 11/07/22 08:15 Dose: 40 mg Documented By: GM Ceftriaxone Sodium 1,000 mg/ (Dextrose) 50 mls @ 100 mls/hr IV Q24H [facility], [facility]–1983; Protocol Stop: 11/08/22 22:59 Last Infusion: 11/06/22 23:27 Dose: 0 mls/hr Documented By: Admin: 11/06/22 22:57 Dose: 100 mls/hr Documented By: MILADY Levothyroxine Sodium (Levothyroxine Sodium 88 Mcg Tablet) 88 mcg PO DAILYBB [facility], [facility]1983 Stop: 12/07/22 06:29 Last Admin: 11/07/22 06:34 Dose: 88 mcg Documented By: MILADY Potassium Chloride (Potassium Chloride Crtab 20 Meq Tabcr) 20 meq PO BID [facility], [facility]1983 Stop: 12/07/22 08:59 Last Admin: 11/07/22 10:34 Dose: 20 meq Documented By: GM ECG Rate (beats per minute): 110 Rhythm: normal sinus PG Care Time/CCT Total # of Minutes Spent Total Time Spent with Patient: Total time spent is greater than 50% in coordination of care (as documented) at patient's floor/unit and/or counseling patient: Coding Level of Care Code 95562 INT INP/OBS CARE 3/75MIN Diagnoses Acute exacerbation of CHF (congestive heart failure) I50.9
--- NOTE | 2022-11-07 14:41 | Hospitalist Progress Note ---
Date of Service November 07, 2022 Assessment & Plan (1) Acute combined systolic and diastolic CHF, NYHA class 4: Plan: Brisk diuretic response with intravenous Lasix. Cardiac echo reveals severe left ventricular systolic dysfunction with regional wall motion abnormalities. Estimated ejection fraction 25%. Cardiology consultation appreciated. Low-dose metoprolol and low-dose lisinopril have been started. We will monitor blood pressure response closely. Lexiscan stress testing tomorrowNovember 08 (2) Shortness of breath: Plan: Due to CHF. 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 Stable. Continue current medical management (4) Deep vein thrombosis (DVT) of right lower extremity: Plan: Continue Eliquis therapy (5) Hypothyroid: Plan: Continue thyroid replacement. Free T3 level is slightly low with normal free T4. (6) Hypertension: Plan: Stable. Low-dose lisinopril and metoprolol have been started. Will monitor blood pressure closely. Plan Hopeful discharge to home later this week. OT and PT assessments requested. Admission and Anticipated Discharge Date Admission Date: November 06, 2022 Subjective Alert and oriented. No complaints. She states she is feeling much better since admission. She has had a brisk diuresis with IV Lasix. Unfortunately, her cardiac echo reveals severe left ventricular dysfunction with ejection fraction around 25%. This possibly could be related to her history of chemotherapy. Potassium supplementation started Free T3 is slightly low but free T4 is normal. Low-dose metoprolol and lisinopril have been started. We will watch blood pressure response closely. Cardiology consultation noted. Lexiscan stress testing tomorrowNovember 08 Review of Systems Review of Systems: Constitutional-no fever or chills ENT-no blurred vision, no double vision, no epistaxis, no sore throat Respiratory-no cough, no wheezing. Shortness of breath at rest and with exertion Cardiac-no palpitations, no chest pain, no syncope GI-no nausea, vomiting, diarrhea, melena, hematochezia -no urinary retention, no urinary incontinence, no dysuria, no hematuria Musculoskeletal-no joint pain, no muscle tenderness Skin-no bruising, no rashes, no pruritus Neuro-no isolated weakness, no paresthesia, no weakness Psych-no depression, no anxiety Physical Exam Physical Exam: General-alert and oriented x3, no fevers, no chills HEENT-head atraumatic and normocephalic, pupils equal and reactive to light, extraocular muscles intact Neck-no lymphadenopathy or thyromegaly, trachea midline Chest-bibasilar dullness with inspiratory rales. No wheeze Cardiac-regular rate and rhythm, normal S1 and S2. Mild tachycardia Abdomen-normal bowel sounds, nontender, no hepatosplenomegaly Extremities-1+ pitting edema bilateral lower extremities below the knees Neuro-cranial nerves II through XII intact, motor and sensory function within normal limits, strength symmetrical , no focal deficits Psych-normal affect, normal mood Results & Data Results & Data Vital Signs (Past 12 Hours) Vital Signs Temp Pulse Resp BP Pulse Ox Pulse Ox O2 Del Method 11/07/22 12:05 88 L 11/07/22 11:26 37.0 C 116 H 20 106/70 97 Nasal Cannula 11/07/22 11:10 95 11/07/22 08:15 Nasal Cannula 11/07/22 08:01 36.7 C 118 H 22 103/66 94 High Flow Nasal Cannula 11/07/22 03:40 36.4 C L 93 H 18 110/75 100 Nasal Cannula O2 Flow Rate O2 Flow Rate 11/07/22 12:05 2 11/07/22 11:26 2 11/07/22 11:10 11/07/22 08:15 2 11/07/22 08:01 8 11/07/22 03:40 3 Laboratory Results 11/07/22 05:57 11/07/22 05:57 PG Care Time/CCT Total # of Minutes Spent Total Time Spent with Patient: Total time spent is greater than 50% in coordination of care (as documented) at patient's floor/unit and/or counseling patient: Coding Level of Care Code 70995 SUB INP/OBS CARE 3/50MIN Diagnoses Acute combined systolic and diastolic CHF, NYHA class 4 I50.41 Shortness of breath R06.02 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 (4) Deep vein thrombosis (DVT) of right lower extremity Affected thrombotic vein of extremity: unspecified vein of extremity Chronicity: acute Qualified Code(s): I82.401 - Acute embolism and thrombosis of unspecified deep veins of right lower extremity (5) Hypothyroid Hypothyroidism type: unspecified Qualified Code(s): E03.9 - Hypothyroidism, unspecified (6) Hypertension Hypertension type: essential hypertension Qualified Code(s): I10 - Essential (primary) hypertension
--- NOTE | 2022-11-07 18:09 | Electrocardiogram Report ---
Test Reason : Blood Pressure : / mmHG Vent. Rate : 110 BPM Atrial Rate : 110 BPM P-R Int : 122 ms QRS Dur : 080 ms QT Int : 348 ms P-R-T Axes : 103 -18 150 degrees QTc Int : 470 ms Sinus tachycardia Anterolateral infarct (cited on or before 15-DEC-2020) Nonspecific ST abnormality Abnormal ECG When compared with ECG of 15-DEC-2020 16:27, Nonspecific T wave abnormality no longer evident in Anterior leads Confirmed by Mohsen Lyon ([id number]) on 11/07/2022 6:09:29 PM Referred By: REFERRED SELF Confirmed By:Ricci Lyon
[2022-11-07] MEDS: FEXOFENADINE HCL 180 MG TAB PO SCH (20:54)
[2022-11-07] MEDS: METOPROLOL TARTRATE 25 MG TAB PO SCH (20:55)
[2022-11-07] MEDS: cefTRIAXone SODIUM 1,000 MG in DEXTROSE 5% AD-VAN 50 ML IV SCH (22:21)
[2022-11-08] MEDS: LEVOTHYROXINE SODIUM 88 MCG TABLET PO SCH (06:21)
[2022-11-08 06:39] LABS: BUN Creatinine Ratio 16.7 (10-20); Calcium 8.8 mg/dl (8.6-10.3); Creatinine Clr Calc Pharmacy 31.1 ml/min; Est GFR (African American) 49.8 ml/min; Potassium 3.9 mmol/L (3.5-5.1)
[2022-11-08] MEDS ORDERED: lisinopril 2.5 MG TAB PO SCH (09:00)
[2022-11-08] MEDS: APIXABAN 5 MG TABLET PO SCH ×2 (09:16→20:14)
[2022-11-08] MEDS: POTASSIUM CHLORIDE CRTAB 20 MEQ TABCR PO SCH ×2 (09:17→20:14)
[2022-11-08] MEDS: FUROSEMIDE 40 MG/4 ML VIAL IV SCH (09:17)
[2022-11-08] MEDS: ATORVASTATIN 40 MG TAB PO SCH (09:17)
[2022-11-08] MEDS: METOPROLOL TARTRATE 25 MG TAB PO SCH ×2 (10:00→20:14)
--- NOTE | 2022-11-08 15:07 | Hospitalist Progress Note ---
Date of Service November 08, 2022 Assessment & Plan (1) Acute combined systolic and diastolic CHF, NYHA class 4: Plan: Continue brisk diuretic response with intravenous Lasix. Cardiac echo reveals severe left ventricular systolic dysfunction with regional wall motion abn ormalities. Estimated ejection fraction 25%. Cardiology consultation appreciated. Low-dose metoprolol and low-dose lisinopril have been started. Midodrine has been restarted to due to low blood pressure. Lexiscan stress testing could not be completed today and hopefully can be done tomorrow morning, November 09. Repeat portable chest x-ray tomorrow, November 09 (2) Shortness of breath: Plan: Due to CHF. 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 Stable. Continue current medical management (4) Deep vein thrombosis (DVT) of right lower extremity: Plan: Continue Eliquis therapy (5) Hypothyroid: Plan: Continue thyroid replacement. Free T3 level is slightly low with normal free T4. (6) Hypertension: Plan: Stable. Low-dose lisinopril and metoprolol have been started. Blood pressure is slightly low. Midodrine has been restarted Plan Hopeful discharge to home tomorrow, November 09 after Lexiscan stress testing is completed. She may need home oxygen for a while. Will obtain two-step prior to discharge. Admission and Anticipated Discharge Date Admission Date: November 06, 2022 Subjective Alert and oriented. Unfortunately, the Lexiscan stress test could not be completed today. Cardiology will try to get it done tomorrow morning. She continues to have brisk diuresis with parenteral Lasix. We will repeat portable chest x-ray tomorrow, November 09. Hopefully oxygen can be weaned off before disch arge but she might have to go home with oxygen for a while Review of Systems Review of Systems: Constitutional-no fever or chills ENT-no blurred vision, no double vision, no epistaxis, no sore throat Respiratory-no cough, no wheezing. Shortness of breath at rest and with exertion Cardiac-no palpitations, no chest pain, no syncope GI-no nausea, vomiting, diarrhea, melena, hematochezia -no urinary retention, no urinary incontinence, no dysuria, no hematuria Musculoskeletal-no joint pain, no muscle tenderness Skin-no bruising, no rashes, no pruritus Neuro-no isolated weakness, no paresthesia, no weakness Psych-no depression, no anxiety Physical Exam Physical Exam: General-alert and oriented x3, no fevers, no chills HEENT-head atraumatic and normocephalic, pupils equal and reactive to light, extraocular muscles intact Neck-no lymphadenopathy or thyromegaly, trachea midline Chest-bibasilar dullness with inspiratory rales. No wheeze Cardiac-regular rate and rhythm, normal S1 and S2. Mild tachycardia Abdomen-normal bowel sounds, nontender, no hepatosplenomegaly Extremities-1+ pitting edema bilateral lower extremities below the knees Neuro-cranial nerves II through XII intact, motor and sensory function within normal limits, strength symmetrical , no focal deficits Psych-normal affect, normal mood Results & Data Results & Data Vital Signs (Past 12 Hours) Vital Signs Temp Pulse Pulse Pulse Resp BP Pulse Ox 11/08/22 11:24 36.8 C 61 19 83/55 L 90 11/08/22 09:20 11/08/22 09:15 103 H 102/63 11/08/22 06:02 94 H 11/08/22 07:09 36.4 C L 95 H 18 97/61 L 96 11/08/22 03:49 36.6 C 90 18 96/62 L 98 O2 Del Method O2 Flow Rate 11/08/22 11:24 Nasal Cannula 3 11/08/22 09:20 Nasal Cannula 3 11/08/22 09:15 11/08/22 06:02 11/08/22 07:09 Room Air 11/08/22 03:49 Nasal Cannula 3 Laboratory Results 11/07/22 05:57 11/08/22 05:33 PG Care Time/CCT Total # of Minutes Spent Total Time Spent with Patient: Total time spent is greater than 50% in coordination of care (as documented) at patient's floor/unit and/or counseling patient: Coding Level of Care Code 52268 SUB INP/OBS CARE 3/50MIN Diagnoses Acute combined systolic and diastolic CHF, NYHA class 4 I50.41 Shortness of breath R06.02 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 (4) Deep vein thrombosis (DVT) of right lower extremity Affected thrombotic vein of extremity: unspecified vein of extremity Chronicity: acute Qualified Code(s): I82.401 - Acute embolism and thrombosis of unspecified deep veins of right lower extremity (5) Hypothyroid Hypothyroidism type: unspecified Qualified Code(s): E03.9 - Hypothyroidism, unspecified (6) Hypertension Hypertension type: essential hypertension Qualified Code(s): I10 - Essential (primary) hypertension
[2022-11-08] MEDS: MIDODRINE HCL 10 MG TAB PO SCH (16:05)
--- NOTE | 2022-11-08 17:24 | Cardiology Progress Note ---
Date of Service November 08, 2022 Assessment & Plan (1) Acute exacerbation of CHF (congestive heart failure): (2) Cardiomyopathy: Plan 1. Decompensated systolic heart failure: Much improved. She has affected a good diuresis and has been a mild increase in her BUN and creatinine suggesting an element of intravascular depletion. She can probably return to a daily oral dose of diuretic. 2. Cardiomyopathy: Unclear etiology. Likely nonischemic. Unfortunately, her perfusion study could not be performed today but is scheduled for tomorrow morning. He seems to have some lower blood pressures on lisinopril. This will be discontinued in favor of continued metoprolol and likely addition of an SGLT 2 inhibitor. Admission and Anticipated Discharge Date Admission Date: November 06, 2022 Subjective This afternoon the patient's main concern was eating. She was quite upset at not being fed breakfast or lunch in anticipation of a rescheduled cardiac perfusion study. He states that her breathing is improved. Review of Systems Review of Systems: Per HPI Physical Exam Physical Exam: Well-developed, well nourished, in no apparent distress Respiratory: decreased breath sounds bilaterally, no wheezes appreciated on auscultation Cardiovascular: normal rhythm, mildly tachycardic. distal pulses intact, 2+ in all four extremities Skin: bilateral pitting edema, right worse than left Lymphatic: chronic lymphedema of right lower extremity Results & Data Vital Signs (Past 12 Hours) Vital Signs Temp Pulse Pulse Pulse Resp BP Pulse Ox 11/08/22 17:09 82 11/08/22 15:49 36.7 C 87 19 88/48 L 96 11/08/22 11:24 36.8 C 61 19 83/55 L 90 11/08/22 09:20 11/08/22 09:15 103 H 102/63 11/08/22 06:02 94 H 11/08/22 07:09 36.4 C L 95 H 18 97/61 L 96 O2 Del Method O2 Flow Rate 11/08/22 17:09 11/08/22 15:49 Nasal Cannula 3 11/08/22 11:24 Nasal Cannula 3 11/08/22 09:20 Nasal Cannula 3 11/08/22 09:15 11/08/22 06:02 11/08/22 07:09 Room Air Laboratory Results Abnormal Lab Results 11/08/22 05:33 Sodium 140 Potassium 3.9 Chloride 98 Carbon Dioxide 35 H Anion Gap 7 BUN 20 Creatinine 1.20 Est Cr Clr Drug Dosing 31.1 Est GFR ( Amer) 49.8 Est GFR (Non-Af Amer) 43.0 BUN/Creatinine Ratio 16.7 Glucose 95 Calcium 8.8 Diagnostic Findings Repeat chest x-ray on 11/07 demonstrated: cardiomegaly and mild pulmonary edema, stable small bilateral pleural effusions Echocardiogram on 11/07 significant for: severely reduced left ventricle systolic function with EF of 25-30%, sever global hypokinesis of left ventricle, moderate to severe mitral regurgitation, severe tricuspid regurgitation. ECG Rate (beats per minute): 110 Rhythm: normal sinus PG Care Time/CCT Total # of Minutes Spent Total Time Spent with Patient: Total time spent is greater than 50% in coordination of care (as documented) at patient's floor/unit and/or counseling patient: Coding Level of Care Code 08444 SUB INP/OBS CARE 235MIN Diagnoses Acute exacerbation of CHF (congestive heart failure) I50.9 Cardiomyopathy I42.9
[2022-11-08] MEDS: FEXOFENADINE HCL 180 MG TAB PO SCH (20:14)
[2022-11-09] MEDS: LEVOTHYROXINE SODIUM 88 MCG TABLET PO SCH (06:42)
[2022-11-09 07:13] LABS: BUN Creatinine Ratio 20.9 (10-20); Calcium 8.5 mg/dl (8.6-10.3); Creatinine Clr Calc Pharmacy 28.7 ml/min; Est GFR (African American) 45.6 ml/min; Est GFR (Non-African American) 39.4 ml/min; Potassium 3.8 mmol/L (3.5-5.1)
--- NOTE | 2022-11-09 07:35 | XRay Report ---
XR chest 1V portable HISTORY: Shortness of breath. COMPARISON: Chest 11/07/2022. FINDINGS: No pneumothorax. There are low lung volumes. Bilateral pleural effusions and bibasilar dens ities have slightly improved. Mild pulmonary edema is also slightly improved. The heart remains enlar ged. No acute fractures identified. IMPRESSION: Slight improvement in the pulmonary edema, small bilateral pleural effusions, and bibasilar densities . ACT 112: Negative or not required by law. Electronically signed by: Bairon Ceballos M.D. 11/09/2022 7:33 AM
[2022-11-09] MEDS: MIDODRINE HCL 10 MG TAB PO SCH ×2 (08:00→11:53)
[2022-11-09] MEDS ORDERED: REGADENOSON 0.4 MG/5 ML SYR IV ONE (08:02)
[2022-11-09] MEDS ORDERED: FUROSEMIDE 40 MG/4 ML VIAL IV SCH (09:00)
--- NOTE | 2022-11-09 10:32 | Cardiology Progress Note ---
Date of Service November 09, 2022 Assessment & Plan (1) Acute exacerbation of CHF (congestive heart failure): (2) Cardiomyopathy: Plan 1. Decompensated systolic heart failure: She seems to have responded well to diuresis. BUN and creatinine up slightly suggesting an element of intravascular depletion. Symptomatic we improved and her exam also appears improved. This point would seem reasonable to send her home on an oral regimen of diuretic. She could continue her daily dose of torsemide monitoring her weight closely. 2. Cardiomyopathy: Perfusion scan to be read later today. Symptoms not likely consistent with an ischemic etiology. She had some lower blood pressures on lisinopril. Would continue her current dose of metoprolol. She can be discharged with a prescription for Jardiance 10 mg daily. She should have close follow-up with her personal coremaker apprentice for titration of medications and reassessment of symptoms. Admission and Anticipated Discharge Date Admission Date: November 06, 2022 Subjective This morning patient claimed he feeling well. Again, she was hungry. She denies breathing difficulty. No orthopnea. No sense of palpitation. She was ambulatory to the bathroom in her room last night. She denies dizziness or lightheadedness. Review of Systems Review of Systems: Per HPI Physical Exam Physical Exam: Well-developed, well nourished, in no apparent distress Respiratory: Some crackles in the right base otherwise clear. No expiratory wheezing. Normal respiratory effort. Cardiovascular: normal rhythm, mildly tachycardic. distal pulses intact, 2+ in all four extremities Skin: bilateral pitting edema, right worse than left Lymphatic: chronic lymphedema of right lower extremity Results & Data Vital Signs (Past 12 Hours) Vital Signs Temp Pulse Pulse Resp BP Pulse Ox O2 Del Method 11/09/22 08:00 Nasal Cannula 11/09/22 07:37 87 11/09/22 07:33 36.5 C 92 H 18 90/52 L 92 Nasal Cannula 11/09/22 02:57 36.5 C 90 18 93/55 L 93 Nasal Cannula 11/08/22 22:55 88 11/08/22 22:53 36.7 C 91 H 18 95/63 L 96 Nasal Cannula O2 Flow Rate 11/09/22 08:00 3 11/09/22 07:37 11/09/22 07:33 2 11/09/22 02:57 11/08/22 22:55 11/08/22 22:53 Laboratory Results Abnormal Lab Results 11/09/22 05:51 Sodium 138 Potassium 3.8 Chloride 99 Carbon Dioxide 33 H Anion Gap 6 BUN 27 H Creatinine 1.29 H Est Cr Clr Drug Dosing 28.7 Est GFR ( Amer) 45.6 Est GFR (Non-Af Amer) 39.4 BUN/Creatinine Ratio 20.9 H Glucose 92 Calcium 8.5 L Diagnostic Findings Repeat chest x-ray on 11/07 demonstrated: cardiomegaly and mild pulmonary edema, stable small bilateral pleural effusions Echocardiogram on 11/07 significant for: severely reduced left ventricle systolic function with EF of 25-30%, sever global hypokinesis of left ventricle, moderate to severe mitral regurgitation, severe tricuspid regurgitation. ECG Rate (beats per minute): 110 Rhythm: normal sinus PG Care Time/CCT Total # of Minutes Spent Total Time Spent with Patient: Total time spent is greater than 50% in coordination of care (as documented) at patient's floor/unit and/or counseling patient: Coding Level of Care Code 58749 SUB INP/OBS CARE 2/35MIN Diagnoses Acute exacerbation of CHF (congestive heart failure) I50.9 Cardiomyopathy I42.9
[2022-11-09 11:03] VITALS: BP 97/63; TEMP 97.9
[2022-11-09] MEDS: ATORVASTATIN 40 MG TAB PO SCH (11:52)
[2022-11-09] MEDS: APIXABAN 5 MG TABLET PO SCH (11:53)
[2022-11-09] MEDS: POTASSIUM CHLORIDE CRTAB 20 MEQ TABCR PO SCH (11:53)
[2022-11-09] MEDS: METOPROLOL TARTRATE 25 MG TAB PO SCH (11:54)
--- NOTE | 2022-11-09 12:34 | Discharge Summary ---
Date of Service November 09, 2022 Admission HPI Per Admitting Provider 77yo Female with PMH CHF, B cell lymphoma s/p radiation surgery, hx. CVA, HTN, HLD, hx. DVT, hypothyroidism, chronic lymphedema here for increased SOB. Patient states over the past week she has noticed increased SOB in the morning waking up from bed that would improve as the day went on. However today her SOB did not improve so she came to the ED. Patient denies any fever nausea chest pain abd pain weakness. She lives with her son who manages her medications and cooks food, she states he tries using less salt in food, denies recent take out. States she has tried to get in touch with her multimedia technician Dr. Ismael Mcdaniels with [facility], she has an echo scheduled this appointment 11/17, she states her multimedia technician was not able to prescribe any new heart medication without seeing her first. In the ED noted hypoxia tachycardia CXR notable pulmonary edema was placed on CPAP given lasix 80mg IV. After CPAP patient noted great improvement in her breathing, currently on nasal cannula 3L. Patient ambulates with cane at baseline, denies recent falls. She has a living will. POA is oldest daughter Leidy Ryder Principal Diagnosis Acute combined systolic and diastolic congestive heart failure, acute hypoxic respiratory failure, chronic hypotension Discharge Exam General-alert and oriented x3, no fevers, no chills HEENT-head atraumatic and normocephalic, pupils equal and reactive to light, extraocular muscles intact Neck-no lymphadenopathy or thyromegaly, trachea midline Chest-bibasilar dullness with inspiratory rales. No wheeze Cardiac-regular rate and rhythm, normal S1 and S2. Mild tachycardia Abdomen-normal bowel sounds, nontender, no hepatosplenomegaly Extremities-1+ pitting edema bilateral lower extremities below the knees Neuro-cranial nerves II through XII intact, motor and sensory function within normal limits, strength symmetrical , no focal deficits Psych-normal affect, normal mood Discharge Data Allergies Allergy/AdvReac Type Severity Reaction Status Date / Time No Known Allergies Allergy Verified 11/06/22 20:25 Consultations 11/06/22 20:12 ED Decision to Admit Stat 11/06/22 22:14 Consult Cardiology Routine Hospital Course (1) Acute combined systolic and diastolic CHF, NYHA class 4: Continued brisk diuretic response with intravenous Lasix. Switched back to oral torsemide at discharge. She states she took Jardiance in the past which made her itch and refuses to take it again. Cardiology recommended it. Cardiac echo reveals severe left ventricular systolic dysfunction with regional wall motion abnormalities. Estimated ejection fraction 25%. Cardiology consultation appreciated. Low-dose metoprolol and low-dose lisinopril have been started but lisinopril was discontinued due to low blood pressure. Midodrine has been restarted to due to low blood pressure. Lexiscan stress testing was completed this morning, November 09, and the results remain pending. This will not prevent her discharge however. Repeat chest x-ray done today, November 09, looks better. (2) Shortness of breath: Due to CHF. Improved with diuresis. She has acute hypoxic respiratory failure. Two-step was completed today and she will require 3 L of oxygen continuously. 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 Stable. Continue current medical management (4) Deep vein thrombosis (DVT) of right lower extremity: Continue Eliquis therapy (5) Hypothyroid: Continue thyroid replacement. Free T3 level is slightly low with normal free T4. (6) Hypertension: Stable. Low-dose lisinopril and metoprolol have been started. Blood pressure is slightly low. Midodrine has been restarted Plan Home today, November 09, on home oxygen therapy and continued diuresis and other cardiac medications. She will follow-up with cardiology and her PCP to discuss Lexiscan stress test findings. Total Time Total Time Spent Total Time Spent (In Minutes): 45 minutes Discharge Plan Discharge Items Patient Disposition: Home - Home Health Services Reason For Visit: CHF EXACERBATION Discharge Diagnosis: Combined systolic and diastolic congestive heart failure, acute hypoxic respiratory failure, chronic hypotension Activity: Resume your previous activity Non-emergency contact: Primary Care Provider and Prototype Deicer Assembler Call non-emergency contact if: you have any medication questions and your symptoms worsen Follow-up/Referrals: Mauri Diallo [Primary Care Provider] - Diet: Regular and Heart Healthy Addtl Attending Provider Instructions: Wear oxygen at 3 L/min continuously. Take medications as directed. Follow-up with primary care provider and cardiology as soon as possible. Metoprolol is new and torsemide dosage has been increased. Also take potassium once daily Pending Studies at Discharge: Yes Studies:: Lexiscan stress test results Stand-Alone Forms: My [facility] [employer], Smoking Cessation Medications and DC Order Prescriptions: New metoprolol tartrate 25 mg Tablet 12.5 mg PO BID Qty: 30 0RF torsemide 40 mg tablet 40 mg PO DAILY Qty: 30 0RF potassium chloride 20 mEq Tablet,Er Particles/Crystals 20 meq PO DAILY Qty: 30 0RF Continued Eliquis 5 mg tablet 5 mg PO BID melatonin 3 mg tablet 6 mg PO HS PRN (Reason: Sleep) sennosides [senna] 8.6 mg tablet 8.6 mg PO BID midodrine 5 mg Tablet 10 mg PO TID Rx Instructions: do not give last dose of day after 6PM or within 4 hrs of bedtime fexofenadine [Irish] 180 mg Tablet 180 mg PO HS atorvastatin 80 mg tablet 80 mg PO QDB levothyroxine 88 mcg tablet 88 mcg PO DAILY Discontinued torsemide 20 mg tablet 20 mg PO QAM Discharge Orders: Discharge Order- CHF (Routine); Ordered 11/09/22 Ordered By: Tristan Medina Admission Data Admit Date/Time: 11/06/22 20:41 Attending Provider: Tristan Medina Admit Provider: Vicky Anaya Primary Care Provider: Mauri Diallo Other Providers: Raudel Rojas ; Mohsen Lyon Coding Level of Care Code 47316 INP/OBS DISCH >30 MIN Diagnoses Acute combined systolic and diastolic CHF, NYHA class 4 I50.41 Shortness of breath R06.02 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
[2022-11-09 15:27] VITALS: PULSE 103; O2SAT 93
--- NOTE | 2022-11-09 16:43 | Myocardial Perfusion Study ---
Date of Service November 09, 2022 Myocardial Perfusion Study [facility] Myocardial Perfusion Study Report LEXISCAN STRESS MYOCARDIAL PERFUSION IMAGING STUDY. Brief description: Rest portion-at 0800 the patient was injected with 10.3 mCi of Tc 99m Cardiolite IV. 1 hour following injection, myocardial perfusion imaging of the heart was performed in multiple projections. Stress portion-baseline heart rate, blood pressure, and EKG were obtained. These parameters were monitored for 3 minutes during infusion and 3 minutes during recovery. They were intermittently recorded. The patient was infused w ith 0.4 mg IV Lexiscan. This was immediately followed by 33.0 mCi of Tc 99m Cardiolite IV. 30 minutes following injection, myocardial perfusion imaging of the heart was performed in multiple projections identical to those used for rest portion. Patient reported no symptoms during infusion. Hemodynamic and electrocardiographic findings: 1. Baseline heart rate of 88 bpm jake to a maximum of 106 beats per minute with Lexiscan infusion. 2. Baseline blood pressure of 94/58 mmHg jake to a maximum of 104/57 mmHg with Lexiscan infusion. 3. Baseline EKG was suggestive of ectopic atrial rhythm with a normal rate. Prolonged QT (QTc 472 ms) and nonspecific T wave changes. There were occasional PACs with Lexiscan infusion. No additional diagnostic ST segment or T wave changes. Myocardial perfusion imaging findings: 1. Raw data analysis demonstrated increase liver and GI uptake, mild breast attenuation. This is an adequate quality study for interpretation. 2. Gated myocardial perfusion imaging demonstrated mild global hypokinesis, severe hypokinesis to akinesis isolated to the inferior septum, inferior, and apical myocardium. Calculated EF of 41% appears to overestimate actual EF (30%). The LV size is normal. 3. There is a large in size, moderate to severe intensity, partially reversible MPI defect of the inferior, inferolateral, and apical myocardium which increases in severity and expands to include the septum, anteroseptum, mid and distal anterior, and distal lateral myocardium with stress. These findings suggest my ocardial infarction or artifact with significant maris-infarct ischemia. 4. Study is severely abnormal. Moderate to high risk of ischemia. No prior study available for comparison. Recommend consider definitive evaluation by coronary angiography as clinically indicated. [facility] Myocardial perfusion code Indication for Procedure (1) Cardiomyopathy: Procedure Code Procedure 1: Myocardial Perfusion Codes: 05233 Cardiovascular Stress Test, multiple Procedure 2: Myocardial Perfusion Codes: 12974 Cardiovascular Stress Test, interpretation and report
== END 2022-11-09 16:02 | disposition home health service (06) | DRG 291 ==
LOC: ED 18:45 → SUATTDRO 20:41 → 2S 20:41